=== PATIENT | male | born 1960 | race Caucasian/White ===

== ENCOUNTER 2016-08-06 15:42 | Outpatient (CLI) | payer MEDICARE | END 2016-08-06 15:43 | disposition home or self-care (01) | DX: Z12.2 Encounter for screening for malignant neoplasm of respiratory organs (principal); F17.210 Nicotine dependence, cigarettes, uncomplicated; J43.9 Emphysema, unspecified ==

== ENCOUNTER 2016-09-09 09:09 | Outpatient (CLI) | payer MEDICARE ==
[2016-09-09 09:52] LABS: BASOPHILS % (AUTO) 0.2 %; EOSINOPHILS # (AUTO) 0.1 10^3/uL (0.0-0.7); EOSINOPHILS % (AUTO) 0.8 %; HCT - HEMATOCRIT 41.5 % (42.0-52.0); LYMPHOCYTES # (AUTO) 2.3 10^3/uL (1.5-3.5); LYMPHOCYTES % (AUTO) 30.6 %; MEAN CORPUSCULAR HGB CONC 33.8 g/dL (32.0-36.0); MEAN CORPUSCULAR VOLUME 94.6 fL (80.0-94.0); MEAN PLATELET VOLUME 7.8 fL (7.4-11.4); MONOCYTES # (AUTO) 0.8 10^3/uL (0.0-1.0); MONOCYTES % (AUTO) 11.1 %; NEUTROPHILS # (AUTO) 4.3 10^3/uL (1.5-6.6); NEUTROPHILS % (AUTO) 57.3 %; NUCLEATED RED BLOOD CELLS AUTO 0.1 /100WBC; RED BLOOD COUNT 4.39 10^6/uL (4.70-6.10); RED CELL DISTRIBUTION WIDTH 15.3 % (12.0-15.0); UNCORRECTED WHITE BLOOD COUNT 7.5 x10^3/uL; WHITE BLOOD COUNT 7.5 x10^3/uL (4.8-10.8)
[2016-09-09 10:01] LABS: ALBUMIN/GLOBULIN RATIO 1.1 (1.0-2.2); BILIRUBIN,TOTAL 0.8 mg/dL (0.2-1.0); BUN - BLOOD UREA NITROGEN 17 mg/dL (6-20); CALCIUM 9.3 mg/dL (8.5-10.3); CARBON DIOXIDE - CO2 30 mmol/L (21-32); CHLORIDE 102 mmol/L (101-111); CHOLESTEROL 197 mg/dL; CREATININE 0.8 mg/dL (0.6-1.2); GFR - MDRD 100 (>89); GLUCOSE 114 mg/dL (70-100); HDL CHOLESTEROL 65 mg/dL; LDL/HDL RATIO 1.8 (<3.6); POTASSIUM 4.4 mmol/L (3.5-5.0); SODIUM 139 mmol/L (135-145); TOTAL PROTEIN 7.6 g/dL (6.7-8.2); TRIGLYCERIDES 64 mg/dL; VLDL CHOLESTEROL 13 mg/dL
== END 2016-09-09 09:10 | disposition home or self-care (01) ==
LOC: LAB 09:09
PROVIDERS: ATTEND Nurse Practitioner Family
DX: I10 Essential (primary) hypertension (principal)
CPT/HCPCS: 36415; 80053; 80061; 84443; 85025; G0103; 84153

== ENCOUNTER 2016-09-10 13:07 | Outpatient (CLI) | payer MEDICARE ==
[2016-09-10] MEDS ORDERED: GADOBUTROL 7.5 MMOL/7.5 ML VIAL IVP ONE (14:05)
--- NOTE | 2016-09-10 17:10 | MRI Report ---
EXAM: MRI LUMBAR SPINE WITHOUT AND WITH CONTRAST EXAM DATE: 09/10/2016 02:10 PM. CLINICAL HISTORY: BACK PAIN. COMPARISONS: MRI lumbar spine 08/28/2012 TECHNIQUE: Multiplanar, multisequence T1-weighted and fluid-sensitive sequences of the lumbar spine f rom T12 to S1 before and after administration of intravenous contrast. IV contrast: 7 mL Gadavist FINDINGS: Spinal Cord: The conus terminates at L1. No signal abnormality in the visualized spinal cord. Alignment: There is rotatory S-shaped thoracolumbar scoliosis with lower thoracic levoscoliosis and l umbar dextroscoliosis. The gallbladder angle for the lower thoracic/upper lumbar levoscoliosis measur es 23 degrees and the Lopez angle for the lower lumbar dextroscoliosis measures 12 degrees. No signifi cant anterolisthesis or retrolisthesis on the sagittal images. Bone Marrow: Five [id number] lumbar vertebral bodies are assumed. The bone marrow is diffusely h eterogeneous, likely representing fatty replacement of the marrow. No gross fractures or bone lesions . Modic type 1/2 degenerative endplate changes at L1-L2, L3-L4, L4-L5 levels with associated endplate edema. On the postcontrast sequences there is mild associated endplate enhancement, which is favored to be degenerative in nature. Bulky multilevel anterior and lateral osteophytosis. Disk Levels/Facets: T12-L1: Extensive disk height loss and desiccation. Moderate right facet arthropathy. No significant central canal narrowing. Moderate to severe right neuroforaminal narrowing. No left neuroforaminal na rrowing. This level appears similar to prior study. L1-L2: Status post interval laminectomy. Severe right and moderate left facet arthropathy. No residua l central canal narrowing, improved since the prior study. Severe right and [id number] left estella roforaminal narrowing. The neuroforaminal narrowing has progressed since the prior study. L2-L3: Extensive disk height loss and desiccation. Status post interval laminectomy. Severe right and moderate to severe left facet arthropathy. The facet arthropathy has progressed since the prior stud y. Mild to moderate residual central canal narrowing, improved since the prior study. Moderate to sev ere bilateral lateral recess narrowing with mass effect on bilateral traversing L3 nerves, progressed significantly since the prior study. Moderate to severe bilateral neuroforaminal narrowing. The neur oforaminal narrowing has progressed. L3-L4: Extensive disk height loss and desiccation. Moderate diffuse disk bulge with superimposed left foraminal/lateral protrusion (series 701 image 16). Moderate bilateral facet arthropathy. The left l ateral protrusion likely has mass effect on the exiting left L3 nerve at this level. Mild central can al narrowing. Moderate to severe bilateral neuroforaminal narrowing. The neuroforaminal narrowing has slightly progressed. Central canal narrowing is similar. L4-L5: Moderate disk height loss and desiccation. Mild to moderate diffuse disk bulge and moderate bi lateral facet arthropathy. No significant central canal narrowing. Moderate to severe bilateral neuro foraminal narrowing. The central canal narrowing is similar to prior study. The neuroforaminal narrow ing has progressed. L5-S1: Moderate bilateral facet arthropathy. No significant central canal or neuroforaminal narrowing . Spinal Canal: No enhancing masses within the spinal canal. No epidural abscess. Musculature: Mild fatty atrophy of the paraspinal musculature. No paraspinal edema or abnormal enhanc ement. Other: The visualized pelvic cavity is unremarkable. IMPRESSION: 1. No MRI evidence of diskitis osteomyelitis or epidural abscess/phlegmon. 2. Moderate to severe multilevel degenerative spondylosis, as detailed above and summarized below. Co mpared to prior study from 08/28/2012, there has been improvement in central canal narrowing at the p ostsurgical L1-L2 and L2-L3 levels, as detailed above. However, overall there has been progression at several levels, as detailed. 3. Rotatory S-shaped thoracolumbar scoliosis with lower thoracic levoscoliosis and lumbar dextroscoli osis. The gallbladder angle for the lower thoracic/upper lumbar levoscoliosis measures 23 degrees and the Lopez angle for the lower lumbar dextroscoliosis measures 12 degrees. No significant anterolisthe sis or retrolisthesis on the sagittal images. 4. Modic type 1/2 degenerative endplate changes at L1-L2, L3-L4, L4-L5 levels with associated endplat e edema. On the postcontrast sequences there is mild associated endplate enhancement, which is favore d to be degenerative in nature. Modic 1 changes may represent a source of pain. 5. T12-L1 level demonstrates no significant central canal narrowing. Moderate to severe right neurofo raminal narrowing. No left neuroforaminal narrowing. This level appears similar to prior study. 6. L1-L2 level demonstrates no residual central canal narrowing, improved since the prior study. Rena re right and [id number] left neuroforaminal narrowing. The neuroforaminal narrowing has progres sed since the prior study. 7. L2-L3 level demonstrates mild to moderate residual central canal narrowing, improved since the sharif or study. Moderate to severe bilateral lateral recess narrowing with mass effect on bilateral lisa ing L3 nerves, progressed significantly since the prior study. Moderate to severe bilateral neurofora josep narrowing. The neuroforaminal narrowing has progressed. 8. At the L3-L4 level, the left lateral protrusion likely has mass effect on the exiting left L3 nerv e at this level. Mild central canal narrowing. Moderate to severe bilateral neuroforaminal narrowing. The neuroforaminal narrowing has slightly progressed. Central canal narrowing is similar. 9. L4-L5 level demonstrates no significant central canal narrowing. Moderate to severe bilateral neur oforaminal narrowing. The central canal narrowing is similar to prior study. The neuroforaminal narro wing has progressed. Comment: The following findings are so common in adults without low back pain that while we report th eir presence, they must be interpreted with caution and in the context of the clinical situation. (Re kane Urias et al, Spine 2001) Prevalence of findings in patients without low back pain: Disk degeneration (any evidence): 92% Disk desiccation/T2 signal loss: 83% Disk height loss: 56% Disk bulge: 64% Disk protrusion: 32% Annular tear/high intensity zone: 38% [facility] Referring Provider Line: [phone] SITE ID: [id number]
== END 2016-09-10 13:08 | disposition home or self-care (01) ==
LOC: DI 13:07
PROVIDERS: ATTEND Nurse Practitioner Family
DX: M51.36 Other intervertebral disc degeneration, lumbar region (principal); M51.35 Other intervertebral disc degeneration, thoracolumbar region; M47.896 Other spondylosis, lumbar region; M51.26 Other intervertebral disc displacement, lumbar region; M41.85 Other forms of scoliosis, thoracolumbar region; M41.84 Other forms of scoliosis, thoracic region; M41.86 Other forms of scoliosis, lumbar region
CPT/HCPCS: 72158; A9585

== ENCOUNTER 2018-02-11 11:50 | Outpatient (CLI) | payer MEDICARE | END 2018-02-11 11:51 | disposition home or self-care (01) | LOC: RT.S 11:50 | PROVIDERS: ATTEND Nurse Practitioner Family | DX: I49.9 Cardiac arrhythmia, unspecified (principal) | CPT/HCPCS: 93005 ==

== ENCOUNTER 2018-03-26 14:09 | Outpatient (CLI) | payer MEDICARE ==
[2018-03-26 14:32] LABS: BASOPHILS % (AUTO) 0.5 %; EOSINOPHILS % (AUTO) 0.7 %; LYMPHOCYTES # (AUTO) 1.9 10^3/uL (1.5-3.5); LYMPHOCYTES % (AUTO) 27.3 %; MEAN CORPUSCULAR HEMOGLOBIN 32.8 pg (27.0-31.0); MEAN CORPUSCULAR HGB CONC 34.1 g/dL (32.0-36.0); MEAN CORPUSCULAR VOLUME 96.1 fL (80.0-94.0); MEAN PLATELET VOLUME 8.3 fL (7.4-11.4); MONOCYTES # (AUTO) 0.8 10^3/uL (0.0-1.0); MONOCYTES % (AUTO) 11.8 %; NEUTROPHILS # (AUTO) 4.2 10^3/uL (1.5-6.6); NEUTROPHILS % (AUTO) 59.7 %; PLT - PLATELET COUNT 223 10^3/uL (130-450); RED BLOOD COUNT 4.26 10^6/uL (4.70-6.10); RED CELL DISTRIBUTION WIDTH 15.5 % (12.0-15.0)
[2018-03-26 14:42] LABS: ALBUMIN 4.3 g/dL (3.2-5.5); ALBUMIN/GLOBULIN RATIO 1.1 (1.0-2.2); ALKALINE PHOSPHATASE 77 IU/L (42-121); ALT ALANINE AMINOTRANSFERASE 64 IU/L (10-60); AST ASPARTATE AMINOTRANSFERASE 78 IU/L (10-42); BILIRUBIN,TOTAL 0.8 mg/dL (0.2-1.0); BUN - BLOOD UREA NITROGEN 13 mg/dL (6-20); CALCIUM 9.4 mg/dL (8.5-10.3); CARBON DIOXIDE - CO2 28 mmol/L (21-32); CHLORIDE 99 mmol/L (101-111); CHOL/HDL RATIO 1.9 (<5.0); CHOLESTEROL 182 mg/dL; CREATININE 0.6 mg/dL (0.6-1.2); GFR - MDRD 138 (>89); GLUCOSE 96 mg/dL (70-100); HDL CHOLESTEROL 98 mg/dL; LDL CHOLESTEROL,CALCULATED 74 mg/dL; LDL/HDL RATIO 0.8 (<3.6); SODIUM 137 mmol/L (135-145); TOTAL PROTEIN 8.3 g/dL (6.7-8.2); VLDL CHOLESTEROL 10 mg/dL
== END 2018-03-26 14:10 | disposition home or self-care (01) ==
LOC: LAB 14:09
PROVIDERS: ATTEND Nurse Practitioner Family
DX: Z13.0 Encounter for screening for diseases of the blood and blood-forming organs and certain disorders involving the immune mechanism (principal); Z12.5 Encounter for screening for malignant neoplasm of prostate; Z13.6 Encounter for screening for cardiovascular disorders; I10 Essential (primary) hypertension
CPT/HCPCS: 36415; 80053; 80061; 84443; 85025; G0103; 83721; 84153

== ENCOUNTER 2018-05-17 10:52 | Inpatient (IN) | payer MEDICARE ==
--- NOTE | 2018-05-17 10:57 | ED Physician Documentation ---
PD HPI URI - Stated complaint Stated Complaint: DIFF BREATHING - History obtained from History obtained from: Patient - History of Present Illness Timing - onset: How many days ago (several days) Timing details: Gradual onset (He has had several days to week of cough and congestion with some greenish sputum initially which and that has become more clear. He has had progressive dyspnea and wheezing over the last several days. He has a left-sided chest pain with deep breathing and coughing. He has not had any vomiting or diarrhea. He states he does have history of COPD but does not use any regular medicines at home. He has an albuterol inhaler to use as needed. He had been using that frequently over the last couple of days without much improvement.), Still present Associated symptoms: Fever, Chills, Productive cough, Chest pain (left side), Dyspnea. No: NVD, Bilateral edema Contributing factors: COPD / asthma. No: Sick contact Improves by: Rest. No: MDI/nebulizer Worsened by: Activity, Other (cough) Similar symptoms before: Diagnosis (pneumonia several years ago) Recently seen: Not recently seen Review of Systems Constitutional: reports: Fever, Chills Nose: reports: Congestion. denies: Rhinorrhea / runny nose Throat: denies: Sore throat Cardiac: reports: Chest pain / pressure. denies: Palpitations, Pedal edema, Calf pain Respiratory: reports: Dyspnea, Cough, Wheezing. denies: Hemoptysis GI: denies: Abdominal Pain, Nausea, Vomiting, Diarrhea Skin: denies: Rash, Lesions Musculoskeletal: denies: Extremity swelling Neurologic: reports: Generalized weakness. denies: Focal weakness, Numbness, Near syncope PD PAST MEDICAL HISTORY - Past Medical History Cardiovascular: Hypertension Respiratory: COPD Musculoskeletal: Chronic back pain - Past Surgical History Past Surgical History: Yes Ortho: Spine surgery - Present Medications Home Medications: Ambulatory Orders Medication Instructions Recorded Confirmed Oxycodone HCl/Acetaminophen 1 - 2 each PO Q6HR PRN #30 tablet 12/10/13 [Percocet 5-325 mg Tablet] Tiotropium [place] [Spiriva] 18 mcg 12/10/13 12/10/13 - Allergies Allergies/Adverse Reactions: Allergies Allergy/AdvReac Type Severity Reaction Status Date / Time lisinopril Allergy Severe soa/coma? Verified 10/03/12 09:56 - Living Situation Living Situation: reports: Alone Living Arrangement: reports: At home - Social History Does the pt smoke?: Yes Smoking Status: Current every day smoker Does the pt drink ETOH?: Yes Does the pt have substance abuse?: Yes - Immunizations Immunizations are current?: No PD ED PE NORMAL - Vitals Vital signs reviewed: Yes - General General: Alert and oriented X 3, Well developed/nourished, Other (He is demonstrating work of breathing with pursed lip breathing initially and prolonged expiratory phase. He is able to speak in partial sentences.) - HEENT HEENT: Ears normal, Moist mucous membranes, Pharynx benign - Neck Neck: Supple, no meningeal sign, No adenopathy, No JVD - Cardiac Cardiac: RRR, No murmur - Respiratory Respiratory: No: Clear bilaterally (diffuse wheezing and diminished sounds left base. ) - Abdomen Abdomen: Normal bowel sounds, Soft, Non tender - Derm Derm: Normal color - Extremities Extremities: No tenderness to palpate, Normal ROM s pain, No edema, No calf tenderness / cord - Neuro Neuro: Alert and oriented X 3, No motor deficit, Normal speech Eye Opening: Spontaneous Motor: Obeys Commands Verbal: Oriented GCS Score: 15 Results - Vitals Vitals: Vital Signs - 24 hr 05/17/18 05/17/18 05/17/18 10:55 11:08 11:30 Temperature 36.3 C L Heart Rate 96 93 84 Respiratory 26 H 28 H 28 H Rate Blood Pressure 148/91 H 148/80 H O2 Saturation 95 05/17/18 05/17/18 05/17/18 13:00 13:24 13:40 Temperature Heart Rate 96 93 Respiratory 30 H 22 Rate Blood Pressure 105/76 O2 Saturation 93 Oxygen O2 Source Nasal cannula - Labs Labs: Laboratory Tests 05/17/18 05/17/18 05/17/18 11:18 11:18 11:18 WBC 7.0 RBC 4.50 L Hgb 15.0 Hct 44.0 MCV 97.6 H MCH 33.3 H MCHC 34.1 RDW 15.4 H Plt Count 307 MPV 8.3 Neut # (Auto) 3.7 Lymph # (Auto) 2.0 [place] # (Auto) 1.2 H Eos # (Auto) 0.0 Baso # (Auto) 0.0 Absolute Nucleated RBC 0.01 Nucleated RBC % 0.1 Manual Slide Review Indicated Platelet Morphology RARE GIANT PLATELETS Sodium 138 Potassium 4.2 Chloride 99 L Carbon Dioxide 24 Anion Gap 15.0 H BUN 9 Creatinine 0.6 Estimated GFR (MDRD) 138 Glucose 117 H Lactic Acid Calcium 9.5 Magnesium 2.1 Total Bilirubin 0.6 AST 42 ALT 35 Alkaline Phosphatase 81 Troponin I < 0.04 B-Natriuretic Peptide Total Protein 8.5 H Albumin 4.1 Globulin 4.4 H Albumin/Globulin Ratio 0.9 L Lipase 30 Ethyl Alcohol 05/17/18 05/17/18 05/17/18 11:18 11:18 11:19 WBC RBC Hgb Hct MCV MCH MCHC RDW Plt Count MPV Neut # (Auto) Lymph # (Auto) [place] # (Auto) Eos # (Auto) Baso # (Auto) Absolute Nucleated RBC Nucleated RBC % Manual Slide Review Platelet Morphology Sodium Potassium Chloride Carbon Dioxide Anion Gap BUN Creatinine Estimated GFR (MDRD) Glucose Lactic Acid 1.7 Calcium Magnesium Total Bilirubin AST ALT Alkaline Phosphatase Troponin I B-Natriuretic Peptide 87 Total Protein Albumin Globulin Albumin/Globulin Ratio Lipase Ethyl Alcohol 185.4 - Rads (name of study) chest xray Radiology: Prelim report reviewed (bibasilar opacities - atelectasis vs infiltrates) PD MEDICAL DECISION MAKING - ED course Complexity details: re-evaluated patient (His oxygenation with improved breathing and less pain is actually down to 93% on nasal cannula. He is having much less work of breathing however. He is still attentive and interacting well.), considered differential (He has since stepwise improvement with several nebulizer treatments. However he is still having some work of breathing and wheezing. He does not look to be near respiratory failure. He is awake and conversant. I think he will need further treatment beyond the emergency department phase in order to get improved well enough. I will talk with the hospitalist. He does have improvement in his cough and breathing with treatments. His chest x-ray shows some bibasilar opacities that could be early infiltrates. Clinically he acts like pneumonia with a COPD exacerbation. I presume his left-sided chest pain is pleuritic pleuritic pleurisy as there is no signs of pneumothorax or effusion. He is feeling better with regard to that pain after some IV morphine. He was given antibiotics for presumed bacterial bronchitis or pneumonia.), d/w patient Departure - Departure Disposition: [facility] DC/Xfer
[2018-05-17] MEDS ORDERED: IPRATROPIUM/ALBUTEROL 3 ML NEB INH STA ×2 (11:02→11:48)
[2018-05-17] MEDS ORDERED: IPRATROPIUM/ALBUTEROL 3 ML NEB INH ONE ×2 (11:02→11:43)
[2018-05-17] MEDS ORDERED: MORPHINE 10 MG/ML VIAL IVP STA ×2 (11:12→12:22)
[2018-05-17] MEDS ORDERED: SODIUM CHLORIDE 0.9% 1,000 ML IV ONE (11:12)
[2018-05-17] MEDS ORDERED: KETOROLAC 15 MG/ML VIAL IVP STA (11:13)
[2018-05-17] MEDS ORDERED: DEXAMETHASONE 10 MG/ML VIAL IVP STA (11:13)
[2018-05-17 11:30] LABS: BASOPHILS % (AUTO) 0.4 %; EOSINOPHILS % (AUTO) 0.3 %; LYMPHOCYTES % (AUTO) 28.1 %; MEAN CORPUSCULAR HEMOGLOBIN 33.3 pg (27.0-31.0); MEAN CORPUSCULAR HGB CONC 34.1 g/dL (32.0-36.0); MEAN CORPUSCULAR VOLUME 97.6 fL (80.0-94.0); MEAN PLATELET VOLUME 8.3 fL (7.4-11.4); MONOCYTES # (AUTO) 1.2 10^3/uL (0.0-1.0); MONOCYTES % (AUTO) 17.7 %; NEUTROPHILS # (AUTO) 3.7 10^3/uL (1.5-6.6); NEUTROPHILS % (AUTO) 53.5 %; PLT - PLATELET COUNT 307 10^3/uL (130-450); RED CELL DISTRIBUTION WIDTH 15.4 % (12.0-15.0)
[2018-05-17 11:37] LABS: ALBUMIN 4.1 g/dL (3.2-5.5); ALBUMIN/GLOBULIN RATIO 0.9 (1.0-2.2); BILIRUBIN,TOTAL 0.6 mg/dL (0.2-1.0); CALCIUM 9.5 mg/dL (8.5-10.3); CREATININE 0.6 mg/dL (0.6-1.2); MAGNESIUM 2.1 mg/dL (1.7-2.8); TOTAL PROTEIN 8.5 g/dL (6.7-8.2)
[2018-05-17 11:48] LABS: PLATELET MORPHOLOGY RARE GIANT PLATELETS (NORMAL)
--- NOTE | 2018-05-17 12:07 | XRAY Report ---
Reason: chest pain Procedure Date: 05/17/2018 Accession Number: [id number] / [id number] Procedure: XR - Chest 1 View X-Ray CPT Code: 31726 FULL RESULT: EXAM: CHEST RADIOGRAPHY EXAM DATE: 05/17/2018 11:38 AM. CLINICAL HISTORY: Chest pain. COMPARISON: CHEST 2 VIEW PA/LAT 03/11/2014 10:24 AM. TECHNIQUE: 1 view. FINDINGS: Lungs/Pleura: Lung volumes are low. Right greater than left lower lung opacities. No pneumothorax. Mediastinum: Heart size and mediastinal contour are stable. Other: Healed right-sided rib fractures. Degenerative changes of both shoulders. IMPRESSION: 1. Hypoventilatory changes with right greater than left bibasilar consolidation/atelectasis. [facility]
[2018-05-17] MEDS ORDERED: cefTRIAXone 1 GM VIAL IVP STA (12:22)
[2018-05-17] MEDS ORDERED: ALBUTEROL NEB 2.5 MG/3 ML INH STA (12:22)
[2018-05-17] MEDS ORDERED: AZITHROMYCIN INJ 500 MG in SODIUM CHLORIDE 0.9% 250 ML IV STA (12:23)
[2018-05-17] MEDS ORDERED: AZITHROMYCIN INJ 500 MG in SODIUM CHLORIDE 0.9% 250 ML IV SCH (14:03)
[2018-05-17] MEDS ORDERED: ALBUTEROL NEB 2.5 MG/3 ML INH PRN (14:21)
[2018-05-17] MEDS ORDERED: ONDANSETRON 4 MG/2 ML VIAL IVP PRN (14:27)
[2018-05-17] MEDS ORDERED: MORPHINE 2 MG/ML CARPUJECT IVP PRN (14:27)
[2018-05-17] MEDS ORDERED: LORazepam 2 MG/ML VIAL IVP PRN (14:42)
[2018-05-17] MEDS ORDERED: SODIUM CHLORIDE 0.9% 1,000 ML IV SCH (15:00)
--- NOTE | 2018-05-17 15:08 | HISTORY & PHYSICAL EXAMINATION ---
Chief Complaint - Chief Complaint Chief Complaint: cough, and SOB History of Present Illness - History of Present Illness HPI Comment/Other: Mr. Samuel is a 57-yrs-old male with a PMH significant for chronic alcoholic abuse, current cigarette smoker, HTN, COPD, who present ER complain of cough, congestion and shortness of breath. Pt report he had several days of congestion and cough with some greenish sputum initially, then it become more clear now. He report he did not feel to have fever, but he feel chill and cold. He report he has been progressive dyspnea and wheezing over the last several days as well. He report he has a left-sided chest pain when he had deep breathing and coughing. He report he had hx of COPD and he still smokes cigarette half pack per day now. He also report he almost drink alcohol daily and today he drink alcohol before he went to ER. He state he had an albuterol inhaler to use as needed. He report he has been using inhaler much more frequently over the last couple of days but without much improvement. Pt denies headache, fever, abdominal, nausea, vomiting, diarrhea, vision change, focus neurological defici ts. His troponin test is less 0.04. WBC is 7. Alcohol level is 185. Pt is afebrile at ER. 92% sats is at 2 liter of O2, RR is 22, otherwise he is hemodynamic stable. History - Past Medical History Cardiovascular: reports: Hypertension Respiratory: reports: COPD Musculoskeletal: reports: Chronic back pain - Past Surgical History Ortho: reports: Spine surgery - Family & Social History Family History: Mother: , Cancer, Father: , CAD, COPD/Emphysema Family History Comment/Other: pt report his on last year, he is living alone, and his sister is living close to him. He had four children but is far away from him. Living arrangement: At home Living Situation: Alone Social History Notes: he admitted half pack cigarette daily and daily alcohol, denies drug issue. - POLST POLST Status: Full Code Meds/Allgy - Home Medications Home Medications: Ambulatory Orders Medication Instructions Recorded Confirmed Albuterol Sulfate [Proair Hfa 2 puffs INH QID PRN 05/17/18 05/17/18 Inhaler] amLODIPine [Norvasc] 5 mg PO DAILY 05/17/18 05/17/18 - Allergies Allergies/Adverse Reactions: Allergies Allergy/AdvReac Type Severity Reaction Status Date / Time lisinopril Allergy Severe ANAPHALACTI Verified 05/17/18 15:12 C/ARREST Review of Systems - Constitutional Constitutional: reports: Chills. denies: Fatigue, Fever, Malaise, Weakness, Poor appetite, Diaphoresis, Night sweats - Eyes Eyes: denies: Pain, Irritation, Amaurosis, Blurred vision, Spots in vision, Field loss, Dipolpia - Ears, Nose & Throat Ears, Nose & Throat: reports: Nasal congestion. denies: Ear pain, Hearing loss, Hearing aids, Tinnitus, Vertigo, Nasal pain, Nasal discharge, Nosebleeds, Nasal obstruction, Postnasal drainage, Dentures, Sore throat, Hoarseness, Mouth lesions, Bleeding gums - Cardiovascular Cariovascular: denies: Irregular heart rate, Palpitations, Chest pain, Edema, Lightheadedness, Syncope, Exertional dyspnea, Decr. exercise tolerance - Respiratory Respiratory: reports: Cough, Sputum production, SOB at rest, SOB with exertion, Apnea. denies: Wheezing, Snoring, Hemoptysis, Orthopnea, Stridor, Pleuritic pain - Gastrointestinal Gastrointestinal: denies: Abdominal pain, Abdominal distention, Constipation, Diarrhea, Change in bowel habits, Rectal bleeding, Black stools, Bloody stools, Nausea, Vomiting, Bile emesis, Coffee grounds emesis, Reflux/heartburn - Genitourinary Genitourinary: denies: Dysuria, Frequency, Urgency, Hematuria, Incontinence, Flank pain, Nocturia, Urethral discharge - Musculoskeletal Musculoskeletal: denies: Muscle pain, Back pain, Muscle aches, Stiffness, Limited range of motion, Muscle weakness, Gout, Joint pain, Joint swelling - Integumentary Integumentary: denies: Rash, Pruritis, Lesions, Dryness, Lumps, Acne, Pigment changes - Neurological Neurological: denies: General weakness, Focal weakness, Headache, Dizziness, Numbness, Pre-existing deficit, Abnormal gait, Seizures, Incoordination, Slurred speech - Psychiatric Psychiatric: denies: Depression, Anxiety, Suicidal, Delusions, Hallucinations, Homicidal - Endocrine Endocrine: denies: Polyuria, Polydypsia, Polyphagia, Intolerance to cold - Hematologic/Lymphatic Hematologic/Lymphatic: denies: Anemia, Bruising, Petechiae, Blood clots, Lymphadenopathy, Bleeding tendencies Prior Level of Functionality: pt is living alone and independent. Exam - Vital Signs Reviewed Vital Signs: Yes Vital Signs: Vital Signs x48h Temp Pulse Resp BP Pulse Ox 05/17/18 14:32 95 22 114/86 H 92 05/17/18 14:04 86 17 113/91 H 92 05/17/18 13:40 93 05/17/18 13:24 93 22 105/76 05/17/18 13:00 96 30 H 05/17/18 12:15 34 H 92 05/17/18 12:00 101 H 34 H 101/80 87 L 05/17/18 11:30 84 28 H 148/80 H 05/17/18 11:08 93 28 H 05/17/18 10:55 36.3 C L 96 26 H 148/91 H 95 - Physical Exam General Appearance: positive: No acute distress, Alert. negative: Lethargic Eyes Bilateral: positive: Normal inspection, PERRL, No lid inflammation, Conjunctivae nml ENT: positive: ENT inspection nml, Pharynx nml, No signs of dehydration. negative: Purulent nasal drainage, Pharyngeal erythema, Oral lesions Neck: positive: Nml inspection, Thyroid nml, No JVD, Trachea midline. negative: Thyromegaly, Lymphadenopathy (R), Lymphadenopathy (L), Stiff neck, Swelling/bruising, Tracheal deviation Respiratory: positive: Chest non-tender, No respiratory distress. negative: Wheezes, Rales, Rhonchi Cardiovascular: positive: Regular rate & rhythm, No murmur, No gallop, Tachycardia. negative: Irregularly irregular, Extrasystoles, Bradycardia, JVD present, Systolic murmur, Diastolic murmur Peripheral Pulses: positive: 2+ Abdomen: positive: Non-tender, No organomegaly, Nml bowel sounds, No distention. negative: Tenderness, Guarding, Rebound Back: positive: Nml inspection. negative: CVA tenderness (R), CVA tenderness (L) Skin: positive: Color nml, No rash, Warm, Dry. negative: Cyanosis, Diaphoresis, Pallor Extremities: positive: Non-tender, Full ROM, Nml appearance. negative: Calf tenderness, Joint swelling, Amor's sign/cords Neurologic/Psychiatric: positive: Oriented x3, Sensation nml, Mood/affect nml. negative: Weakness, Sensory loss, Facial droop, Slurred/abnml speech, Depressed mood/affect Sepsis Event Note (H) - Evaluation Current Stage of Sepsis: Ruled out Conclusion/Plan - Problem List (1) Basal pneumonia of both lungs Conclusion/Plan: pt present cough, congestion, SOB, CXR reveals basal pneumonia treat with antibiotics, Azithromycin and Rocephin breath treatment as needed supplement of O2 as needed (2) Acute exacerbation of COPD with asthma Conclusion/Plan: pt present cough, SOB, hx of COPD, current smoker treat with Duoneb, Albuterol PRN Solu-metrol 30mg tid, will wane and titrate O2 supplement as needed (3) Chest pain, pleuritic Conclusion/Plan: troponin test is negative, EKG is unremarkable, When pt deepen breathing and cough, present sharp left chest. it appear atypical chest pain, with Pleuritic start with Solu-metrol already, Ibuprofen PRN tele monitor, closely monitor pt. (4) Alcoholism /alcohol abuse Conclusion/Plan: pt has hx of alcohol abuse. today Alcohol level has 185 start CIWA protocol Ativan PRN order vit, and B1 advise pt quit alcoholism (5) Currently smokes tobacco Conclusion/Plan: pt report he still smoke cigarette half pack per day. Pt decline to have nicotine Patch advise pt quit cigarette smoking, pt already has COPD (6) HTN (hypertension) Conclusion/Plan: stable, will reconcile home Norvasc (7) Full code status Conclusion/Plan: pt request full code - Lab Results Fish Bones: 05/17/18 11:18 05/17/18 11:18 Core Measures - Anticipated LOS I expect patient to be DC'd or transferred within 96 hours.: Yes - DVT/VTE - Prophylaxis VTE/DVT Device ordered at admit?: Yes VTE/DVT Prophylaxis med ordered at admit?: Yes
[2018-05-17 15:51] LABS: ABG PCO2 38 mmHg (34-45); ABG PH 7.38 (7.35-7.45); ABG PO2 66 mmHg (80-100)
[2018-05-17 15:52] LABS: ABG BASE EXCESS -2.7 mmol/L (-2.0-3.0); ABG OXYGEN SATURATION 92 % (94-98); ABG TCO2 23.1 MMOL/L (21.0-29.0); ALLEN TEST POSITIVE
[2018-05-17] MEDS: SODIUM CHLORIDE FLUSH 0.9% 10 ML SYRINGE IVP SCH (16:20)
[2018-05-17] MEDS: methylPREDNISolone SUCCINATE 40 MG/ML VIAL IVP SCH ×2 (16:20→22:25)
[2018-05-17] MEDS: IPRATROPIUM/ALBUTEROL 3 ML NEB INH PRN ×2 (16:23→20:30)
[2018-05-17] MEDS: FAMOTIDINE 20 MG TABLET PO SCH (20:18)
[2018-05-17] MEDS: IBUPROFEN 400 MG TABLET PO PRN (20:18)
[2018-05-17] MEDS: guaiFENesin 600 MG TABLET PO SCH (20:18)
[2018-05-17] MEDS: ZOLPIDEM 5 MG TABLET PO PRN (22:25)
[2018-05-17] MEDS: SODIUM CHLORIDE FLUSH 0.9% 10 ML SYRINGE IVP PRN (22:26)
[2018-05-18] MEDS: SODIUM CHLORIDE FLUSH 0.9% 10 ML SYRINGE IVP SCH ×3 (01:17→17:28)
[2018-05-18 05:41] LABS: CALCIUM 8.5 mg/dL (8.5-10.3); CREATININE 0.5 mg/dL (0.6-1.2)
[2018-05-18 05:50] LABS: BASOPHILS % (AUTO) 0.1 %; HGB - HEMOGLOBIN 12.7 g/dL (14.0-18.0); LYMPHOCYTES # (AUTO) 0.4 10^3/uL (1.5-3.5); LYMPHOCYTES % (AUTO) 9.1 %; MEAN CORPUSCULAR HEMOGLOBIN 32.8 pg (27.0-31.0); MEAN CORPUSCULAR HGB CONC 32.6 g/dL (32.0-36.0); MEAN CORPUSCULAR VOLUME 100.6 fL (80.0-94.0); MEAN PLATELET VOLUME 8.4 fL (7.4-11.4); MONOCYTES # (AUTO) 0.1 10^3/uL (0.0-1.0); MONOCYTES % (AUTO) 1.7 %; NEUTROPHILS # (AUTO) 3.9 10^3/uL (1.5-6.6); NEUTROPHILS % (AUTO) 89.1 %; PLT - PLATELET COUNT 240 10^3/uL (130-450); RED BLOOD COUNT 3.88 10^6/uL (4.70-6.10); WHITE BLOOD COUNT 4.4 x10^3/uL (4.8-10.8)
[2018-05-18] MEDS: IBUPROFEN 400 MG TABLET PO PRN ×2 (06:29→20:26)
[2018-05-18] MEDS: methylPREDNISolone SUCCINATE 40 MG/ML VIAL IVP SCH (06:29)
[2018-05-18] MEDS: SODIUM CHLORIDE FLUSH 0.9% 10 ML SYRINGE IVP PRN (06:31)
[2018-05-18 06:34] LABS: PLATELET ESTIMATE, MANUAL NORMAL (130-450,000) (NORMAL); PLATELET MORPHOLOGY 1+ LARGE PLATELETS (NORMAL); RBC MORPHOLOGY (MULTIPLE) 1+ MACROCYTOSIS (NORMAL)
[2018-05-18] MEDS: IPRATROPIUM/ALBUTEROL 3 ML NEB INH PRN (07:26)
[2018-05-18] MEDS: ACETAMINOPHEN 325 MG TABLET PO PRN (08:08)
[2018-05-18] MEDS: PRENATAL VITAMIN TABLET PO SCH (08:31)
[2018-05-18] MEDS: cefTRIAXone 1 GM in SODIUM CHLORIDE 0.9% MINIBAG 100 ML IV SCH (08:31)
[2018-05-18] MEDS: guaiFENesin 600 MG TABLET PO SCH ×2 (08:31→20:26)
[2018-05-18] MEDS: amLODIPine 5 MG TABLET PO SCH (08:32)
[2018-05-18] MEDS: THIAMINE 100 MG TABLET PO SCH (08:32)
[2018-05-18] MEDS: FAMOTIDINE 20 MG TABLET PO SCH ×2 (08:32→20:26)
[2018-05-18] MEDS: POLYETHYLENE GLYCOL 3350 17 GM PACKET PO SCH (08:37)
[2018-05-18] MEDS: ENOXAPARIN 40 MG/0.4 ML SYRINGE SUBQ SCH (08:38)
[2018-05-18] MEDS ORDERED: IOVERSOL 320 100 ML VIAL IVP ONE ×2 (09:00→14:30)
[2018-05-18] MEDS ORDERED: cefTRIAXone 1 GM VIAL IVP SCH (09:00)
[2018-05-18] MEDS: AZITHROMYCIN INJ 500 MG in SODIUM CHLORIDE 0.9% 250 ML IV SCH (09:21)
[2018-05-18 09:36] LABS: ABG OXYGEN SATURATION 95 % (94-98); ABG PCO2 33 mmHg (34-45); ABG PH 7.47 (7.35-7.45); ABG PO2 74 mmHg (80-100)
[2018-05-18 09:37] LABS: ALLEN TEST POSITIVE
--- NOTE | 2018-05-18 10:42 | CT Report ---
Reason: SOB, PE Procedure Date: 05/18/2018 Accession Number: [id number] / [id number] Procedure: CT - ANGIO CHEST W/WO CPT Code: FULL RESULT: EXAM: CT ANGIOGRAM CHEST EXAM DATE: 05/18/2018 10:18 AM. CLINICAL HISTORY: Shortness of breath, question PE. COMPARISON: CHEST SCREEN CT LOW DOSE W/O 08/06/2016 3:56 PM CHEST 1 VIEW 05/17/2018 11:27 AM. TECHNIQUE: Routine helical imaging was performed through the chest in the pulmonary arterial phase. IV Contrast: 80 cc Optiray 320. Reconstructions: Coronal, sagittal, and axial 3-D MIP reconstructions.Sagittal and coronal. In accordance with CT protocol optimization, one or more of the following dose reduction techniques were utilized for this exam: automated exposure control, adjustment of mA and/or KV based on patient size, or use of iterative reconstructive technique. FINDINGS: Pulmonary Arteries: Diagnostic quality: Adequate through the segmental arteries. No evidence for acute or chronic pulmonary emboli. RV/LV is within normal limits. There is no interventricular septal bowing. There is no reflux of contrast material in the IVC. Lungs/Pleura: There is extensive bilateral centrilobular emphysema, most advanced at the right lung apex, similar to prior. There is mild asymmetric elevation of the left hemidiaphragm. There is dense consolidation at the base of the left lower lobe with mild volume loss. A small left pleural effusion is present. There is mild dependent atelectasis at the right lung base. No right pleural effusion. No pneumothorax. No nodules or edema. Mediastinum: Normal. No cardiac enlargement or adenopathy. Thoracic Aorta: There is minimal atherosclerotic calcification of the aortic arch. No thoracic aortic aneurysm. There is minimal contrast within the proximal thoracic aorta, limiting evaluation for dissection. Upper Abdomen: Unremarkable. Other: There are healing fractures of the right lateral fourth and fifth ribs (series 5, images 42 and 57), which are new compared to 08/06/2016. There are moderate to severe degenerative disk changes of the thoracic spine, similar to prior. Old healed fracture deformity of the inferior margin of the sternum appears unchanged compared to prior. IMPRESSION: 1. No pulmonary emboli identified. 2. Mild asymmetric elevation of the left hemidiaphragm. There is dense consolidation and mild volume loss at the base of the left lower lobe adjacent to the diaphragm. This most likely represents compressive atelectasis, but pneumonia cannot be excluded. There is a small left pleural effusion. 3. Extensive centrilobular edema most advanced at the right lung apex, similar to prior. 4. Healing right lateral fourth and fifth rib fractures, as seen on the recent chest radiograph. [facility]
--- NOTE | 2018-05-18 10:44 | PROVIDER PROGRESS NOTE ---
Subjective - Prog Note Date Prog Note Date: 05/18/18 - Subjective Pt reports feeling: No change Subjective: pt still present SOB and left back pain when he has deepen breath but pt denies fever,chill. Will order CTA to r/o PE, and will order ABGs to monitor pt's respiratory status. Current Medications - Current Medications Current Medications: Active Medications Acetaminophen (Tylenol) 650 mg PO Q4HR PRN PRN Reason: Pain 1 to 4 Last Admin: 05/18/18 08:08 Dose: 650 mg Albuterol () 2.5 mg INH RTQ4H PRN PRN Reason: Wheezing Albuterol/Ipratropium (Duoneb) 3 ml INH Q4HR PRN PRN Reason: Wheezing Last Admin: 05/18/18 07:26 Dose: 3 ml Amlodipine Besylate (Norvasc) 5 mg PO DAILY [facility] Last Admin: 05/18/18 08:32 Dose: 5 mg Enoxaparin Sodium (Lovenox) 40 mg SUBQ DAILY [facility] Last Admin: 05/18/18 08:38 Dose: 40 mg Famotidine (Pepcid) 20 mg PO BID [facility] Last Admin: 05/18/18 08:32 Dose: 20 mg Guaifenesin (Mucinex) 600 mg PO BID [facility] Last Admin: 05/18/18 08:31 Dose: 600 mg Ceftriaxone Sodium 1 gm/ (Sodium Chloride) 100 mls @ 200 mls/hr IV DAILY [facility] Last Infusion: 05/18/18 09:15 Dose: Infused Azithromycin 500 mg/ Sodium (Chloride) 250 mls @ 250 mls/hr IV DAILY@1000 [facility] Last Infusion: 05/18/18 10:35 Dose: Infused Ibuprofen (Motrin) 400 mg PO Q6HR PRN PRN Reason: PAIN Last Admin: 05/18/18 06:29 Dose: 400 mg Lorazepam (Ativan Inj (Vial)) 1 mg IVP Q30M PRN; Protocol PRN Reason: CIWA >8 Methylprednisolone (Solu-Medrol (40mg Vial)) 30 mg IVP TID [facility] Last Admin: 05/18/18 06:29 Dose: 30 mg Morphine Sulfate (Morphine (Carpuject)) 2 mg IVP Q2HR PRN PRN Reason: Pain 8 to 10 Morphine Sulfate (Roxanol) 5 mg PO Q4HR PRN PRN Reason: PAIN Ondansetron HCl (Zofran Inj) 4 mg IVP Q6HR PRN PRN Reason: Nausea / Vomiting Polyethylene Glycol (Miralax) 17 gm PO DAILY [facility] Last Admin: 05/18/18 08:37 Dose: 17 gm Multivit/Folic Acid/Iron (Trinatal Rx 1) 1 tab PO DAILY [facility] Last Admin: 05/18/18 08:31 Dose: 1 tab Sodium Chloride (Normal Saline Flush 0.9%) 10 ml IVP PRN PRN PRN Reason: NEEDED PER PROVIDER ORDERS Last Admin: 05/18/18 06:31 Dose: 10 ml Sodium Chloride (Normal Saline Flush 0.9%) 10 ml IVP 0100,0900,1700 [facility] Last Admin: 05/18/18 08:37 Dose: 10 ml Thiamine HCl (Vitamin B-1) 100 mg PO DAILY [facility] Last Admin: 05/18/18 08:32 Dose: 100 mg Zolpidem Tartrate (Ambien) 5 mg PO QPM PRN PRN Reason: Insomnia Last Admin: 05/17/18 22:25 Dose: 5 mg Albuterol Sulfate [Proair Hfa Inhaler] 2 puffs INH QID PRN 05/17/18 amLODIPine [Norvasc] 5 mg PO DAILY 05/17/18 Objective - Vital Signs/Intake & Output Reviewed Vital Signs: Yes Vital Signs: Vital Signs x48h Temp Pulse Pulse Resp BP Pulse Ox 05/18/18 08:00 36.3 C L 86 20 143/92 H 95 05/18/18 07:26 89 26 H 05/18/18 05:37 36.5 C 79 20 142/86 H 96 Intake & Output: Intake & Output 05/15/18 05/16/18 05/17/18 05/18/18 23:59 23:59 23:59 23:59 Intake Total 2348 1678 Output Total 300 Balance 2348 1378 - Objective General Appearance: positive: No acute distress, Alert. negative: Lethargic Eyes Bilateral: positive: Normal inspection, PERRL, No lid inflammation, Conjunctivae nml ENT: positive: ENT inspection nml, Pharynx nml, No signs of dehydration. negative: Purulent nasal drainage, Pharyngeal erythema, Oral lesions Neck: positive: Nml inspection, Thyroid nml, No JVD, Trachea midline. negative: Thyromegaly, Lymphadenopathy (R), Lymphadenopathy (L), Stiff neck, Swelling/bruising, Tracheal deviation Respiratory: positive: Chest non-tender, Rales. negative: No respiratory distress, Breath sounds nml, Wheezes, Rhonchi Cardiovascular: positive: Regular rate & rhythm, No murmur, No gallop. negative : Irregularly irregular, Extrasystoles, Tachycardia, Bradycardia, JVD present, Systolic murmur, Diastolic murmur Peripheral Pulses: 2+ Radial (R), 2+ Radial (L), 2+ Dorsalis pedis (R), 2+ Dorsalis pedis (L) Abdomen: positive: Non-tender, No organomegaly, Nml bowel sounds, No distention. negative: Tenderness, Guarding, Rebound Back: positive: Nml inspection. negative: CVA tenderness (R), CVA tenderness (L) Skin: positive: Color nml, No rash, Warm, Dry. negative: Cyanosis, Diaphoresis, Pallor Extremities: positive: Non-tender, Full ROM, Nml appearance. negative: Calf tenderness, Joint swelling, Amor's sign/cords Neurologic/Psychiatric: positive: Oriented x3, Motor nml, Sensation nml. negative: Weakness, Sensory loss, Facial droop, Slurred/abnml speech, Depressed mood/affect - Lab Results Fish Bones: 05/18/18 05:13 05/18/18 05:13 Other Labs: Lab Results x24hrs 05/18/18 05/18/18 05/18/18 Range/Units 09:25 05:13 05:13 WBC 4.4 L (4.8-10.8) x10^3/uL RBC 3.88 L (4.70-6.10) 10^6/uL Hgb 12.7 L (14.0-18.0) g/dL Hct 39.0 L (42.0-52.0) % MCV 100.6 H (80.0-94.0) fL MCH 32.8 H (27.0-31.0) pg MCHC 32.6 (32.0-36.0) g/dL RDW 15.0 (12.0-15.0) % Plt Count 240 (130-450) 10^3/uL MPV 8.4 (7.4-11.4) fL Neut # (Auto) 3.9 (1.5-6.6) 10^3/uL Lymph # (Auto) 0.4 L (1.5-3.5) 10^3/uL [place] # (Auto) 0.1 (0.0-1.0) 10^3/uL Eos # (Auto) 0.0 (0.0-0.7) 10^3/uL Baso # (Auto) 0.0 (0.0-0.1) 10^3/uL Absolute Nucleated RBC 0.00 x10^3/uL Nucleated RBC % 0.1 /100WBC Manual Slide Review Indicated Platelet Estimate NORMAL (130-450,000) (NORMAL) Platelet Morphology 1+ LARGE PLATELETS (NORMAL) RBC Morph Micro Appear 1+ MACROCYTOSIS (NORMAL) Bld Gas Analysis Time 09:25 Sample Site RIGHT RADIAL ABG pH 7.47 H (7.35-7.45) ABG pCO2 33 L (34-45) mmHg ABG pO2 74 L (80-100) mmHg ABG HCO3 23.0 (22.0-26.0) mmol/L ABG Total CO2 24.0 (21.0-29.0) MMOL/L ABG O2 Saturation 95 (94-98) % ABG Base Excess 0.0 (-2.0-3.0) mmol/L Jesus Test POSITIVE Respiration Rate 28 b/min O2 Delivery Device NASAL CANNULA O2 Liters/Min 3.50 LPM Sodium 135 (135-145) mmol/L Potassium 4.2 (3.5-5.0) mmol/L Chloride 102 (101-111) mmol/L Carbon Dioxide 23 (21-32) mmol/L Anion Gap 10.0 (6-13) BUN 13 (6-20) mg/dL Creatinine 0.5 L (0.6-1.2) mg/dL Estimated GFR (MDRD) 170 (>89) Glucose 174 H (70-100) mg/dL Lactic Acid (0.5-2.2) mmol/L Calcium 8.5 (8.5-10.3) mg/dL Magnesium (1.7-2.8) mg/dL Total Bilirubin (0.2-1.0) mg/dL AST (10-42) IU/L ALT (10-60) IU/L Alkaline Phosphatase (42-121) IU/L Troponin I (<0.49) ng/mL B-Natriuretic Peptide (5-100) pg/mL Total Protein (6.7-8.2) g/dL Albumin (3.2-5.5) g/dL Globulin (2.1-4.2) g/dL Albumin/Globulin Ratio (1.0-2.2) Lipase (22-51) U/L Ethyl Alcohol mg/dL Influenza A (Rapid) (Negative) Influenza B (Rapid) (Negative) 05/17/18 05/17/18 05/17/18 Range/Units 15:27 14:00 11:19 WBC (4.8-10.8) x10^3/uL RBC (4.70-6.10) 10^6/uL Hgb (14.0-18.0) g/dL Hct (42.0-52.0) % MCV (80.0-94.0) fL MCH (27.0-31.0) pg MCHC (32.0-36.0) g/dL RDW (12.0-15.0) % Plt Count (130-450) 10^3/uL MPV (7.4-11.4) fL Neut # (Auto) (1.5-6.6) 10^3/uL Lymph # (Auto) (1.5-3.5) 10^3/uL [place] # (Auto) (0.0-1.0) 10^3/uL Eos # (Auto) (0.0-0.7) 10^3/uL Baso # (Auto) (0.0-0.1) 10^3/uL Absolute Nucleated RBC x10^3/uL Nucleated RBC % /100WBC Manual Slide Review Platelet Estimate (NORMAL) Platelet Morphology (NORMAL) RBC Morph Micro Appear (NORMAL) Bld Gas Analysis Time 1533 Sample Site RIGHT RADIAL ABG pH 7.38 (7.35-7.45) ABG pCO2 38 (34-45) mmHg ABG pO2 66 L (80-100) mmHg ABG HCO3 22.0 (22.0-26.0) mmol/L ABG Total CO2 23.1 (21.0-29.0) MMOL/L ABG O2 Saturation 92 L (94-98) % ABG Base Excess -2.7 L (-2.0-3.0) mmol/L Jesus Test POSITIVE Respiration Rate b/min O2 Delivery Device NASAL [place] O2 Liters/Min 3.00 LPM Sodium (135-145) mmol/L Potassium (3.5-5.0) mmol/L Chloride (101-111) mmol/L Carbon Dioxide (21-32) mmol/L Anion Gap (6-13) BUN (6-20) mg/dL Creatinine (0.6-1.2) mg/dL Estimated GFR (MDRD) (>89) Glucose (70-100) mg/dL Lactic Acid 1.7 (0.5-2.2) mmol/L Calcium (8.5-10.3) mg/dL Magnesium (1.7-2.8) mg/dL Total Bilirubin (0.2-1.0) mg/dL AST (10-42) IU/L ALT (10-60) IU/L Alkaline Phosphatase (42-121) IU/L Troponin I (<0.49) ng/mL B-Natriuretic Peptide (5-100) pg/mL Total Protein (6.7-8.2) g/dL Albumin (3.2-5.5) g/dL Globulin (2.1-4.2) g/dL Albumin/Globulin Ratio (1.0-2.2) Lipase (22-51) U/L Ethyl Alcohol mg/dL Influenza A (Rapid) Negative (Negative) Influenza B (Rapid) Negative (Negative) 05/17/18 05/17/18 05/17/18 Range/Units 11:18 11:18 11:18 WBC (4.8-10.8) x10^3/uL RBC (4.70-6.10) 10^6/uL Hgb (14.0-18.0) g/dL Hct (42.0-52.0) % MCV (80.0-94.0) fL MCH (27.0-31.0) pg MCHC (32.0-36.0) g/dL RDW (12.0-15.0) % Plt Count (130-450) 10^3/uL MPV (7.4-11.4) fL Neut # (Auto) (1.5-6.6) 10^3/uL Lymph # (Auto) (1.5-3.5) 10^3/uL [place] # (Auto) (0.0-1.0) 10^3/uL Eos # (Auto) (0.0-0.7) 10^3/uL Baso # (Auto) (0.0-0.1) 10^3/uL Absolute Nucleated RBC x10^3/uL Nucleated RBC % /100WBC Manual Slide Review Platelet Estimate (NORMAL) Platelet Morphology (NORMAL) RBC Morph Micro Appear (NORMAL) Bld Gas Analysis Time Sample Site ABG pH (7.35-7.45) ABG pCO2 (34-45) mmHg ABG pO2 (80-100) mmHg ABG HCO3 (22.0-26.0) mmol/L ABG Total CO2 (21.0-29.0) MMOL/L ABG O2 Saturation (94-98) % ABG Base Excess (-2.0-3.0) mmol/L Jesus Test Respiration Rate b/min O2 Delivery Device O2 Liters/Min LPM Sodium (135-145) mmol/L Potassium (3.5-5.0) mmol/L Chloride (101-111) mmol/L Carbon Dioxide (21-32) mmol/L Anion Gap (6-13) BUN (6-20) mg/dL Creatinine (0.6-1.2) mg/dL Estimated GFR (MDRD) (>89) Glucose (70-100) mg/dL Lactic Acid (0.5-2.2) mmol/L Calcium (8.5-10.3) mg/dL Magnesium (1.7-2.8) mg/dL Total Bilirubin (0.2-1.0) mg/dL AST (10-42) IU/L ALT (10-60) IU/L Alkaline Phosphatase (42-121) IU/L Troponin I < 0.04 (<0.49) ng/mL B-Natriuretic Peptide 87 (5-100) pg/mL Total Protein (6.7-8.2) g/dL Albumin (3.2-5.5) g/dL Globulin (2.1-4.2) g/dL Albumin/Globulin Ratio (1.0-2.2) Lipase (22-51) U/L Ethyl Alcohol 185.4 mg/dL Influenza A (Rapid) (Negative) Influenza B (Rapid) (Negative) 05/17/18 05/17/18 Range/Units 11:18 11:18 WBC 7.0 (4.8-10.8) x10^3/uL RBC 4.50 L (4.70-6.10) 10^6/uL Hgb 15.0 (14.0-18.0) g/dL Hct 44.0 (42.0-52.0) % MCV 97.6 H (80.0-94.0) fL MCH 33.3 H (27.0-31.0) pg MCHC 34.1 (32.0-36.0) g/dL RDW 15.4 H (12.0-15.0) % Plt Count 307 (130-450) 10^3/uL MPV 8.3 (7.4-11.4) fL Neut # (Auto) 3.7 (1.5-6.6) 10^3/uL Lymph # (Auto) 2.0 (1.5-3.5) 10^3/uL [place] # (Auto) 1.2 H (0.0-1.0) 10^3/uL Eos # (Auto) 0.0 (0.0-0.7) 10^3/uL Baso # (Auto) 0.0 (0.0-0.1) 10^3/uL Absolute Nucleated RBC 0.01 x10^3/uL Nucleated RBC % 0.1 /100WBC Manual Slide Review Indicated Platelet Estimate (NORMAL) Platelet Morphology RARE GIANT PLATELETS (NORMAL) RBC Morph Micro Appear (NORMAL) Bld Gas Analysis Time Sample Site ABG pH (7.35-7.45) ABG pCO2 (34-45) mmHg ABG pO2 (80-100) mmHg ABG HCO3 (22.0-26.0) mmol/L ABG Total CO2 (21.0-29.0) MMOL/L ABG O2 Saturation (94-98) % ABG Base Excess (-2.0-3.0) mmol/L Jesus Test Respiration Rate b/min O2 Delivery Device O2 Liters/Min LPM Sodium 138 (135-145) mmol/L Potassium 4.2 (3.5-5.0) mmol/L Chloride 99 L (101-111) mmol/L Carbon Dioxide 24 (21-32) mmol/L Anion Gap 15.0 H (6-13) BUN 9 (6-20) mg/dL Creatinine 0.6 (0.6-1.2) mg/dL Estimated GFR (MDRD) 138 (>89) Glucose 117 H (70-100) mg/dL Lactic Acid (0.5-2.2) mmol/L Calcium 9.5 (8.5-10.3) mg/dL Magnesium 2.1 (1.7-2.8) mg/dL Total Bilirubin 0.6 (0.2-1.0) mg/dL AST 42 (10-42) IU/L ALT 35 (10-60) IU/L Alkaline Phosphatase 81 (42-121) IU/L Troponin I (<0.49) ng/mL B-Natriuretic Peptide (5-100) pg/mL Total Protein 8.5 H (6.7-8.2) g/dL Albumin 4.1 (3.2-5.5) g/dL Globulin 4.4 H (2.1-4.2) g/dL Albumin/Globulin Ratio 0.9 L (1.0-2.2) Lipase 30 (22-51) U/L Ethyl Alcohol mg/dL Influenza A (Rapid) (Negative) Influenza B (Rapid) (Negative) ABX Reporting Has patient been on IV antibiotics over the past 48 hours?: Yes Sepsis Event Note (H) - Evaluation Current Stage of Sepsis: Ruled out Assessment/Plan - Problem List (1) Basal pneumonia of both lungs Impression: 05/18 pt still present SOB, lung is better. 95% sat on 3.5 little of O2 continue treat with antibiotics, Azithromycin and Rocephin continue breathing treatment as needed continue supplement of O2 as needed pt present cough, congestion, SOB, CXR reveals basal pneumonia treat with antibiotics, Azithromycin and Rocephin breath treatment as needed supplement of O2 as needed (2) Acute exacerbation of COPD with asthma Conclusion/Plan: 05/18 not improved yet continue Solu-metrol 30mg tid, treat with Duoneb, Albuterol PRN, O2 supplement as needed pt present cough, SOB, hx of COPD, current smoker treat with Duoneb, Albuterol PRN Solu-metrol 30mg tid, will wane and titrate O2 supplement as needed (3) Chest pain, pleuritic Conclusion/Plan: 05/18, pt still complain left back pain with deepen breathing Ibuprofen PRN order CTA to R/O PE, followup troponin test is negative, EKG is unremarkable, When pt deepen breathing and cough, present sharp left chest. it appear atypical chest pain, with Pleuritic start with Solu-metrol already, Ibuprofen PRN tele monitor, closely monitor pt. (4) Alcoholism /alcohol abuse Conclusion/Plan: pt has hx of alcohol abuse. today Alcohol level has 185 start CIWA protocol Ativan PRN order vit, and B1 advise pt quit alcoholism (5) Currently smokes tobacco Conclusion/Plan: pt report he still smoke cigarette half pack per day. Pt decline to have nicotine Patch advise pt quit cigarette smoking, pt already has COPD (6) HTN (hypertension) Conclusion/Plan: stable, will reconcile home Norvasc (7) shortness of breath pt still present SOB, order CTA for R/O PE order ABGs and followup continue breathing treatment, antibiotics treatment, O2 supplement as needed
[2018-05-18] MEDS: FUROSEMIDE 20 MG TABLET PO SCH (16:10)
[2018-05-18] MEDS: ZOLPIDEM 5 MG TABLET PO PRN (21:27)
[2018-05-19] MEDS: SODIUM CHLORIDE FLUSH 0.9% 10 ML SYRINGE IVP SCH ×3 (01:32→16:25)
[2018-05-19] MEDS: MORPHINE SOL 10 MG/0.5 ML SYRINGE PO PRN ×2 (01:38→05:47)
[2018-05-19 05:32] LABS: BASOPHILS % (AUTO) 0.1 %; HGB - HEMOGLOBIN 14.3 g/dL (14.0-18.0); LYMPHOCYTES # (AUTO) 1.5 10^3/uL (1.5-3.5); LYMPHOCYTES % (AUTO) 15.5 %; MEAN CORPUSCULAR HEMOGLOBIN 32.8 pg (27.0-31.0); MEAN CORPUSCULAR HGB CONC 32.8 g/dL (32.0-36.0); MEAN PLATELET VOLUME 8.9 fL (7.4-11.4); MONOCYTES # (AUTO) 0.7 10^3/uL (0.0-1.0); MONOCYTES % (AUTO) 7.3 %; NEUTROPHILS # (AUTO) 7.6 10^3/uL (1.5-6.6); NEUTROPHILS % (AUTO) 77.1 %; PLT - PLATELET COUNT 264 10^3/uL (130-450); RED BLOOD COUNT 4.35 10^6/uL (4.70-6.10); RED CELL DISTRIBUTION WIDTH 15.3 % (12.0-15.0); WHITE BLOOD COUNT 9.8 x10^3/uL (4.8-10.8)
[2018-05-19 05:40] LABS: CREATININE 0.6 mg/dL (0.6-1.2)
[2018-05-19] MEDS ORDERED: predniSONE 20 MG TABLET PO SCH (08:00)
[2018-05-19] MEDS: FAMOTIDINE 20 MG TABLET PO SCH ×2 (08:50→20:04)
[2018-05-19] MEDS: guaiFENesin 600 MG TABLET PO SCH ×2 (08:50→20:04)
[2018-05-19] MEDS: PRENATAL VITAMIN TABLET PO SCH (08:50)
[2018-05-19] MEDS: amLODIPine 5 MG TABLET PO SCH (08:51)
[2018-05-19] MEDS: FUROSEMIDE 20 MG TABLET PO SCH (08:51)
[2018-05-19] MEDS: ENOXAPARIN 40 MG/0.4 ML SYRINGE SUBQ SCH (08:51)
[2018-05-19] MEDS: THIAMINE 100 MG TABLET PO SCH (08:51)
[2018-05-19] MEDS: cefTRIAXone 1 GM in SODIUM CHLORIDE 0.9% MINIBAG 100 ML IV SCH (08:51)
[2018-05-19] MEDS: POLYETHYLENE GLYCOL 3350 17 GM PACKET PO SCH (08:52)
[2018-05-19] MEDS: AZITHROMYCIN INJ 500 MG in SODIUM CHLORIDE 0.9% 250 ML IV SCH (10:27)
--- NOTE | 2018-05-19 12:17 | PROVIDER PROGRESS NOTE ---
Subjective - Prog Note Date Prog Note Date: 05/19/18 - Subjective Pt reports feeling: Improved Subjective: pt's breath is better, and RR is better controlled. pt report he feels better. He denies fever, chill. Current Medications - Current Medications Current Medications: Active Medications Acetaminophen (Tylenol) 650 mg PO Q4HR PRN PRN Reason: Pain 1 to 4 Last Admin: 05/18/18 08:08 Dose: 650 mg Albuterol () 2.5 mg INH RTQ4H PRN PRN Reason: Wheezing Last Admin: 05/19/18 08:25 Dose: 2.5 mg Albuterol/Ipratropium (Duoneb) 3 ml INH Q4HR PRN PRN Reason: Wheezing Last Admin: 05/18/18 07:26 Dose: 3 ml Amlodipine Besylate (Norvasc) 5 mg PO DAILY [facility] Last Admin: 05/19/18 08:51 Dose: 5 mg Enoxaparin Sodium (Lovenox) 40 mg SUBQ DAILY [facility] Last Admin: 05/19/18 08:51 Dose: 40 mg Famotidine (Pepcid) 20 mg PO BID [facility] Last Admin: 05/19/18 08:50 Dose: 20 mg Furosemide (Lasix) 20 mg PO DAILY [facility] Last Admin: 05/19/18 08:51 Dose: 20 mg Guaifenesin (Mucinex) 600 mg PO BID [facility] Last Admin: 05/19/18 08:50 Dose: 600 mg Ceftriaxone Sodium 1 gm/ (Sodium Chloride) 100 mls @ 200 mls/hr IV DAILY [facility] Last Infusion: 05/19/18 09:36 Dose: Infused Azithromycin 500 mg/ Sodium (Chloride) 250 mls @ 250 mls/hr IV DAILY@1000 [facility] Last Infusion: 05/19/18 11:29 Dose: Infused Ibuprofen (Motrin) 400 mg PO Q6HR PRN PRN Reason: PAIN Last Admin: 05/18/18 20:26 Dose: 400 mg Lorazepam (Ativan Inj (Vial)) 1 mg IVP Q30M PRN; Protocol PRN Reason: CIWA >8 Morphine Sulfate (Morphine (Carpuject)) 2 mg IVP Q2HR PRN PRN Reason: Pain 8 to 10 Morphine Sulfate (Roxanol) 5 mg PO Q4HR PRN PRN Reason: PAIN Last Admin: 05/19/18 05:47 Dose: 5 mg Ondansetron HCl (Zofran Inj) 4 mg IVP Q6HR PRN PRN Reason: Nausea / Vomiting Polyethylene Glycol (Miralax) 17 gm PO DAILY [facility] Last Admin: 05/19/18 08:52 Dose: 17 gm Prednisone (Deltasone) 30 mg PO DAILYWM [facility] Last Admin: 05/19/18 08:50 Dose: 30 mg Multivit/Folic Acid/Iron (Trinatal Rx 1) 1 tab PO DAILY [facility] Last Admin: 05/19/18 08:50 Dose: 1 tab Sodium Chloride (Normal Saline Flush 0.9%) 10 ml IVP PRN PRN PRN Reason: NEEDED PER PROVIDER ORDERS Last Admin: 05/18/18 06:31 Dose: 10 ml Sodium Chloride (Normal Saline Flush 0.9%) 10 ml IVP 0100,0900,1700 [facility] Last Admin: 05/19/18 08:52 Dose: 10 ml Thiamine HCl (Vitamin B-1) 100 mg PO DAILY [facility] Last Admin: 05/19/18 08:51 Dose: 100 mg Zolpidem Tartrate (Ambien) 5 mg PO QPM PRN PRN Reason: Insomnia Last Admin: 05/18/18 21:27 Dose: 5 mg Albuterol Sulfate [Proair Hfa Inhaler] 2 puffs INH QID PRN 05/17/18 amLODIPine [Norvasc] 5 mg PO DAILY 05/17/18 Objective - Vital Signs/Intake & Output Reviewed Vital Signs: Yes Vital Signs: Vital Signs x48h Temp Pulse Pulse Resp BP Pulse Ox 05/19/18 08:26 88 22 05/19/18 08:08 36.4 C L 90 22 131/74 H 93 Intake & Output: Intake & Output 05/16/18 05/17/18 05/18/18 05/19/18 23:59 23:59 23:59 23:59 Intake Total 2348 2438 2029 Output Total 300 Balance 2348 2137 2029 - Objective General Appearance: positive: No acute distress, Alert. negative: Lethargic Eyes Bilateral: positive: Normal inspection, PERRL, No lid inflammation, Conjunctivae nml ENT: positive: ENT inspection nml, Pharynx nml, No signs of dehydration. nega tive: Purulent nasal drainage, Pharyngeal erythema, Oral lesions Neck: positive: Nml inspection, Thyroid nml, No JVD, Trachea midline. negative: Thyromegaly, Lymphadenopathy (R), Lymphadenopathy (L), Stiff neck, Swelling/bruising, Tracheal deviation Respiratory: positive: Chest non-tender, No respiratory distress. negative: Wheezes, Rales, Rhonchi Cardiovascular: positive: Regular rate & rhythm, No murmur, No gallop. n egative: Irregularly irregular, Extrasystoles, Tachycardia, Bradycardia, JVD present, Systolic murmur, Diastolic murmur Peripheral Pulses: 2+ Radial (R), 2+ Radial (L), 2+ Dorsalis pedis (R), 2+ Dorsalis pedis (L) Abdomen: positive: Non-tender, No organomegaly, Nml bowel sounds, No distention. negative: Tenderness, Guarding, Rebound Back: positive: Nml inspection. negative: CVA tenderness (R), CVA tenderness (L) Skin: positive: Color nml, No rash, Warm, Dry. negative: Cyanosis, Diaphoresis, Pallor Extremities: positive: Non-tender, Full ROM, Nml appearance. negative: Calf tenderness, Joint swelling, Amor's sign/cords Neurologic/Psychiatric: positive: Oriented x3, Sensation nml, Mood/affect nml. negative: Weakness, Sensory loss, Facial droop, Slurred/abnml speech, Depressed mood/affect - Lab Results Fish Bones: 05/19/18 05:01 05/19/18 05:01 Other Labs: Lab Results x24hrs 05/19/18 05/19/18 Range/Units 05:01 05:01 WBC 9.8 (4.8-10.8) x10^3/uL RBC 4.35 L (4.70-6.10) 10^6/uL Hgb 14.3 (14.0-18.0) g/dL Hct 43.5 (42.0-52.0) % MCV 100.0 H (80.0-94.0) fL MCH 32.8 H (27.0-31.0) pg MCHC 32.8 (32.0-36.0) g/dL RDW 15.3 H (12.0-15.0) % Plt Count 264 (130-450) 10^3/uL MPV 8.9 (7.4-11.4) fL Neut # (Auto) 7.6 H (1.5-6.6) 10^3/uL Lymph # (Auto) 1.5 (1.5-3.5) 10^3/uL [place] # (Auto) 0.7 (0.0-1.0) 10^3/uL Eos # (Auto) 0.0 (0.0-0.7) 10^3/uL Baso # (Auto) 0.0 (0.0-0.1) 10^3/uL Absolute Nucleated RBC 0.01 x10^3/uL Nucleated RBC % 0.1 /100WBC Sodium 137 (135-145) mmol/L Potassium 3.9 (3.5-5.0) mmol/L Chloride 102 (101-111) mmol/L Carbon Dioxide 27 (21-32) mmol/L Anion Gap 8.0 (6-13) BUN 18 (6-20) mg/dL Creatinine 0.6 (0.6-1.2) mg/dL Estimated GFR (MDRD) 138 (>89) Glucose 115 H (70-100) mg/dL Calcium 9.0 (8.5-10.3) mg/dL ABX Reporting Has patient been on IV antibiotics over the past 48 hours?: Yes Sepsis Event Note (H) - Evaluation Current Stage of Sepsis: Ruled out Assessment/Plan - Problem List (1) Basal pneumonia of both lungs Impression: 05/19 pt's lung sound is better, now pt's has 93% on room air continue antibiotics continue breathing treatment as needed continue supplement of O2 as needed 05/18 pt still present SOB, lung is better. 95% sat on 3.5 little of O2 continue treat with antibiotics, Azithromycin and Rocephin continue breathing treatment as needed continue supplement of O2 as needed pt present cough, congestion, SOB, CXR reveals basal pneumonia treat with antibiotics, Azithromycin and Rocephin breath treatment as needed supplement of O2 as needed (2) Acute exacerbation of COPD with asthma Conclusion/Plan: 05/19 improved, no obvious SOB. ontinue Predisone, treat with Duoneb, Albuterol PRN, O2 supplement as needed 05/18 not improved yet continue Solu-metrol 30mg tid, treat with Duoneb, Albuterol PRN, O2 supplement as needed pt present cough, SOB, hx of COPD, current smoker treat with Duoneb, Albuterol PRN Solu-metrol 30mg tid, will wane and titrate O2 supplement as needed (3) Chest pain, pleuritic Conclusion/Plan: 05/19 better but pt state has mild pleuritic pain when he deeply breath. CTA reveals no PE, but reveals right middle lobe with extensive edema continue Ibuprofen PRN PO Lasix lab and vital monitor 05/18, pt still complain left back pain with deepen breathing Ibuprofen PRN order CTA to R/O PE, followup troponin test is negative, EKG is unremarkable, When pt deepen breathing and cough, present sharp left chest. it appear atypical chest pain, with Pleuritic start with Solu-metrol already, Ibuprofen PRN tele monitor, closely monitor pt. (4) Alcoholism /alcohol abuse Conclusion/Plan: pt has hx of alcohol abuse. today Alcohol level has 185 start CIWA protocol Ativan PRN order vit, and B1 advise pt quit alcoholism (5) Currently smokes tobacco Conclusion/Plan: pt report he still smoke cigarette half pack per day. Pt decline to have nicotine Patch advise pt quit cigarette smoking, pt already has COPD (6) HTN (hypertension) Conclusion/Plan: stable, will reconcile home Norvasc (7) shortness of breath 05/19 great improved. continue breathing treatment, antibiotics treatment, O2 supplement as needed Lasix PO 20 mg daily for pulmonary edema will order ECHO to find the etiology why pulmonary edema pt still present SOB, order CTA for R/O PE order ABGs and followup continue breathing treatment, antibiotics treatment, O2 supplement as needed
[2018-05-19] MEDS: IBUPROFEN 400 MG TABLET PO PRN (12:51)
[2018-05-19] MEDS: IPRATROPIUM/ALBUTEROL 3 ML NEB INH PRN ×2 (13:19→19:49)
[2018-05-19] MEDS ORDERED: HYDROcod/ACETAM 5/325 MG TABLET PO PRN (13:22)
[2018-05-19] MEDS: ACETAMINOPHEN 325 MG TABLET PO PRN (16:25)
[2018-05-19] MEDS: ZOLPIDEM 5 MG TABLET PO PRN (20:50)
[2018-05-20] MEDS: SODIUM CHLORIDE FLUSH 0.9% 10 ML SYRINGE IVP SCH ×2 (05:23→09:23)
[2018-05-20 05:43] LABS: BASOPHILS % (AUTO) 0.2 %; LYMPHOCYTES % (AUTO) 27.4 %; MEAN CORPUSCULAR HGB CONC 32.8 g/dL (32.0-36.0); MEAN CORPUSCULAR VOLUME 100.8 fL (80.0-94.0); MONOCYTES # (AUTO) 0.7 10^3/uL (0.0-1.0); MONOCYTES % (AUTO) 10.4 %; NEUTROPHILS # (AUTO) 4.4 10^3/uL (1.5-6.6); PLT - PLATELET COUNT 244 10^3/uL (130-450); RED BLOOD COUNT 4.23 10^6/uL (4.70-6.10); RED CELL DISTRIBUTION WIDTH 15.2 % (12.0-15.0); WHITE BLOOD COUNT 7.2 x10^3/uL (4.8-10.8)
[2018-05-20 05:45] LABS: CALCIUM 8.4 mg/dL (8.5-10.3); CREATININE 0.6 mg/dL (0.6-1.2)
[2018-05-20] MEDS: POLYETHYLENE GLYCOL 3350 17 GM PACKET PO SCH (07:28)
[2018-05-20] MEDS ORDERED: predniSONE 20 MG TABLET PO SCH (08:00)
[2018-05-20 08:36] VITALS: BP 147/98
[2018-05-20] MEDS ORDERED: AZITHROMYCIN 250 MG TABLET PO SCH ×2 (09:00→10:00)
[2018-05-20] MEDS ORDERED: cefUROXime axetil 250 MG TABLET PO SCH (09:00)
--- NOTE | 2018-05-20 09:09 | Discharge Plan ---
Discharge Plan Disposition: Home, Self Care Condition: Poor Prescriptions: cefUROXime axetil [Ceftin] 500 mg PO BID #20 tablet Ipratropium/Albuterol [Combivent Respimat] 4 gm IH Q6H PRN #1 aer.w.adap PRN Reason: Shortness Of Air/Wheezing Saccharomyces Boulardii [Florastor] 250 mg PO BID #10 capsule Diet: Regular Activity Restrictions: Activity as Tolerated Shower Restrictions: No (fall precaution) Instruction Topics: Cefuroxime tablets, Albuterol Ipratropium solution for inhalation, Alcoholism, ED Smoking Cessation Additional Instructions or Follow Up instructions: You may followup your PCP in one week. You were found to have pneumonia, antibiotics is prescribed for you to finish the antibiotics course. Should your symptoms return or worsen, you may present ER or call 911 or your PCP for help. No Smoking: If you smoke, Please STOP! Call for help. Follow-up with: Lulú Sanders ARNP [Primary Care Provider] -
[2018-05-20] MEDS: FUROSEMIDE 20 MG TABLET PO SCH (09:21)
[2018-05-20] MEDS: PRENATAL VITAMIN TABLET PO SCH (09:21)
[2018-05-20] MEDS: THIAMINE 100 MG TABLET PO SCH (09:21)
[2018-05-20] MEDS: amLODIPine 5 MG TABLET PO SCH (09:21)
[2018-05-20] MEDS: FAMOTIDINE 20 MG TABLET PO SCH (09:21)
[2018-05-20] MEDS: guaiFENesin 600 MG TABLET PO SCH (09:21)
[2018-05-20] MEDS: ENOXAPARIN 40 MG/0.4 ML SYRINGE SUBQ SCH (09:23)
[2018-05-20] MEDS: IPRATROPIUM/ALBUTEROL 3 ML NEB INH PRN (10:26)
--- NOTE | 2018-05-20 11:03 | DISCHARGE SUMMARY ---
Discharge Summary Discharge Date: 05/20/18 Discharging Provider: SALEEM Primary Care Provider: Lulú Au Condition at Discharge: Poor Discharge Disposition: 01 Home, Self Care Discharge Facility Name: home - DIAGNOSES Admission Diagnoses: (1) Basal pneumonia of both lungs (2) Acute exacerbation of COPD with asthma (3) Chest pain, pleuritic (4) Alcoholism /alcohol abuse (5) Currently smokes tobacco (6) HTN (hypertension) Discharge Diagnoses with Status of Each Condition: ) Basal pneumonia of both lungs pt report he feel much better, he request to be discharged. WBC is normal. 93%- 95% sat on room air. (2) Acute exacerbation of COPD with asthma great improved. 93%-95% sat on room air. pt is prescribed INH machine for his COPD. pt also is prescribed albuterol, HFA of albuterol and Duoneb for his breathing treatment. followup PCP for management (3) Chest pain, pleuritic resolved (4) Alcoholism /alcohol abuse advise pt quit (5) Currently smokes tobacco discuss with pt and strongly advise pt quit tobacco smoke per pt's medical condition (6) HTN (hypertension) stable, continue home meds followup PCP for management - HPI History of Present Illness: Mr. Samuel is a 57-yrs-old male with a PMH significant for chronic alcoholic abuse, current cigarette smoker, HTN, COPD, who present ER complain of cough, congestion and shortness of breath. Pt report he had several days of congestion and cough with some greenish sputum initially, then it become more clear now. He report he did not feel to have fever, but he feel chill and cold. He report he has been progressive dyspnea and wheezing over the last several days as well. He report he has a left-sided chest pain when he had deep breathing and c oughing. He report he had hx of COPD and he still smokes cigarette half pack per day now. He also report he almost drink alcohol daily and today he drink alcohol before he went to ER. He state he had an albuterol inhaler to use as needed. He report he has been using inhaler much more frequently over the last couple of days but without much improvement. Pt denies headache, fever, abdominal, nausea, vomiting, diarrhea, vision change, focus neurological deficits. His troponin test is less 0.04. WBC is 7. Alcohol level is 185. Pt is afebrile at ER. 92% sats is at 2 liter of O2, RR is 22, otherwise he is hemodynamic stable. - HOSPITAL COURSE Hospital Course: pt was admitted for SOB and cough, wheezing and hypoxia. pt was found to have pneumonia, exacerbation of COPD. pt still is current cigarette smoker. pt also is alcoholism. pt was treated with antibiotics, breathing treatment, steroid, and CIWA for alcoholism withdrawal. Pt's breath RR from around 30 from admission is down to around 20-24 as his baseline. Per pt state, he has chronic mild SOB because his COPD and continuing smoker. Pt is prescribe INH machine and HFA of albuterol and DuoNeb, and antibiotics for his pneumonia. pt is strongly advised to quit smoking and alcoholism - ALLERGIES Allergies/Adverse Reactions: Allergies Allergy/AdvReac Type Severity Reaction Status Date / Time lisinopril Allergy Severe ANAPHALACTI Verified 05/17/18 15:12 C/ARREST - MEDICATIONS Home Medications: Ambulatory Orders Medication Instructions Recorded Confirmed Albuterol Sulfate [Proair Hfa 2 puffs INH QID PRN 05/17/18 05/17/18 Inhaler] amLODIPine [Norvasc] 5 mg PO DAILY 05/17/18 05/17/18 Albuterol Sulf 100 mg INH Q4H PRN #20 bottle 05/20/18 Albuterol Sulfate [Proair Hfa 1 - 2 puffs INH Q4H PRN #1 inhaler 05/20/18 Inhaler] Ipratropium/Albuterol [Combivent 4 gm IH Q6H PRN #1 aer.w.adap 05/20/18 Respimat] Saccharomyces Boulardii [Florastor] 250 mg PO BID #10 capsule 05/20/18 cefUROXime axetil [Ceftin] 500 mg PO BID #20 tablet 05/20/18 - PHYSICAL EXAM AT DISCHARGE General Appearance: positive: No acute distress, Alert. negative: Lethargic Eyes Bilateral: positive: Normal inspection, PERRL, No lid inflammation, Conjunctivae nml ENT: positive: ENT inspection nml, Pharynx nml, No signs of dehydration. negative: Purulent nasal drainage, Pharyngeal erythema, Oral lesions Neck: positive: Nml inspection, Thyroid nml, No JVD, Trachea midline. negative: Thyromegaly, Lymphadenopathy (R), Lymphadenopathy (L), Stiff neck, Swelling/bruising, Tracheal deviation Respiratory: positive: Chest non-tender, No respiratory distress. negative: Wheezes, Rales, Rhonchi Cardiovascular: positive: Regular rate & rhythm, No murmur, No gallop. negative: Irregularly irregular, Extrasystoles, Tachycardia, Bradycardia, JVD present, Systolic murmur, Diastolic murmur Peripheral Pulses: positive: 2+ Abdomen: positive: Non-tender, No organomegaly, Nml bowel sounds, No distention. negative: Tenderness, Guarding, Rebound Back: positive: Nml inspection. negative: CVA tenderness (R), CVA tenderness (L) Skin: positive: Color nml, No rash, Warm, Dry. negative: Cyanosis, Diaphoresis, Pallor Extremities: positive: Non-tender, Full ROM, Nml appearance. negative: No pedal edema, Pedal edema, Calf tenderness Neurologic/Psychiatric: positive: Oriented x3, Motor nml, Sensation nml, Mood/affect nml. negative: Weakness, Sensory loss, Facial droop, Slurred/abnml speech, Depressed mood/affect - LABS Result Diagrams: 05/20/18 05:20 05/20/18 05:20 - SEPSIS Current Stage of Sepsis: Ruled out - FOLLOW UP Follow Up: You may followup your PCP in one week. You were found to have pneumonia, antibiotics is prescribed for you to finish the antibiotics course. INH machine and breathing treatment HFA of albuterol and Duoneb, and albuterol solution are prescribed for you. Should your symptoms return or worsen, you may present ER or call 911 or your PCP for help. - TIME SPENT Time Spent in Discharge (Minutes): 55
== END 2018-05-20 13:00 | disposition home or self-care (01) | DRG 190 ==
LOC: ED 10:52 → MS2 14:27
PROVIDERS: ADMIT Nurse Practitioner Gerontology; ATTEND Nurse Practitioner Gerontology
DX: J44.9 Chronic obstructive pulmonary disease, unspecified (principal); J44.0 Chronic obstructive pulmonary disease with (acute) lower respiratory infection; G89.29 Other chronic pain; M54.9 Dorsalgia, unspecified; F17.200 Nicotine dependence, unspecified, uncomplicated; J18.9 Pneumonia, unspecified organism; F10.239 Alcohol dependence with withdrawal, unspecified; J44.1 Chronic obstructive pulmonary disease with (acute) exacerbation; F17.210 Nicotine dependence, cigarettes, uncomplicated; I10 Essential (primary) hypertension
CPT/HCPCS: 36415; 36600; 71045; 71275; 80048; 80053; 80320; 82803; 83605; 83690; 83735; 83880; 84484; 85025; 87040; 87275; 87276; 93005; 94640; 96361; 96374; 96375; 96376; 99284

== ENCOUNTER 2018-06-30 15:32 | Outpatient (CLI) | payer MEDICARE ==
--- NOTE | 2018-07-01 13:59 | Ultrasound Report ---
Reason: ELEVATED LFT'S Procedure Date: 06/30/2018 Accession Number: [id number] / [id number] Procedure: US - Abdomen Limited CPT Code: FULL RESULT: EXAM: ABDOMEN ULTRASOUND LIMITED, RUQ EXAM DATE: 06/30/2018 04:34 PM. CLINICAL HISTORY: Elevated LFTS. COMPARISON: None. TECHNIQUE: Real-time scanning was performed with static images obtained. FINDINGS: Liver: Liver parenchyma is heterogeneous and moderately hyperechoic. No discrete liver masses or intrahepatic bile duct dilation. However, evaluation for masses is limited secondary to the echogenicity. Anechoic 0.6 x 0.6 cm left liver cyst. No concerning features. Right liver measures 18.2 cm. Main portal vein flow: Hepatopetal. Gallbladder: Normal. No stones, wall thickening, or sonographic Escobar's sign. Biliary System: CBD measures 2.9 mm. No intrahepatic or extrahepatic ductal dilatation. Pancreas: Not evaluated. Right kidney: 9.9 cm. No hydronephrosis. Abdominal aorta and IVC: Normal. Other: None. IMPRESSION: 1. Enlarged, moderately echogenic fatty liver. No mass or intrahepatic bile duct dilation. 2. Normal gallbladder and common bile duct. RADIA
== END 2018-06-30 15:33 | disposition home or self-care (01) ==
LOC: DI 15:32
PROVIDERS: ATTEND Nurse Practitioner Family
DX: K76.0 Fatty (change of) liver, not elsewhere classified (principal)
CPT/HCPCS: 76705

== ENCOUNTER 2018-07-06 10:35 | Outpatient (CLI) | payer MEDICARE ==
[2018-07-07 11:17] LABS: HEPATITIS C ANTIBODY NON-REACTIVE (NON-REACTIVE)
[2018-07-07 14:06] LABS: HEPATITIS B SURFACE ANTIGEN NON-REACTIVE (NON-REACTIVE)
== END 2018-07-06 10:36 | disposition home or self-care (01) ==
LOC: LAB 10:35
PROVIDERS: ATTEND Nurse Practitioner
DX: R79.89 Other specified abnormal findings of blood chemistry (principal)
CPT/HCPCS: 36415; 86709; 86803; 87340

== ENCOUNTER 2018-09-15 08:23 | Inpatient (IN) | payer MEDICARE ==
--- NOTE | 2018-09-15 08:26 | ED Physician Documentation ---
PD HPI DYSPNEA - Stated complaint Stated Complaint: ALLERGIC/SWELLING - History obtained from History obtained from: Patient - History of Present Illness Timing - onset: How many days ago (3-4) Timing - duration: Days (He has had several days of worsening trouble breathing wheezing and cough. He thought it might of been related to environmental allergies. He does continue to smoke regularly. He had some marijuana yesterday which he only does occasionally. He had worsening of his breathing and wheezing more yesterday into today. He is using his home nebulizer with minimal effect. He does have history of COPD and has had similar exacerbations in the past. His last admission for this was in April 2018. He states he has had pneumonia 8 times in the last 2 or 3 years.) Timing - details: Gradual onset (but much worse overnight), Still present Inciting event(s): URI (cough and congestion), Exposure (ie smoke) (marijuana yesterday, which he does only occasionally. He does smoke cigarettes regularly.) Improved by: Other (He does have a home nebulizer as well as inhalers. He does not have home oxygen. He does not have any history of CHF but just COPD.). No: Inhaler/neb Worsened by: Exertion, Coughing Associated symptoms: Cough, Wheezing, Anxiety. No: Fever, Chest pain / discomfort, Palpitations, Bilateral edema Similar symptoms before: Diagnosis (COPD and pneumonias) Recently seen: Not recently seen (Last admission was April 2018 for similar symptoms.) Review of Systems Constitutional: reports: Myalgias, Fatigue. denies: Fever Nose: reports: Congestion. denies: Rhinorrhea / runny nose Throat: denies: Sore throat Cardiac: denies: Chest pain / pressure Respiratory: reports: Dyspnea, Cough, Wheezing. denies: Hemoptysis GI: denies: Abdominal Pain, Nausea, Vomiting, Diarrhea, Bloody / black stool : denies: Dysuria, Frequency Skin: denies: Rash, Lesions Neurologic: reports: Generalized weakness. denies: Focal weakness, Numbness, Altered mental status, Headache Psychiatric: reports: Anxiety Endocrine: denies: Weight loss Immunocompromised: denies: Immunocompromised PD PAST MEDICAL HISTORY - Past Medical History Cardiovascular: Hypertension Respiratory: COPD Neuro: None Endocrine/Autoimmune: None GI: None : None Psych: None Musculoskeletal: Chronic back pain Derm: None - Past Surgical History Past Surgical History: Yes Ortho: Spine surgery - Present Medications Home Medications: Ambulatory Orders Medication Instructions Recorded Confirmed Albuterol Sulfate [Proair Hfa 2 puffs INH QID PRN 05/17/18 05/17/18 Inhaler] amLODIPine [Norvasc] 5 mg PO DAILY 05/17/18 05/17/18 Albuterol Sulf 100 mg INH Q4H PRN #20 bottle 05/20/18 Albuterol Sulfate [Proair Hfa 1 - 2 puffs INH Q4H PRN #1 inhaler 05/20/18 Inhaler] Ipratropium/Albuterol [Combivent 4 gm IH Q6H PRN #1 aer.w.adap 05/20/18 Respimat] Saccharomyces Boulardii [Florastor] 250 mg PO BID #10 capsule 05/20/18 cefUROXime axetil [Ceftin] 500 mg PO BID #20 tablet 05/20/18 - Allergies Allergies/Adverse Reactions: Allergies Allergy/AdvReac Type Severity Reaction Status Date / Time lisinopril Allergy Severe ANAPHALACTI Verified 05/17/18 15:12 C/ARREST - Living Situation Living Situation: reports: With family Living Arrangement: reports: At home - Social History Does the pt smoke?: Yes Smoking Status: Heavy tobacco smoker Does the pt drink ETOH?: Yes ETOH Use: Other (6-8 shots daily) Does the pt have substance abuse?: Yes - Family History Family history: reports: Non contributory - Immunizations Immunizations are current?: No - POLST POLST Status: Full Code PD ED PE NORMAL - Vitals Vital signs reviewed: Yes - General General: Alert and oriented X 3, Well developed/nourished, Other (He is anxious and agitated and having work of breathing with accessory muscle use.) - HEENT HEENT: Pharynx benign. No: Moist mucous membranes - Neck Neck: Supple, no meningeal sign, No adenopathy, No JVD - Cardiac Cardiac: RRR, No murmur - Respiratory Respiratory: No: Clear bilaterally (There is some congested sounding breath sounds perihilar. No peripheral congestion is heard. There is diffuse wheezing with diminished tidal volume throughout.) - Abdomen Abdomen: Soft, Non tender - Male Male : Deferred - Rectal Rectal: Deferred - Back Back: No CVA TTP - Derm Derm: Warm and dry, No rash. No: Normal color (somewhat pale) - Extremities Extremities: No tenderness to palpate, Normal ROM s pain, No edema, No calf tenderness / cord - Neuro Neuro: Alert and oriented X 3, No motor deficit, Normal speech - Psych Psych: No: Normal affect (anxious and fidgety) Results - Vitals Vitals: Vital Signs - 24 hr 09/15/18 09/15/18 09/15/18 08:27 09:10 09:59 Temperature 36 C L Heart Rate 86 102 H 113 H Respiratory 22 20 21 Rate Blood Pressure 115/89 H O2 Saturation 93 09/15/18 09/15/18 09/15/18 10:33 10:55 11:21 Temperature Heart Rate 110 H 114 H 102 H Respiratory 27 H 20 27 H Rate Blood Pressure 133/81 H O2 Saturation 95 88 L Oxygen O2 Source Room air - Labs Labs: Laboratory Tests 09/15/18 09/15/18 09/15/18 08:33 08:33 08:33 WBC 7.9 RBC 4.29 L Hgb 13.6 L Hct 40.7 L MCV 94.9 H MCH 31.7 H MCHC 33.4 RDW 14.8 Plt Count 311 MPV 9.2 Neut # (Auto) 4.3 Lymph # (Auto) 2.8 [place] # (Auto) 0.8 Eos # (Auto) 0.0 Baso # (Auto) 0.0 Absolute Nucleated RBC 0.00 Nucleated RBC % 0.0 Sodium 140 Potassium 3.9 Chloride 100 L Carbon Dioxide 23 Anion Gap 17.0 H BUN 12 Creatinine 0.9 Estimated GFR (MDRD) 86 L Glucose 139 H Calcium 8.9 Magnesium 1.9 Total Bilirubin 0.6 AST 64 H ALT 48 Alkaline Phosphatase 74 Troponin I < 0.04 B-Natriuretic Peptide Total Protein 8.6 H Albumin 4.4 Globulin 4.2 Albumin/Globulin Ratio 1.0 Lipase 37 09/15/18 08:33 WBC RBC Hgb Hct MCV MCH MCHC RDW Plt Count MPV Neut # (Auto) Lymph # (Auto) [place] # (Auto) Eos # (Auto) Baso # (Auto) Absolute Nucleated RBC Nucleated RBC % Sodium Potassium Chloride Carbon Dioxide Anion Gap BUN Creatinine Estimated GFR (MDRD) Glucose Calcium Magnesium Total Bilirubin AST ALT Alkaline Phosphatase Troponin I B-Natriuretic Peptide 115 H Total Protein Albumin Globulin Albumin/Globulin Ratio Lipase - Rads (name of study) chest xray Radiology: Prelim report reviewed, EMP read contemporaneously (Lungs/Pleura: No focal opacities evident. No pleural effusion. No PTX. Bilateral hilar fullness and mild diaphragmatic flattening. No lobar consolidation, pleural effusion nor PTX.), See rad report PD MEDICAL DECISION MAKING - ED course Complexity details: re-evaluated patient (He initially had significant work of breathing with agitation. His oxygenation was recorded initially is 93 but he went to as low as 87-88 with talking. He had diminished lung sounds and retractions.), considered differential, d/w patient ED course: He had stepwise improvement with nebulizer treatments and was also given IV Decadron and magnesium. He had an element of shakiness along with his anxiety so I think some was from the breathing difficulty but there may been some element of alcohol withdrawal to as he states he had not had much to drink last night and today. The combination of the medications and repeated nebulizer treatments did improve his breathing to where he did not have work of breathing but was still having prolonged expiratory phase and wheezing. On room air lying in bed after the treatments thus far he still went down to 88% on room air. I think he will need more prolonged treatment for satisfactory improvement and I talked with the hospitalist who will continue care. Departure - Departure Disposition: ED Place in Observation Clinical Impression: Acute exacerbation of COPD with asthma, Hypoxia, Alcohol abuse, Current nicotine use, Lower respiratory infection Condition: Stable Record reviewed to determine appropriate education?: Yes
[2018-09-15] MEDS ORDERED: IPRATROPIUM/ALBUTEROL 3 ML NEB INH STA (08:32)
[2018-09-15] MEDS ORDERED: SODIUM CHLORIDE 0.9% 1,000 ML IV ONE (08:32)
[2018-09-15] MEDS ORDERED: LORazepam 2 MG/ML VIAL IVP STA ×2 (08:33→10:23)
[2018-09-15] MEDS ORDERED: DEXAMETHASONE 10 MG/ML VIAL IVP STA (08:33)
[2018-09-15 08:49] LABS: BASOPHILS % (AUTO) 0.3 %; EOSINOPHILS % (AUTO) 0.4 %; HGB - HEMOGLOBIN 13.6 g/dL (14.0-18.0); LYMPHOCYTES # (AUTO) 2.8 10^3/uL (1.5-3.5); LYMPHOCYTES % (AUTO) 35.8 %; MEAN CORPUSCULAR HEMOGLOBIN 31.7 pg (27.0-31.0); MEAN CORPUSCULAR HGB CONC 33.4 g/dL (32.0-36.0); MEAN CORPUSCULAR VOLUME 94.9 fL (80.0-94.0); MEAN PLATELET VOLUME 9.2 fL (7.4-11.4); MONOCYTES # (AUTO) 0.8 10^3/uL (0.0-1.0); MONOCYTES % (AUTO) 9.5 %; NEUTROPHILS # (AUTO) 4.3 10^3/uL (1.5-6.6); NEUTROPHILS % (AUTO) 53.7 %; PLT - PLATELET COUNT 311 10^3/uL (130-450); RED BLOOD COUNT 4.29 10^6/uL (4.70-6.10); RED CELL DISTRIBUTION WIDTH 14.8 % (12.0-15.0); WHITE BLOOD COUNT 7.9 x10^3/uL (4.8-10.8)
[2018-09-15 09:04] LABS: ALBUMIN 4.4 g/dL (3.2-5.5); BILIRUBIN,TOTAL 0.6 mg/dL (0.2-1.0); CALCIUM 8.9 mg/dL (8.5-10.3); CREATININE 0.9 mg/dL (0.6-1.2); MAGNESIUM 1.9 mg/dL (1.7-2.8); TOTAL PROTEIN 8.6 g/dL (6.7-8.2)
[2018-09-15] MEDS ORDERED: ALBUTEROL NEB 2.5 MG/3 ML INH STA ×2 (09:18→10:45)
--- NOTE | 2018-09-15 10:20 | XRAY Report ---
Reason: dyspnea/ cough Procedure Date: 09/15/2018 Accession Number: [id number] / [id number] Procedure: XR - Chest 2 View X-Ray CPT Code: 41135 FULL RESULT: EXAM: CHEST RADIOGRAPHY EXAM DATE: 09/15/2018 09:45 AM. CLINICAL HISTORY: Dyspnea/cough. COMPARISON: CHEST 1 VIEW 05/17/2018. TECHNIQUE: 2 views. FINDINGS: Lungs/Pleura: No focal opacities evident. No pleural effusion. No pneumothorax. There are high normal lung volumes with mild flattening of diaphragms. Mediastinum: There is slight fullness of the left and right hilum, also seen previously. Otherwise, the cardiomediastinal silhouette is within normal limits, demonstrating a tortuous aorta with mild calcifications of the arch. Other: None. IMPRESSION: Bilateral hilar fullness and mild diaphragmatic flattening. No pulmonary edema, lobar consolidation, pleural effusion or pneumothorax are detected. RADIA
[2018-09-15] MEDS ORDERED: MAGNESIUM SULFATE 2 GRAM 2 GM/50 ML BAG IV ONE (10:23)
[2018-09-15] MEDS ORDERED: DOXYCYCLINE 100 MG TABLET PO STA (10:23)
[2018-09-15] MEDS ORDERED: ONDANSETRON 4 MG/2 ML VIAL IVP PRN (13:17)
[2018-09-15] MEDS ORDERED: PROCHLORPERAZINE 10 MG/2 ML VIAL IVP PRN (13:17)
[2018-09-15] MEDS ORDERED: ONDANSETRON ODT 4 MG TABLET TL PRN (13:17)
[2018-09-15] MEDS ORDERED: IPRATROPIUM/ALBUTEROL 3 ML NEB INH PRN (13:19)
[2018-09-15] MEDS: methylPREDNISolone SUCCINATE 40 MG/ML VIAL IVP SCH ×2 (14:52→21:28)
[2018-09-15] MEDS: SODIUM CHLORIDE FLUSH 0.9% 10 ML SYRINGE IVP PRN (14:52)
[2018-09-15] MEDS: ACETAMINOPHEN 325 MG TABLET PO PRN ×2 (16:13→21:33)
[2018-09-15] MEDS: oxyCODONE 5 MG TABLET PO PRN ×2 (16:13→21:33)
[2018-09-15] MEDS ORDERED: LORazepam 0.5 MG TABLET PO PRN (16:32)
--- NOTE | 2018-09-15 16:43 | HISTORY & PHYSICAL EXAMINATION ---
Chief Complaint - Chief Complaint Chief Complaint: SOB History of Present Illness - History of Present Illness HPI Comment/Other: Mr. Samuel is a 57-yrs-old male with a PMH significant for chronic alcoholic abuse, current cigarette smoker, HTN, COPD with asthma, who present ER complain of cough, shortness of breath. Pt report he had several days of cough with some greenish sputum. He report he has been progressive dyspnea and wheezing over the last several days as well. Today morning pt report he just can not breath even he use all his home inhaler. Then pt's sister heena him to the ER. He report he had hx of COPD and he still smokes cigarette half pack per day now. He also report he almost drink alcohol daily and today he drink alcohol before he went to ER. He state he had an albuterol, symbicort, combivent inhaler to use as needed. He report he has been using inhaler much more frequently over the last couple of days but without much improvement. Pt denies headache, fever, abdominal, nausea, vomiting, diarrhea, vision change, focus neurological deficits. His troponin test is less 0.04. WBC is 7.9. Pt is afebrile at ER, has 96% sats at 2 liter of O2, HR 113, RR is 28. History - Past Medical History Cardiovascular: reports: Hypertension Respiratory: reports: COPD Neuro: reports: None Endocrine/Autoimmune: reports: None GI: reports: None : reports: None Psych: reports: None Musculoskeletal: reports: Chronic back pain Derm: reports: None MRSA Hx?: No - Past Surgical History Ortho: reports: Spine surgery - Family & Social History Family History: Mother: , Cancer, Father: , CAD, COPD/Emphysema Family History Comment/Other: pt report his on last year, he is living alone, and his sister is living close to him. He had four children but is far away from him. Living arrangement: At home Living Situation: With family Social History Notes: he admitted half pack cigarette daily and daily alcohol, denies drug issue. - POLST Patient has POLST: No POLST Status: Full Code Meds/Allgy - Home Medications Home Medications: Ambulatory Orders Medication Instructions Recorded Confirmed Albuterol Sulfate [Proair Hfa 1 - 2 puffs INH Q4H PRN #1 inhaler 05/20/18 09/15/18 Inhaler] Amlodipine Besylate [Norvasc] 10 mg PO DAILY 09/15/18 09/15/18 Budesonide/Formoterol Fumarate 2 puffs INH BID 09/15/18 09/15/18 [Symbicort 160-4.5 Mcg Inhaler] Diclofenac Epolamine [Flector] 1 each TD BID 09/15/18 09/15/18 Ipratropium/Albuterol [Combivent 1 puffs INH Q4HR PRN 09/15/18 09/15/18 Respimat] - Allergies Allergies/Adverse Reactions: Allergies Allergy/AdvReac Type Severity Reaction Status Date / Time lisinopril Allergy Severe ANAPHALACTI Verified 05/17/18 15:12 C/ARREST Review of Systems - Constitutional Constitutional: denies: Fatigue, Fever, Chills, Malaise, Weakness, Poor appetite, Diaphoresis, Night sweats - Eyes Eyes: denies: Pain, Irritation, Amaurosis, Blurred vision, Spots in vision, Field loss, Vision loss, Dipolpia - Ears, Nose & Throat Ears, Nose & Throat: denies: Ear pain, Hearing loss, Hearing aids, Tinnitus, Vertigo, Nasal pain, Nasal discharge, Nosebleeds, Nasal obstruction, Nasal congestion, Postnasal drainage, Sore throat, Mouth lesions, Bleeding gums - Cardiovascular Cariovascular: denies: Irregular heart rate, Palpitations, Chest pain, Edema, Lightheadedness, Syncope, Exertional dyspnea, Decr. exercise tolerance - Respiratory Respiratory: reports: Cough, Sputum production, SOB at rest, SOB with exertion. denies: Wheezing, Snoring, Hemoptysis, Orthopnea - Gastrointestinal Gastrointestinal: denies: Abdominal pain, Abdominal distention, Constipation, Diarrhea, Change in bowel habits, Rectal bleeding, Black stools, Bloody stools, Nausea, Vomiting - Genitourinary Genitourinary: denies: Dysuria, Frequency, Urgency, Hematuria, Incontinence, Flank pain, Nocturia, Urethral discharge - Musculoskeletal Musculoskeletal: denies: Muscle pain, Back pain, Muscle aches, Stiffness, Limited range of motion, Muscle weakness, Gout, Joint pain - Integumentary Integumentary: denies: Rash, Pruritis, Lesions, Dryness, Lumps, Acne, Pigment changes, Nail changes - Neurological Neurological: denies: General weakness, Focal weakness, Headache, Dizziness, Numbness, Memory problems, Pre-existing deficit, Abnormal gait - Psychiatric Psychiatric: denies: Depression, Anxiety, Suicidal, Delusions, Hallucinations, Homicidal - Endocrine Endocrine: denies: Polyuria, Polydypsia, Polyphagia, Intolerance to cold, I ntolerance to heat - Hematologic/Lymphatic Hematologic/Lymphatic: denies: Anemia, Bruising, Petechiae, Blood clots, Lymphadenopathy, Bleeding tendencies Prior Level of Functionality: independent Exam - Vital Signs Vital Signs: Vital Signs x48h Temp Pulse Pulse Resp BP BP Pulse Ox 09/15/18 16:00 36.3 C L 113 H 28 H 133/97 H 96 09/15/18 15:45 112 H 24 09/15/18 14:27 36.7 C 113 H 36 H 154/81 H 98 09/15/18 13:39 112 H 21 126/102 H 97 09/15/18 11:21 102 H 27 H 88 L 09/15/18 10:55 114 H 20 09/15/18 10:33 110 H 27 H 133/81 H 95 09/15/18 09:59 113 H 21 09/15/18 09:10 102 H 20 - Physical Exam General Appearance: positive: No acute distress, Alert. negative: Lethargic Eyes Bilateral: positive: Normal inspection, PERRL, No lid inflammation, Conjunctivae nml ENT: positive: ENT inspection nml, Pharynx nml, No signs of dehydration. negative: Purulent nasal drainage, Pharyngeal erythema Neck: positive: Nml inspection, Thyroid nml, No JVD, Trachea midline. negative: Thyromegaly, Lymphadenopathy (R), Lymphadenopathy (L), Stiff neck, Swelling/bruising, Tracheal deviation Respiratory: positive: Chest non-tender, No respiratory distress. negative: Wheezes, Rales Cardiovascular: positive: Regular rate & rhythm, No murmur, No gallop, Tachycardia. negative: Irregularly irregular, Extrasystoles, Bradycardia, JVD present, Systolic murmur, Diastolic murmur Peripheral Pulses: positive: 2+ Abdomen: positive: Non-tender, No organomegaly, Nml bowel sounds, No distention. negative: Tenderness, Guarding, Rebound Back: positive: Nml inspection. negative: CVA tenderness (R), CVA tenderness (L) Skin: positive: Color nml, No rash, Warm, Dry. negative: Cyanosis, Diaphoresis, Pallor, Skin rash Extremities: positive: Non-tender, Full ROM, Nml appearance. negative: Calf tenderness, Joint swelling, Amor's sign/cords Neurologic/Psychiatric: positive: Oriented x3, Motor nml, Sensation nml, Mood/affect nml. negative: Weakness, Sensory loss, Facial droop, Slurred/abnml speech, Depressed mood/affect Sepsis Event Note (H) - Evaluation Current Stage of Sepsis: Ruled out Conclusion/Plan - Problem List (1) Acute exacerbation of COPD with asthma Conclusion/Plan: pt present cough, SOB, hx of COPD, current smoker, 96%sat on 2 liter of O2. pt did not take O2 at home treat with Duoneb, Albuterol PRN Solu-metrol 40mg tid, will wane off and titrate O2 supplement as needed (2) Alcoholism /alcohol abuse Conclusion/Plan: pt has hx of alcohol abuse. alcoholic smell when standing by Ativan PRN order vit, and B1 advise pt quit alcoholism (3) Currently smokes tobacco Conclusion/Plan: pt report he still smoke cigarette half pack per day. Pt decline to have nicotine Patch advise pt quit cigarette smoking, pt already has COPD (4) HTN (hypertension) Conclusion/Plan: stable, will reconcile home Norvasc (5)tachycardia it appear derived from his COPD exacerbation with hypoxia order CXR, and tele and vital monitor treat underline of COPD exacerbation (6) Full code status Conclusion/Plan: pt request full code - Lab Results Fish Bones: 09/15/18 08:33 09/15/18 08:33
[2018-09-15] MEDS: AZITHROMYCIN 250 MG TABLET PO SCH (18:00)
[2018-09-15] MEDS: PRENATAL VITAMIN TABLET PO SCH (18:00)
[2018-09-15] MEDS: SODIUM CHLORIDE FLUSH 0.9% 10 ML SYRINGE IVP SCH (18:01)
[2018-09-15] MEDS: SODIUM CHLORIDE 0.9% 1,000 ML IV SCH (18:01)
[2018-09-15] MEDS: guaiFENesin 600 MG TABLET PO SCH (21:28)
[2018-09-16 05:53] LABS: EOSINOPHILS # (AUTO) 0.2 10^3/uL (0.0-0.7); EOSINOPHILS % (AUTO) 2.1 %; HGB - HEMOGLOBIN 12.6 g/dL (14.0-18.0); LYMPHOCYTES # (AUTO) 0.4 10^3/uL (1.5-3.5); LYMPHOCYTES % (AUTO) 4.9 %; MEAN CORPUSCULAR HEMOGLOBIN 32.2 pg (27.0-31.0); MEAN CORPUSCULAR VOLUME 94.9 fL (80.0-94.0); MONOCYTES # (AUTO) 0.1 10^3/uL (0.0-1.0); MONOCYTES % (AUTO) 1.9 %; NEUTROPHILS # (AUTO) 6.5 10^3/uL (1.5-6.6); NEUTROPHILS % (AUTO) 90.7 %; PLT - PLATELET COUNT 257 10^3/uL (130-450); RED BLOOD COUNT 3.91 10^6/uL (4.70-6.10); RED CELL DISTRIBUTION WIDTH 14.6 % (12.0-15.0); WHITE BLOOD COUNT 7.2 x10^3/uL (4.8-10.8)
[2018-09-16 05:58] LABS: CALCIUM 8.4 mg/dL (8.5-10.3); CREATININE 0.6 mg/dL (0.6-1.2)
[2018-09-16] MEDS: SODIUM CHLORIDE FLUSH 0.9% 10 ML SYRINGE IVP SCH ×3 (06:41→18:21)
[2018-09-16] MEDS: methylPREDNISolone SUCCINATE 40 MG/ML VIAL IVP SCH ×3 (06:41→22:11)
[2018-09-16] MEDS: SODIUM CHLORIDE 0.9% 1,000 ML IV SCH (06:42)
[2018-09-16 06:52] LABS: DIFFERENTIAL COMMENT MANUAL=AUTO DIFF; PLATELET ESTIMATE, MANUAL NORMAL (130-450,000) (NORMAL); PLATELET MORPHOLOGY NORMAL APPEARANCE (NORMAL); RBC MORPHOLOGY (MULTIPLE) NORMAL APPEARANCE (NORMAL)
[2018-09-16] MEDS: ALBUTEROL NEB 2.5 MG/3 ML INH PRN ×2 (08:24→23:27)
[2018-09-16] MEDS: THIAMINE 100 MG TABLET PO SCH (09:28)
[2018-09-16] MEDS: guaiFENesin 600 MG TABLET PO SCH ×2 (09:28→20:48)
[2018-09-16] MEDS: PRENATAL VITAMIN TABLET PO SCH (09:28)
[2018-09-16] MEDS: AZITHROMYCIN 250 MG TABLET PO SCH (09:28)
[2018-09-16] MEDS: amLODIPine 5 MG TABLET PO SCH (09:28)
[2018-09-16] MEDS: POLYETHYLENE GLYCOL 3350 17 GM PACKET PO SCH (09:29)
[2018-09-16] MEDS: ENOXAPARIN 40 MG/0.4 ML SYRINGE SUBQ SCH (09:29)
[2018-09-16 09:30] LABS: ABG BASE EXCESS 1.6 mmol/L (-2.0-3.0); ABG HCO3 24.2 mmol/L (22.0-26.0); ABG OXYGEN SATURATION 94 % (94-98); ABG PCO2 32 mmHg (34-45); ABG PH 7.49 (7.35-7.45); ABG PO2 69 mmHg (80-100); ABG TCO2 25.2 MMOL/L (21.0-29.0); ALLEN TEST POSITIVE
[2018-09-16] MEDS ORDERED: IPRATROPIUM/ALBUTEROL 3 ML NEB INH SCH (11:00)
[2018-09-16] MEDS: oxyCODONE 5 MG TABLET PO PRN ×2 (11:37→18:20)
[2018-09-16 11:44] LABS: MUDS CUTOFF CONCENTRATIONS CUTOFF CONC BELOW:
[2018-09-16 12:04] LABS: AMPHETAMINE SCREEN,URINE NEGATIVE (NEGATIVE); BENZODIAZEPINES SCREEN, URINE POSITIVE (NEGATIVE); COCAINE SCREEN URINE NEGATIVE (NEGATIVE); METHADONE SCREEN, URINE NEGATIVE (NEGATIVE); METHAMPHETAMINES SCREEN, URINE NEGATIVE (NEGATIVE); OPIATE SCREEN, URINE NEGATIVE (NEGATIVE); OXYCODONE SCREEN, URINE POSITIVE (NEGATIVE); PROPOXYPHENE SCREEN, URINE NEGATIVE (NEGATIVE); TRICYCLIC ANTIDEPRESSANT,URINE NEGATIVE (NEGATIVE)
[2018-09-16] MEDS: IPRATROPIUM/ALBUTEROL 3 ML NEB INH SCH ×3 (12:12→20:54)
--- NOTE | 2018-09-16 13:47 | PROVIDER PROGRESS NOTE ---
Subjective - Prog Note Date Prog Note Date: 09/16/18 - Subjective Subjective: pt report he still feel shortness of breath even worsen than yesterday. pt report cough is slight better. he denies fever, chill, and chest pain. Current Medications - Current Medications Current Medications: Active Medications Acetaminophen (Tylenol) 650 mg PO Q4HR PRN PRN Reason: Pain 1 to 4 Last Admin: 09/15/18 21:33 Dose: 650 mg Albuterol () 2.5 mg INH RTQ4H PRN PRN Reason: Wheezing Last Admin: 09/16/18 08:24 Dose: 2.5 mg Albuterol/Ipratropium (Duoneb) 3 ml INH RTQID [facility] Last Admin: 09/16/18 12:12 Dose: 3 ml Amlodipine Besylate (Norvasc) 10 mg PO DAILY [facility] Last Admin: 09/16/18 09:28 Dose: 10 mg Azithromycin (Zithromax) 500 mg PO DAILY [facility] Last Admin: 09/16/18 09:28 Dose: 500 mg Diazepam (Valium) 5 mg PO Q1H PRN; Protocol PRN Reason: CIWA > 8 Enoxaparin Sodium (Lovenox) 40 mg SUBQ DAILY [facility] Last Admin: 09/16/18 09:29 Dose: 40 mg Guaifenesin (Mucinex) 600 mg PO BID [facility] Last Admin: 09/16/18 09:28 Dose: 600 mg Methylprednisolone (Solu-Medrol (40mg Vial)) 60 mg IVP TID [facility] Last Admin: 09/16/18 11:28 Dose: 60 mg Ondansetron HCl (Zofran Inj) 4 mg IVP Q6HR PRN PRN Reason: Nausea / Vomiting Ondansetron HCl (Zofran Odt) 4 mg TL Q6HR PRN PRN Reason: Nausea / Vomiting Oxycodone HCl (Roxicodone) 5 mg PO Q4HR PRN PRN Reason: Pain 5 to 7 Last Admin: 09/16/18 11:37 Dose: 5 mg Polyethylene Glycol (Miralax) 17 gm PO DAILY [facility] Last Admin: 09/16/18 09:29 Dose: Not Given Multivit/Folic Acid/Iron (Trinatal Rx 1) 1 tab PO DAILYWM [facility] Last Admin: 09/16/18 09:28 Dose: 1 tab Prochlorperazine Edisylate (Compazine Inj) 10 mg IVP Q6HR PRN PRN Reason: Nausea / Vomiting Sodium Chloride (Normal Saline Flush 0.9%) 10 ml IVP PRN PRN PRN Reason: NEEDED PER PROVIDER ORDERS Last Admin: 09/15/18 14:52 Dose: 10 ml Sodium Chloride (Normal Saline Flush 0.9%) 10 ml IVP 0100,0900,1700 [facility] Last Admin: 09/16/18 09:29 Dose: 10 ml Thiamine HCl (Vitamin B-1) 100 mg PO DAILY [facility] Last Admin: 09/16/18 09:28 Dose: 100 mg Amlodipine Besylate [Norvasc] 10 mg PO DAILY 09/15/18 Budesonide/Formoterol Fumarate [Symbicort 160-4.5 Mcg Inhaler] 2 puffs INH BID 09/15/18 Diclofenac Epolamine [Flector] 1 each TD BID 09/15/18 Ipratropium/Albuterol [Combivent Respimat] 1 puffs INH Q4HR PRN 09/15/18 Objective - Vital Signs/Intake & Output Reviewed Vital Signs: Yes Vital Signs: Vital Signs x48h Temp Pulse Pulse Resp BP Pulse Ox 09/16/18 13:05 36.5 C 107 H 32 H 146/91 H 98 09/16/18 12:12 97 24 09/16/18 08:24 98 30 H 09/16/18 08:00 36.3 C L 95 32 H 157/91 H 96 Intake & Output: Intake & Output 09/13/18 09/14/18 09/15/18 09/16/18 23:59 23:59 23:59 23:59 Intake Total 2970 2080 Output Total 725 200 Balance 2245 1880 - Objective General Appearance: positive: No acute distress, Alert. negative: Lethargic Eyes Bilateral: positive: Normal inspection, PERRL, No lid inflammation, Conjunctivae nml ENT: positive: ENT inspection nml, Pharynx nml, No signs of dehydration. negative: Purulent nasal drainage, Pharyngeal erythema, Oral lesions Neck: positive: Nml inspection, Thyroid nml, No JVD, Trachea midline. negative: Thyromegaly, Lymphadenopathy (R), Lymphadenopathy (L), Stiff neck, Swelling/bruising, Tracheal deviation Respiratory: positive: Chest non-tender, No respiratory distress. negative: Wheezes, Rales, Rhonchi Cardiovascular: positive: Regular rate & rhythm, No murmur, No gallop. negativ e: Irregularly irregular, Extrasystoles, Tachycardia, Bradycardia, JVD present, Systolic murmur, Diastolic murmur Peripheral Pulses: 2+ Radial (R), 2+ Radial (L), 2+ Dorsalis pedis (R), 2+ Dorsalis pedis (L) Abdomen: positive: Non-tender, No organomegaly, Nml bowel sounds, No distention. negative: Tenderness, Guarding, Rebound Back: positive: Nml inspection. negative: CVA tenderness (R), CVA tenderness (L) Skin: positive: Color nml, No rash, Warm, Dry. negative: Cyanosis, Diaphoresis, Pallor Extremities: positive: Non-tender, Full ROM, Nml appearance. negative: Calf tenderness, Joint swelling, Amor's sign/cords Neurologic/Psychiatric: positive: Oriented x3, Motor nml, Sensation nml. negative: Weakness, Sensory loss, Facial droop, Slurred/abnml speech, Depressed mood/affect - Lab Results Fish Bones: 09/16/18 05:20 09/16/18 05:20 Other Labs: Lab Results x24hrs 09/16/18 09/16/18 09/16/18 Range/Units 11:30 09:20 05:20 WBC (4.8-10.8) x10^3/uL RBC (4.70-6.10) 10^6/uL Hgb (14.0-18.0) g/dL Hct (42.0-52.0) % MCV (80.0-94.0) fL MCH (27.0-31.0) pg MCHC (32.0-36.0) g/dL RDW (12.0-15.0) % Plt Count (130-450) 10^3/uL MPV (7.4-11.4) fL Neut # (Auto) (1.5-6.6) 10^3/uL Lymph # (Auto) (1.5-3.5) 10^3/uL [place] # (Auto) (0.0-1.0) 10^3/uL Eos # (Auto) (0.0-0.7) 10^3/uL Baso # (Auto) (0.0-0.1) 10^3/uL Absolute Nucleated RBC x10^3/uL Band Neuts % (Manual) Abnorm Lymph % (Manual) Nucleated RBC % /100WBC Neutrophils # (Manual) Lymphocytes # (Manual) Monocytes # (Manual) Eosinophils # (Manual) Basophils # (Manual) Differential Comment WBC Morphology (NORMAL) Platelet Estimate (NORMAL) Platelet Morphology (NORMAL) RBC Morph Micro Appear (NORMAL) Bld Gas Analysis Time 0930 Sample Site LEFT RADIAL ABG pH 7.49 H (7.35-7.45) ABG pCO2 32 L (34-45) mmHg ABG pO2 69 L (80-100) mmHg ABG HCO3 24.2 (22.0-26.0) mmol/L ABG Total CO2 25.2 (21.0-29.0) MMOL/L ABG O2 Saturation 94 (94-98) % ABG Oximetry Spot Check 95 % ABG Base Excess 1.6 (-2.0-3.0) mmol/L Jesus Test POSITIVE Respiration Rate 28 b/min O2 Delivery Device NASAL [place]ULA O2 Liters/Min 3.00 LPM Sodium 137 (135-145) mmol/L Potassium 3.5 (3.5-5.0) mmol/L Chloride 102 (101-111) mmol/L Carbon Dioxide 25 (21-32) mmol/L Anion Gap 10.0 (6-13) BUN 13 (6-20) mg/dL Creatinine 0.6 (0.6-1.2) mg/dL Estimated GFR (MDRD) 138 (>89) Glucose 192 H (70-100) mg/dL Calcium 8.4 L (8.5-10.3) mg/dL Urine Opiates Screen NEGATIVE (NEGATIVE) Ur Oxycodone Screen POSITIVE H (NEGATIVE) Urine Methadone Screen NEGATIVE (NEGATIVE) Ur Propoxyphene Screen NEGATIVE (NEGATIVE) Ur Barbiturates Screen NEGATIVE (NEGATIVE) Ur Tricyclics Screen NEGATIVE (NEGATIVE) Ur Phencyclidine Scrn NEGATIVE (NEGATIVE) Ur Amphetamine Screen NEGATIVE (NEGATIVE) U Methamphetamines Scrn NEGATIVE (NEGATIVE) U Benzodiazepines Scrn POSITIVE H (NEGATIVE) Urine Cocaine Screen NEGATIVE (NEGATIVE) U Cannabinoids Screen POSITIVE H (NEGATIVE) Ethyl Alcohol mg/dL 09/16/18 09/15/18 Range/Units 05:20 17:14 WBC 7.2 (4.8-10.8) x10^3/uL RBC 3.91 L (4.70-6.10) 10^6/uL Hgb 12.6 L (14.0-18.0) g/dL Hct 37.1 L (42.0-52.0) % MCV 94.9 H (80.0-94.0) fL MCH 32.2 H (27.0-31.0) pg MCHC 34.0 (32.0-36.0) g/dL RDW 14.6 (12.0-15.0) % Plt Count 257 (130-450) 10^3/uL MPV 10.0 (7.4-11.4) fL Neut # (Auto) 6.5 (1.5-6.6) 10^3/uL Lymph # (Auto) 0.4 L (1.5-3.5) 10^3/uL [place] # (Auto) 0.1 (0.0-1.0) 10^3/uL Eos # (Auto) 0.2 (0.0-0.7) 10^3/uL Baso # (Auto) 0.0 (0.0-0.1) 10^3/uL Absolute Nucleated RBC 0.00 x10^3/uL Band Neuts % (Manual) PHARMACEUTICAL ASSISTANT Abnorm Lymph % (Manual) PHARMACEUTICAL ASSISTANT Nucleated RBC % 0.0 /100WBC Neutrophils # (Manual) Not Reportable Lymphocytes # (Manual) PHARMACEUTICAL ASSISTANT Monocytes # (Manual) PHARMACEUTICAL ASSISTANT Eosinophils # (Manual) PHARMACEUTICAL ASSISTANT Basophils # (Manual) PHARMACEUTICAL ASSISTANT Differential Comment MANUAL=AUTO DIFF WBC Morphology NORMAL APPEARANCE (NORMAL) Platelet Estimate NORMAL (130-450,000) (NORMAL) Platelet Morphology NORMAL APPEARANCE (NORMAL) RBC Morph Micro Appear NORMAL APPEARANCE (NORMAL) Bld Gas Analysis Time Sample Site ABG pH (7.35-7.45) ABG pCO2 (34-45) mmHg ABG pO2 (80-100) mmHg ABG HCO3 (22.0-26.0) mmol/L ABG Total CO2 (21.0-29.0) MMOL/L ABG O2 Saturation (94-98) % ABG Oximetry Spot Check % ABG Base Excess (-2.0-3.0) mmol/L Jesus Test Respiration Rate b/min O2 Delivery Device O2 Liters/Min LPM Sodium (135-145) mmol/L Potassium (3.5-5.0) mmol/L Chloride (101-111) mmol/L Carbon Dioxide (21-32) mmol/L Anion Gap (6-13) BUN (6-20) mg/dL Creatinine (0.6-1.2) mg/dL Estimated GFR (MDRD) (>89) Glucose (70-100) mg/dL Calcium (8.5-10.3) mg/dL Urine Opiates Screen (NEGATIVE) Ur Oxycodone Screen (NEGATIVE) Urine Methadone Screen (NEGATIVE) Ur Propoxyphene Screen (NEGATIVE) Ur Barbiturates Screen (NEGATIVE) Ur Tricyclics Screen (NEGATIVE) Ur Phencyclidine Scrn (NEGATIVE) Ur Amphetamine Screen (NEGATIVE) U Methamphetamines Scrn (NEGATIVE) U Benzodiazepines Scrn (NEGATIVE) Urine Cocaine Screen (NEGATIVE) U Cannabinoids Screen (NEGATIVE) Ethyl Alcohol 63.0 mg/dL ABX Reporting Has patient been on IV antibiotics over the past 48 hours?: Yes Sepsis Event Note (H) - Evaluation Current Stage of Sepsis: Ruled out Assessment/Plan - Problem List (1) Acute exacerbation of COPD with asthma Impression: 09/16 pt still present SOB, even worsen than before. scheduled Duoneb, add pulmicort increase solu-metre to 60 tid continue breath treat, and consult with RT supplement with O2 as needed pt present cough, SOB, hx of COPD, current smoker, 96%sat on 2 liter of O2. pt did not take O2 at home treat with Duoneb, Albuterol PRN Solu-metrol 40mg tid, will wane off and titrate O2 supplement as needed (2) Alcoholism /alcohol abuse Conclusion/Plan: 09/16 stable, continue CIWA protocol, Diazepam PRN continue vit, and B1 pt has hx of alcohol abuse. alcoholic smell when standing by Ativan PRN order vit, and B1 advise pt quit alcoholism (3) Currently smokes tobacco Conclusion/Plan: pt report he still smoke cigarette half pack per day. Pt decline to have nicotine Patch advise pt quit cigarette smoking, pt already has COPD (4) HTN (hypertension) Conclusion/Plan: stable, will reconcile home Norvasc (5)tachycardia 09/16 improved, HR is down less 100. it appear derived from his COPD exacerbation with hypoxia order CXR, and tele and vital monitor treat underline of COPD exacerbation
[2018-09-16] MEDS: ACETAMINOPHEN 325 MG TABLET PO PRN (16:46)
[2018-09-16] MEDS: diazePAM 5 MG TABLET PO PRN (20:47)
[2018-09-16] MEDS: SODIUM CHLORIDE FLUSH 0.9% 10 ML SYRINGE IVP PRN (22:10)
[2018-09-16] MEDS: BUDESONIDE 0.5 MG/2 ML NEB INH SCH (23:28)
[2018-09-17] MEDS: SODIUM CHLORIDE FLUSH 0.9% 10 ML SYRINGE IVP SCH ×4 (01:53→23:44)
[2018-09-17] MEDS: diazePAM 5 MG TABLET PO PRN ×4 (01:53→18:57)
[2018-09-17] MEDS: ALBUTEROL NEB 2.5 MG/3 ML INH PRN ×2 (04:28→23:19)
[2018-09-17 04:53] LABS: BASOPHILS % (AUTO) 0.1 %; HGB - HEMOGLOBIN 12.8 g/dL (14.0-18.0); LYMPHOCYTES # (AUTO) 0.3 10^3/uL (1.5-3.5); LYMPHOCYTES % (AUTO) 3.1 %; MEAN CORPUSCULAR HEMOGLOBIN 31.8 pg (27.0-31.0); MEAN CORPUSCULAR HGB CONC 33.1 g/dL (32.0-36.0); MEAN CORPUSCULAR VOLUME 96.3 fL (80.0-94.0); MEAN PLATELET VOLUME 10.1 fL (7.4-11.4); MONOCYTES # (AUTO) 0.2 10^3/uL (0.0-1.0); MONOCYTES % (AUTO) 2.1 %; NEUTROPHILS # (AUTO) 10.1 10^3/uL (1.5-6.6); NEUTROPHILS % (AUTO) 94.3 %; PLT - PLATELET COUNT 239 10^3/uL (130-450); RED BLOOD COUNT 4.02 10^6/uL (4.70-6.10); RED CELL DISTRIBUTION WIDTH 14.7 % (12.0-15.0); WHITE BLOOD COUNT 10.7 x10^3/uL (4.8-10.8)
[2018-09-17 05:06] LABS: CALCIUM 8.8 mg/dL (8.5-10.3); CREATININE 0.7 mg/dL (0.6-1.2)
[2018-09-17] MEDS: methylPREDNISolone SUCCINATE 40 MG/ML VIAL IVP SCH ×3 (06:37→21:54)
[2018-09-17] MEDS: SODIUM CHLORIDE FLUSH 0.9% 10 ML SYRINGE IVP PRN ×4 (06:38→21:57)
[2018-09-17] MEDS: ACETAMINOPHEN 325 MG TABLET PO PRN ×3 (06:55→23:43)
[2018-09-17] MEDS: BUDESONIDE 0.5 MG/2 ML NEB INH SCH ×2 (07:51→20:36)
[2018-09-17] MEDS: IPRATROPIUM/ALBUTEROL 3 ML NEB INH SCH ×5 (07:51→20:36)
[2018-09-17] MEDS: AZITHROMYCIN 250 MG TABLET PO SCH (09:22)
[2018-09-17] MEDS: amLODIPine 5 MG TABLET PO SCH (09:22)
[2018-09-17] MEDS: PRENATAL VITAMIN TABLET PO SCH (09:22)
[2018-09-17] MEDS: guaiFENesin 600 MG TABLET PO SCH ×2 (09:23→21:03)
[2018-09-17] MEDS: THIAMINE 100 MG TABLET PO SCH (09:23)
[2018-09-17] MEDS: POLYETHYLENE GLYCOL 3350 17 GM PACKET PO SCH (09:23)
[2018-09-17] MEDS: ENOXAPARIN 40 MG/0.4 ML SYRINGE SUBQ SCH (09:23)
[2018-09-17 12:16] LABS: VBG BASE EXCESS 2.2 mmol/L (-2 - +2); VBG PH 7.454 (7.31-7.41); VBG PO2 63.1 mmHg (25-47); VBG TOTAL CO2 27.2 mmol/L (24-29)
--- NOTE | 2018-09-17 12:17 | PROVIDER PROGRESS NOTE ---
Subjective - Prog Note Date Prog Note Date: 09/17/18 - Subjective Pt reports feeling: Improved Subjective: pt is on HHFNC, pt's respiratory distress is reduced, and RR is 20 and HR is 74, but pt still need HHFNC. Current Medications - Current Medications Current Medications: Active Medications Acetaminophen (Tylenol) 650 mg PO Q4HR PRN PRN Reason: Pain 1 to 4 Last Admin: 09/17/18 06:55 Dose: 650 mg Albuterol () 2.5 mg INH RTQ4H PRN PRN Reason: Wheezing Last Admin: 09/17/18 04:28 Dose: 2.5 mg Albuterol/Ipratropium (Duoneb) 3 ml INH RTQID [facility] Last Admin: 09/17/18 07:51 Dose: 3 ml Amlodipine Besylate (Norvasc) 10 mg PO DAILY [facility] Last Admin: 09/17/18 09:22 Dose: 10 mg Azithromycin (Zithromax) 500 mg PO DAILY [facility] Last Admin: 09/17/18 09:22 Dose: 500 mg Budesonide (Pulmicort) 0.5 mg INH RTBID [facility] Last Admin: 09/17/18 07:51 Dose: 0.5 mg Diazepam (Valium) 5 mg PO Q1H PRN; Protocol PRN Reason: CIWA > 8 Last Admin: 09/17/18 10:41 Dose: 5 mg Enoxaparin Sodium (Lovenox) 40 mg SUBQ DAILY [facility] Last Admin: 09/17/18 09:23 Dose: 40 mg Guaifenesin (Mucinex) 600 mg PO BID [facility] Last Admin: 09/17/18 09:23 Dose: 600 mg Methylprednisolone (Solu-Medrol (40mg Vial)) 60 mg IVP TID [facility] Last Admin: 09/17/18 06:37 Dose: 60 mg Montelukast Sodium (Singulair) 10 mg PO QPM [facility] Ondansetron HCl (Zofran Inj) 4 mg IVP Q6HR PRN PRN Reason: Nausea / Vomiting Ondansetron HCl (Zofran Odt) 4 mg TL Q6HR PRN PRN Reason: Nausea / Vomiting Oxycodone HCl (Roxicodone) 5 mg PO Q4HR PRN PRN Reason: Pain 5 to 7 Last Admin: 09/16/18 18:20 Dose: 5 mg Polyethylene Glycol (Miralax) 17 gm PO DAILY [facility] Last Admin: 09/17/18 09:23 Dose: Not Given Multivit/Folic Acid/Iron (Trinatal Rx 1) 1 tab PO DAILYWM [facility] Last Admin: 09/17/18 09:22 Dose: 1 tab Prochlorperazine Edisylate (Compazine Inj) 10 mg IVP Q6HR PRN PRN Reason: Nausea / Vomiting Sodium Chloride (Normal Saline Flush 0.9%) 10 ml IVP PRN PRN PRN Reason: NEEDED PER PROVIDER ORDERS Last Admin: 09/17/18 06:38 Dose: 10 ml Sodium Chloride (Normal Saline Flush 0.9%) 10 ml IVP 0100,0900,1700 [facility] Last Admin: 09/17/18 09:24 Dose: 10 ml Thiamine HCl (Vitamin B-1) 100 mg PO DAILY [facility] Last Admin: 09/17/18 09:23 Dose: 100 mg Amlodipine Besylate [Norvasc] 10 mg PO DAILY 09/15/18 Budesonide/Formoterol Fumarate [Symbicort 160-4.5 Mcg Inhaler] 2 puffs INH BID 09/15/18 Diclofenac Epolamine [Flector] 1 each TD BID 09/15/18 Ipratropium/Albuterol [Combivent Respimat] 1 puffs INH Q4HR PRN 09/15/18 Objective - Vital Signs/Intake & Output Vital Signs: Vital Signs x48h Temp Pulse Pulse Resp BP Pulse Ox 09/17/18 08:18 36.4 C L 74 20 148/89 H 95 09/17/18 07:51 71 26 H 09/17/18 04:35 36.5 C 87 20 157/76 H 98 09/17/18 04:30 87 22 Intake & Output: Intake & Output 09/14/18 09/15/18 09/16/18 09/17/18 23:59 23:59 23:59 23:59 Intake Total 2970 3960 620 Output Total 723 398 675 Balance 2241 3210 -55 - Objective General Appearance: positive: No acute distress, Alert. negative: Lethargic Eyes Bilateral: positive: Normal inspection, PERRL, No lid inflammation, Conjunctivae nml ENT: positive: ENT inspection nml, Pharynx nml, No signs of dehydration. negative: Purulent nasal drainage, Pharyngeal erythema, Oral lesions Neck: positive: Nml inspection, Thyroid nml, No JVD, Trachea midline. negative: Thyromegaly, Lymphadenopathy (R), Lymphadenopathy (L), Stiff neck, Swelling/bruising, Tracheal deviation Respiratory: positive: Chest non-tender. negative: No respiratory distress, Breath sounds nml, Wheezes, Rales, Rhonchi Cardiovascular: positive: Regular rate & rhythm, No murmur, No gallop. negative: Irregularly irregular, Extrasystoles, Tachycardia, Bradycardia, JVD present, Systolic murmur, Diastolic murmur Peripheral Pulses: 2+ Radial (R), 2+ Radial (L), 2+ Dorsalis pedis (R), 2+ Dorsalis pedis (L) Abdomen: positive: Non-tender, No organomegaly, Nml bowel sounds, No distention. negative: Tenderness, Guarding, Rebound Back: positive: Nml inspection. negative: CVA tenderness (R), CVA tenderness (L) Skin: positive: Color nml, No rash, Warm, Dry. negative: Cyanosis, Diaphoresis, Pallor Extremities: positive: Non-tender, Full ROM, Nml appearance. negative: Calf tenderness, Joint swelling, Amor's sign/cords Neurologic/Psychiatric: positive: Oriented x3, Motor nml, Sensation nml, Mood/affect nml. negative: Weakness, Sensory loss, Facial droop, Slurred/abnml speech, Depressed mood/affect - Lab Results Fish Bones: 09/17/18 04:40 09/17/18 04:40 Other Labs: Lab Results x24hrs 09/17/18 09/17/18 Range/Units 04:40 04:40 WBC 10.7 (4.8-10.8) x10^3/uL RBC 4.02 L (4.70-6.10) 10^6/uL Hgb 12.8 L (14.0-18.0) g/dL Hct 38.7 L (42.0-52.0) % MCV 96.3 H (80.0-94.0) fL MCH 31.8 H (27.0-31.0) pg MCHC 33.1 (32.0-36.0) g/dL RDW 14.7 (12.0-15.0) % Plt Count 239 (130-450) 10^3/uL MPV 10.1 (7.4-11.4) fL Neut # (Auto) 10.1 H (1.5-6.6) 10^3/uL Lymph # (Auto) 0.3 L (1.5-3.5) 10^3/uL [place] # (Auto) 0.2 (0.0-1.0) 10^3/uL Eos # (Auto) 0.0 (0.0-0.7) 10^3/uL Baso # (Auto) 0.0 (0.0-0.1) 10^3/uL Absolute Nucleated RBC 0.00 x10^3/uL Nucleated RBC % 0.0 /100WBC Sodium 137 (135-145) mmol/L Potassium 3.6 (3.5-5.0) mmol/L Chloride 102 (101-111) mmol/L Carbon Dioxide 26 (21-32) mmol/L Anion Gap 9.0 (6-13) BUN 15 (6-20) mg/dL Creatinine 0.7 (0.6-1.2) mg/dL Estimated GFR (MDRD) 115 (>89) Glucose 155 H (70-100) mg/dL Calcium 8.8 (8.5-10.3) mg/dL ABX Reporting Has patient been on IV antibiotics over the past 48 hours?: Yes Sepsis Event Note (H) - Evaluation Current Stage of Sepsis: Ruled out Assessment/Plan - Problem List (1) Acute exacerbation of COPD with asthma Impression: 09/17 slight better, no tachycardia. RR is down to 20. but pt still need HHFNC scheduled Duoneb, add pulmicort increase solu-metre to 60 tid continue breath treat, and consult with RT supplement with O2 as needed 09/16 pt still present SOB, even worsen than before. scheduled Duoneb, add pulmicort increase solu-metre to 60 tid continue breath treat, and consult with RT supplement with O2 as needed pt present cough, SOB, hx of COPD, current smoker, 96%sat on 2 liter of O2. pt did not take O2 at home treat with Duoneb, Albuterol PRN Solu-metrol 40mg tid, will wane off and titrate O2 supplement as needed (2) Alcoholism /alcohol abuse Conclusion/Plan: 09/17 continue CIWA 09/16 stable, continue CIWA protocol, Diazepam PRN continue vit, and B1 pt has hx of alcohol abuse. alcoholic smell when standing by Ativan PRN order vit, and B1 advise pt quit alcoholism (3) Currently smokes tobacco Conclusion/Plan: pt report he still smoke cigarette half pack per day. Pt decline to have one[place] licha Patch advise pt quit cigarette smoking, pt already has COPD (4) HTN (hypertension) Conclusion/Plan: stable, will reconcile home Norvasc (5)tachycardia 09/17 resolved. 09/16 improved, HR is down less 100. it appear derived from his COPD exacerbation with hypoxia order CXR, and tele and vital monitor treat underline of COPD exacerbation
[2018-09-17] MEDS: MONTELUKAST 10 MG TABLET PO SCH (21:02)
[2018-09-17] MEDS: oxyCODONE 5 MG TABLET PO PRN (23:43)
[2018-09-18] MEDS: methylPREDNISolone SUCCINATE 40 MG/ML VIAL IVP SCH ×3 (06:06→21:12)
[2018-09-18] MEDS: SODIUM CHLORIDE FLUSH 0.9% 10 ML SYRINGE IVP PRN (06:07)
[2018-09-18] MEDS: ACETAMINOPHEN 325 MG TABLET PO PRN (06:07)
[2018-09-18 06:57] LABS: BASOPHILS % (AUTO) 0.1 %; HGB - HEMOGLOBIN 13.9 g/dL (14.0-18.0); LYMPHOCYTES # (AUTO) 0.5 10^3/uL (1.5-3.5); LYMPHOCYTES % (AUTO) 5.2 %; MEAN CORPUSCULAR HEMOGLOBIN 32.3 pg (27.0-31.0); MEAN CORPUSCULAR HGB CONC 34.1 g/dL (32.0-36.0); MEAN CORPUSCULAR VOLUME 94.9 fL (80.0-94.0); MEAN PLATELET VOLUME 10.8 fL (7.4-11.4); MONOCYTES # (AUTO) 0.2 10^3/uL (0.0-1.0); MONOCYTES % (AUTO) 2.5 %; NEUTROPHILS # (AUTO) 8.8 10^3/uL (1.5-6.6); NEUTROPHILS % (AUTO) 91.6 %; PLT - PLATELET COUNT 254 10^3/uL (130-450); RED CELL DISTRIBUTION WIDTH 14.4 % (12.0-15.0); WHITE BLOOD COUNT 9.6 x10^3/uL (4.8-10.8)
[2018-09-18 07:02] LABS: CALCIUM 8.8 mg/dL (8.5-10.3); CREATININE 0.7 mg/dL (0.6-1.2)
[2018-09-18] MEDS: BUDESONIDE 0.5 MG/2 ML NEB INH SCH ×2 (08:50→19:50)
[2018-09-18] MEDS: IPRATROPIUM/ALBUTEROL 3 ML NEB INH SCH ×4 (08:50→19:50)
[2018-09-18] MEDS ORDERED: AZITHROMYCIN 250 MG TABLET PO SCH (09:00)
[2018-09-18] MEDS: SODIUM CHLORIDE 0.9% 1,000 ML IV SCH ×2 (09:55→21:13)
[2018-09-18] MEDS: THIAMINE 100 MG TABLET PO SCH (09:58)
[2018-09-18] MEDS: amLODIPine 5 MG TABLET PO SCH (09:58)
[2018-09-18] MEDS: oxyCODONE 5 MG TABLET PO PRN ×3 (09:59→23:18)
[2018-09-18] MEDS: guaiFENesin 600 MG TABLET PO SCH ×2 (10:00→21:12)
[2018-09-18] MEDS: ENOXAPARIN 40 MG/0.4 ML SYRINGE SUBQ SCH (10:01)
[2018-09-18] MEDS: PRENATAL VITAMIN TABLET PO SCH (10:01)
[2018-09-18] MEDS: SODIUM CHLORIDE FLUSH 0.9% 10 ML SYRINGE IVP SCH ×2 (10:01→21:19)
[2018-09-18] MEDS: POLYETHYLENE GLYCOL 3350 17 GM PACKET PO SCH (10:02)
--- NOTE | 2018-09-18 11:22 | PROVIDER PROGRESS NOTE ---
Subjective - Prog Note Date Prog Note Date: 09/18/18 - Subjective Pt reports feeling: Improved Subjective: pt is comfortably sleep at bed. ask RT try to wane off HHFNC, and let pt has NC with O2 to see if pt can tolerate Current Medications - Current Medications Current Medications: Active Medications Acetaminophen (Tylenol) 650 mg PO Q4HR PRN PRN Reason: Pain 1 to 4 Last Admin: 09/18/18 06:07 Dose: 650 mg Albuterol () 2.5 mg INH RTQ4H PRN PRN Reason: Wheezing Last Admin: 09/17/18 23:19 Dose: 2.5 mg Albuterol/Ipratropium (Duoneb) 3 ml INH RTQID [facility] Last Admin: 09/18/18 08:50 Dose: 3 ml Amlodipine Besylate (Norvasc) 10 mg PO DAILY [facility] Last Admin: 09/18/18 09:58 Dose: 10 mg Azithromycin (Zithromax) 250 mg PO DAILY [facility] Last Admin: 09/18/18 09:59 Dose: 250 mg Budesonide (Pulmicort) 0.5 mg INH RTBID [facility] Last Admin: 09/18/18 08:50 Dose: 0.5 mg Diazepam (Valium) 5 mg PO Q1H PRN; Protocol PRN Reason: CIWA > 8 Last Admin: 09/17/18 18:57 Dose: 5 mg Enoxaparin Sodium (Lovenox) 40 mg SUBQ DAILY [facility] Last Admin: 09/18/18 10:01 Dose: 40 mg Guaifenesin (Mucinex) 600 mg PO BID [facility] Last Admin: 09/18/18 10:00 Dose: 600 mg Sodium Chloride (Normal Saline 0.9%) 1,000 mls @ 83.333 mls/hr IV .Q12H [facility] Stop: 09/19/18 07:59 Last Admin: 09/18/18 09:55 Dose: 83.333 mls/hr Methylprednisolone (Solu-Medrol (40mg Vial)) 60 mg IVP TID [facility] Last Admin: 09/18/18 06:06 Dose: 60 mg Montelukast Sodium (Singulair) 10 mg PO QPM [facility] Last Admin: 09/17/18 21:02 Dose: 10 mg Ondansetron HCl (Zofran Inj) 4 mg IVP Q6HR PRN PRN Reason: Nausea / Vomiting Ondansetron HCl (Zofran Odt) 4 mg TL Q6HR PRN PRN Reason: Nausea / Vomiting Oxycodone HCl (Roxicodone) 5 mg PO Q4HR PRN PRN Reason: Pain 5 to 7 Last Admin: 09/18/18 09:59 Dose: 5 mg Polyethylene Glycol (Miralax) 17 gm PO DAILY [facility] Last Admin: 09/18/18 10:02 Dose: Not Given Multivit/Folic Acid/Iron (Trinatal Rx 1) 1 tab PO DAILYWM [facility] Last Admin: 09/18/18 10:01 Dose: 1 tab Prochlorperazine Edisylate (Compazine Inj) 10 mg IVP Q6HR PRN PRN Reason: Nausea / Vomiting Sodium Chloride (Normal Saline Flush 0.9%) 10 ml IVP PRN PRN PRN Reason: NEEDED PER PROVIDER ORDERS Last Admin: 09/18/18 06:07 Dose: 10 ml Sodium Chloride (Normal Saline Flush 0.9%) 10 ml IVP 0100,0900,1700 [facility] Last Admin: 09/18/18 10:01 Dose: 10 ml Thiamine HCl (Vitamin B-1) 100 mg PO DAILY [facility] Last Admin: 09/18/18 09:58 Dose: 100 mg Amlodipine Besylate [Norvasc] 10 mg PO DAILY 09/15/18 Budesonide/Formoterol Fumarate [Symbicort 160-4.5 Mcg Inhaler] 2 puffs INH BID 09/15/18 Diclofenac Epolamine [Flector] 1 each TD BID 09/15/18 Ipratropium/Albuterol [Combivent Respimat] 1 puffs INH Q4HR PRN 09/15/18 Objective - Vital Signs/Intake & Output Reviewed Vital Signs: Yes Vital Signs: Vital Signs x48h Temp Pulse Pulse Resp BP Pulse Ox 09/18/18 09:59 36.5 C 91 24 149/80 H 97 09/18/18 08:50 92 22 09/18/18 06:00 36.4 C L 93 20 144/93 H 97 Intake & Output: Intake & Output 09/15/18 09/16/18 09/17/18 09/18/18 23:59 23:59 23:59 23:59 Intake Total 2970 3960 2030 480 Output Total 954 493 3285 1125 Balance 2245 0940 805 645 - Objective General Appearance: positive: No acute distress, Alert. negative: Lethargic Eyes Bilateral: positive: Normal inspection, PERRL, No lid inflammation, Conjunctivae nml ENT: positive: ENT inspection nml, Pharynx nml, No signs of dehydration. negative: Purulent nasal drainage, Pharyngeal erythema, Oral lesions Neck: positive: Nml inspection, Thyroid nml, No JVD, Trachea midline. negative: Thyromegaly, Lymphadenopathy (R), Lymphadenopathy (L), Stiff neck, Swelling/bruising, Tracheal deviation Respiratory: positive: Chest non-tender, No respiratory distress. negative: Wheezes, Rales Cardiovascular: positive: Regular rate & rhythm, No murmur, No gallop. negative: Irregularly irregular, Extrasystoles, Tachycardia, Bradycardia, JVD present, Systolic murmur, Diastolic murmur Peripheral Pulses: 2+ Radial (R), 2+ Radial (L), 2+ Dorsalis pedis (R), 2+ Dorsalis pedis (L) Abdomen: positive: Non-tender, No organomegaly, Nml bowel sounds, No distention. negative: Tenderness, Guarding, Rebound Back: positive: Nml inspection. negative: CVA tenderness (R), CVA tenderness (L) Skin: positive: Color nml, No rash, Warm, Dry. negative: Cyanosis, Diaphoresis, Pallor Extremities: positive: Non-tender, Full ROM, Nml appearance. negative: Calf tenderness, Joint swelling, Amor's sign/cords Neurologic/Psychiatric: positive: Oriented x3, Motor nml, Sensation nml, Mood/affect nml. negative: Weakness, Sensory loss, Facial droop, Slurred/abnml speech, Depressed mood/affect - Lab Results Fish Bones: 09/18/18 06:21 09/18/18 06:21 Other Labs: Lab Results x24hrs 09/18/18 09/18/18 09/17/18 Range/Units 06:21 06:21 18:04 WBC 9.6 (4.8-10.8) x10^3/uL RBC 4.30 L (4.70-6.10) 10^6/uL Hgb 13.9 L (14.0-18.0) g/dL Hct 40.8 L (42.0-52.0) % MCV 94.9 H (80.0-94.0) fL MCH 32.3 H (27.0-31.0) pg MCHC 34.1 (32.0-36.0) g/dL RDW 14.4 (12.0-15.0) % Plt Count 254 (130-450) 10^3/uL MPV 10.8 (7.4-11.4) fL Neut # (Auto) 8.8 H (1.5-6.6) 10^3/uL Lymph # (Auto) 0.5 L (1.5-3.5) 10^3/uL [place] # (Auto) 0.2 (0.0-1.0) 10^3/uL Eos # (Auto) 0.0 (0.0-0.7) 10^3/uL Baso # (Auto) 0.0 (0.0-0.1) 10^3/uL Absolute Nucleated RBC 0.00 x10^3/uL Nucleated RBC % 0.0 /100WBC VBG pH (7.31-7.41) VBG pCO2 (41-51) mmHg VBG pO2 (25-47) mmHg VBG HCO3 (23-28) mmol/L VBG Total CO2 (24-29) mmol/L VBG O2 Saturation (60-80) % VBG Base Excess (-2 - +2) mmol/L Sodium 138 (135-145) mmol/L Potassium 3.6 (3.5-5.0) mmol/L Chloride 101 (101-111) mmol/L Carbon Dioxide 26 (21-32) mmol/L Anion Gap 11.0 (6-13) BUN 21 H (6-20) mg/dL Creatinine 0.7 (0.6-1.2) mg/dL Estimated GFR (MDRD) 115 (>89) Glucose 137 H (70-100) mg/dL Calcium 8.8 (8.5-10.3) mg/dL Troponin I < 0.04 (<0.49) ng/mL 09/17/18 Range/Units 12:05 WBC (4.8-10.8) x10^3/uL RBC (4.70-6.10) 10^6/uL Hgb (14.0-18.0) g/dL Hct (42.0-52.0) % MCV (80.0-94.0) fL MCH (27.0-31.0) pg MCHC (32.0-36.0) g/dL RDW (12.0-15.0) % Plt Count (130-450) 10^3/uL MPV (7.4-11.4) fL Neut # (Auto) (1.5-6.6) 10^3/uL Lymph # (Auto) (1.5-3.5) 10^3/uL [place] # (Auto) (0.0-1.0) 10^3/uL Eos # (Auto) (0.0-0.7) 10^3/uL Baso # (Auto) (0.0-0.1) 10^3/uL Absolute Nucleated RBC x10^3/uL Nucleated RBC % /100WBC VBG pH 7.454 H (7.31-7.41) VBG pCO2 38.0 L (41-51) mmHg VBG pO2 63.1 H (25-47) mmHg VBG HCO3 26.1 (23-28) mmol/L VBG Total CO2 27.2 (24-29) mmol/L VBG O2 Saturation 92.4 H (60-80) % VBG Base Excess 2.2 H (-2 - +2) mmol/L Sodium (135-145) mmol/L Potassium (3.5-5.0) mmol/L Chloride (101-111) mmol/L Carbon Dioxide (21-32) mmol/L Anion Gap (6-13) BUN (6-20) mg/dL Creatinine (0.6-1.2) mg/dL Estimated GFR (MDRD) (>89) Glucose (70-100) mg/dL Calcium (8.5-10.3) mg/dL Troponin I (<0.49) ng/mL ABX Reporting Has patient been on IV antibiotics over the past 48 hours?: No Sepsis Event Note (H) - Evaluation Current Stage of Sepsis: Ruled out Assessment/Plan - Problem List (1) Acute exacerbation of COPD with asthma Impression: 09/18 continue scheduled Duoneb, add pulmicort solu-metre to 40 tid continue breath treat, and consult with RT supplement with O2 as needed pt report sputum with greenish, pt may have bronchitis. pt was given Azithyromycin. Now pt's cough is resolved. Azithyromycin is hold 09/17 slight better, no tachycardia. RR is down to 20. but pt still need HHFNC scheduled Duoneb, add pulmicort increase solu-metre to 60 tid continue breath treat, and consult with RT supplement with O2 as needed 09/16 pt still present SOB, even worsen than before. scheduled Duoneb, add pulmicort increase solu-metre to 60 tid continue breath treat, and consult with RT supplement with O2 as needed pt present cough, SOB, hx of COPD, current smoker, 96%sat on 2 liter of O2. pt did not take O2 at home treat with Duoneb, Albuterol PRN Solu-metrol 40mg tid, will wane off and titrate O2 supplement as needed (2) respiratory distress with hypoxia pt present hypoxia and request HHFNC will try wane off HHFNC and add NC continue RT treatment and supplement O2 as needed (3) Alcoholism /alcohol abuse Conclusion/Plan: 09/17 continue CIWA 09/16 stable, continue CIWA protocol, Diazepam PRN continue vit, and B1 pt has hx of alcohol abuse. alcoholic smell when standing by Ativan PRN order vit, and B1 advise pt quit alcoholism (4) Currently smokes tobacco Conclusion/Plan: pt report he still smoke cigarette half pack per day. Pt decline to have nicoti ne Patch advise pt quit cigarette smoking, pt already has COPD (5) HTN (hypertension) Conclusion/Plan: stable, will reconcile home Norvasc (6)tachycardia 09/18 continue tele monitor, etiology may drive from hypoxia, expect resolved a fter hypoxia is improved 09/17 resolved. 09/16 improved, HR is down less 100. it appear derived from his COPD exacerbation with hypoxia order CXR, and tele and vital monitor treat underline of COPD exacerbation
[2018-09-18] MEDS: MONTELUKAST 10 MG TABLET PO SCH (21:12)
[2018-09-19] MEDS: ALBUTEROL NEB 2.5 MG/3 ML INH PRN (00:05)
[2018-09-19] MEDS: SODIUM CHLORIDE FLUSH 0.9% 10 ML SYRINGE IVP SCH ×2 (03:43→09:37)
[2018-09-19 05:16] LABS: HGB - HEMOGLOBIN 12.3 g/dL (14.0-18.0); LYMPHOCYTES # (AUTO) 0.4 10^3/uL (1.5-3.5); LYMPHOCYTES % (AUTO) 4.5 %; MEAN CORPUSCULAR HEMOGLOBIN 31.9 pg (27.0-31.0); MEAN CORPUSCULAR HGB CONC 32.9 g/dL (32.0-36.0); MEAN CORPUSCULAR VOLUME 97.1 fL (80.0-94.0); MEAN PLATELET VOLUME 10.5 fL (7.4-11.4); MONOCYTES # (AUTO) 0.3 10^3/uL (0.0-1.0); MONOCYTES % (AUTO) 3.5 %; NEUTROPHILS # (AUTO) 8.1 10^3/uL (1.5-6.6); NEUTROPHILS % (AUTO) 91.2 %; PLT - PLATELET COUNT 202 10^3/uL (130-450); RED BLOOD COUNT 3.85 10^6/uL (4.70-6.10); RED CELL DISTRIBUTION WIDTH 14.6 % (12.0-15.0); WHITE BLOOD COUNT 8.9 x10^3/uL (4.8-10.8)
[2018-09-19 05:22] LABS: CALCIUM 8.6 mg/dL (8.5-10.3); CREATININE 0.5 mg/dL (0.6-1.2)
[2018-09-19] MEDS: BUDESONIDE 0.5 MG/2 ML NEB INH SCH (05:59)
[2018-09-19] MEDS: IPRATROPIUM/ALBUTEROL 3 ML NEB INH SCH ×2 (05:59→11:47)
[2018-09-19] MEDS: methylPREDNISolone SUCCINATE 40 MG/ML VIAL IVP SCH (06:17)
[2018-09-19] MEDS: PRENATAL VITAMIN TABLET PO SCH (07:19)
[2018-09-19] MEDS: oxyCODONE 5 MG TABLET PO PRN ×2 (07:19→13:26)
[2018-09-19 07:38] VITALS: BP 146/67
[2018-09-19] MEDS: THIAMINE 100 MG TABLET PO SCH (09:27)
[2018-09-19] MEDS: ENOXAPARIN 40 MG/0.4 ML SYRINGE SUBQ SCH (09:27)
[2018-09-19] MEDS: amLODIPine 5 MG TABLET PO SCH (09:27)
[2018-09-19] MEDS: guaiFENesin 600 MG TABLET PO SCH (09:27)
[2018-09-19] MEDS: POLYETHYLENE GLYCOL 3350 17 GM PACKET PO SCH (09:36)
--- NOTE | 2018-09-19 12:41 | Discharge Plan ---
Discharge Plan Problem Reviewed?: Yes Disposition: Home, Self Care Condition: Poor Prescriptions: oxyCODONE [Roxicodone] 5 mg PO Q4HR PRN #20 tablet PRN Reason: Pain 5 to 7 Montelukast [Singulair] 10 mg PO QPM #10 tablet predniSONE [Deltasone] 10 mg PO [id number] #31 tab Thiamine [Vitamin B-1] 100 mg PO DAILY #10 tablet Diet: Regular Activity Restrictions: Activity as Tolerated Shower Restrictions: No (fall precaution) Instruction Topics: Montelukast oral tablets, Prednisone tablets, Oxycodone tablets or capsules Health Concerns: COPD, cigarette smoker Plan of Treatment: strongly advise pt quit cigarette smoking Care Goals: stabilization of your medical condition Assessment: COPD exacerbation Additional Instructions or Follow Up instructions: you may followup your PCP in one week. strongly advise you quit cigarette smoking and alcohol. Should your symptoms return or worsen, you may present ER, call 911 or your PCP for help. Follow-Up Care: [facility] - [facility] No Smoking: If you smoke, Please STOP! Call for help.
--- NOTE | 2018-09-19 12:52 | DISCHARGE SUMMARY ---
Discharge Summary Discharge Date: 09/19/18 Discharging Provider: Agustin Traore Condition at Discharge: Poor Discharge Disposition: 01 Home, Self Care Discharge Facility Name: home - DIAGNOSES Admission Diagnoses: (1) Acute exacerbation of COPD with asthma (2) Alcoholism /alcohol abuse (3) Currently smokes tobacco (4) HTN (hypertension) (5)tachycardia Discharge Diagnoses with Status of Each Condition: (1) Acute exacerbation of COPD with asthma pt walked with nurse with 97% sats on room air. pt was prescribed singular, prednisone with wane off dosage in 10 days, and refill of combivent. (2) respiratory distress with hypoxia resolved (3) Alcoholism /alcohol abuse pt was advised to quit alcohol. pt is prescribed B-1 (4) Currently smokes tobacco pt was advised to quit smoking, he state he will (5) HTN (hypertension) stable, continue home meds (6)tachycardia resolved - HPI History of Present Illness: Mr. Samuel is a 57-yrs-old male with a PMH significant for chronic alcoholic abuse, current cigarette smoker, HTN, COPD with asthma, who present ER complain of cough, shortness of breath. Pt report he had several days of cough with some greenish sputum. He report he has been progressive dyspnea and wheezing over the last several days as well. Today morning pt report he just can not breath even he use all his home inhaler. Then pt's sister heena him to the ER. He report he had hx of COPD and he still smokes cigarette half pack per day now. He also report he almost drink alcohol daily and today he drink alcohol before he went to ER. He state he had an albuterol, symbicort, combivent inhaler to use as needed. He report he has been using inhaler much more frequently over the last couple of days but without much improvement. Pt denies headache, fever, abdominal, nausea, vomiting, diarrhea, vision change, focus neurological deficits. His troponin test is less 0.04. WBC is 7.9. Pt is afebrile at ER, has 96% sats at 2 liter of O2, HR 113, RR is 28. - HOSPITAL COURSE Hospital Course: pt was admitted for cough, shortness of breath. pt continue cigarette and alcohol abuse. pt was found to have COPD exacerbation, respiratory distress with hypoxia. pt need HHFNC to support and stabilize him. After treated steroid, breath treatment, provide O2 as needed. pt was stable, total wane off HHFNC. pt walked at hallway on room air with 97%sats. - ALLERGIES Allergies/Adverse Reactions: Allergies Allergy/AdvReac Type Severity Reaction Status Date / Time lisinopril Allergy Severe ANAPHALACTI Verified 05/17/18 15:12 C/ARREST - MEDICATIONS Home Medications: Ambulatory Orders Medication Instructions Recorded Confirmed Albuterol Sulfate [Proair Hfa 1 - 2 puffs INH Q4H PRN #1 inhaler 05/20/18 09/15/18 Inhaler] Amlodipine Besylate [Norvasc] 10 mg PO DAILY 09/15/18 09/15/18 Budesonide/Formoterol Fumarate 2 puffs INH BID 09/15/18 09/15/18 [Symbicort 160-4.5 Mcg Inhaler] Diclofenac Epolamine [Flector] 1 each TD BID 09/15/18 09/15/18 Ipratropium/Albuterol [Combivent 1 puffs INH Q4HR PRN #1 aerosol 09/19/18 Respimat] Montelukast [Singulair] 10 mg PO QPM #10 tablet 09/19/18 Thiamine [Vitamin B-1] 100 mg PO DAILY #10 tablet 09/19/18 oxyCODONE [Roxicodone] 5 mg PO Q4HR PRN #20 tablet 09/19/18 predniSONE [Deltasone] 10 mg PO [id number] #31 tab 09/19/18 - PHYSICAL EXAM AT DISCHARGE General Appearance: positive: No acute distress, Alert. negative: Lethargic Eyes Bilateral: positive: Normal inspection, PERRL, No lid inflammation, Conjunctivae nml ENT: positive: ENT inspection nml, Pharynx nml, No signs of dehydration. negative: Purulent nasal drainage, Pharyngeal erythema, Oral lesions Neck: positive: Nml inspection, Thyroid nml, No JVD, Trachea midline. negative: Thyromegaly, Lymphadenopathy (R), Stiff neck, Swelling/bruising, Tracheal deviation Respiratory: positive: Chest non-tender, No respiratory distress. negative: Wheezes, Rales, Rhonchi Cardiovascular: positive: Regular rate & rhythm, No murmur, No gallop. negative: Irregularly irregular, Extrasystoles, Tachycardia, Bradycardia, JVD present, Systolic murmur, Diastolic murmur Peripheral Pulses: positive: 2+ Abdomen: positive: Non-tender, No organomegaly, Nml bowel sounds, No distention. negative: Tenderness, Guarding, Rebound Back: positive: Nml inspection. negative: CVA tenderness (R), CVA tenderness (L) Skin: positive: Color nml, No rash, Warm, Dry. negative: Cyanosis, Diaphoresis, Pallor Extremities: positive: Non-tender, Full ROM, Nml appearance. negative: Calf tenderness, Joint swelling, Amor's sign/cords Neurologic/Psychiatric: positive: Oriented x3, Motor nml, Sensation nml, Mood/affect nml. negative: Weakness, Sensory loss, Facial droop, Slurred/abnml speech, Depressed mood/affect - LABS Result Diagrams: 09/19/18 04:40 09/19/18 04:40 - SEPSIS Current Stage of Sepsis: Ruled out - FOLLOW UP Follow Up: you may followup your PCP in one week. strongly advise you quit cigarette smoking and alcohol. Should your symptoms return or worsen, you may present ER, call 911 or your PCP for help. - TIME SPENT Time Spent in Discharge (Minutes): 55
== END 2018-09-19 13:31 | disposition home or self-care (01) | DRG 192 ==
LOC: ED 08:23 → MS2 13:17 → OBS 13:47 → OBSVTOIN 09-16 10:32 → MS2 09-16 17:35
PROVIDERS: ADMIT Nurse Practitioner Gerontology; ATTEND Nurse Practitioner Gerontology
DX: J44.1 Chronic obstructive pulmonary disease with (acute) exacerbation (principal); R09.02 Hypoxemia; F10.20 Alcohol dependence, uncomplicated; F41.9 Anxiety disorder, unspecified; F17.210 Nicotine dependence, cigarettes, uncomplicated; I10 Essential (primary) hypertension; Z87.01 Personal history of pneumonia (recurrent); Z79.51 Long term (current) use of inhaled steroids; Z77.29 Contact with and (suspected) exposure to other hazardous substances; Z79.899 Other long term (current) drug therapy
CPT/HCPCS: 36415; 36600; 71046; 80048; 80053; 82803; 83690; 83735; 83880; 84484; 85025; 87205; 93005; 94640; 96361; 96365; 96372; 96375; 96376; 99284; A9270; G0378; J1650; J2060; J7626; 80306; 80320; 87070

== ENCOUNTER 2019-04-27 12:14 | Outpatient (CLI) | payer MEDICARE | END 2019-04-27 12:15 | disposition critical access hospital (66) | LOC: EMS 12:14 | PROVIDERS: ATTEND Surgery | DX: R06.02 Shortness of breath (principal) | CPT/HCPCS: A0425; A0427 ==

== ENCOUNTER 2019-04-27 12:35 | Inpatient (IN) | payer MEDICARE ==
[2019-04-27] MEDS ORDERED: SODIUM CHLORIDE 0.9% 999 ML IV STA (12:42)
[2019-04-27] MEDS ORDERED: methylPREDNISolone SUCCINATE 125 MG/2 ML VIAL IVP STA (12:44)
[2019-04-27] MEDS ORDERED: IPRATROPIUM/ALBUTEROL 3 ML NEB INH STA (12:44)
--- NOTE | 2019-04-27 12:47 | ED Physician Documentation ---
History of Present Illness - Stated complaint Stated Complaint: SOA - Chief complaint Chief Complaint: Resp - History obtained from History obtained from: Patient (58-year-old male with history of COPD presented to the emergency room complaining of worsening shortness of breath for last 3 days. Last time he came to the emergency room for shortness of breath was 6 months ago and was diagnosed with pneumonia. When automotive vehicle inspector pick him up, sa wang was at the low 90s in the clinic. Patient has been a chronic cigarette smoker. He is not on oxygen at home. he does have a neublizer machine that he uses occasionally. In the emergency room patient is receiving nebulizer treatment, saturation is about 92 to 94%. He is able to speak short sentences and describe his symptoms. he would pulse between sentences. there mis molderate amount of respiratory distress.) - History of Present Illness Timing: How many days ago (3) Review of Systems Ten Systems: 10 systems reviewed and negative Constitutional: reports: Reviewed and negative. denies: Fever Eyes: reports: Reviewed and negative Ears: reports: Reviewed and negative Nose: reports: Reviewed and negative. denies: Congestion, Epistaxis, Sinus pressure / pain Throat: reports: Reviewed and negative Cardiac: reports: Reviewed and negative Respiratory: reports: Dyspnea, Cough, Wheezing GI: reports: Reviewed and negative : reports: Reviewed and negative Skin: reports: Reviewed and negative Musculoskeletal: reports: Reviewed and negative Neurologic: reports: Reviewed and negative Psychiatric: reports: Reviewed and negative Endocrine: reports: Reviewed and negative Immunocompromised: reports: Reviewed and negative PD PAST MEDICAL HISTORY - Past Medical History Cardiovascular: Hypertension Respiratory: COPD, Pneumonia Neuro: None Endocrine/Autoimmune: None GI: None : None Psych: None Musculoskeletal: Chronic back pain Derm: None - Past Surgical History Past Surgical History: Yes Ortho: Spine surgery - Present Medications Home Medications: Ambulatory Orders Medication Instructions Recorded Confirmed Albuterol Sulfate [Proair Hfa 1 - 2 puffs INH Q4H PRN #1 inhaler 05/20/18 09/15/18 Inhaler] Amlodipine Besylate [Norvasc] 10 mg PO DAILY 09/15/18 09/15/18 Budesonide/Formoterol Fumarate 2 puffs INH BID 09/15/18 09/15/18 [Symbicort 160-4.5 Mcg Inhaler] Diclofenac Epolamine [Flector] 1 each TD BID 09/15/18 09/15/18 Ipratropium/Albuterol [Combivent 1 puffs INH Q4HR PRN #1 aerosol 09/19/18 Respimat] Montelukast [Singulair] 10 mg PO QPM #10 tablet 09/19/18 - Allergies Allergies/Adverse Reactions: Allergies Allergy/AdvReac Type Severity Reaction Status Date / Time lisinopril Allergy Severe ANAPHALACTI Verified 04/27/19 12:44 C/ARREST - Social History Does the pt smoke?: Yes Smoking Status: Current every day smoker Does the pt drink ETOH?: Yes Does the pt have substance abuse?: Yes - Immunizations Immunizations are current?: No - POLST Patient has POLST: No POLST Status: Full Code PD ED PE NORMAL - Vitals Vital signs reviewed: Yes - General General: Alert and oriented X 3, No acute distress, Well developed/nourished, Other (moderate respiratory distress. ) - HEENT HEENT: Atraumatic, PERRL, EOMI, Ears normal, Other (dry oral mucosa) - Neck Neck: Supple, no meningeal sign, No bony TTP - Cardiac Cardiac: RRR, No murmur - Respiratory Respiratory: Other (Moderate respiratory distress, inspiratory wheeze) - Abdomen Abdomen: Normal bowel sounds, Soft, Non tender, Non distended - Derm Derm: Warm and dry - Extremities Extremities: No deformity - Neuro Neuro: Alert and oriented X 3 Eye Opening: Spontaneous Motor: Obeys Commands Verbal: Oriented GCS Score: 15 - Psych Psych: Normal mood, Normal affect Results - Vitals Vitals: Vital Signs - 24 hr 04/27/19 04/27/19 12:40 12:50 Temperature 36.7 C Heart Rate 104 H 111 H Respiratory 24 26 H Rate Blood Pressure 126/106 H O2 Saturation 99 Oxygen O2 Source Room air - Labs Labs: Laboratory Tests 04/27/19 04/27/19 04/27/19 12:59 12:59 12:59 WBC 7.2 RBC 4.47 L Hgb 14.4 Hct 42.2 MCV 94.4 H MCH 32.2 H MCHC 34.1 RDW 15.2 H Plt Count 179 MPV 9.4 Neut # (Auto) 4.5 Lymph # (Auto) 2.2 Pennington # (Auto) 0.5 Eos # (Auto) 0.0 Baso # (Auto) 0.0 Absolute Nucleated RBC 0.00 Nucleated RBC % 0.0 PT 11.0 INR 1.0 Bld Gas Analysis Time Sample Site ABG pH ABG pCO2 ABG pO2 ABG HCO3 ABG Total CO2 ABG O2 Saturation ABG Base Excess Jesus Test O2 Delivery Device O2 Liters/Min Sodium Potassium Chloride Carbon Dioxide Anion Gap BUN Creatinine Estimated GFR (MDRD) Glucose Calcium Total Bilirubin AST ALT Alkaline Phosphatase Troponin I High Sens B-Natriuretic Peptide 86 Total Protein Albumin Globulin Albumin/Globulin Ratio Lipase 04/27/19 04/27/19 04/27/19 12:59 12:59 13:20 WBC RBC Hgb Hct MCV MCH MCHC RDW Plt Count MPV Neut # (Auto) Lymph # (Auto) Penning[place] # (Auto) Eos # (Auto) Baso # (Auto) Absolute Nucleated RBC Nucleated RBC % PT INR Bld Gas Analysis Time 1328 Sample Site RIGHT RADIAL ABG pH 7.41 ABG pCO2 34 ABG pO2 71 L ABG HCO3 21.3 L ABG Total CO2 22.4 ABG O2 Saturation 94 ABG Base Excess -2.5 L Jesus Test POSITIVE O2 Delivery Device NASAL CANNULA O2 Liters/Min 1.50 Sodium 141 Potassium 3.6 Chloride 100 L Carbon Dioxide 24 Anion Gap 17.0 H BUN 7 Creatinine 0.8 Estimated GFR (MDRD) 99 Glucose 126 H Calcium 8.7 Total Bilirubin 0.6 AST 63 H ALT 43 Alkaline Phosphatase 111 Troponin I High Sens 13.5 B-Natriuretic Peptide Total Protein 8.5 H Albumin 4.2 Globulin 4.3 H Albumin/Globulin Ratio 1.0 Lipase 35 - Rads (name of study) No standard instances Radiology: Prelim report reviewed (Preliminary report by me shows COPD, hyperexpanded lung, no acute infiltrate) PD MEDICAL DECISION MAKING - ED course ED course: Patient came in with 3 days worsening shortness of breath, likely differential diagnoses COPD exacerbation, pneumonia, pneumothorax, coronary syndrome equivalent. We will start with nebulizer treatment including DuoNeb, albuterol, IV Solu- Medrol. Patient is reassessed at 130, after nebulizer treatment, albuterol, he is feeling slightly improved although not much. We will repeat nebulizer treatment, with ABG pending Patient is reassessed at 140, he is able to speak short sentences. Saturation will drop down to 90 to 92%. I have advised him to be admitted to the hospital for further cardiopulmonary support and nebulizer treatment. He agreed. At 150, I have interacted with the hospitalist on-call, Dr. Leal, and disclosed to her patient's clinical presentation with moderate respiratory distress and desaturation while on oxygen, minimal responds to multiple nebulizer treatments, patient's vitals, patient's ABG result, patient's laboratory results. My impression is that patient's COPD exacerbation require a minimal of 1-2 days of hospital managements to improve. Perhaps, patient also need to have home oxygen/nebulization setup prior to discharge. She agreed to admit the patient. - Consults Consults: Consulted (name), Discussed case with (hospitalist oncall), Request seo consultant admit patient Departure - Departure Disposition: ED Place in Observation Clinical Impression: Moderate COPD (chronic obstructive pulmonary disease), COPD exacerbation, Hypoxemia requiring supplemental oxygen Condition: Fair Discharge Date/Time: 04/27/19 14:43
[2019-04-27 13:06] LABS: BASOPHILS % (AUTO) 0.1 %; EOSINOPHILS % (AUTO) 0.1 %; HGB - HEMOGLOBIN 14.4 g/dL (14.0-18.0); LYMPHOCYTES # (AUTO) 2.2 10^3/uL (1.5-3.5); LYMPHOCYTES % (AUTO) 30.4 %; MEAN CORPUSCULAR HEMOGLOBIN 32.2 pg (27.0-31.0); MEAN CORPUSCULAR HGB CONC 34.1 g/dL (32.0-36.0); MEAN CORPUSCULAR VOLUME 94.4 fL (80.0-94.0); MEAN PLATELET VOLUME 9.4 fL (7.4-11.4); MONOCYTES # (AUTO) 0.5 10^3/uL (0.0-1.0); MONOCYTES % (AUTO) 7.2 %; NEUTROPHILS # (AUTO) 4.5 10^3/uL (1.5-6.6); NEUTROPHILS % (AUTO) 61.8 %; PLT - PLATELET COUNT 179 10^3/uL (130-450); RED BLOOD COUNT 4.47 10^6/uL (4.70-6.10); RED CELL DISTRIBUTION WIDTH 15.2 % (12.0-15.0); WHITE BLOOD COUNT 7.2 x10^3/uL (4.8-10.8)
[2019-04-27 13:20] LABS: ALBUMIN 4.2 g/dL (3.2-5.5); BILIRUBIN,TOTAL 0.6 mg/dL (0.2-1.0); CALCIUM 8.7 mg/dL (8.5-10.3); CREATININE 0.8 mg/dL (0.6-1.2); TOTAL PROTEIN 8.5 g/dL (6.7-8.2)
[2019-04-27 13:28] LABS: ABG BASE EXCESS -2.5 mmol/L (-2.0-3.0); ABG HCO3 21.3 mmol/L (22.0-26.0); ABG OXYGEN SATURATION 94 % (94-98); ABG PCO2 34 mmHg (34-45); ABG PH 7.41 (7.35-7.45); ABG PO2 71 mmHg (80-100); ABG TCO2 22.4 MMOL/L (21.0-29.0)
[2019-04-27 13:29] LABS: ALLEN TEST POSITIVE
[2019-04-27] MEDS ORDERED: ALBUTEROL NEB 2.5 MG/3 ML INH STA (13:31)
[2019-04-27] MEDS ORDERED: ONDANSETRON ODT 4 MG TABLET TL PRN (13:48)
--- NOTE | 2019-04-27 13:48 | XRAY Report ---
Reason: Chest Pain Procedure Date: 04/27/2019 Accession Number: [id number] / [id number] Procedure: XR - Chest 1 View X-Ray CPT Code: 42565 Final Report FULL RESULT: EXAM: CHEST RADIOGRAPHY, 2 VIEWS EXAM DATE: 04/27/2019 01:34 PM. CLINICAL HISTORY: Chest and shortness of breath in a 58-year-old male. COMPARISON: CHEST 2 VIEW 09/15/2018 9:28 AM. CHEST 1 VIEW 05/17/2018 11:[address] angiogram of the chest with contrast performed on 05/18/2018. TECHNIQUE: 1310 hours. AP semierect portable view. FINDINGS: Lungs/Pleura: No focal opacities evident. No pleural effusion. No pneumothorax. Satisfactory inspiratory effort. Mediastinum: Heart size normal, without adenopathy or pulmonary vascular congestion. Other: Trachea is midline. Severe degenerative arthritis both shoulder joints, chronic. Old healed fractures of the right fourth and fifth ribs posterolaterally, chronic and stable. No acute fracture, lytic or destructive process. IMPRESSION: Stable chest. No pneumonia, CHF or other acute process. Severe osteoarthritis both shoulder joints, chronic and stable. RADIA
[2019-04-27] MEDS ORDERED: IPRATROPIUM 0.2 MG/ML NEB INH PRN (13:53)
[2019-04-27] MEDS ORDERED: ALBUTEROL NEB 2.5 MG/3 ML INH PRN (13:53)
--- NOTE | 2019-04-27 14:52 | HISTORY & PHYSICAL EXAMINATION ---
Chief Complaint - Chief Complaint Chief Complaint: Shortness of breath History of Present Illness - Admitted From Admitted From:: Emergency room - History Obtained From Records Reviewed: Yes History obtained from: Patient - History of Present Illness HPI Comment/Other: Mr. Samuel is a 58 yo gentleman with PMH of COPD, HTN, previous back surgery for ruptured disc in the thoracic area, tobacco dependency and alcohol abuse admitted for worsening shortness of breath. In the emergency room patient tachypneic with respiratory rate in the high 20s, with oxygen saturation in the low 90s on 3 L O2 per nasal cannula. ABG 7.41, 34, 71, 21 on 1.5L O2. Patient given IV solumedrol, albuterol nebs x3 and patient transferred to the floor for further treatment. History - Past Medical History Cardiovascular: reports: Hypertension, Arrhythmia Respiratory: reports: COPD, Pneumonia (History of pneumonia 2018 and August 2018.), Shortness of breath Neuro: reports: None Endocrine/Autoimmune: reports: None GI: reports: None : reports: None Psych: reports: None Musculoskeletal: reports: Chronic back pain Derm: reports: None MRSA Hx?: No - Past Surgical History Ortho: reports: Spine surgery (Surgery for a bulging disk in the thoracic region done at [facility]) HEENT: reports: Other (Throat [id number] polyps removed.) - Family & Social History Family History: Mother: , Cancer, Father: , CAD, COPD/Emphysema Family History Comment/Other: pt report his last year, he is living alone, and his sister is living close to him. He had four children but is far away from him. Living arrangement: At home Living Situation: Alone Social History Notes: he admitted half pack cigarette daily and daily alcohol, denies drug issue. - Substance History Use: Uses substance without health or social issues: Tobacco (1/2 pack per day for 50 years) Abuse: Recurrent use of substance despite neg consequences: Alcohol (2-3 16oz beers per day) Abuse Issues: Intoxication, Other (frequent falls ) - POLST Patient has POLST: No POLST Status: Full Code Meds/Allgy - Home Medications Home Medications: Ambulatory Orders Medication Instructions Recorded Confirmed Albuterol Sulfate [Proair Hfa 1 - 2 puffs INH Q4H PRN #1 inhaler 05/20/18 09/15/18 Inhaler] Amlodipine Besylate [Norvasc] 10 mg PO DAILY 09/15/18 09/15/18 Budesonide/Formoterol Fumarate 2 puffs INH BID 09/15/18 09/15/18 [Symbicort 160-4.5 Mcg Inhaler] Diclofenac Epolamine [Flector] 1 each TD BID 09/15/18 09/15/18 Ipratropium/Albuterol [Combivent 1 puffs INH Q4HR PRN #1 aerosol 09/19/18 Respimat] Montelukast [Singulair] 10 mg PO QPM #10 tablet 09/19/18 - Allergies Allergies/Adverse Reactions: Allergies Allergy/AdvReac Type Severity Reaction Status Date / Time lisinopril Allergy Severe ANAPHALACTI Verified 04/27/19 12:44 C/ARREST Review of Systems - Constitutional Constitutional: denies: Fever, Chills, Weight gain, Weight loss - Ears, Nose & Throat Ears, Nose & Throat: reports: Sore throat, Dental decay - Cardiovascular Cariovascular: reports: Irregular heart rate - Respiratory Respiratory: reports: Cough, Sputum production, SOB with exertion - Gastrointestinal Gastrointestinal: denies: Abdominal pain, Change in bowel habits - Genitourinary Genitourinary: denies: Dysuria, Frequency, Urgency - Musculoskeletal Musculoskeletal: reports: Back pain, Stiffness, Other (Patient has burning pain to side of right hand that radiates to his axilla in C5 distribution.) - Integumentary Integumentary: reports: Dryness - Neurological Neurological: denies: Seizures Prior Level of Functionality: Patient lives alone. He no longer works due to decreased function from his COPD. He takes care on himself. He no longer drive because his license is suspended. His sister drives him around. He likes to garden and take care of his yard. It takes him all day to mow his lawn due to his shortness of breath. He said a normal person it would take about an hour to mow his lawn. Exam - Vital Signs Reviewed Vital Signs: Yes Vital Signs: Vital Signs x48h Temp Pulse Resp BP Pulse Ox 04/27/19 14:08 118 H 26 H 04/27/19 13:56 111 H 26 H 147/93 H 94 04/27/19 12:50 111 H 26 H 04/27/19 12:40 36.7 C 104 H 24 126/106 H 99 - Physical Exam General Appearance: positive: Moderate distress, Anxious Eyes Bilateral: positive: Other (Scleral redness.) ENT: positive: Pharynx nml Neck: positive: Nml inspection, Thyroid nml Respiratory: positive: Breath sounds nml, Other (Tachypnea) Cardiovascular: positive: Regular rate & rhythm, No murmur, No gallop Peripheral Pulses: positive: 2+ Abdomen: positive: Non-tender, Nml bowel sounds, No distention Back: positive: Nml inspection Skin: positive: Color nml, Warm, Dry Extremities: positive: Full ROM, Nml appearance, No pedal edema Neurologic/Psychiatric: positive: Oriented x3 Conclusion/Plan - Problem List (1) COPD exacerbation Conclusion/Plan: Patient reported that he has had worsening shortness of breath over the last 3 days. He went to a doctor's appointment and there the nurse and doctor were so concerned with his increased work of breathing that they sent him to the emergency room. There he was given IV solumedrol and albuterol nebulizers. Patient did not recover with decreased respiratory rate and improved breathing pattern, so patient was transferred to an inpatient bed. He was requesting more flow like he had with the albuterol nebulization. Patient's sats were in the high 90s on 2-3L NC. He endorsed feeling extremely shaking and anxious. 1. Alcohol withdrawal protocol ordered. 2. Patient given oral ativan. 3. Monitor patient oxygen saturation periodically. (2) Alcohol abuse Conclusion/Plan: Patient drinks approximately 2-3 16 oz. beers per day. Patient states that he will go into alcohol withdrawal within 1-2 days. He experienced shaky arms and general discomfort. He denies delirium tremens. 1. Alcohol withdrawal protocol ordered. 2. Monitor for signs and symptoms of withdrawal. - Lab Results Fish Bones: 04/27/19 12:59 04/27/19 12:59
[2019-04-27] MEDS: SODIUM CHLORIDE FLUSH 0.9% 10 ML SYRINGE IVP SCH (15:18)
[2019-04-27] MEDS: LORazepam 2 MG/ML VIAL IVP PRN ×3 (15:18→21:54)
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
[2019-04-27] MEDS: IPRATROPIUM/ALBUTEROL 3 ML NEB INH SCH (17:57)
[2019-04-27] MEDS: BUDESONIDE 0.5 MG/2 ML NEB INH SCH (17:57)
[2019-04-27] MEDS: SODIUM CHLORIDE FLUSH 0.9% 10 ML SYRINGE IVP PRN ×2 (18:56→21:54)
[2019-04-27] MEDS: methylPREDNISolone SUCCINATE 40 MG/ML VIAL IVP SCH (21:54)
[2019-04-27] MEDS: ACETAMINOPHEN 325 MG TABLET PO PRN (21:54)
[2019-04-28 05:16] LABS: HGB - HEMOGLOBIN 13.3 g/dL (14.0-18.0); LYMPHOCYTES # (AUTO) 0.3 10^3/uL (1.5-3.5); LYMPHOCYTES % (AUTO) 3.6 %; MEAN CORPUSCULAR HEMOGLOBIN 32.4 pg (27.0-31.0); MEAN CORPUSCULAR HGB CONC 34.6 g/dL (32.0-36.0); MEAN CORPUSCULAR VOLUME 93.7 fL (80.0-94.0); MEAN PLATELET VOLUME 10.2 fL (7.4-11.4); MONOCYTES # (AUTO) 0.1 10^3/uL (0.0-1.0); MONOCYTES % (AUTO) 1.3 %; PLT - PLATELET COUNT 154 10^3/uL (130-450); RED CELL DISTRIBUTION WIDTH 15.2 % (12.0-15.0); WHITE BLOOD COUNT 7.4 x10^3/uL (4.8-10.8)
[2019-04-28 05:26] LABS: ALBUMIN 3.7 g/dL (3.2-5.5); ALBUMIN/GLOBULIN RATIO 0.8 (1.0-2.2); CALCIUM 9.1 mg/dL (8.5-10.3); CREATININE 0.6 mg/dL (0.6-1.2); MAGNESIUM 1.8 mg/dL (1.7-2.8); PHOSPHORUS 3.7 mg/dL (2.5-4.6); TOTAL PROTEIN 8.2 g/dL (6.7-8.2)
[2019-04-28] MEDS: methylPREDNISolone SUCCINATE 40 MG/ML VIAL IVP SCH ×3 (05:48→22:34)
[2019-04-28] MEDS: SODIUM CHLORIDE FLUSH 0.9% 10 ML SYRINGE IVP SCH ×3 (05:49→20:37)
[2019-04-28] MEDS: oxyCODONE 5 MG TABLET PO PRN (05:56)
[2019-04-28] MEDS ORDERED: POTASSIUM CHLORIDE 20 MEQ TABLET PO SCH (07:03)
[2019-04-28] MEDS: BUDESONIDE 0.5 MG/2 ML NEB INH SCH ×2 (07:42→18:19)
[2019-04-28] MEDS: IPRATROPIUM/ALBUTEROL 3 ML NEB INH SCH ×4 (07:42→18:19)
--- NOTE | 2019-04-28 08:26 | PROVIDER PROGRESS NOTE ---
<Nieves Sebastian - Last Filed: 04/28/19 10:31> Subjective - Prog Note Date Prog Note Date: 04/28/19 Prog Note Time: 08:23 - Subjective Pt reports feeling: Improved (Patient says that he feels slightly better than her did yesterday, but is still short of breath.), No change Subjective: Patient says he still doesn't really feel that well, and was asking to stay another day in the hospital. Current Medications - Current Medications Current Medications: Active Medications Acetaminophen (Tylenol) 650 mg PO Q4HR PRN PRN Reason: Pain 1 to 4 Last Admin: 04/27/19 21:54 Dose: 650 mg Albuterol () 2.5 mg INH RTQ4H PRN PRN Reason: Wheezing Albuterol/Ipratropium (Duoneb) 3 ml INH RTQID MARKY Last Admin: 04/28/19 07:42 Dose: 3 ml Budesonide (Pulmicort) 0.5 mg INH RTBID [facility] Last Admin: 04/28/19 07:42 Dose: 0.5 mg Multivitamins 10 ml/ Thiamine HCl 100 mg/ Folic Acid 1 mg/Sodium Chloride 1,011.2 mls @ 100 mls/hr IV DAILY [facility] Lorazepam (Ativan Inj (Vial)) 1 mg IVP Q30M PRN; Protocol PRN Reason: CIWA >8 Last Admin: 04/27/19 21:54 Dose: 1 mg Methylprednisolone (Solu-Medrol (40mg Vial)) 40 mg IVP TID [facility] Last Admin: 04/28/19 05:48 Dose: 40 mg Ondansetron HCl (Zofran Odt) 4 mg TL Q6HR PRN PRN Reason: Nausea / Vomiting Oxycodone HCl (Roxicodone) 5 mg PO Q4HR PRN PRN Reason: Pain 5 to 7 Last Admin: 04/28/19 05:56 Dose: 5 mg Sodium Chloride (Normal Saline Flush 0.9%) 10 ml IVP PRN PRN PRN Reason: NEEDED PER PROVIDER ORDERS Last Admin: 04/27/19 21:54 Dose: 10 ml Sodium Chloride (Normal Saline Flush 0.9%) 10 ml IVP 0100,0900,1700 [facility] Last Admin: 04/28/19 05:49 Dose: 10 ml Amlodipine Besylate [Norvasc] 10 mg PO DAILY 09/15/18 Budesonide/Formoterol Fumarate [Symbicort 160-4.5 Mcg Inhaler] 2 puffs INH BID 09/15/18 Diclofenac Epolamine [Flector] 1 each TD BID 09/15/18 Objective - Vital Signs/Intake & Output Reviewed Vital Signs: Yes Vital Signs: Vital Signs x48h Temp Pulse Pulse Resp BP Pulse Ox 04/28/19 07:52 80 30 H 04/28/19 03:21 36.6 C 109 H 20 156/79 H 95 Intake & Output: Intake & Output 04/25/19 04/26/19 04/27/19 04/28/19 23:59 23:59 23:59 23:59 Intake Total 1649 Output Total 200 1750 Balance 1449 -1750 - Objective General Appearance: positive: Mild distress Eyes Bilateral: positive: PERRL, EOMI ENT: positive: Dry mucous membranes, Other (Poor dentition) Neck: positive: Nml inspection, Thyroid nml, Trachea midline Respiratory: positive: Chest non-tender, Breath sounds nml, Other (tachypnea) Cardiovascular: positive: Irregularly irregular Peripheral Pulses: 2+ Radial (R), 2+ Radial (L), 2+ Dorsalis pedis (R), 2+ Dorsalis pedis (L) Abdomen: positive: Non-tender, Nml bowel sounds, No distention Back: positive: Nml inspection Skin: positive: Color nml, No rash, Dry Extremities: positive: Full ROM, No pedal edema Neurologic/Psychiatric: positive: Oriented x3 - Lab Results Fish Bones: 04/28/19 04:50 04/28/19 04:30 Other Labs: Lab Results x24hrs 04/28/19 04/28/19 04/27/19 Range/Units 04:50 04:30 13:55 WBC 7.4 (4.8-10.8) x10^3/uL RBC 4.10 L (4.70-6.10) 10^6/uL Hgb 13.3 L (14.0-18.0) g/dL Hct 38.4 L (42.0-52.0) % MCV 93.7 (80.0-94.0) fL MCH 32.4 H (27.0-31.0) pg MCHC 34.6 (32.0-36.0) g/dL RDW 15.2 H (12.0-15.0) % Plt Count 154 (130-450) 10^3/uL MPV 10.2 (7.4-11.4) fL Neut # (Auto) 7.0 H (1.5-6.6) 10^3/uL Lymph # (Auto) 0.3 L (1.5-3.5) 10^3/uL [place] # (Auto) 0.1 (0.0-1.0) 10^3/uL Eos # (Auto) 0.0 (0.0-0.7) 10^3/uL Baso # (Auto) 0.0 (0.0-0.1) 10^3/uL Absolute Nucleated RBC 0.00 x10^3/uL Nucleated RBC % 0.0 /100WBC PT (9.9-12.6) secs INR (0.8-1.2) Bld Gas Analysis Time Sample Site ABG pH (7.35-7.45) ABG pCO2 (34-45) mmHg ABG pO2 (80-100) mmHg ABG HCO3 (22.0-26.0) mmol/L ABG Total CO2 (21.0-29.0) MMOL/L ABG O2 Saturation (94-98) % ABG Base Excess (-2.0-3.0) mmol/L Jesus Test O2 Delivery Device O2 Liters/Min LPM Sodium 136 (135-145) mmol/L Potassium 3.5 (3.5-5.0) mmol/L Chloride 99 L (101-111) mmol/L Carbon Dioxide 24 (21-32) mmol/L Anion Gap 13.0 (6-13) BUN 15 (6-20) mg/dL Creatinine 0.6 (0.6-1.2) mg/dL Estimated GFR (MDRD) 137 (>89) Glucose 148 H (70-100) mg/dL Calcium 9.1 (8.5-10.3) mg/dL Phosphorus 3.7 (2.5-4.6) mg/dL Magnesium 1.8 (1.7-2.8) mg/dL Total Bilirubin 1.0 (0.2-1.0) mg/dL AST 38 (10-42) IU/L ALT 33 (10-60) IU/L Alkaline Phosphatase 99 (42-121) IU/L Troponin I High Sens (2.3-19.7) ng/L B-Natriuretic Peptide (5-100) pg/mL Total Protein 8.2 (6.7-8.2) g/dL Albumin 3.7 (3.2-5.5) g/dL Globulin 4.5 H (2.1-4.2) g/dL Albumin/Globulin Ratio 0.8 L (1.0-2.2) Lipase (22-51) U/L Influenza A (Rapid) Negative (Negative) Influenza B (Rapid) Negative (Negative) 04/27/19 04/27/19 04/27/19 Range/Units 13:20 12:59 12:59 WBC (4.8-10.8) x10^3/uL RBC (4.70-6.10) 10^6/uL Hgb (14.0-18.0) g/dL Hct (42.0-52.0) % MCV (80.0-94.0) fL MCH (27.0-31.0) pg MCHC (32.0-36.0) g/dL RDW (12.0-15.0) % Plt Count (130-450) 10^3/uL MPV (7.4-11.4) fL Neut # (Auto) (1.5-6.6) 10^3/uL Lymph # (Auto) (1.5-3.5) 10^3/uL [place] # (Auto) (0.0-1.0) 10^3/uL Eos # (Auto) (0.0-0.7) 10^3/uL Baso # (Auto) (0.0-0.1) 10^3/uL Absolute Nucleated RBC x10^3/uL Nucleated RBC % /100WBC PT (9.9-12.6) secs INR (0.8-1.2) Bld Gas Analysis Time 1328 Sample Site RIGHT RADIAL ABG pH 7.41 (7.35-7.45) ABG pCO2 34 (34-45) mmHg ABG pO2 71 L (80-100) mmHg ABG HCO3 21.3 L (22.0-26.0) mmol/L ABG Total CO2 22.4 (21.0-29.0) MMOL/L ABG O2 Saturation 94 (94-98) % ABG Base Excess -2.5 L (-2.0-3.0) mmol/L Jesus Test POSITIVE O2 Delivery Device NASAL CANNULA O2 Liters/Min 1.50 LPM Sodium 141 (135-145) mmol/L Potassium 3.6 (3.5-5.0) mmol/L Chloride 100 L (101-111) mmol/L Carbon Dioxide 24 (21-32) mmol/L Anion Gap 17.0 H (6-13) BUN 7 (6-20) mg/dL Creatinine 0.8 (0.6-1.2) mg/dL Estimated GFR (MDRD) 99 (>89) Glucose 126 H (70-100) mg/dL Calcium 8.7 (8.5-10.3) mg/dL Phosphorus (2.5-4.6) mg/dL Magnesium (1.7-2.8) mg/dL Total Bilirubin 0.6 (0.2-1.0) mg/dL AST 63 H (10-42) IU/L ALT 43 (10-60) IU/L Alkaline Phosphatase 111 (42-121) IU/L Troponin I High Sens 13.5 (2.3-19.7) ng/L B-Natriuretic Peptide (5-100) pg/mL Total Protein 8.5 H (6.7-8.2) g/dL Albumin 4.2 (3.2-5.5) g/dL Globulin 4.3 H (2.1-4.2) g/dL Albumin/Globulin Ratio 1.0 (1.0-2.2) Lipase 35 (22-51) U/L Influenza A (Rapid) (Negative) Influenza B (Rapid) (Negative) 04/27/19 04/27/19 04/27/19 Range/Units 12:59 12:59 12:59 WBC 7.2 (4.8-10.8) x10^3/uL RBC 4.47 L (4.70-6.10) 10^6/uL Hgb 14.4 (14.0-18.0) g/dL Hct 42.2 (42.0-52.0) % MCV 94.4 H (80.0-94.0) fL MCH 32.2 H (27.0-31.0) pg MCHC 34.1 (32.0-36.0) g/dL RDW 15.2 H (12.0-15.0) % Plt Count 179 (130-450) 10^3/uL MPV 9.4 (7.4-11.4) fL Neut # (Auto) 4.5 (1.5-6.6) 10^3/uL Lymph # (Auto) 2.2 (1.5-3.5) 10^3/uL [place] # (Auto) 0.5 (0.0-1.0) 10^3/uL Eos # (Auto) 0.0 (0.0-0.7) 10^3/uL Baso # (Auto) 0.0 (0.0-0.1) 10^3/uL Absolute Nucleated RBC 0.00 x10^3/uL Nucleated RBC % 0.0 /100WBC PT 11.0 (9.9-12.6) secs INR 1.0 (0.8-1.2) Bld Gas Analysis Time Sample Site ABG pH (7.35-7.45) ABG pCO2 (34-45) mmHg ABG pO2 (80-100) mmHg ABG HCO3 (22.0-26.0) mmol/L ABG Total CO2 (21.0-29.0) MMOL/L ABG O2 Saturation (94-98) % ABG Base Excess (-2.0-3.0) mmol/L Jesus Test O2 Delivery Device O2 Liters/Min LPM Sodium (135-145) mmol/L Potassium (3.5-5.0) mmol/L Chloride (101-111) mmol/L Carbon Dioxide (21-32) mmol/L Anion Gap (6-13) BUN (6-20) mg/dL Creatinine (0.6-1.2) mg/dL Estimated GFR (MDRD) (>89) Glucose (70-100) mg/dL Calcium (8.5-10.3) mg/dL Phosphorus (2.5-4.6) mg/dL Magnesium (1.7-2.8) mg/dL Total Bilirubin (0.2-1.0) mg/dL AST (10-42) IU/L ALT (10-60) IU/L Alkaline Phosphatase (42-121) IU/L Troponin I High Sens (2.3-19.7) ng/L B-Natriuretic Peptide 86 (5-100) pg/mL Total Protein (6.7-8.2) g/dL Albumin (3.2-5.5) g/dL Globulin (2.1-4.2) g/dL Albumin/Globulin Ratio (1.0-2.2) Lipase (22-51) U/L Influenza A (Rapid) (Negative) Influenza B (Rapid) (Negative) ABX Reporting Has patient been on IV antibiotics over the past 48 hours?: No Assessment/Plan - Problem List (1) COPD exacerbation Impression: Patient complains of worsening SOB over the last 3 days. He was found in the w aiting room of his PCP with increased work of breathing and tachypneic. He was then sent to the ER 04/27/2019 for evaluation. Patient's current COPD exacerbation doesn't seem to stem from recent illness. WBC wnl, Influenza A and B negative, afebrile, chest x-ray shows no infiltrates. Patient continues to smoke 1/2 pack per day. 1. Encourage patient to quit smoking or decrease cigarettes smoked per day. 2. Have RT educate patient about best practice for using MDIs and nebulizers. 3. Advanced care planning meeting when patient's sister visits. 4. Trial patient off oxygen and measure saturations. (2) Tobacco abuse Impression: Patient has smoked 1/2 ppd for 50 years. Outpatient provider documents that smoking cessation discussed regularly with outpatient visits. Patient has not been interested. Nicotine patient while in the hospital. 1. Encourage patient to quit smoking or reduce daily cigarette use. (3) Alcohol abuse Impression: Patient reports drinking 2-3 16oz beers daily. He falls frequently at home, at least once every 1-2 months. He denies having seizures with alcohol withdraw but says that he gets tremulous. 1. CIWA protocol 2. Discuss/encourage reduction or alcohol cessation. (4) HTN (hypertension) Impression: Patient has a history of hypertension. He admits that he is not always compliant with taking his amlodipine. During this hospitalization patient has had blood pressures 140-150s over 70-80s. 1. Encourage patient to fill and take his amlodipine prescription. Qualifiers: Hypertension type: essential hypertension Qualified Code(s): I10 - Essential (primary) hypertension (5) Tachycardia Impression: Patient has been consistently tachycardic while in the hospital. Unclear if this is related to medications such as steroids, albuterol, etc., patient anxiety, or possibly illicit medications taken before coming to the ER. 1. U tox ordered yesterday, not yet completed. 2. Monitor HR while inpatient. 3. EKG to evaluate for arrhythmias. <Paulina Leal - Last Filed: 04/28/19 11:47> Subjective - Subjective Subjective: He's tired but able to get up to bathroom, eat. Gets tachypneic with this minimal effort with O2 sat remaining above 92% Objective - Vital Signs/Intake & Output Reviewed Vital Signs: Yes Vital Signs: Vital Signs x48h Temp Pulse Pulse Resp BP Pulse Ox 04/28/19 11:09 70 28 H 04/28/19 08:33 36.7 C 102 H 24 159/75 H 91 L 04/28/19 07:52 80 30 H Intake & Output: Intake & Output 04/25/19 04/26/19 04/27/19 04/28/19 23:59 23:59 23:59 23:59 Intake Total 1649 200 Output Total 200 1750 Balance 1449 -1550 - Objective Comments/Other: Short statured white male who looks much older than stated age, exhausted appearance. Once we wake him up and he starts speaking, respiratory rate goes from 20-24. Neck is without venous distention, still with shotty adenopathy, supple Lungs are clear today. No crackles rhonchi wheezing just the tachypnea. No use of accessory muscles. Tachycardic irregular rate and rhythm. Abdomen is benign Ankles without edema, legs are covered in [employer] hose - Lab Results Fish Bones: 04/28/19 04:50 04/28/19 04:30 Other Labs: Lab Results x24hrs 04/28/19 04/28/19 04/27/19 Range/Units 04:50 04:30 13:55 WBC 7.4 (4.8-10.8) x10^3/uL RBC 4.10 L (4.70-6.10) 10^6/uL Hgb 13.3 L (14.0-18.0) g/dL Hct 38.4 L (42.0-52.0) % MCV 93.7 (80.0-94.0) fL MCH 32.4 H (27.0-31.0) pg MCHC 34.6 (32.0-36.0) g/dL RDW 15.2 H (12.0-15.0) % Plt Count 154 (130-450) 10^3/uL MPV 10.2 (7.4-11.4) fL Neut # (Auto) 7.0 H (1.5-6.6) 10^3/uL Lymph # (Auto) 0.3 L (1.5-3.5) 10^3/uL [place] # (Auto) 0.1 (0.0-1.0) 10^3/uL Eos # (Auto) 0.0 (0.0-0.7) 10^3/uL Baso # (Auto) 0.0 (0.0-0.1) 10^3/uL Absolute Nucleated RBC 0.00 x10^3/uL Nucleated RBC % 0.0 /100WBC PT (9.9-12.6) secs INR (0.8-1.2) Bld Gas Analysis Time Sample Site ABG pH (7.35-7.45) ABG pCO2 (34-45) mmHg ABG pO2 (80-100) mmHg ABG HCO3 (22.0-26.0) mmol/L ABG Total CO2 (21.0-29.0) MMOL/L ABG O2 Saturation (94-98) % ABG Base Excess (-2.0-3.0) mmol/L Jesus Test O2 Delivery Device O2 Liters/Min LPM Sodium 136 (135-145) mmol/L Potassium 3.5 (3.5-5.0) mmol/L Chloride 99 L (101-111) mmol/L Carbon Dioxide 24 (21-32) mmol/L Anion Gap 13.0 (6-13) BUN 15 (6-20) mg/dL Creatinine 0.6 (0.6-1.2) mg/dL Estimated GFR (MDRD) 137 (>89) Glucose 148 H (70-100) mg/dL Calcium 9.1 (8.5-10.3) mg/dL Phosphorus 3.7 (2.5-4.6) mg/dL Magnesium 1.8 (1.7-2.8) mg/dL Total Bilirubin 1.0 (0.2-1.0) mg/dL AST 38 (10-42) IU/L ALT 33 (10-60) IU/L Alkaline Phosphatase 99 (42-121) IU/L Troponin I High Sens (2.3-19.7) ng/L B-Natriuretic Peptide (5-100) pg/mL Total Protein 8.2 (6.7-8.2) g/dL Albumin 3.7 (3.2-5.5) g/dL Globulin 4.5 H (2.1-4.2) g/dL Albumin/Globulin Ratio 0.8 L (1.0-2.2) Lipase (22-51) U/L Influenza A (Rapid) Negative (Negative) Influenza B (Rapid) Negative (Negative) 04/27/19 04/27/19 04/27/19 Range/Units 13:20 12:59 12:59 WBC (4.8-10.8) x10^3/uL RBC (4.70-6.10) 10^6/uL Hgb (14.0-18.0) g/dL Hct (42.0-52.0) % MCV (80.0-94.0) fL MCH (27.0-31.0) pg MCHC (32.0-36.0) g/dL RDW (12.0-15.0) % Plt Count (130-450) 10^3/uL MPV (7.4-11.4) fL Neut # (Auto) (1.5-6.6) 10^3/uL Lymph # (Auto) (1.5-3.5) 10^3/uL [place] # (Auto) (0.0-1.0) 10^3/uL Eos # (Auto) (0.0-0.7) 10^3/uL Baso # (Auto) (0.0-0.1) 10^3/uL Absolute Nucleated RBC x10^3/uL Nucleated RBC % /100WBC PT (9.9-12.6) secs INR (0.8-1.2) Bld Gas Analysis Time 1328 Sample Site RIGHT RADIAL ABG pH 7.41 (7.35-7.45) ABG pCO2 34 (34-45) mmHg ABG pO2 71 L (80-100) mmHg ABG HCO3 21.3 L (22.0-26.0) mmol/L ABG Total CO2 22.4 (21.0-29.0) MMOL/L ABG O2 Saturation 94 (94-98) % ABG Base Excess -2.5 L (-2.0-3.0) mmol/L Jesus Test POSITIVE O2 Delivery Device NASAL CANNULA O2 Liters/Min 1.50 LPM Sodium 141 (135-145) mmol/L Potassium 3.6 (3.5-5.0) mmol/L Chloride 100 L (101-111) mmol/L Carbon Dioxide 24 (21-32) mmol/L Anion Gap 17.0 H (6-13) BUN 7 (6-20) mg/dL Creatinine 0.8 (0.6-1.2) mg/dL Estimated GFR (MDRD) 99 (>89) Glucose 126 H (70-100) mg/dL Calcium 8.7 (8.5-10.3) mg/dL Phosphorus (2.5-4.6) mg/dL Magnesium (1.7-2.8) mg/dL Total Bilirubin 0.6 (0.2-1.0) mg/dL AST 63 H (10-42) IU/L ALT 43 (10-60) IU/L Alkaline Phosphatase 111 (42-121) IU/L Troponin I High Sens 13.5 (2.3-19.7) ng/L B-Natriuretic Peptide (5-100) pg/mL Total Protein 8.5 H (6.7-8.2) g/dL Albumin 4.2 (3.2-5.5) g/dL Globulin 4.3 H (2.1-4.2) g/dL Albumin/Globulin Ratio 1.0 (1.0-2.2) Lipase 35 (22-51) U/L Influenza A (Rapid) (Negative) Influenza B (Rapid) (Negative) 04/27/19 04/27/19 04/27/19 Range/Units 12:59 12:59 12:59 WBC 7.2 (4.8-10.8) x10^3/uL RBC 4.47 L (4.70-6.10) 10^6/uL Hgb 14.4 (14.0-18.0) g/dL Hct 42.2 (42.0-52.0) % MCV 94.4 H (80.0-94.0) fL MCH 32.2 H (27.0-31.0) pg MCHC 34.1 (32.0-36.0) g/dL RDW 15.2 H (12.0-15.0) % Plt Count 179 (130-450) 10^3/uL MPV 9.4 (7.4-11.4) fL Neut # (Auto) 4.5 (1.5-6.6) 10^3/uL Lymph # (Auto) 2.2 (1.5-3.5) 10^3/uL [place] # (Auto) 0.5 (0.0-1.0) 10^3/uL Eos # (Auto) 0.0 (0.0-0.7) 10^3/uL Baso # (Auto) 0.0 (0.0-0.1) 10^3/uL Absolute Nucleated RBC 0.00 x10^3/uL Nucleated RBC % 0.0 /100WBC PT 11.0 (9.9-12.6) secs INR 1.0 (0.8-1.2) Bld Gas Analysis Time Sample Site ABG pH (7.35-7.45) ABG pCO2 (34-45) mmHg ABG pO2 (80-100) mmHg ABG HCO3 (22.0-26.0) mmol/L ABG Total CO2 (21.0-29.0) MMOL/L ABG O2 Saturation (94-98) % ABG Base Excess (-2.0-3.0) mmol/L Jesus Test O2 Delivery Device O2 Liters/Min LPM Sodium (135-145) mmol/L Potassium (3.5-5.0) mmol/L Chloride (101-111) mmol/L Carbon Dioxide (21-32) mmol/L Anion Gap (6-13) BUN (6-20) mg/dL Creatinine (0.6-1.2) mg/dL Estimated GFR (MDRD) (>89) Glucose (70-100) mg/dL Calcium (8.5-10.3) mg/dL Phosphorus (2.5-4.6) mg/dL Magnesium (1.7-2.8) mg/dL Total Bilirubin (0.2-1.0) mg/dL AST (10-42) IU/L ALT (10-60) IU/L Alkaline Phosphatase (42-121) IU/L Troponin I High Sens (2.3-19.7) ng/L B-Natriuretic Peptide 86 (5-100) pg/mL Total Protein (6.7-8.2) g/dL Albumin (3.2-5.5) g/dL Globulin (2.1-4.2) g/dL Albumin/Globulin Ratio (1.0-2.2) Lipase (22-51) U/L Influenza A (Rapid) (Negative) Influenza B (Rapid) (Negative) ABX Reporting Has patient been on IV antibiotics over the past 48 hours?: No Assessment/Plan - Problem List (1) COPD exacerbation Impression: Subjectively he says that he is better than yesterday. But still way more tachypneic than he would like to be. At baseline he is able to walk across the room, bathe himself, make dinner, do light household and outdoor chores. Right now he says he could not do any of that without significant dyspnea. Objectively, he is improved and that he no longer has wheezing, no hypoxia. But tachypneic with minimal exertion. We will continue to treat with nebulizers, steroids. Reassess this afternoon and see if he can go home tonight. If not he may need to have status changed to inpatient status to allow him 1 more day (2) Tobacco abuse Impression: Patient continues to endorse the fact that he doubts he will quit. (3) Alcoholism /alcohol abuse Impression: He stated that he sometimes goes through withdrawal within 1 day of stopping drinking. So far he has been on low-dose Ativan. He does not feel like he is going through withdrawal at this time. (4) HTN (hypertension) Impression: Mildly hypertensive in the 150 systolic. Amlodipine has not been resumed. Will do so right now. Qualifiers: Hypertension type: essential hypertension Qualified Code(s): I10 - Essential (primary) hypertension (5) Radiculopathy of cervical spine Impression: He continues to have that complaint today. I explained to him that he will need to follow-up with his primary care provider with an outpatient EMG or MRI. (6) Tachycardia Impression: This was a problem for him with his last admission. This may be a function of his end-stage COPD and the stress on his lungs and body. U tox screen is pending. Today's heart rate was a little irregular and I ordered an EKG. EKG shows sinus tachycardia with frequent PACs.
[2019-04-28] MEDS: MULTIVITAMIN 10 ML, THIAMINE INJ 100 MG, FOLIC ACID INJ 1 MG in SODIUM CHLORIDE 0.9% 1,... IV SCH (08:38)
[2019-04-28] MEDS: LORazepam 2 MG/ML VIAL IVP PRN ×4 (08:38→20:37)
[2019-04-28] MEDS ORDERED: amLODIPine 5 MG TABLET PO STA (11:46)
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
--- NOTE | 2019-04-28 13:45 | PHARMACY PROGRESS NOTE ---
- Best Possible Medication History Admit Date and Time: 04/27/19 1348 Processed by: Pharmacy Medication History completed: Yes Patient Interview: Completed Secondary Source(s): Physician records Patient a poor historian regarding medications As the person ultimately responsible for medication therapy, providers are able to order a medication from an existing home medication list in [facility] via the "Reconcile Routine" prior to Confirmation of that medication by peer support specialist. Such practice is discouraged except when the physician, in their clinical judgment, deems that a medical need exists for a medication without regard to previous use.
[2019-04-28] MEDS: ACETAMINOPHEN 325 MG TABLET PO PRN (20:38)
[2019-04-28] MEDS: SODIUM CHLORIDE FLUSH 0.9% 10 ML SYRINGE IVP PRN (22:35)
[2019-04-29] MEDS: SODIUM CHLORIDE FLUSH 0.9% 10 ML SYRINGE IVP SCH ×3 (00:47→17:57)
[2019-04-29] MEDS: LORazepam 2 MG/ML VIAL IVP PRN (04:14)
[2019-04-29] MEDS: methylPREDNISolone SUCCINATE 40 MG/ML VIAL IVP SCH ×3 (05:54→21:30)
[2019-04-29] MEDS: IPRATROPIUM/ALBUTEROL 3 ML NEB INH SCH ×4 (07:18→18:59)
[2019-04-29] MEDS: BUDESONIDE 0.5 MG/2 ML NEB INH SCH ×2 (07:18→18:59)
[2019-04-29] MEDS: MULTIVITAMIN 10 ML, THIAMINE INJ 100 MG, FOLIC ACID INJ 1 MG in SODIUM CHLORIDE 0.9% 1,... IV SCH (08:58)
[2019-04-29] MEDS: ACETAMINOPHEN 325 MG TABLET PO PRN ×2 (09:05→21:30)
[2019-04-29] MEDS: oxyCODONE 5 MG TABLET PO PRN ×3 (09:58→21:30)
--- NOTE | 2019-04-29 12:15 | PROVIDER PROGRESS NOTE ---
Subjective - Prog Note Date Prog Note Date: 04/29/19 Prog Note Time: 14:00 - Subjective Subjective: About the same as yesterday. While he is fine at rest, getting up to do simple chores such as sitting up in bed and walking 5 feet to the bathroom completely wiped him out. Then takes him several minutes to recover while he sits in bed. Poor appetite. Alcohol withdrawal was worse last night with hallucinations, tremulousness. CIWA score was 10 last night. This morning it is 3. He is asking for medications to sleep. Current Medications - Current Medications Current Medications: Active Medications Acetaminophen (Tylenol) 650 mg PO Q4HR PRN PRN Reason: Pain 1 to 4 Last Admin: 04/29/19 09:05 Dose: 650 mg Albuterol () 2.5 mg INH RTQ4H PRN PRN Reason: Wheezing Albuterol/Ipratropium (Duoneb) 3 ml INH RTQID [facility] Last Admin: 04/29/19 11:11 Dose: 3 ml Budesonide (Pulmicort) 0.5 mg INH RTBID [facility] Last Admin: 04/29/19 07:18 Dose: 0.5 mg Multivitamins 10 ml/ Thiamine HCl 100 mg/ Folic Acid 1 mg/Sodium Chloride 1,011.2 mls @ 100 mls/hr IV DAILY [facility] Last Admin: 04/29/19 08:58 Dose: 100 mls/hr Lorazepam (Ativan Inj (Vial)) 1 mg IVP Q30M PRN; Protocol PRN Reason: CIWA >8 Last Admin: 04/29/19 04:14 Dose: 1 mg Methylprednisolone (Solu-Medrol (40mg Vial)) 40 mg IVP TID [facility] Last Admin: 04/29/19 05:54 Dose: 40 mg Ondansetron HCl (Zofran Odt) 4 mg TL Q6HR PRN PRN Reason: Nausea / Vomiting Oxycodone HCl (Roxicodone) 5 mg PO Q4HR PRN PRN Reason: Pain 5 to 7 Last Admin: 04/29/19 09:58 Dose: 5 mg Sodium Chloride (Normal Saline Flush 0.9%) 10 ml IVP PRN PRN PRN Reason: NEEDED PER PROVIDER ORDERS Last Admin: 04/28/19 22:35 Dose: 10 ml Sodium Chloride (Normal Saline Flush 0.9%) 10 ml IVP 0100,0900,1700 [facility] Last Admin: 04/29/19 08:58 Dose: 10 ml Amlodipine Besylate [Norvasc] 10 mg PO DAILY 09/15/18 Budesonide/Formoterol Fumarate [Symbicort 160-4.5 Mcg Inhaler] 2 puffs INH BID 09/15/18 Albuterol 2.5 mg INH Q4H PRN 04/28/19 Aspirin [Aspirin EC] 81 mg PO DAILY 04/28/19 Ipratropium/Albuterol [Duoneb] 3 ml INH Q4H PRN 04/28/19 Objective - Vital Signs/Intake & Output Reviewed Vital Signs: Yes Vital Signs: Vital Signs x48h Temp Pulse Pulse Resp BP Pulse Ox 04/29/19 11:11 106 H 26 H 04/29/19 07:50 36.7 C 99 24 141/91 H 96 04/29/19 07:18 110 H 20 Intake & Output: Intake & Output 04/26/19 04/27/19 04/28/19 04/29/19 23:59 23:59 23:59 23:59 Intake Total 1649 2609.2 920 Output Total 200 2725 700 Balance 1449 -115.8 220 - Objective General Appearance: positive: Mild distress, Lethargic, Other (Short statured, much older appearing than stated age. Tremulous. Anxious.) Eyes Bilateral: positive: PERRL, EOMI ENT: positive: Pharynx nml Neck: positive: No JVD Respiratory: positive: Chest non-tender, Wheezes. negative: Rales, Rhonchi Cardiovascular: positive: Regular rate & rhythm, Tachycardia. negative: Gallop/S4, Friction rub Abdomen: positive: Non-tender, No organomegaly, Nml bowel sounds, No distention Skin: positive: Warm, Dry. negative: Diaphoresis Extremities: positive: Non-tender, No pedal edema Neurologic/Psychiatric: positive: CN's nml (2-12), Disoriented to time. negative: Motor nml (Tremulous. Slightly ataxic when he tries to get up. Needs a standby assist for safety.) - Lab Results Fish Bones: 04/28/19 04:50 04/28/19 04:30 ABX Reporting Has patient been on IV antibiotics over the past 48 hours?: No Assessment/Plan - Problem List (1) COPD exacerbation Impression: Subjectively he says that he is better than yesterday. But still way more tachypneic than he would like to be. At baseline he is able to walk across the room, bathe himself, make dinner, do light household and outdoor chores. Right now he says he could not do any of that without significant dyspnea. Objectively, he is improved and that he no longer has wheezing, no hypoxia. But tachypneic with minimal exertion yesterday afternoon and evening. I reassessed him for possible discharge. He would become increasingly anxious and tachypneic just getting up to go to the bathroom. I changed the status from ob servation to inpatient yesterday. Between last night and today, stable COPD as long as he is asleep or at rest. With being awake or trying to walk continues to be tachypneic, short of breath with 5 feet of walking. O2 sats are being maintained and there is no desaturation. Plan: Continue steroids, nebulizers (2) Tobacco abuse Impression: Patient continues to endorse the fact that he doubts he will quit. (3) Alcoholism /alcohol abuse resulting in dependence now with withdrawal. Impression: He stated that he sometimes goes through withdrawal within 1 day of stopping drinking. So far he has been on low-dose Ativan. Yesterday, he does not feel like he is going through withdrawal. Already on a banana bag. However, last night, he started hallucinating. Has gotten increasingly tremulous, tachycardic. Resulting in increased use of benzodiazepine. CIWA protocol score was 10 last night and is 3 this morning. Plan: Continue use of benzodiazepines as needed. Add fixed dose Librium for today (4) HTN (hypertension) Impression: Mildly hypertensive in the 150 systolic Last night. Amlodipine 10 mg given. Will make sure he is getting daily orders. Qualifiers: Hypertension type: essential hypertension Qualified Code(s): I10 - Essential (primary) hypertension (5) Radiculopathy of cervical spine Impression: He continues to have that complaint. I explained to him that he will need to follow-up with his primary care provider with an outpatient EMG or MRI. (6) Tachycardia Impression: This was a problem for him with his last admission. This may be a function of his end-stage COPD and the stress on his lungs and body. U tox screen is pending. Today's heart rate was a little irregular and I ordered an EKG. EKG shows sinus tachycardia with frequent PACs.
[2019-04-29] MEDS: chlordiazePOXIDE 5 MG CAPSULE PO SCH (17:56)
[2019-04-29] MEDS: SODIUM CHLORIDE FLUSH 0.9% 10 ML SYRINGE IVP PRN (21:30)
[2019-04-30] MEDS: chlordiazePOXIDE 5 MG CAPSULE PO SCH ×4 (00:26→18:56)
[2019-04-30] MEDS: SODIUM CHLORIDE FLUSH 0.9% 10 ML SYRINGE IVP SCH ×3 (00:27→18:57)
[2019-04-30] MEDS: ACETAMINOPHEN 325 MG TABLET PO PRN ×2 (02:11→16:21)
[2019-04-30] MEDS: oxyCODONE 5 MG TABLET PO PRN ×3 (02:11→19:07)
[2019-04-30 05:36] LABS: BASOPHILS % (AUTO) 0.1 %; HGB - HEMOGLOBIN 12.9 g/dL (14.0-18.0); LYMPHOCYTES # (AUTO) 0.3 10^3/uL (1.5-3.5); LYMPHOCYTES % (AUTO) 2.8 %; MEAN CORPUSCULAR HEMOGLOBIN 31.1 pg (27.0-31.0); MEAN CORPUSCULAR HGB CONC 32.4 g/dL (32.0-36.0); MEAN CORPUSCULAR VOLUME 95.9 fL (80.0-94.0); MEAN PLATELET VOLUME 10.7 fL (7.4-11.4); MONOCYTES # (AUTO) 0.5 10^3/uL (0.0-1.0); MONOCYTES % (AUTO) 4.7 %; NEUTROPHILS # (AUTO) 9.4 10^3/uL (1.5-6.6); NEUTROPHILS % (AUTO) 91.8 %; PLT - PLATELET COUNT 147 10^3/uL (130-450); RED BLOOD COUNT 4.15 10^6/uL (4.70-6.10); RED CELL DISTRIBUTION WIDTH 15.5 % (12.0-15.0); WHITE BLOOD COUNT 10.3 x10^3/uL (4.8-10.8)
[2019-04-30 05:47] LABS: CALCIUM 8.8 mg/dL (8.5-10.3); CREATININE 0.7 mg/dL (0.6-1.2); MAGNESIUM 2.1 mg/dL (1.7-2.8)
[2019-04-30] MEDS: methylPREDNISolone SUCCINATE 40 MG/ML VIAL IVP SCH (06:57)
[2019-04-30] MEDS: SODIUM CHLORIDE FLUSH 0.9% 10 ML SYRINGE IVP PRN (06:58)
[2019-04-30] MEDS: IPRATROPIUM/ALBUTEROL 3 ML NEB INH SCH ×4 (07:15→21:25)
[2019-04-30] MEDS: BUDESONIDE 0.5 MG/2 ML NEB INH SCH ×2 (07:15→21:57)
[2019-04-30] MEDS: THIAMINE 100 MG TABLET PO SCH (09:22)
[2019-04-30] MEDS: FOLIC ACID 1 MG TABLET PO SCH (09:22)
--- NOTE | 2019-04-30 11:46 | PROVIDER PROGRESS NOTE ---
<Nieves Sebastian - Last Filed: 04/30/19 12:03> Subjective - Prog Note Date Prog Note Date: 04/30/19 Prog Note Time: 11:37 - Subjective Pt reports feeling: Improved Subjective: Patient reports that he feels a little better. 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 He also doesn't feel like he is getting good sleep. {Patient eating his meals and was up yesterday to take a shower. Current Medications - Current Medications Current Medications: Active Medications Acetaminophen (Tylenol) 650 mg PO Q4HR PRN PRN Reason: Pain 1 to 4 Last Admin: 04/30/19 02:11 Dose: 650 mg Albuterol () 2.5 mg INH RTQ4H PRN PRN Reason: Wheezing Last Admin: 04/30/19 01:08 Dose: 2.5 mg Albuterol/Ipratropium (Duoneb) 3 ml INH RTQID [facility] Last Admin: 04/30/19 11:30 Dose: 3 ml Budesonide (Pulmicort) 0.5 mg INH RTBID [facility] Last Admin: 04/30/19 07:15 Dose: 0.5 mg Chlordiazepoxide HCl (Librium) 5 mg PO Q6HR [facility] Last Admin: 04/30/19 06:57 Dose: 5 mg Folic Acid () 1 mg PO DAILY [facility] Last Admin: 04/30/19 09:22 Dose: 1 mg Lorazepam (Ativan Inj (Vial)) 1 mg IVP Q30M PRN; Protocol PRN Reason: CIWA >8 Last Admin: 04/29/19 04:14 Dose: 1 mg Methylprednisolone (Solu-Medrol (40mg Vial)) 40 mg IVP TID [facility] Last Admin: 04/30/19 06:57 Dose: 40 mg Ondansetron HCl (Zofran Odt) 4 mg TL Q6HR PRN PRN Reason: Nausea / Vomiting Oxycodone HCl (Roxicodone) 5 mg PO Q4HR PRN PRN Reason: Pain 5 to 7 Last Admin: 04/30/19 09:21 Dose: 5 mg Sodium Chloride (Normal Saline Flush 0.9%) 10 ml IVP PRN PRN PRN Reason: NEEDED PER PROVIDER ORDERS Last Admin: 04/30/19 06:58 Dose: 10 ml Sodium Chloride (Normal Saline Flush 0.9%) 10 ml IVP 0100,0900,1700 [facility] Last Admin: 04/30/19 09:22 Dose: 10 ml Thiamine HCl (Vitamin B-1) 100 mg PO DAILY [facility] Last Admin: 04/30/19 09:22 Dose: 100 mg Amlodipine Besylate [Norvasc] 10 mg PO DAILY 09/15/18 Budesonide/Formoterol Fumarate [Symbicort 160-4.5 Mcg Inhaler] 2 puffs INH BID 09/15/18 Albuterol 2.5 mg INH Q4H PRN 04/28/19 Aspirin [Aspirin EC] 81 mg PO DAILY 04/28/19 Ipratropium/Albuterol [Duoneb] 3 ml INH Q4H PRN 04/28/19 Objective - Vital Signs/Intake & Output Reviewed Vital Signs: Yes Vital Signs: Vital Signs x48h Temp Pulse Pulse Resp BP Pulse Ox 04/30/19 07:23 36.5 C 90 20 123/99 H 98 04/30/19 07:15 85 20 04/30/19 04:37 36.9 C 89 18 135/95 H 94 Intake & Output: Intake & Output 04/27/19 04/28/19 04/29/19 04/30/19 23:59 23:59 23:59 23:59 Intake Total 1649 2609.2 2623.2 600 Output Total 200 2725 1200 750 Balance 1449 -115.8 1423.2 -150 - Objective General Appearance: positive: No acute distress, Alert Eyes Bilateral: positive: Normal inspection, PERRL, EOMI Neck: positive: Nml inspection, Trachea midline Respiratory: positive: Chest non-tender, Breath sounds nml Cardiovascular: positive: Regular rate & rhythm, No murmur, No gallop Peripheral Pulses: 2+ Radial (R), 2+ Radial (L), 2+ Posterior tibialis (R), 2+ Posterior tibialis (L) Abdomen: positive: Non-tender, No organomegaly, Nml bowel sounds Back: positive: Nml inspection Skin: positive: Color nml, No rash, Warm, Dry Extremities: positive: Full ROM, Nml appearance, No pedal edema Neurologic/Psychiatric: positive: Oriented x3, Mood/affect nml - Lab Results Fish Bones: 04/30/19 05:05 04/30/19 05:05 Other Labs: Lab Results x24hrs 04/30/19 04/30/19 Range/Units 05:05 05:05 WBC 10.3 (4.8-10.8) x10^3/uL RBC 4.15 L (4.70-6.10) 10^6/uL Hgb 12.9 L (14.0-18.0) g/dL Hct 39.8 L (42.0-52.0) % MCV 95.9 H (80.0-94.0) fL MCH 31.1 H (27.0-31.0) pg MCHC 32.4 (32.0-36.0) g/dL RDW 15.5 H (12.0-15.0) % Plt Count 147 (130-450) 10^3/uL MPV 10.7 (7.4-11.4) fL Neut # (Auto) 9.4 H (1.5-6.6) 10^3/uL Lymph # (Auto) 0.3 L (1.5-3.5) 10^3/uL [place] # (Auto) 0.5 (0.0-1.0) 10^3/uL Eos # (Auto) 0.0 (0.0-0.7) 10^3/uL Baso # (Auto) 0.0 (0.0-0.1) 10^3/uL Absolute Nucleated RBC 0.00 x10^3/uL Nucleated RBC % 0.0 /100WBC Sodium 137 (135-145) mmol/L Potassium 3.9 (3.5-5.0) mmol/L Chloride 101 (101-111) mmol/L Carbon Dioxide 25 (21-32) mmol/L Anion Gap 11.0 (6-13) BUN 22 H (6-20) mg/dL Creatinine 0.7 (0.6-1.2) mg/dL Estimated GFR (MDRD) 115 (>89) Glucose 158 H (70-100) mg/dL Calcium 8.8 (8.5-10.3) mg/dL Magnesium 2.1 (1.7-2.8) mg/dL ABX Reporting Has patient been on IV antibiotics over the past 48 hours?: No Assessment/Plan - Problem List (1) COPD exacerbation Impression: Patient admitted with extreme shortness of breath. Unclear what set off this current exacerbation. There is no antecedent URI. Pneumonia is negative on chest x-ray. White cell count is normal and he does not have a fever. Part of his exacerbation is definitely due to anxiety. He is still a current every day smoker. Plan: DuoNeb fixed doses and albuterol as needed Continue home pulmcort IV steroids-stop today Have RT refill duonenbs prescription for home Refer patient for outpatient cardiopulmonary rehabilitation. (2) Tobacco abuse Impression: Patient has smoked for 30 pack years. He is encouraged to quit by his primary care provider during office visits. We have encouraged patient to continue to decrease the amount of daily cigarettes with the goal of quitting. 1. Suggest patient use nicotine patch or gum to aid him with his smoking cessation. (3) Alcohol abuse Impression: Patient reports drinking 3-4 16 oz beers per day. He has experience tremors with previous withdrawal from alcohol. Scheduled librium started yesterday. CIWA scores 3-4 overnight. Patient had tremors this morning during breakfast, but after scheduled librium the tremors went away. 1. Continue CIWA protocol 2. Continue scheduled librium. (4) HTN (hypertension) Impression: Patient's blood pressures have been SBP of 120-130s. 1. Monitor BP. 2. Patient's home amlodipine held. Qualifiers: Hypertension type: essential hypertension Qualified Code(s): I10 - Essential (primary) hypertension (5) Tachycardia Impression: Patient's heart rate has improved since admit. For the last 24 hours, heart rates 80-90s. RESOLVED <Paulina Leal - Last Filed: 04/30/19 12:29> Subjective - Subjective Subjective: he's tremulous but better. tired. he's also exasperated at hearing from us and his sister that he needs to stop smoking and drinking. I explained why I'm not giving him ambien. Objective - Vital Signs/Intake & Output Reviewed Vital Signs: Yes Vital Signs: Vital Signs x48h Temp Pulse Pulse Resp BP Pulse Ox 04/30/19 11:30 82 22 04/30/19 07:23 36.5 C 90 20 123/99 H 98 04/30/19 07:15 85 20 04/30/19 04:37 36.9 C 89 18 135/95 H 94 Intake & Output: Intake & Output 04/27/19 04/28/19 04/29/19 04/30/19 23:59 23:59 23:59 23:59 Intake Total 1649 2609.2 2623.2 960 Output Total 200 2725 1200 750 Balance 1449 -115.8 1423.2 210 - Objective Comments/Other: Alert, oriented. Sitting at bedside. Sister at bedside. Mildly tremulous. No labored respiration. Face color and expression much better. He is alert, present, good skin tone right now. Neck is supple. Lungs have coarse upper airway sounds but no crackles rhonchi or wheezing. No labored respiration. Regular rate and rhythm. Feet with EUNICE hose on and no real edema. Still a little ataxic when he tries to get up to go pee. - Lab Results Fish Bones: 04/30/19 05:05 04/30/19 05:05 Other Labs: Lab Results x24hrs 04/30/19 04/30/19 Range/Units 05:05 05:05 WBC 10.3 (4.8-10.8) x10^3/uL RBC 4.15 L (4.70-6.10) 10^6/uL Hgb 12.9 L (14.0-18.0) g/dL Hct 39.8 L (42.0-52.0) % MCV 95.9 H (80.0-94.0) fL MCH 31.1 H (27.0-31.0) pg MCHC 32.4 (32.0-36.0) g/dL RDW 15.5 H (12.0-15.0) % Plt Count 147 (130-450) 10^3/uL MPV 10.7 (7.4-11.4) fL Neut # (Auto) 9.4 H (1.5-6.6) 10^3/uL Lymph # (Auto) 0.3 L (1.5-3.5) 10^3/uL [place] # (Auto) 0.5 (0.0-1.0) 10^3/uL Eos # (Auto) 0.0 (0.0-0.7) 10^3/uL Baso # (Auto) 0.0 (0.0-0.1) 10^3/uL Absolute Nucleated RBC 0.00 x10^3/uL Nucleated RBC % 0.0 /100WBC Sodium 137 (135-145) mmol/L Potassium 3.9 (3.5-5.0) mmol/L Chloride 101 (101-111) mmol/L Carbon Dioxide 25 (21-32) mmol/L Anion Gap 11.0 (6-13) BUN 22 H (6-20) mg/dL Creatinine 0.7 (0.6-1.2) mg/dL Estimated GFR (MDRD) 115 (>89) Glucose 158 H (70-100) mg/dL Calcium 8.8 (8.5-10.3) mg/dL Magnesium 2.1 (1.7-2.8) mg/dL Assessment/Plan - Problem List (1) COPD exacerbation Impression: At this time, no changes to current note from student. We are addressing his COPD, hypertension, alcohol withdrawal, tachycardia. The tachycardia is of longstanding duration was present with his last admission. Most likely related to his COPD on a chronic basis. We are de-escalating therapy slowly. We will stop steroids. Continue nebulizers. He is asking for home prescriptions and we will take care of that. Hopefully can go home tomorrow.
[2019-04-30] MEDS: FORMOTEROL FUMARATE NEB 20 MCG/2 ML INH SCH (21:57)
[2019-05-01] MEDS: chlordiazePOXIDE 5 MG CAPSULE PO SCH ×2 (00:37→06:24)
[2019-05-01] MEDS: SODIUM CHLORIDE FLUSH 0.9% 10 ML SYRINGE IVP SCH ×2 (00:37→08:26)
[2019-05-01] MEDS: IPRATROPIUM/ALBUTEROL 3 ML NEB INH SCH (07:25)
[2019-05-01] MEDS: FORMOTEROL FUMARATE NEB 20 MCG/2 ML INH SCH (07:26)
[2019-05-01] MEDS: BUDESONIDE 0.5 MG/2 ML NEB INH SCH (07:26)
--- NOTE | 2019-05-01 07:54 | Discharge Plan ---
Discharge Plan Problem Reviewed?: Yes Disposition: Home, Self Care Condition: Fair Prescriptions: Albuterol 2.5 mg INH Q4H PRN #1 pkg PRN Reason: Wheezing Albuterol Sulfate [Proair Hfa Inhaler] 1 - 2 puffs INH Q4H PRN #1 inhaler PRN Reason: Shortness Of Air/Wheezing Budesonide/Formoterol Fumarate [Symbicort 160-4.5 Mcg Inhaler] 2 puffs INH BID #1 hfa.aer.ad Ipratropium/Albuterol [Duoneb] 3 ml INH Q6H #120 neb Diet: Regular Activity Restrictions: Activity as Tolerated Shower Restrictions: No Driving Restrictions: No Instruction Topics: Albuterol inhalation aerosol, Budesonide Formoterol Inhalation, Albuterol Ipratropium solution for inhalation Health Concerns: You were brought to the hospital by ambulance from your doctor's office because you were very short of breath in the office. You were also being seen because you felt pain down your arm down to your fifth finger that was bothering you. We found you to have emphysema exacerbation. You needed steroids, nebulizers. We found out that you have not had your nebulizers for 3 months. You also went through mild alcohol withdrawal because of your alcoholism. We did not address the arm pain. That is most likely a pinched nerve in your neck and the pain radiates down your arm to your hand because of it. Plan of Treatment: 1. Please take your medications as instructed. I know it must be hard not having insurance for your medications. You now have a new insurance card that we have noticed. We have sent your albuterol and DuoNeb nebulizers to be used with your nebulizer machine to [facility] pharmacy. 2. Please take thiamine 100 mg a day and folic acid 1 mg a day indefinitely. This will help prevent some of the brain damage you get from drinking too much alcohol. 3. Please stop smoking. This really is impacting your life and shorten your life span significantly. 4. We recommend that you be referred to cardiopulmonary rehab. It is a special exercise program for people who have emphysema. It is done here at the hospital. They will need to make a difference and improve your endurance, and ability to be more active. 5. Please stop drinking alcohol. 6. Please see your primary care provider in follow-up. They will need to check your lungs, and make sure that your medications are filled appropriately. Care Goals: To be able to be off cigarettes, and alcohol over the next month. To join the pulmonary rehab program and exercise enough that you can walk without shortness of breath. Assessment: Patient understands goals. He does not know if he will be able to comply but promises to try and follow through. Follow-Up Care: [facility] - Pulmonary No Smoking: If you smoke, Please STOP! Call for help. Follow-up with: Shalini Harris DNP [Credentialed Staff Provider] -
[2019-05-01 08:26] VITALS: BP 149/74
[2019-05-01] MEDS: FOLIC ACID 1 MG TABLET PO SCH (08:26)
[2019-05-01] MEDS: THIAMINE 100 MG TABLET PO SCH (08:26)
--- NOTE | 2019-05-19 12:55 | DISCHARGE SUMMARY ---
Physician: Paulina Leal MD DATE OF ADMISSION: 04/27/2019 DATE OF DISCHARGE: 05/01/2019 DISCHARGE DIAGNOSES 1. Chronic obstructive pulmonary disease exacerbation. 2. Tobacco abuse. 3. Alcohol withdrawal. 4. Hypertension. 5. Radiculopathy of cervical spine. 6. Tachycardia. DISCHARGE MEDICATIONS 1. Amlodipine 10 mg daily. 2. Aspirin 81 mg daily. 3. Albuterol via nebulizer every 4 hours as needed. 4. Albuterol HFA inhaler one to two puffs every 4 hours as needed. 5. Symbicort 164/4.5 mcg two puffs b.i.d. 6. DuoNeb via nebulizer every 6 hours, fixed dosing not p.r.n. PRINCIPAL PROCEDURES 1. Chest x-ray with stable chest when compared to 05/13/[address] angiogram on 05/13/2018. Severe degenerative arthritis of the shoulders, chronic. 2. Old rib fractures of the right fourth and fifth ribs. No pneumonia. No CHF or other acute proce ss. 3. Blood cultures negative after five days. HISTORY OF PRESENT ILLNESS: This is a 58-year-old man who has COPD, noncompliant with his medication s due to cost of medications and intermittent lack of insurance. He went to his primary care provide r's office complaining of right arm pain that went all the way down to the fifth finger of his right hand. While sitting in the waiting room, he developed increasing shortness of breath. He had alread y been sick for a few days, but it got worse in the waiting room. He was seen by the PCP, who found him to have difficulty breathing, tachypnea and was also complaining of insomnia. He says that every time he laid down, he can just more short of breath. Again, even though he has a nebulizer machine at home, he has no more medication for it and has not been using any respiratory medications for alesia ral weeks now. He was in obvious respiratory distress, such that an ambulance was called. In the emergency room, he received high-dose steroids, two nebulizer treatments, and did not turn the corner in an hour. He was increasingly anxious and anxiety seems to be a strong component of some o f his tachypnea and shortness of breath. He felt like he was going to . As such, he was placed i n observation for COPD exacerbation. HOSPITAL COURSE: He was easily tachypneic and easily panicked every time he tried to lay down. He w ould almost cry out with air hunger and feel like he was suffocating, even though his O2 saturations were completely normal. He denies chest pain, palpitations. Getting up to walk in the room was diff icult for him, even with encouragement. He was terrified of getting short of breath. We finally enco uraged him to not only walk in the room, but in the hallway, he was able to do so. He definitely had severe COPD and was easily tachypneic and short of breath with exertion, made worse by his anxiety. Blood cultures were negative. He slowly responded to nebulizers and steroids. We spent quite a bit of time educating him about the need for medications, especially with his sensitive disease status. We have ordered refills for his nebulizer machine under Medicare Part B that will be delivered to [facility]. He has consistent tachycardia, which is sinus tachycardia on EKG. As he stayed with us, he also went through alcohol withdrawal. He was given a banana bag and light d ose of benzodiazepine with good response. I have asked him to take thiamine 100 mg a day and folic a kavon 1 mg at home. I have asked him to stop smoking. I have referred him to cardiopulmonary rehabili [facility]. PHYSICAL EXAMINATION VITAL SIGNS: At discharge, temperature was 36.5, pulse was 59, blood pressure 149/74, respirations 2 0, and he is 97% on room air. GENERAL: He is a 5-feet 3-inch, stocky male who weighs 68 kilograms. Slightly hoarse nasal tone of voice that was improved during his stay. Shotty cervical adenopathy. NECK: Supple. LUNGS: Diminished breath sounds diffusely with prolonged end-exhalation, but no wheezing. No use of accessory muscles. HEART: PMI normally placed. ABDOMEN: Protuberant, obese, benign. EXTREMITIES: Legs have trace edema. He is ambulating in his room without any ataxia or agitation. Greater than 30 minutes was spent coordinating discharge. TD: 05/19/2019 11:59
== END 2019-05-01 10:45 | disposition home or self-care (01) | DRG 191 ==
LOC: EDSEX → EDUNIT# → ED 12:35 → MS2 13:48 → OBSVTOIN 14:53
PROVIDERS: ADMIT Specialist; ATTEND Specialist
DX: J44.1 Chronic obstructive pulmonary disease with (acute) exacerbation (principal); J43.9 Emphysema, unspecified; F10.232 Alcohol dependence with withdrawal with perceptual disturbance; T51.0X1A Toxic effect of ethanol, accidental (unintentional), initial encounter; F17.210 Nicotine dependence, cigarettes, uncomplicated; I10 Essential (primary) hypertension; R09.02 Hypoxemia; M54.12 Radiculopathy, cervical region; R00.0 Tachycardia, unspecified; K74.60 Unspecified cirrhosis of liver; F41.9 Anxiety disorder, unspecified; M19.012 Primary osteoarthritis, left shoulder; M19.011 Primary osteoarthritis, right shoulder; G47.00 Insomnia, unspecified; R27.0 Ataxia, unspecified; Z91.120 Patient's intentional underdosing of medication regimen due to financial hardship; Z66 Do not resuscitate; Z87.01 Personal history of pneumonia (recurrent)
CPT/HCPCS: 36415; 36600; 71045; 80048; 80053; 82803; 83690; 83735; 83880; 84100; 84484; 85025; 85610; 87040; 87275; 87276; 93005; 94640; 96361; 96365; 96366; 96375; 96376; 99285; A9270; G0378; J2060; J3411; J7626

== ENCOUNTER 2019-05-07 10:27 | Outpatient (CLI) | payer MEDICARE ==
[2019-05-07 11:31] LABS: ALBUMIN 3.2 g/dL (3.2-5.5); ALBUMIN/GLOBULIN RATIO 0.7 (1.0-2.2); BILIRUBIN,TOTAL 0.5 mg/dL (0.2-1.0); CALCIUM 8.5 mg/dL (8.5-10.3); CREATININE 0.6 mg/dL (0.6-1.2); TOTAL PROTEIN 7.5 g/dL (6.7-8.2)
== END 2019-05-07 10:28 | disposition home or self-care (01) ==
LOC: LAB 10:27
PROVIDERS: ATTEND Internal Medicine
DX: I10 Essential (primary) hypertension (principal)
CPT/HCPCS: 36415; 80053

== ENCOUNTER 2019-08-04 16:44 | Inpatient (IN) | payer MEDICARE ==
[2019-08-04] MEDS ORDERED: IPRATROPIUM/ALBUTEROL 3 ML NEB INH STA ×2 (16:55)
[2019-08-04] MEDS ORDERED: methylPREDNISolone SUCCINATE 125 MG/2 ML VIAL IVP STA (17:04)
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
[2019-08-04 17:28] LABS: BASOPHILS % (AUTO) 0.2 %; EOSINOPHILS % (AUTO) 0.2 %; HGB - HEMOGLOBIN 13.9 g/dL (14.0-18.0); LYMPHOCYTES # (AUTO) 1.6 10^3/uL (1.5-3.5); LYMPHOCYTES % (AUTO) 36.3 %; MEAN CORPUSCULAR HEMOGLOBIN 32.9 pg (27.0-31.0); MEAN CORPUSCULAR HGB CONC 33.6 g/dL (32.0-36.0); MEAN CORPUSCULAR VOLUME 97.9 fL (80.0-94.0); MEAN PLATELET VOLUME 9.9 fL (7.4-11.4); MONOCYTES # (AUTO) 0.4 10^3/uL (0.0-1.0); MONOCYTES % (AUTO) 9.4 %; NEUTROPHILS # (AUTO) 2.4 10^3/uL (1.5-6.6); NEUTROPHILS % (AUTO) 53.7 %; PLT - PLATELET COUNT 270 10^3/uL (130-450); RED BLOOD COUNT 4.23 10^6/uL (4.70-6.10); WHITE BLOOD COUNT 4.5 x10^3/uL (4.8-10.8)
[2019-08-04 17:42] LABS: ALBUMIN 3.6 g/dL (3.2-5.5); BILIRUBIN,TOTAL 0.6 mg/dL (0.2-1.0); CALCIUM 8.4 mg/dL (8.5-10.3); CREATININE 0.7 mg/dL (0.6-1.2); TOTAL PROTEIN 7.3 g/dL (6.7-8.2)
[2019-08-04] MEDS ORDERED: ALBUTEROL NEB 2.5 MG/3 ML INH STA (17:52)
[2019-08-04] MEDS ORDERED: ONDANSETRON 4 MG/2 ML VIAL IVP PRN (17:54)
[2019-08-04] MEDS ORDERED: BENZONATATE 100 MG CAPSULE PO PRN (17:57)
--- NOTE | 2019-08-04 18:00 | PHARMACY PROGRESS NOTE ---
- Best Possible Medication History Admit Date and Time: Patient still in eD Processed by: Pharmacy Patient Interview: Completed Secondary Source(s): Physician records, Pharmacy records, Insurance records As the person ultimately responsible for medication therapy, providers are able to order a medication from an existing home medication list in [facility] via the "Reconcile Routine" prior to Confirmation of that medication by system support technician. Such practice is discouraged except when the physician, in their clinical judgment, deems that a medical need exists for a medication without regard to previous use.
--- NOTE | 2019-08-04 18:00 | XRAY Report ---
Reason: dyspnea Procedure Date: 08/04/2019 Accession Number: [id number] / [id number] Procedure: XR - Chest 1 View X-Ray CPT Code: 89386 Final Report FULL RESULT: EXAM: CHEST RADIOGRAPHY EXAM DATE: 08/04/2019 05:50 PM. CLINICAL HISTORY: Dyspnea. COMPARISON: CHEST 1 VIEW 04/27/2019 1:10 PM. TECHNIQUE: 1 view. FINDINGS: Lungs/Pleura: No focal opacities evident. No pleural effusion. No pneumothorax. Mediastinum: Within exam limitations, the cardiomediastinal contour is normal. Other: None. IMPRESSION: No acute intrathoracic plain film abnormality. RADIA
--- NOTE | 2019-08-04 18:02 | HISTORY & PHYSICAL EXAMINATION ---
Chief Complaint - Chief Complaint Chief Complaint: Shortness of breath History of Present Illness - Admitted From Admitted From:: Home - History Obtained From Records Reviewed: Yes History obtained from: Patient, ER Physician, EMR Exam Limitations: History is limited given his respiratory distress. - History of Present Illness HPI Comment/Other: This is a 58-year-old male with past medical history significant for COPD requ iring multiple hospitalizations, hypertension, alcohol abuse, current smoker who presents with worsening shortness of breath that began 2 days ago. Reports his dyspnea has progressed over past couple days and has been using his nebulizer every 2 hours without any improvement in his symptoms. He reports no fevers or chills but has had a productive cough. Reports no wheezing but states that he has difficulty taking a deep breath and he feels like he cannot move any air. He does continue to smoke about 1/4 pack of cigarettes a day. He knows that he needs to quit and has been working on cutting down his cigarette consumption. He does also drink a few beers a day with his last beverage being yesterday. He reports no chest pain, palpitations, abdominal pain. He does not wear oxygen at baseline. Reports his current symptoms feel like his prior COPD exacerbations and he was most recently hospitalized back in April. He reports this is his fourth exacerbation in the past year. He reports no prior history of DVTs and denies any leg pain or swelling. In the emergency department, he was not hypoxic but he was tachycardic and tachypneic. He was given Solu-Medrol 125 mg IV and multiple nebulizers with only minimal improvement in his symptoms. His labs were unremarkable. Chest x- ray showed no obvious infiltrate. Medicine was consulted for admission. I did discuss goals of care the patient he would like to be a full code. History - Past Medical History Cardiovascular: reports: Hypertension Respiratory: reports: COPD Neuro: reports: None Endocrine/Autoimmune: reports: None GI: reports: Cirrhosis (Had elevated liver enzymes June 2018. Serology negative at that time. Abdominal ultrasound June 30, 2018 showed hepatomegaly, increased liver echogenicity compatible with cirrhosis or fatty liver disease, no common bile duct dilatation.) : reports: None Psych: reports: None Musculoskeletal: reports: Chronic back pain (History of laminectomy. Lumbar spine.) Derm: reports: None MRSA Hx?: No Other Past Medical History: Alcohol abuse. - Past Surgical History Ortho: reports: Spine surgery (Laminectomy in the lumbar region.) HEENT: reports: Other (Throat jszlojy-kez-kcmoclpco polyps removed.) - Family & Social History Family History: Mother: , Cancer, Father: , CAD, COPD/Emphysema Family History Comment/Other: Reports his mother from multiple different cancers. His father had COPD. Living arrangement: At home Social History Notes: He continues to smoke 1/4 pack of cigarettes a day. He has been smoking for 50 years. He continues to drink at least 3 alcoholic beverages on a daily basis. He has been drinking since his teens although this oswaldo not always been daily. Social history is limited given his respiratory distress. - Substance History Use: Uses substance without health or social issues: Tobacco, Alcohol - POLST Patient has POLST: No POLST Status: Full Code Meds/Allgy - Home Medications Home Medications: Ambulatory Orders Medication Instructions Recorded Confirmed Amlodipine Besylate [Norvasc] 10 mg PO DAILY 09/15/18 08/04/19 Aspirin [Aspirin EC] 81 mg PO DAILY 04/28/19 08/04/19 Albuterol 2.5 mg INH Q4H PRN #1 pkg 05/01/19 08/04/19 Albuterol Sulfate [Proair Hfa 1 - 2 puffs INH Q4H PRN #1 inhaler 05/01/19 08/04/19 Inhaler] Budesonide/Formoterol Fumarate 2 puffs INH BID #1 hfa.aer.ad 05/01/19 08/04/19 [Symbicort 160-4.5 Mcg Inhaler] Ipratropium/Albuterol [Duoneb] 3 ml INH Q6H #120 neb 05/01/19 08/04/19 Meloxicam 15 mg PO DAILY PRN 08/04/19 08/04/19 - Allergies Allergies/Adverse Reactions: Allergies Allergy/AdvReac Type Severity Reaction Status Date / Time lisinopril Allergy Severe Anaphylaxis/Cardiac Verified 08/04/19 17:51 Arrest Review of Systems - Constitutional Constitutional: reports: Malaise, Poor appetite. denies: Fatigue, Fever, Chills, Weakness - Cardiovascular Cariovascular: reports: Lightheadedness, Exertional dyspnea, Decr. exercise tolerance. denies: Palpitations, Chest pain, Edema - Respiratory Respiratory: reports: Cough, Sputum production, SOB at rest, SOB with exertion. denies: Wheezing - Gastrointestinal Gastrointestinal: reports: Vomiting. denies: Abdominal pain, Nausea - Neurological Neurological: reports: Dizziness. denies: General weakness, Focal weakness - All Other Systems All Other Systems: reports: Other (Review of systems is limited given his respi ratory distress.) Prior Level of Functionality: Independent with ADL's. Exam - Vital Signs Reviewed Vital Signs: Yes Vital Signs: Vital Signs x48h Temp Pulse Resp BP Pulse Ox 08/04/19 17:33 108 H 34 H 137/84 H 94 08/04/19 17:07 115 H 26 H 08/04/19 16:47 36.7 C 115 H 32 H 129/94 H 92 - Physical Exam General Appearance: positive: Moderate distress Eyes Bilateral: positive: Normal inspection ENT: positive: ENT inspection nml Neck: positive: Nml inspection Respiratory: positive: Other (No wheezes but has diminished breath sounds with poor air movement. He is speaking in short sentences.). negative: No respiratory distress (Moderate respiratory distress.), Wheezes, Rales Cardiovascular: positive: No murmur, Tachycardia. negative: Irregularly irregular, Bradycardia, Systolic murmur Abdomen: positive: Non-tender. negative: No distention, Tenderness, Guarding, Rebound Skin: positive: Warm, Dry Extremities: positive: No pedal edema. negative: Amor's sign/cords Neurologic/Psychiatric: positive: Oriented x3. negative: Disoriented to person, Disoriented to place, Disoriented to time Conclusion/Plan - Problem List (1) COPD exacerbation Conclusion/Plan: Presents with worsening dyspnea and in moderate respiratory distress with poor air entry. He is not hypoxic. Received Solu-Medrol 125 mg IV in the emergency department and multiple nebulizers with only minimal improvement. Given his respiratory distress and that he usually is hospitalized for a few days, we will admit him under inpatient status. We will start him on Solu-Medrol 40 mg IV twice daily. We will start him on ceftriaxone and doxycycline IV. Duo nebs [id number]. Morphine IV as needed for dyspnea and air hunger. He is a low threshold for BiPAP. Goal oxygen saturation greater than 88%. Tessalon and Robitussin as needed for cough. Obtain EKG and check troponin. We will check him for COVID-19. Will benefit from pulmonary rehab on discharge. (2) Alcoholism /alcohol abuse Conclusion/Plan: He drinks alcohol on nearly a daily basis and his last beverage was yesterday. He denies any prior history of alcohol withdrawal. LFTs are within normal limits. Prior right upper quadrant ultrasound shows an enlarged liver with increased echogenicity. We will monitor him for signs of withdrawal. Start him on thiamine and folate orally. (3) Currently smokes tobacco Conclusion/Plan: He is a smoker is down to quarter pack of cigarettes a day. We will start him on nicotine patch while he is hospitalized. We discussed the importance of smoking cessation given his COPD. (4) HTN (hypertension) Conclusion/Plan: Stable. Continue his home amlodipine. Qualifiers: - Lab Results Lab results reviewed: Yes Bienvenido Bones: 08/04/19 17:15 08/04/19 17:15 - Diagnostic Imaging Results Diagnostic Imaging Results: positive: Final report reviewed Core Measures - Anticipated LOS I expect patient to be DC'd or transferred within 96 hours.: Yes - Issues Hospital Issues and Management Plan: 58 year-old male with history of COPD will be admitted for COPD exacerbation. Will treat with IV steroids, antibiotics, duo nebs [id number]-ibfha. Low threshold for BiPAP if he has respiratory decline. - DVT/VTE - Prophylaxis VTE/DVT Device ordered at admit?: Yes VTE/DVT Prophylaxis med ordered at admit?: Yes
[2019-08-04] MEDS: SODIUM CHLORIDE FLUSH 0.9% 10 ML SYRINGE IVP PRN ×2 (19:02→22:16)
[2019-08-04] MEDS: cefTRIAXone 2 GM in SODIUM CHLORIDE 0.9% MINIBAG 100 ML IV SCH (19:02)
[2019-08-04] MEDS: NICOTINE 7 MG PATCH TOP SCH (19:02)
[2019-08-04] MEDS: DOXYCYCLINE INJ 100 MG in SODIUM CHLORIDE 0.9% MINIBAG 100 ML IV SCH (19:42)
[2019-08-04] MEDS: BUDESONIDE 0.5 MG/2 ML NEB INH SCH (19:53)
[2019-08-04] MEDS: ALBUTEROL NEB 2.5 MG/3 ML INH PRN (19:53)
[2019-08-04] MEDS: MORPHINE 2 MG/ML CARPUJECT IVP PRN ×2 (20:01→23:32)
[2019-08-04] MEDS ORDERED: methylPREDNISolone SUCCINATE 40 MG/ML VIAL IVP SCH (21:00)
[2019-08-04] MEDS ORDERED: SODIUM CHLORIDE FLUSH 0.9% 10 ML SYRINGE IVP PRN (21:45)
[2019-08-04] MEDS: IPRATROPIUM/ALBUTEROL 3 ML NEB INH SCH (22:03)
[2019-08-04] MEDS: methylPREDNISolone SUCCINATE 40 MG/ML VIAL IVP SCH (22:16)
[2019-08-04] MEDS: LORazepam 2 MG/ML VIAL IVP PRN (22:21)
[2019-08-04] MEDS: SODIUM CHLORIDE FLUSH 0.9% 10 ML SYRINGE IVP SCH (23:32)
[2019-08-05] MEDS: SODIUM CHLORIDE FLUSH 0.9% 10 ML SYRINGE IVP PRN ×6 (00:43→22:24)
[2019-08-05] MEDS: LORazepam 2 MG/ML VIAL IVP PRN ×5 (00:43→20:00)
[2019-08-05] MEDS: SODIUM CHLORIDE FLUSH 0.9% 10 ML SYRINGE IVP SCH ×6 (01:43→20:00)
[2019-08-05] MEDS: IPRATROPIUM/ALBUTEROL 3 ML NEB INH SCH ×6 (03:08→21:30)
[2019-08-05 03:47] LABS: BASOPHILS % (AUTO) 0.1 %; LYMPHOCYTES # (AUTO) 0.2 10^3/uL (1.5-3.5); LYMPHOCYTES % (AUTO) 2.3 %; MEAN CORPUSCULAR HEMOGLOBIN 32.6 pg (27.0-31.0); MEAN CORPUSCULAR HGB CONC 33.2 g/dL (32.0-36.0); MEAN CORPUSCULAR VOLUME 98.4 fL (80.0-94.0); MEAN PLATELET VOLUME 9.5 fL (7.4-11.4); MONOCYTES % (AUTO) 0.6 %; NEUTROPHILS # (AUTO) 6.7 10^3/uL (1.5-6.6); NEUTROPHILS % (AUTO) 96.4 %; PLT - PLATELET COUNT 208 10^3/uL (130-450); RED BLOOD COUNT 4.29 10^6/uL (4.70-6.10); WHITE BLOOD COUNT 6.9 x10^3/uL (4.8-10.8)
[2019-08-05 03:51] LABS: VBG PH 7.44 (7.31-7.41)
[2019-08-05 03:58] LABS: CALCIUM 8.5 mg/dL (8.5-10.3); CREATININE 0.9 mg/dL (0.6-1.2); MAGNESIUM 1.6 mg/dL (1.7-2.8); PHOSPHORUS 4.5 mg/dL (2.5-4.6)
[2019-08-05] MEDS ORDERED: MAGNESIUM SULFATE 2 GRAM 2 GM/50 ML BAG IV ONE (04:52)
[2019-08-05] MEDS: MORPHINE 2 MG/ML CARPUJECT IVP PRN ×2 (06:22→22:24)
--- NOTE | 2019-08-05 07:32 | PROVIDER PROGRESS NOTE ---
Subjective - Prog Note Date Prog Note Date: 08/05/19 - Subjective Subjective: Transferred to the ICU overnight as he continued to have significant dyspnea and was placed on BiPAP. He has some tremors and was concern for alcohol withdrawal so started on Ativan IV as needed. This morning he continues to report feeling short of breath. He states he is not worse nor better than yesterday. He still speaks in short sentences. Current Medications - Current Medications Current Medications: Active Medications Acetaminophen (Tylenol) 650 mg PO Q4HR PRN PRN Reason: Pain 1 to 4 Albuterol () 2.5 mg INH RTQ4H PRN PRN Reason: Wheezing Last Admin: 08/04/19 19:53 Dose: 2.5 mg Albuterol/Ipratropium (Duoneb) 3 ml INH Q4HR [facility] Last Admin: 08/05/19 09:58 Dose: 3 ml Amlodipine Besylate (Norvasc) 10 mg PO DAILY [facility] Last Admin: 08/05/19 09:34 Dose: 10 mg Aspirin (Ecotrin) 81 mg PO DAILY [facility] Last Admin: 08/05/19 09:34 Dose: 81 mg Benzonatate (Tessalon) 100 mg PO TID PRN PRN Reason: Cough Budesonide (Pulmicort) 0.5 mg INH RTBID [facility] Last Admin: 08/05/19 09:58 Dose: 0.5 mg Enoxaparin Sodium (Lovenox) 40 mg SUBQ DAILY [facility] Last Admin: 08/05/19 09:35 Dose: 40 mg Folic Acid () 1 mg PO DAILY [facility] Last Admin: 08/05/19 09:33 Dose: 1 mg Guaifenesin (Robitussin Liquid) 100 mg PO Q6HR PRN PRN Reason: Cough Last Admin: 08/05/19 09:40 Dose: 100 mg Ceftriaxone Sodium 2 gm/ (Sodium Chloride) 100 mls @ 200 mls/hr IV DAILY [facility] Stop: 08/09/19 18:33 Last Admin: 08/05/19 10:30 Dose: 200 mls/hr Doxycycline Hyclate 100 mg/ (Sodium Chloride) 100 mls @ 100 mls/hr IV BID [facility] Stop: 08/09/19 19:29 Last Infusion: 08/05/19 10:29 Dose: Infused Lorazepam (Ativan Inj (Vial)) 2 mg IVP Q2H PRN PRN Reason: Alcohol Withdrawal Last Admin: 08/05/19 10:29 Dose: 2 mg Methylprednisolone (Solu-Medrol (40mg Vial)) 60 mg IVP BID [facility] Last Admin: 08/05/19 09:38 Dose: 60 mg Morphine Sulfate (Morphine (Carpuject)) 1 mg IVP Q4HR PRN PRN Reason: Dyspnea Last Admin: 08/05/19 06:22 Dose: 1 mg Nicotine (Nicoderm) 1 patch TOP DAILY [facility] Last Admin: 08/05/19 09:31 Dose: 1 patch Ondansetron HCl (Zofran Inj) 4 mg IVP Q6HR PRN PRN Reason: Nausea / Vomiting Sodium Chloride (Normal Saline Flush 0.9%) 10 ml IVP PRN PRN PRN Reason: NEEDED PER PROVIDER ORDERS Last Admin: 08/05/19 06:22 Dose: 10 ml Sodium Chloride (Normal Saline Flush 0.9%) 10 ml IVP 0100,0900,1700 [facility] Last Admin: 08/05/19 10:29 Dose: 10 ml Sodium Chloride (Normal Saline Flush 0.9%) 10 ml IVP 0100,0900,1700 [facility] Last Admin: 08/05/19 10:31 Dose: 10 ml Sodium Chloride (Normal Saline Flush 0.9%) 10 ml IVP PRN PRN PRN Reason: NEEDED PER PROVIDER ORDERS Thiamine HCl (Vitamin B-1) 100 mg PO DAILY [facility] Last Admin: 08/05/19 09:33 Dose: 100 mg Amlodipine Besylate [Norvasc] 10 mg PO DAILY 09/15/18 Aspirin [Aspirin EC] 81 mg PO DAILY 04/28/19 Meloxicam 15 mg PO DAILY PRN 08/04/19 Objective - Vital Signs/Intake & Output Reviewed Vital Signs: Yes Vital Signs: Vital Signs Temp Pulse Pulse Resp BP Pulse Ox 08/05/19 07:00 103 H 27 H 139/108 H 97 08/05/19 06:27 106 H 30 H 142/103 H 97 08/05/19 05:29 101 H 25 H 08/05/19 05:27 101 H 08/05/19 05:00 99 23 128/81 H 97 08/05/19 04:00 36.4 C L 104 H 17 148/108 H 93 08/05/19 03:40 109 H Intake & Output: Intake & Output 08/02/19 08/03/19 08/04/19 08/05/19 23:59 23:59 23:59 23:59 Intake Total 421 250 Output Total 0 200 Balance 421 50 - Objective General Appearance: positive: Alert, Mild distress, Moderate distress Eyes Bilateral: positive: Normal inspection ENT: positive: ENT inspection nml, Other (Nasal cannula in place.) Neck: positive: Nml inspection Respiratory: positive: Other (He is still in mild to moderate respiratory distr ess. He is tachypneic. He is moving slightly more air today and there are faint expiratory wheezes noted. Still has relatively poor airway movement.). negative: No respiratory distress Cardiovascular: positive: No murmur, Tachycardia. negative: Irregularly irregular Abdomen: positive: Non-tender, No distention. negative: Tenderness Skin: positive: Warm, Dry Extremities: positive: No pedal edema Neurologic/Psychiatric: positive: Oriented x3, Other (He is slightly tremulous in the upper extremities.) - Lab Results Fish Bones: 08/05/19 03:40 08/05/19 03:40 Other Labs: Lab Results x24hrs 08/05/19 08/05/19 08/05/19 Range/Units 03:40 03:40 03:40 WBC (4.8-10.8) x10^3/uL RBC (4.70-6.10) 10^6/uL Hgb (14.0-18.0) g/dL Hct (42.0-52.0) % MCV (80.0-94.0) fL MCH (27.0-31.0) pg MCHC (32.0-36.0) g/dL RDW (12.0-15.0) % Plt Count (130-450) 10^3/uL MPV (7.4-11.4) fL Neut # (Auto) (1.5-6.6) 10^3/uL Lymph # (Auto) (1.5-3.5) 10^3/uL [place] # (Auto) (0.0-1.0) 10^3/uL Eos # (Auto) (0.0-0.7) 10^3/uL Baso # (Auto) (0.0-0.1) 10^3/uL Absolute Nucleated RBC x10^3/uL Nucleated RBC % /100WBC VBG pH 7.440 H (7.31-7.41) Ionized Calcium 1.04 L (1.15-1.33) mmol/L Sodium 140 (135-145) mmol/L Potassium 4.2 (3.5-5.0) mmol/L Chloride 98 L (101-111) mmol/L Carbon Dioxide 27 (21-32) mmol/L Anion Gap 15.0 H (6-13) BUN 12 (6-20) mg/dL Creatinine 0.9 (0.6-1.2) mg/dL Estimated GFR (MDRD) 86 L (>89) Glucose 158 H (70-100) mg/dL Calcium 8.5 (8.5-10.3) mg/dL Phosphorus 4.5 (2.5-4.6) mg/dL Magnesium 1.6 L (1.7-2.8) mg/dL Total Bilirubin (0.2-1.0) mg/dL AST (10-42) IU/L ALT (10-60) IU/L Alkaline Phosphatase (42-121) IU/L Troponin I High Sens (2.3-19.7) ng/L Total Protein (6.7-8.2) g/dL Albumin 3.5 (3.2-5.5) g/dL Globulin (2.1-4.2) g/dL Albumin/Globulin Ratio (1.0-2.2) Lipase (22-51) U/L Nasal Screen MRSA (PCR) (NEGATIVE) 08/05/19 08/04/19 08/04/19 Range/Units 03:40 22:50 17:15 WBC 6.9 (4.8-10.8) x10^3/uL RBC 4.29 L (4.70-6.10) 10^6/uL Hgb 14.0 (14.0-18.0) g/dL Hct 42.2 (42.0-52.0) % MCV 98.4 H (80.0-94.0) fL MCH 32.6 H (27.0-31.0) pg MCHC 33.2 (32.0-36.0) g/dL RDW 15.0 (12.0-15.0) % Plt Count 208 (130-450) 10^3/uL MPV 9.5 (7.4-11.4) fL Neut # (Auto) 6.7 H (1.5-6.6) 10^3/uL Lymph # (Auto) 0.2 L (1.5-3.5) 10^3/uL [place] # (Auto) 0.0 (0.0-1.0) 10^3/uL Eos # (Auto) 0.0 (0.0-0.7) 10^3/uL Baso # (Auto) 0.0 (0.0-0.1) 10^3/uL Absolute Nucleated RBC 0.00 x10^3/uL Nucleated RBC % 0.0 /100WBC VBG pH (7.31-7.41) Ionized Calcium (1.15-1.33) mmol/L Sodium (135-145) mmol/L Potassium (3.5-5.0) mmol/L Chloride (101-111) mmol/L Carbon Dioxide (21-32) mmol/L Anion Gap (6-13) BUN (6-20) mg/dL Creatinine (0.6-1.2) mg/dL Estimated GFR (MDRD) (>89) Glucose (70-100) mg/dL Calcium (8.5-10.3) mg/dL Phosphorus (2.5-4.6) mg/dL Magnesium (1.7-2.8) mg/dL Total Bilirubin (0.2-1.0) mg/dL AST (10-42) IU/L ALT (10-60) IU/L Alkaline Phosphatase (42-121) IU/L Troponin I High Sens 14.5 (2.3-19.7) ng/L Total Protein (6.7-8.2) g/dL Albumin (3.2-5.5) g/dL Globulin (2.1-4.2) g/dL Albumin/Globulin Ratio (1.0-2.2) Lipase (22-51) U/L Nasal Screen MRSA (PCR) NEGATIVE (NEGATIVE) 08/04/19 08/04/19 Range/Units 17:15 17:15 WBC 4.5 L (4.8-10.8) x10^3/uL RBC 4.23 L (4.70-6.10) 10^6/uL Hgb 13.9 L (14.0-18.0) g/dL Hct 41.4 L (42.0-52.0) % MCV 97.9 H (80.0-94.0) fL MCH 32.9 H (27.0-31.0) pg MCHC 33.6 (32.0-36.0) g/dL RDW 15.0 (12.0-15.0) % Plt Count 270 (130-450) 10^3/uL MPV 9.9 (7.4-11.4) fL Neut # (Auto) 2.4 (1.5-6.6) 10^3/uL Lymph # (Auto) 1.6 (1.5-3.5) 10^3/uL [place] # (Auto) 0.4 (0.0-1.0) 10^3/uL Eos # (Auto) 0.0 (0.0-0.7) 10^3/uL Baso # (Auto) 0.0 (0.0-0.1) 10^3/uL Absolute Nucleated RBC 0.00 x10^3/uL Nucleated RBC % 0.0 /100WBC VBG pH (7.31-7.41) Ionized Calcium (1.15-1.33) mmol/L Sodium 139 (135-145) mmol/L Potassium 4.2 (3.5-5.0) mmol/L Chloride 98 L (101-111) mmol/L Carbon Dioxide 33 H (21-32) mmol/L Anion Gap 8.0 (6-13) BUN 10 (6-20) mg/dL Creatinine 0.7 (0.6-1.2) mg/dL Estimated GFR (MDRD) 115 (>89) Glucose 111 H (70-100) mg/dL Calcium 8.4 L (8.5-10.3) mg/dL Phosphorus (2.5-4.6) mg/dL Magnesium (1.7-2.8) mg/dL Total Bilirubin 0.6 (0.2-1.0) mg/dL AST 29 (10-42) IU/L ALT 14 (10-60) IU/L Alkaline Phosphatase 127 H (42-121) IU/L Troponin I High Sens (2.3-19.7) ng/L Total Protein 7.3 (6.7-8.2) g/dL Albumin 3.6 (3.2-5.5) g/dL Globulin 3.7 (2.1-4.2) g/dL Albumin/Globulin Ratio 1.0 (1.0-2.2) Lipase 33 (22-51) U/L Nasal Screen MRSA (PCR) (NEGATIVE) Assessment/Plan - Problem List (1) COPD exacerbation Impression: Continues to have moderate respiratory distress with poor air entry. He required transfer to intensive care unit overnight and has needed BiPAP intermittently. We will continue with Solu-Medrol 60 mg IV twice daily. He is on ceftriaxone and doxycycline day 2. Continue with duo nebs every 4 hours. Continue with intermittent BiPAP as needed. We are awaiting the COVID-19 results. I believe that he warrants intubation at this time but this may change if he has any sort of respiratory decline. (2) Alcohol withdrawal Impression: It is unclear if he is going through alcohol withdrawal given his tremors or if this is due to the albuterol. He has been started on the CIWA protocol we will continue with Ativan IV as needed. Please monitor him closely given his COPD as he would be a low threshold for intubation if he were to go through florid withdrawal. (3) Alcoholism /alcohol abuse Impression: He does drink alcohol on a daily basis and has had tremors in the past. We will treat him with Ativan as needed as mentioned above. We will continue thiamine and folate. Last social work to discuss options for rehab once his COPD exa cerbation is appropriately treated (4) Currently smokes tobacco Impression: Continue with nicotine patch. (5) HTN (hypertension) Impression: His blood pressure is elevated in the 130s. We have resumed his home amlodipine today. Qualifiers:
[2019-08-05] MEDS ORDERED: methylPREDNISolone SUCCINATE 40 MG/ML VIAL IVP SCH (09:00)
[2019-08-05] MEDS: NICOTINE 7 MG PATCH TOP SCH (09:31)
[2019-08-05] MEDS: THIAMINE 100 MG TABLET PO SCH (09:33)
[2019-08-05] MEDS: FOLIC ACID 1 MG TABLET PO SCH (09:33)
[2019-08-05] MEDS: ASPIRIN EC 81 MG TABLET PO SCH (09:34)
[2019-08-05] MEDS: amLODIPine 5 MG TABLET PO SCH (09:34)
[2019-08-05] MEDS: ENOXAPARIN 40 MG/0.4 ML SYRINGE SUBQ SCH (09:35)
[2019-08-05] MEDS: methylPREDNISolone SUCCINATE 40 MG/ML VIAL IVP SCH ×2 (09:38→20:08)
[2019-08-05] MEDS: DOXYCYCLINE INJ 100 MG in SODIUM CHLORIDE 0.9% MINIBAG 100 ML IV SCH ×2 (09:39→20:08)
[2019-08-05] MEDS: guaiFENesin 100 MG/5 ML UDC PO PRN (09:40)
[2019-08-05] MEDS: BUDESONIDE 0.5 MG/2 ML NEB INH SCH ×2 (09:58→19:13)
[2019-08-05] MEDS: cefTRIAXone 2 GM in SODIUM CHLORIDE 0.9% MINIBAG 100 ML IV SCH (10:30)
[2019-08-06] MEDS: IPRATROPIUM/ALBUTEROL 3 ML NEB INH SCH ×6 (01:30→19:45)
[2019-08-06] MEDS: MORPHINE 2 MG/ML CARPUJECT IVP PRN ×4 (04:14→23:30)
[2019-08-06] MEDS: SODIUM CHLORIDE FLUSH 0.9% 10 ML SYRINGE IVP PRN ×4 (04:16→14:52)
[2019-08-06] MEDS: SODIUM CHLORIDE FLUSH 0.9% 10 ML SYRINGE IVP SCH ×7 (04:29→23:31)
[2019-08-06 05:16] LABS: BASOPHILS % (AUTO) 0.2 %; HGB - HEMOGLOBIN 14.7 g/dL (14.0-18.0); LYMPHOCYTES # (AUTO) 0.3 10^3/uL (1.5-3.5); LYMPHOCYTES % (AUTO) 2.3 %; MEAN CORPUSCULAR HEMOGLOBIN 32.7 pg (27.0-31.0); MEAN CORPUSCULAR HGB CONC 33.1 g/dL (32.0-36.0); MEAN CORPUSCULAR VOLUME 98.9 fL (80.0-94.0); MEAN PLATELET VOLUME 10.1 fL (7.4-11.4); MONOCYTES # (AUTO) 0.2 10^3/uL (0.0-1.0); MONOCYTES % (AUTO) 1.7 %; NEUTROPHILS # (AUTO) 12.1 10^3/uL (1.5-6.6); NEUTROPHILS % (AUTO) 94.8 %; PLT - PLATELET COUNT 211 10^3/uL (130-450); RED BLOOD COUNT 4.49 10^6/uL (4.70-6.10); RED CELL DISTRIBUTION WIDTH 15.1 % (12.0-15.0); WHITE BLOOD COUNT 12.8 x10^3/uL (4.8-10.8)
[2019-08-06 05:21] LABS: VBG PH 7.405 (7.31-7.41)
[2019-08-06 05:29] LABS: ALBUMIN 3.4 g/dL (3.2-5.5); CALCIUM 8.8 mg/dL (8.5-10.3); CREATININE 0.7 mg/dL (0.6-1.2); MAGNESIUM 2.3 mg/dL (1.7-2.8); PHOSPHORUS 2.9 mg/dL (2.5-4.6)
--- NOTE | 2019-08-06 08:21 | PROVIDER PROGRESS NOTE ---
Subjective - Prog Note Date Prog Note Date: 08/06/19 - Subjective Subjective: Continues to report feeling short of breath but he feels that he has improved since admission. Denies any chest pain or palpitations. He is tremulous and he feels this is due to the breathing treatments. His last dose of Ativan was yesterday evening at 8 PM. Current Medications - Current Medications Current Medications: Active Medications Acetaminophen (Tylenol) 650 mg PO Q4HR PRN PRN Reason: Pain 1 to 4 Albuterol () 2.5 mg INH RTQ4H PRN PRN Reason: Wheezing Last Admin: 08/04/19 19:53 Dose: 2.5 mg Albuterol/Ipratropium (Duoneb) 3 ml INH Q4HR [facility] Last Admin: 08/06/19 05:01 Dose: 3 ml Amlodipine Besylate (Norvasc) 10 mg PO DAILY [facility] Last Admin: 08/05/19 09:34 Dose: 10 mg Aspirin (Ecotrin) 81 mg PO DAILY [facility] Last Admin: 08/05/19 09:34 Dose: 81 mg Benzonatate (Tessalon) 100 mg PO TID PRN PRN Reason: Cough Budesonide (Pulmicort) 0.5 mg INH RTBID [facility] Last Admin: 08/05/19 19:13 Dose: 0.5 mg Chlorhexidine Gluconate (Peridex) 15 ml PO BID [facility] Enoxaparin Sodium (Lovenox) 40 mg SUBQ DAILY [facility] Last Admin: 08/05/19 09:35 Dose: 40 mg Folic Acid () 1 mg PO DAILY [facility] Last Admin: 08/05/19 09:33 Dose: 1 mg Guaifenesin (Robitussin Liquid) 100 mg PO Q6HR PRN PRN Reason: Cough Last Admin: 08/05/19 09:40 Dose: 100 mg Ceftriaxone Sodium 2 gm/ (Sodium Chloride) 100 mls @ 200 mls/hr IV DAILY [facility] Stop: 08/09/19 18:33 Last Infusion: 08/05/19 11:05 Dose: Infused Doxycycline Hyclate 100 mg/ (Sodium Chloride) 100 mls @ 100 mls/hr IV BID [facility] Stop: 08/09/19 19:29 Last Infusion: 08/05/19 21:15 Dose: Infused Lorazepam (Ativan Inj (Vial)) 1 mg IVP Q2H PRN PRN Reason: Alcohol Withdrawal Methylprednisolone (Solu-Medrol (40mg Vial)) 60 mg IVP BID [facility] Last Admin: 08/06/19 08:38 Dose: 60 mg Morphine Sulfate (Morphine (Carpuject)) 1 mg IVP Q4HR PRN PRN Reason: Dyspnea Last Admin: 08/06/19 04:14 Dose: 1 mg Nicotine (Nicoderm) 1 patch TOP DAILY [facility] Last Admin: 08/05/19 09:31 Dose: 1 patch Ondansetron HCl (Zofran Inj) 4 mg IVP Q6HR PRN PRN Reason: Nausea / Vomiting Sodium Chloride (Normal Saline Flush 0.9%) 10 ml IVP PRN PRN PRN Reason: NEEDED PER PROVIDER ORDERS Last Admin: 08/06/19 04:16 Dose: 10 ml Sodium Chloride (Normal Saline Flush 0.9%) 10 ml IVP 0100,0900,1700 [facility] Last Admin: 08/06/19 08:41 Dose: 10 ml Sodium Chloride (Normal Saline Flush 0.9%) 10 ml IVP 0100,0900,1700 [facility] Last Admin: 08/06/19 04:29 Dose: Not Given Sodium Chloride (Normal Saline Flush 0.9%) 10 ml IVP PRN PRN PRN Reason: NEEDED PER PROVIDER ORDERS Thiamine HCl (Vitamin B-1) 100 mg PO DAILY [facility] Last Admin: 08/05/19 09:33 Dose: 100 mg Amlodipine Besylate [Norvasc] 10 mg PO DAILY 09/15/18 Aspirin [Aspirin EC] 81 mg PO DAILY 04/28/19 Meloxicam 15 mg PO DAILY PRN 08/04/19 Objective - Vital Signs/Intake & Output Reviewed Vital Signs: Yes Vital Signs: Vital Signs x48h Temp Pulse Pulse Resp BP Pulse Ox 08/06/19 07:00 80 18 125/61 98 08/06/19 06:00 85 20 108/55 L 97 08/06/19 05:00 87 86 22 123/95 H 95 08/06/19 04:00 36.0 C L 108 H 23 161/97 H 97 08/06/19 03:40 87 08/06/19 03:05 86 21 132/86 H 99 08/06/19 02:00 79 16 118/83 H 96 08/06/19 01:30 85 20 08/06/19 01:00 36.2 C L 87 20 141/104 H 98 Intake & Output: Intake & Output 08/03/19 08/04/19 08/05/19 08/06/19 23:59 23:59 23:59 23:59 Intake Total 421 1536 250 Output Total 0 400 450 Balance 421 1136 -200 - Objective General Appearance: positive: Alert, Mild distress Eyes Bilateral: positive: Normal inspection ENT: positive: ENT inspection nml Neck: positive: Nml inspection Respiratory: positive: Other (He is tachypneic but he no longer appears in respiratory distress. He still has diminished breath sounds with faint expir atory wheezes and poor air entry although this is improved compared to yesterday.) Cardiovascular: positive: Regular rate & rhythm, Extrasystoles. negative: Tachycardia, Bradycardia Abdomen: positive: Non-tender. negative: Tenderness Skin: positive: Warm, Dry Extremities: positive: No pedal edema - Lab Results Fish Bones: 08/06/19 04:20 08/06/19 04:20 Other Labs: Lab Results x24hrs 08/06/19 08/06/19 08/06/19 Range/Units 04:20 04:20 04:20 WBC 12.8 H (4.8-10.8) x10^3/uL RBC 4.49 L (4.70-6.10) 10^6/uL Hgb 14.7 (14.0-18.0) g/dL Hct 44.4 (42.0-52.0) % MCV 98.9 H (80.0-94.0) fL MCH 32.7 H (27.0-31.0) pg MCHC 33.1 (32.0-36.0) g/dL RDW 15.1 H (12.0-15.0) % Plt Count 211 (130-450) 10^3/uL MPV 10.1 (7.4-11.4) fL Neut # (Auto) 12.1 H (1.5-6.6) 10^3/uL Lymph # (Auto) 0.3 L (1.5-3.5) 10^3/uL [place] # (Auto) 0.2 (0.0-1.0) 10^3/uL Eos # (Auto) 0.0 (0.0-0.7) 10^3/uL Baso # (Auto) 0.0 (0.0-0.1) 10^3/uL Absolute Nucleated RBC 0.00 x10^3/uL Nucleated RBC % 0.0 /100WBC VBG pH 7.405 (7.31-7.41) Ionized Calcium 1.12 L (1.15-1.33) mmol/L Sodium 137 (135-145) mmol/L Potassium 3.9 (3.5-5.0) mmol/L Chloride 96 L (101-111) mmol/L Carbon Dioxide 29 (21-32) mmol/L Anion Gap 12.0 (6-13) BUN 15 (6-20) mg/dL Creatinine 0.7 (0.6-1.2) mg/dL Estimated GFR (MDRD) 115 (>89) Glucose 177 H (70-100) mg/dL Calcium 8.8 (8.5-10.3) mg/dL Phosphorus 2.9 (2.5-4.6) mg/dL Magnesium 2.3 (1.7-2.8) mg/dL Albumin 3.4 (3.2-5.5) g/dL Coronavirus (PCR) 08/04/19 Range/Units 18:33 WBC (4.8-10.8) x10^3/uL RBC (4.70-6.10) 10^6/uL Hgb (14.0-18.0) g/dL Hct (42.0-52.0) % MCV (80.0-94.0) fL MCH (27.0-31.0) pg MCHC (32.0-36.0) g/dL RDW (12.0-15.0) % Plt Count (130-450) 10^3/uL MPV (7.4-11.4) fL Neut # (Auto) (1.5-6.6) 10^3/uL Lymph # (Auto) (1.5-3.5) 10^3/uL [place] # (Auto) (0.0-1.0) 10^3/uL Eos # (Auto) (0.0-0.7) 10^3/uL Baso # (Auto) (0.0-0.1) 10^3/uL Absolute Nucleated RBC x10^3/uL Nucleated RBC % /100WBC VBG pH (7.31-7.41) Ionized Calcium (1.15-1.33) mmol/L Sodium (135-145) mmol/L Potassium (3.5-5.0) mmol/L Chloride (101-111) mmol/L Carbon Dioxide (21-32) mmol/L Anion Gap (6-13) BUN (6-20) mg/dL Creatinine (0.6-1.2) mg/dL Estimated GFR (MDRD) (>89) Glucose (70-100) mg/dL Calcium (8.5-10.3) mg/dL Phosphorus (2.5-4.6) mg/dL Magnesium (1.7-2.8) mg/dL Albumin (3.2-5.5) g/dL Coronavirus (PCR) NEGATIVE Assessment/Plan - Problem List (1) COPD exacerbation Impression: He continues to slowly improve. He no longer appears in distress and he is moving a little more air and there are expiratory wheezes present. He is still not close to his baseline and he has not been out of bed to ambulate. He was requiring BiPAP intermittently yesterday and was on it overnight. Overall he does appear to be improving albeit slowly. We will continue him on Solu-Medrol 60 mg IV twice daily and will hope to decrease the dose to daily tomorrow. Continue with duo nebs every 4 hours and albuterol as needed. Continue ceftriaxone with today being day 3. Will attempt to get him out of bed into a chair today. Will hope to begin to ambulate him tomorrow. I am hopeful he will be able to be discharged over the weekend if he continues to improve. If tomorrow he remains with continued dyspnea and minimal improvement, will obtain a CT angiogram to evaluate for pulmonary embolism. (2) Alcoholism /alcohol abuse Impression: Do not suspect that he is going through alcohol withdrawal. His tremors are likely due to the albuterol. He has been receiving Ativan intermittently with his last dose being yesterday evening at 8 PM. He is not tachycardic, diaphoretic, hypertensive. We will continue with thiamine and folate. (3) Tachycardia Impression: He has been tachycardic at times with rates as high as the 120s. It is sinus tachycardia with PVCs. Electrolytes are optimized. This is likely driven by his COPD exacerbation. We will hold off on any rate control continue to treat underlying COPD. Will check a TSH. (4) Currently smokes tobacco Impression: We will continue with a nicotine patch. As his respiratory status improves, we will discuss smoking cessation once again. (5) HTN (hypertension) Impression: His blood pressure has been controlled on amlodipine which we will continue. Qualifiers:
[2019-08-06] MEDS: methylPREDNISolone SUCCINATE 40 MG/ML VIAL IVP SCH ×2 (08:38→20:30)
[2019-08-06] MEDS: cefTRIAXone 2 GM in SODIUM CHLORIDE 0.9% MINIBAG 100 ML IV SCH (08:47)
[2019-08-06] MEDS: FOLIC ACID 1 MG TABLET PO SCH (08:53)
[2019-08-06] MEDS: THIAMINE 100 MG TABLET PO SCH (08:53)
[2019-08-06] MEDS: ASPIRIN EC 81 MG TABLET PO SCH (08:53)
[2019-08-06] MEDS: amLODIPine 5 MG TABLET PO SCH (08:53)
[2019-08-06] MEDS: NICOTINE 7 MG PATCH TOP SCH (08:55)
[2019-08-06] MEDS: guaiFENesin 100 MG/5 ML UDC PO PRN (09:03)
[2019-08-06] MEDS: BUDESONIDE 0.5 MG/2 ML NEB INH SCH ×2 (09:05→19:45)
[2019-08-06] MEDS: ENOXAPARIN 40 MG/0.4 ML SYRINGE SUBQ SCH (09:16)
[2019-08-06] MEDS: DOXYCYCLINE INJ 100 MG in SODIUM CHLORIDE 0.9% MINIBAG 100 ML IV SCH (09:21)
[2019-08-06] MEDS: CHLORHEXIDINE GLUCONATE 15 ML UDC PO SCH ×2 (09:29→20:30)
[2019-08-06] MEDS: ACETAMINOPHEN 325 MG TABLET PO PRN (11:43)
[2019-08-06] MEDS: ALBUTEROL NEB 2.5 MG/3 ML INH PRN ×2 (12:59→22:34)
[2019-08-06] MEDS: LORazepam 2 MG/ML VIAL IVP PRN ×5 (14:49→23:31)
[2019-08-06] MEDS ORDERED: BENZOCAINE/MENTHOL LOZENGE MM PRN (17:15)
[2019-08-07] MEDS: IPRATROPIUM/ALBUTEROL 3 ML NEB INH SCH ×5 (00:30→17:38)
[2019-08-07] MEDS: LORazepam 2 MG/ML VIAL IVP PRN ×10 (00:48→13:00)
[2019-08-07] MEDS: MORPHINE 2 MG/ML CARPUJECT IVP PRN (03:45)
[2019-08-07 05:22] LABS: BASOPHILS % (AUTO) 0.2 %; HGB - HEMOGLOBIN 13.2 g/dL (14.0-18.0); LYMPHOCYTES # (AUTO) 0.4 10^3/uL (1.5-3.5); LYMPHOCYTES % (AUTO) 3.4 %; MEAN CORPUSCULAR HEMOGLOBIN 31.2 pg (27.0-31.0); MEAN CORPUSCULAR HGB CONC 32.3 g/dL (32.0-36.0); MEAN CORPUSCULAR VOLUME 96.7 fL (80.0-94.0); MEAN PLATELET VOLUME 10.4 fL (7.4-11.4); MONOCYTES # (AUTO) 0.3 10^3/uL (0.0-1.0); MONOCYTES % (AUTO) 2.7 %; NEUTROPHILS # (AUTO) 11.3 10^3/uL (1.5-6.6); NEUTROPHILS % (AUTO) 92.5 %; PLT - PLATELET COUNT 201 10^3/uL (130-450); RED BLOOD COUNT 4.23 10^6/uL (4.70-6.10); RED CELL DISTRIBUTION WIDTH 15.1 % (12.0-15.0); WHITE BLOOD COUNT 12.2 x10^3/uL (4.8-10.8)
[2019-08-07 05:34] LABS: CALCIUM 9.1 mg/dL (8.5-10.3); CREATININE 0.8 mg/dL (0.6-1.2); MAGNESIUM 2.1 mg/dL (1.7-2.8); PHOSPHORUS 2.3 mg/dL (2.5-4.6)
[2019-08-07] MEDS: BUDESONIDE 0.5 MG/2 ML NEB INH SCH ×2 (07:26→21:27)
[2019-08-07] MEDS: ACETAMINOPHEN 325 MG TABLET PO PRN ×2 (08:03→11:58)
[2019-08-07] MEDS: NEUTRA-PHOS 250 MG TABLET PO SCH ×2 (08:26→10:20)
[2019-08-07] MEDS: THIAMINE 100 MG TABLET PO SCH (08:27)
[2019-08-07] MEDS: FOLIC ACID 1 MG TABLET PO SCH (08:27)
[2019-08-07] MEDS: ASPIRIN EC 81 MG TABLET PO SCH (08:28)
[2019-08-07] MEDS: amLODIPine 5 MG TABLET PO SCH (08:28)
[2019-08-07] MEDS: NICOTINE 14 MG PATCH TOP SCH (08:34)
[2019-08-07] MEDS: CHLORHEXIDINE GLUCONATE 15 ML UDC PO SCH ×2 (08:36→20:15)
[2019-08-07] MEDS: ENOXAPARIN 40 MG/0.4 ML SYRINGE SUBQ SCH (08:39)
[2019-08-07] MEDS: methylPREDNISolone SUCCINATE 40 MG/ML VIAL IVP SCH (08:42)
[2019-08-07] MEDS: SODIUM CHLORIDE FLUSH 0.9% 10 ML SYRINGE IVP SCH ×4 (08:45→17:30)
[2019-08-07] MEDS: cefTRIAXone 2 GM in SODIUM CHLORIDE 0.9% MINIBAG 100 ML IV SCH (08:45)
[2019-08-07] MEDS: chlordiazePOXIDE 25 MG CAPSULE PO SCH ×3 (09:35→18:59)
--- NOTE | 2019-08-07 10:56 | PROVIDER PROGRESS NOTE ---
Subjective - Prog Note Date Prog Note Date: 08/07/19 - Subjective Subjective: Required increased dose of Ativan overnight as he was disoriented and had hallucinations. He was trying get out of bed. He has requested nasal cannula for oxygen and BiPAP at times although he has not been hypoxic and his tachypnea has improved. This morning he is oriented to self and to the fact that he is in the hospital. He still complains of dyspnea but feels it has improved. He is complaining of tremors. He keeps on asking when he will be able to go home. Current Medications - Current Medications Current Medications: Active Medications Acetaminophen (Tylenol) 650 mg PO Q4HR PRN PRN Reason: Pain 1 to 4 Last Admin: 08/07/19 08:03 Dose: 650 mg Albuterol () 2.5 mg INH RTQ4H PRN PRN Reason: Wheezing Last Admin: 08/06/19 22:34 Dose: 2.5 mg Albuterol/Ipratropium (Duoneb) 3 ml INH Q4HR [facility] Last Admin: 08/07/19 07:26 Dose: 3 ml Amlodipine Besylate (Norvasc) 10 mg PO DAILY [facility] Last Admin: 08/07/19 08:28 Dose: 10 mg Aspirin (Ecotrin) 81 mg PO DAILY [facility] Last Admin: 08/07/19 08:28 Dose: 81 mg Benzonatate (Tessalon) 100 mg PO TID PRN PRN Reason: Cough Budesonide (Pulmicort) 0.5 mg INH RTBID [facility] Last Admin: 08/07/19 07:26 Dose: 0.5 mg Chlordiazepoxide HCl (Librium) 25 mg PO Q6HR [facility] Last Admin: 08/07/19 09:35 Dose: 25 mg Chlorhexidine Gluconate (Peridex) 15 ml PO BID [facility] Last Admin: 08/07/19 08:36 Dose: 15 ml Enoxaparin Sodium (Lovenox) 40 mg SUBQ DAILY [facility] Last Admin: 08/07/19 08:39 Dose: 40 mg Folic Acid () 1 mg PO DAILY [facility] Last Admin: 08/07/19 08:27 Dose: 1 mg Guaifenesin (Robitussin Liquid) 100 mg PO Q6HR PRN PRN Reason: Cough Last Admin: 08/06/19 09:03 Dose: 100 mg Ceftriaxone Sodium 2 gm/ (Sodium Chloride) 100 mls @ 200 mls/hr IV DAILY [facility] Stop: 08/09/19 18:33 Last Infusion: 08/07/19 09:32 Dose: Infused Lorazepam (Ativan Inj (Vial)) 2 mg IVP Q2H PRN; Protocol PRN Reason: Alcohol Withdrawal Methylprednisolone (Solu-Medrol (40mg Vial)) 60 mg IVP DAILY [facility] Last Admin: 08/07/19 08:42 Dose: 60 mg Morphine Sulfate (Morphine (Carpuject)) 1 mg IVP Q4HR PRN PRN Reason: Dyspnea Last Admin: 08/07/19 03:45 Dose: 1 mg Nicotine (Nicoderm) 1 patch TOP DAILY [facility] Last Admin: 08/07/19 08:34 Dose: 1 patch Ondansetron HCl (Zofran Inj) 4 mg IVP Q6HR PRN PRN Reason: Nausea / Vomiting Sodium Chloride (Normal Saline Flush 0.9%) 10 ml IVP PRN PRN PRN Reason: NEEDED PER PROVIDER ORDERS Last Admin: 08/06/19 14:52 Dose: 10 ml Sodium Chloride (Normal Saline Flush 0.9%) 10 ml IVP 0100,0900,1700 [facility] Last Admin: 08/07/19 08:45 Dose: 10 ml Sodium Chloride (Normal Saline Flush 0.9%) 10 ml IVP 0100,0900,1700 [facility] Last Admin: 08/07/19 09:03 Dose: Not Given Sodium Chloride (Normal Saline Flush 0.9%) 10 ml IVP PRN PRN PRN Reason: NEEDED PER PROVIDER ORDERS Thiamine HCl (Vitamin B-1) 100 mg PO DAILY [facility] Last Admin: 08/07/19 08:27 Dose: 100 mg Throat Lozenges (Cepacol) 1 lozenge MM Q2HR PRN PRN Reason: Throat pain Last Admin: 08/06/19 17:35 Dose: 1 lozenge Amlodipine Besylate [Norvasc] 10 mg PO DAILY 09/15/18 Aspirin [Aspirin EC] 81 mg PO DAILY 04/28/19 Meloxicam 15 mg PO DAILY PRN 08/04/19 Objective - Vital Signs/Intake & Output Reviewed Vital Signs: Yes Vital Signs: Vital Signs Temp Pulse Pulse Resp BP Pulse Ox 08/07/19 10:00 124 H 34 H 141/93 H 94 08/07/19 09:00 128 H 30 H 152/98 H 08/07/19 08:00 37.6 C H 123 H 30 H 156/108 H 93 08/07/19 07:29 112 H 28 H 08/07/19 07:00 120 H 36 H 120/86 H 94 Intake & Output: Intake & Output 08/04/19 08/05/19 08/06/19 08/07/19 23:59 23:59 23:59 23:59 Intake Total 421 1536 1880 695 Output Total 0 400 450 250 Balance 421 1136 1430 445 - Objective General Appearance: positive: Alert, Mild distress Eyes Bilateral: positive: Normal inspection ENT: positive: ENT inspection nml Neck: positive: Nml inspection Respiratory: positive: No respiratory distress, Other (There are now only faint expiratory wheezes noted. His air entry has significantly improved. He is still slightly tachypneic but this is also improved.) Cardiovascular: positive: No murmur, Extrasystoles, Tachycardia. negative: Systolic murmur Abdomen: positive: Non-tender. negative: Tenderness Skin: positive: Warm, Dry Extremities: positive: No pedal edema Neurologic/Psychiatric: positive: Disoriented to time, Other (Moving all 4 extremities. He is oriented to self and location at this time. He is quite tremulous.). negative: Disoriented to person, Disoriented to place - Lab Results Fish Bones: 08/07/19 04:44 08/07/19 04:44 Other Labs: Lab Results x24hrs 08/07/19 08/07/19 08/07/19 Range/Units 04:44 04:44 04:44 WBC 12.2 H (4.8-10.8) x10^3/uL RBC 4.23 L (4.70-6.10) 10^6/uL Hgb 13.2 L (14.0-18.0) g/dL Hct 40.9 L (42.0-52.0) % MCV 96.7 H (80.0-94.0) fL MCH 31.2 H (27.0-31.0) pg MCHC 32.3 (32.0-36.0) g/dL RDW 15.1 H (12.0-15.0) % Plt Count 201 (130-450) 10^3/uL MPV 10.4 (7.4-11.4) fL Neut # (Auto) 11.3 H (1.5-6.6) 10^3/uL Lymph # (Auto) 0.4 L (1.5-3.5) 10^3/uL [place] # (Auto) 0.3 (0.0-1.0) 10^3/uL Eos # (Auto) 0.0 (0.0-0.7) 10^3/uL Baso # (Auto) 0.0 (0.0-0.1) 10^3/uL Absolute Nucleated RBC 0.00 x10^3/uL Nucleated RBC % 0.0 /100WBC Sodium 138 (135-145) mmol/L Potassium 4.2 (3.5-5.0) mmol/L Chloride 99 L (101-111) mmol/L Carbon Dioxide 28 (21-32) mmol/L Anion Gap 11.0 (6-13) BUN 24 H (6-20) mg/dL Creatinine 0.8 (0.6-1.2) mg/dL Estimated GFR (MDRD) 99 (>89) Glucose 154 H (70-100) mg/dL Calcium 9.1 (8.5-10.3) mg/dL Phosphorus 2.3 L (2.5-4.6) mg/dL Magnesium 2.1 (1.7-2.8) mg/dL TSH 0.53 (0.34-5.60) uIU/mL Assessment/Plan - Problem List (1) COPD exacerbation Impression: He has shown significant improvement over the last 24 hours. He is less tachypneic and he is moving much more air on exam. He now has faint expiratory wheezes. We will decrease his IV steroids to 60 mg daily today after switch to oral prednisone tomorrow. Continue ceftriaxone with today being day 4. Continue with duo nebs [id number]. Would benefit from pulmonary rehab on discharge. (2) Alcohol withdrawal Impression: He does appear to be going to alcohol withdrawal at this time. He does have associated delirium and occasional hallucinations. He is quite tremulous and tachycardic. He required multiple doses of Ativan overnight. We will start him on Librium and continue with Ativan IV as needed. We will also consider starting him on Precedex if his Ativan requirements increase. Qualifiers: Complication of substance-induced condition: with delirium Qualified Code(s): F10.231 - Alcohol dependence with withdrawal delirium (3) Tachycardia Impression: He remains tachycardic with heart rates in the 110s to 120s with occasional PVCs. His electrolytes are optimized. TSH was checked and was within normal limits at 0.53 This likely secondary to the albuterol and alcohol withdrawal. Continue to monitor on telemetry and treat underlying alcohol withdrawal. We will continue with albuterol given his COPD but as he continues to improve more respiratory standpoint, we can decrease the frequency of his breathing treatments. (4) Alcoholism /alcohol abuse Impression: Continue with thiamine and folate. We will have social work meet with him once he goes to withdrawal and his COPD continues to improve to discuss rehab options. (5) Currently smokes tobacco Impression: He was requesting cigarettes overnight. We will increase nicotine patch to 14 mg per (6) HTN (hypertension) Impression: Stable. Continue his home amlodipine. Qualifiers: (7) Hyperglycemia Impression: This is likely due to steroids. His blood glucose has been elevated in the 150s. We will check an A1c and start him on sliding scale.
[2019-08-07] MEDS ORDERED: chlordiazePOXIDE 25 MG CAPSULE PO SCH (12:00)
[2019-08-07] MEDS: SODIUM CHLORIDE FLUSH 0.9% 10 ML SYRINGE IVP PRN ×2 (13:01→14:19)
[2019-08-07] MEDS ORDERED: LORazepam 2 MG/ML VIAL IVP PRN (14:11)
[2019-08-07] MEDS: DEXMEDETOMIDINE 400 MCG in SODIUM CHLORIDE 0.9% 100ML 96 ML IV PRN ×2 (14:41→22:35)
[2019-08-07] MEDS ORDERED: DEXMEDETOMIDINE 400 MCG/100 ML 100 ML IV SCH (15:00)
[2019-08-07] MEDS: SODIUM CHLORIDE 0.9% 500 ML IV PRN (15:17)
[2019-08-07] MEDS: INSULIN ASPART 300 UNIT/3 ML PEN SUBQ SCH ×2 (17:26→21:05)
[2019-08-07] MEDS: ALBUTEROL NEB 2.5 MG/3 ML INH PRN (21:27)
[2019-08-07] MEDS ORDERED: LIDOCAINE 2% URO-JET 5 ML SYRINGE UR ONE (21:58)
[2019-08-08] MEDS: chlordiazePOXIDE 25 MG CAPSULE PO SCH ×4 (00:06→17:34)
[2019-08-08] MEDS: MORPHINE 2 MG/ML CARPUJECT IVP PRN (01:40)
[2019-08-08] MEDS: SODIUM CHLORIDE FLUSH 0.9% 10 ML SYRINGE IVP SCH ×6 (01:41→18:10)
[2019-08-08] MEDS: IPRATROPIUM/ALBUTEROL 3 ML NEB INH SCH ×6 (02:38→19:47)
[2019-08-08] MEDS: DEXMEDETOMIDINE 400 MCG in SODIUM CHLORIDE 0.9% 100ML 96 ML IV PRN ×2 (05:34→12:55)
[2019-08-08 05:40] LABS: BASOPHILS % (AUTO) 0.2 %; HGB - HEMOGLOBIN 13.1 g/dL (14.0-18.0); LYMPHOCYTES # (AUTO) 0.6 10^3/uL (1.5-3.5); LYMPHOCYTES % (AUTO) 5.7 %; MEAN CORPUSCULAR HEMOGLOBIN 31.6 pg (27.0-31.0); MEAN CORPUSCULAR HGB CONC 32.5 g/dL (32.0-36.0); MEAN CORPUSCULAR VOLUME 97.1 fL (80.0-94.0); MEAN PLATELET VOLUME 10.3 fL (7.4-11.4); MONOCYTES # (AUTO) 0.6 10^3/uL (0.0-1.0); MONOCYTES % (AUTO) 5.8 %; NEUTROPHILS # (AUTO) 9.6 10^3/uL (1.5-6.6); NEUTROPHILS % (AUTO) 87.2 %; PLT - PLATELET COUNT 177 10^3/uL (130-450); RED BLOOD COUNT 4.15 10^6/uL (4.70-6.10); RED CELL DISTRIBUTION WIDTH 15.1 % (12.0-15.0); WHITE BLOOD COUNT 11.1 x10^3/uL (4.8-10.8)
[2019-08-08 05:49] LABS: CALCIUM 8.7 mg/dL (8.5-10.3); CREATININE 0.5 mg/dL (0.6-1.2); MAGNESIUM 2.2 mg/dL (1.7-2.8); PHOSPHORUS 3.6 mg/dL (2.5-4.6)
[2019-08-08 06:09] LABS: HB2 TOTAL 13.6 g/dL; HEMOGLOBIN A1C 0.51 g/dL; HEMOGLOBIN A1C % 5.6 % (4.6-6.2)
[2019-08-08] MEDS: BUDESONIDE 0.5 MG/2 ML NEB INH SCH ×2 (07:25→19:47)
[2019-08-08] MEDS: INSULIN ASPART 300 UNIT/3 ML PEN SUBQ SCH ×2 (08:45→12:30)
[2019-08-08] MEDS: cefTRIAXone 2 GM in SODIUM CHLORIDE 0.9% MINIBAG 100 ML IV SCH (08:57)
[2019-08-08] MEDS: NICOTINE 14 MG PATCH TOP SCH (09:03)
[2019-08-08] MEDS: ENOXAPARIN 40 MG/0.4 ML SYRINGE SUBQ SCH (09:03)
[2019-08-08] MEDS: methylPREDNISolone SUCCINATE 40 MG/ML VIAL IVP SCH (09:06)
[2019-08-08] MEDS: amLODIPine 5 MG TABLET PO SCH (09:08)
[2019-08-08] MEDS: THIAMINE 100 MG TABLET PO SCH (09:08)
[2019-08-08] MEDS: FOLIC ACID 1 MG TABLET PO SCH (09:08)
[2019-08-08] MEDS: ASPIRIN EC 81 MG TABLET PO SCH (09:08)
[2019-08-08] MEDS: CHLORHEXIDINE GLUCONATE 15 ML UDC PO SCH ×2 (09:21→20:31)
[2019-08-08] MEDS: SODIUM CHLORIDE 0.9% 500 ML IV PRN (12:55)
--- NOTE | 2019-08-08 14:27 | PROVIDER PROGRESS NOTE ---
Subjective - Prog Note Date Prog Note Date: 08/08/19 - Subjective Subjective: Remains on Precedex and Librium but has not required Ativan since yesterday. He is still quite restless at times. He is oriented to self and location. Reports his dyspnea has improved. Current Medications - Current Medications Current Medications: Active Medications Acetaminophen (Tylenol) 650 mg PO Q4HR PRN PRN Reason: Pain 1 to 4 Last Admin: 08/07/19 11:58 Dose: 650 mg Albuterol () 2.5 mg INH RTQ4H PRN PRN Reason: Wheezing Last Admin: 08/07/19 21:27 Dose: 2.5 mg Albuterol/Ipratropium (Duoneb) 3 ml INH Q4HR [facility] Last Admin: 08/08/19 11:00 Dose: 3 ml Amlodipine Besylate (Norvasc) 10 mg PO DAILY [facility] Last Admin: 08/08/19 09:08 Dose: 10 mg Aspirin (Ecotrin) 81 mg PO DAILY [facility] Last Admin: 08/08/19 09:08 Dose: 81 mg Benzonatate (Tessalon) 100 mg PO TID PRN PRN Reason: Cough Budesonide (Pulmicort) 0.5 mg INH RTBID [facility] Last Admin: 08/08/19 07:25 Dose: 0.5 mg Chlordiazepoxide HCl (Librium) 25 mg PO Q6HR [facility] Last Admin: 08/08/19 12:24 Dose: 25 mg Chlorhexidine Gluconate (Peridex) 15 ml PO BID [facility] Last Admin: 08/08/19 09:21 Dose: 15 ml Enoxaparin Sodium (Lovenox) 40 mg SUBQ DAILY [facility] Last Admin: 08/08/19 09:03 Dose: 40 mg Folic Acid () 1 mg PO DAILY [facility] Last Admin: 08/08/19 09:08 Dose: 1 mg Guaifenesin (Robitussin Liquid) 100 mg PO Q6HR PRN PRN Reason: Cough Last Admin: 08/06/19 09:03 Dose: 100 mg Ceftriaxone Sodium 2 gm/ (Sodium Chloride) 100 mls @ 200 mls/hr IV DAILY [facility] Stop: 08/09/19 18:33 Last Infusion: 08/08/19 10:21 Dose: Infused Dexmedetomidine HCl 400 mcg/ (Sodium Chloride) 100 mls @ 3.6 mls/hr IV .[id number] PRN; Protocol PRN Reason: Agitation Last Titration: 08/08/19 12:57 Dose: 0.02 mcg/kg/hr, 0.4 mls/hr Sodium Chloride (Normal Saline 0.9%) 500 mls @ 0 mls/hr IV Q24H PRN PRN Reason: TKO RATE Last Admin: 08/08/19 12:55 Dose: 20 mls/hr Insulin Aspart (Novolog) 1 - 9 unit SUBQ 0800,1200,1700,2100 [facility]; Protocol Last Admin: 08/08/19 12:30 Dose: Not Given Lorazepam (Ativan Inj (Vial)) 2 mg IVP Q1H PRN; Protocol PRN Reason: Alcohol Withdrawal Last Admin: 08/07/19 14:17 Dose: 2 mg Methylprednisolone (Solu-Medrol (40mg Vial)) 60 mg IVP DAILY [facility] Last Admin: 08/08/19 09:06 Dose: 60 mg Morphine Sulfate (Morphine (Carpuject)) 1 mg IVP Q4HR PRN PRN Reason: Dyspnea Last Admin: 08/08/19 01:40 Dose: 1 mg Nicotine (Nicoderm) 1 patch TOP DAILY [facility] Last Admin: 08/08/19 09:03 Dose: 1 patch Ondansetron HCl (Zofran Inj) 4 mg IVP Q6HR PRN PRN Reason: Nausea / Vomiting Sodium Chloride (Normal Saline Flush 0.9%) 10 ml IVP PRN PRN PRN Reason: NEEDED PER PROVIDER ORDERS Last Admin: 08/07/19 14:19 Dose: 10 ml Sodium Chloride (Normal Saline Flush 0.9%) 10 ml IVP 0100,0900,1700 [facility] Last Admin: 08/08/19 08:57 Dose: 10 ml Sodium Chloride (Normal Saline Flush 0.9%) 10 ml IVP 0100,0900,1700 [facility] Last Admin: 08/08/19 09:21 Dose: 10 ml Sodium Chloride (Normal Saline Flush 0.9%) 10 ml IVP PRN PRN PRN Reason: NEEDED PER PROVIDER ORDERS Last Admin: 08/07/19 11:16 Dose: 10 ml Thiamine HCl (Vitamin B-1) 100 mg PO DAILY [facility] Last Admin: 08/08/19 09:08 Dose: 100 mg Throat Lozenges (Cepacol) 1 lozenge MM Q2HR PRN PRN Reason: Throat pain Last Admin: 08/06/19 17:35 Dose: 1 lozenge Amlodipine Besylate [Norvasc] 10 mg PO DAILY 09/15/18 Aspirin [Aspirin EC] 81 mg PO DAILY 04/28/19 Meloxicam 15 mg PO DAILY PRN 08/04/19 Objective - Vital Signs/Intake & Output Reviewed Vital Signs: Yes Vital Signs: Vital Signs Temp Pulse Pulse Resp BP Pulse Ox 08/08/19 14:00 93 27 H 105/77 97 08/08/19 13:00 80 26 H 105/73 98 08/08/19 12:00 37.2 C 80 22 123/100 H 95 08/08/19 11:17 72 22 08/08/19 11:00 36.9 C 90 22 131/96 H 100 Intake & Output: Intake & Output 08/05/19 08/06/19 08/07/19 08/08/19 23:59 23:59 23:59 23:59 Intake Total 1536 1880 6994.046 6738.88 Output Total 998 248 1708 2880 Balance 1136 1430 -266.954 -1478.12 - Objective General Appearance: positive: Mild distress, Lethargic Eyes Bilateral: positive: Normal inspection ENT: positive: ENT inspection nml Neck: positive: Nml inspection Respiratory: positive: No respiratory distress, Other (He is still slightly tachypneic. No wheezing on exam today.). negative: Wheezes, Rales, Rhonchi Cardiovascular: positive: No murmur, Extrasystoles, Tachycardia. negative: Systolic murmur Abdomen: positive: Non-tender. negative: Tenderness Skin: positive: Warm, Dry. negative: Diaphoresis Extremities: positive: No pedal edema Neurologic/Psychiatric: positive: Other (He is oriented to self and location. Normal focal deficits on exam. He is still quite restless and tremulous.). negative: Disoriented to person, Disoriented to place - Lab Results Fish Bones: 08/08/19 04:49 08/08/19 04:49 Other Labs: Lab Results x24hrs 08/08/19 08/08/19 08/08/19 Range/Units 12:05 07:58 04:49 WBC (4.8-10.8) x10^3/uL RBC (4.70-6.10) 10^6/uL Hgb (14.0-18.0) g/dL Hct (42.0-52.0) % MCV (80.0-94.0) fL MCH (27.0-31.0) pg MCHC (32.0-36.0) g/dL RDW (12.0-15.0) % Plt Count (130-450) 10^3/uL MPV (7.4-11.4) fL Neut # (Auto) (1.5-6.6) 10^3/uL Lymph # (Auto) (1.5-3.5) 10^3/uL [place] # (Auto) (0.0-1.0) 10^3/uL Eos # (Auto) (0.0-0.7) 10^3/uL Baso # (Auto) (0.0-0.1) 10^3/uL Absolute Nucleated RBC x10^3/uL Nucleated RBC % /100WBC Sodium 139 (135-145) mmol/L Potassium 3.7 (3.5-5.0) mmol/L Chloride 102 (101-111) mmol/L Carbon Dioxide 30 (21-32) mmol/L Anion Gap 7.0 (6-13) BUN 17 (6-20) mg/dL Creatinine 0.5 L (0.6-1.2) mg/dL Estimated GFR (MDRD) 170 (>89) Glucose 116 H (70-100) mg/dL POC Whole Bld Glucose 137 H 121 H (70 - 100) mg/dL Glycated Hemoglobin (4.6-6.2) % Estim Average Glucose (70-100) Calcium 8.7 (8.5-10.3) mg/dL Phosphorus 3.6 (2.5-4.6) mg/dL Magnesium 2.2 (1.7-2.8) mg/dL 08/08/19 08/08/19 08/07/19 Range/Units 04:49 04:49 20:44 WBC 11.1 H (4.8-10.8) x10^3/uL RBC 4.15 L (4.70-6.10) 10^6/uL Hgb 13.1 L (14.0-18.0) g/dL Hct 40.3 L (42.0-52.0) % MCV 97.1 H (80.0-94.0) fL MCH 31.6 H (27.0-31.0) pg MCHC 32.5 (32.0-36.0) g/dL RDW 15.1 H (12.0-15.0) % Plt Count 177 (130-450) 10^3/uL MPV 10.3 (7.4-11.4) fL Neut # (Auto) 9.6 H (1.5-6.6) 10^3/uL Lymph # (Auto) 0.6 L (1.5-3.5) 10^3/uL [place] # (Auto) 0.6 (0.0-1.0) 10^3/uL Eos # (Auto) 0.0 (0.0-0.7) 10^3/uL Baso # (Auto) 0.0 (0.0-0.1) 10^3/uL Absolute Nucleated RBC 0.00 x10^3/uL Nucleated RBC % 0.0 /100WBC Sodium (135-145) mmol/L Potassium (3.5-5.0) mmol/L Chloride (101-111) mmol/L Carbon Dioxide (21-32) mmol/L Anion Gap (6-13) BUN (6-20) mg/dL Creatinine (0.6-1.2) mg/dL Estimated GFR (MDRD) (>89) Glucose (70-100) mg/dL POC Whole Bld Glucose 124 H (70 - 100) mg/dL Glycated Hemoglobin 5.6 (4.6-6.2) % Estim Average Glucose 114 H (70-100) Calcium (8.5-10.3) mg/dL Phosphorus (2.5-4.6) mg/dL Magnesium (1.7-2.8) mg/dL 08/07/19 Range/Units 16:56 WBC (4.8-10.8) x10^3/uL RBC (4.70-6.10) 10^6/uL Hgb (14.0-18.0) g/dL Hct (42.0-52.0) % MCV (80.0-94.0) fL MCH (27.0-31.0) pg MCHC (32.0-36.0) g/dL RDW (12.0-15.0) % Plt Count (130-450) 10^3/uL MPV (7.4-11.4) fL Neut # (Auto) (1.5-6.6) 10^3/uL Lymph # (Auto) (1.5-3.5) 10^3/uL [place] # (Auto) (0.0-1.0) 10^3/uL Eos # (Auto) (0.0-0.7) 10^3/uL Baso # (Auto) (0.0-0.1) 10^3/uL Absolute Nucleated RBC x10^3/uL Nucleated RBC % /100WBC Sodium (135-145) mmol/L Potassium (3.5-5.0) mmol/L Chloride (101-111) mmol/L Carbon Dioxide (21-32) mmol/L Anion Gap (6-13) BUN (6-20) mg/dL Creatinine (0.6-1.2) mg/dL Estimated GFR (MDRD) (>89) Glucose (70-100) mg/dL POC Whole Bld Glucose 133 H (70 - 100) mg/dL Glycated Hemoglobin (4.6-6.2) % Estim Average Glucose (70-100) Calcium (8.5-10.3) mg/dL Phosphorus (2.5-4.6) mg/dL Magnesium (1.7-2.8) mg/dL Assessment/Plan - Problem List (1) Alcohol withdrawal Impression: He appears to be slightly improving from alcohol withdrawal perspective. He remains on Precedex as required less Ativan. He is still tremulous and restless but is able to be reoriented and redirected. We will continue with Precedex and wean as tolerated. Continue with Librium and Ativan as needed. Qualifiers: Complication of substance-induced condition: with delirium Qualified Code(s): F10.231 - Alcohol dependence with withdrawal delirium (2) COPD exacerbation Impression: He has improved from respiratory standpoint. Now has no wheezing on exam and good air movement. Today is day 5 of steroids and these will be discontinued. Today is also day 5 of antibiotics and this will also be discontinued. We will continue with duo nebs 4 times daily. (3) Alcoholism /alcohol abuse Impression: Continue with thiamine and folate. Social work has been consulted to discuss alcohol rehab options once he is through withdrawal. (4) Currently smokes tobacco Impression: Continue with nicotine patch. (5) HTN (hypertension) Impression: Stable. Continue amlodipine Qualifiers: (6) Hyperglycemia Impression: This is secondary to the steroids. His A1c is 5.6%. His blood sugars should improve now that he is off of steroids. We will discontinue blood glucose checks.
[2019-08-09] MEDS: chlordiazePOXIDE 25 MG CAPSULE PO SCH ×3 (02:22→21:34)
[2019-08-09] MEDS: DEXMEDETOMIDINE 400 MCG in SODIUM CHLORIDE 0.9% 100ML 96 ML IV PRN (02:22)
[2019-08-09] MEDS: SODIUM CHLORIDE FLUSH 0.9% 10 ML SYRINGE IVP SCH ×6 (02:23→18:30)
[2019-08-09] MEDS: IPRATROPIUM/ALBUTEROL 3 ML NEB INH SCH ×5 (06:42→21:40)
--- NOTE | 2019-08-09 07:38 | PROVIDER PROGRESS NOTE ---
Subjective - Prog Note Date Prog Note Date: 08/09/19 - Subjective Subjective: Now off of Precedex since 7 AM this morning and has not received any Ativan. He remains on Librium. He reports feeling little bit less restless and tremulous this morning. He still continues to complain of shortness of breath. He is reports feeling improved since admission but still feels he is not back to his baseline. Reports no chest pain Current Medications - Current Medications Current Medications: Active Medications Acetaminophen (Tylenol) 650 mg PO Q4HR PRN PRN Reason: Pain 1 to 4 Last Admin: 08/07/19 11:58 Dose: 650 mg Albuterol () 2.5 mg INH RTQ4H PRN PRN Reason: Wheezing Last Admin: 08/07/19 21:27 Dose: 2.5 mg Albuterol/Ipratropium (Duoneb) 3 ml INH Q4HR [facility] Last Admin: 08/09/19 13:13 Dose: 3 ml Amlodipine Besylate (Norvasc) 10 mg PO DAILY [facility] Last Admin: 08/09/19 09:15 Dose: 10 mg Aspirin (Ecotrin) 81 mg PO DAILY [facility] Last Admin: 08/09/19 09:15 Dose: 81 mg Benzonatate (Tessalon) 100 mg PO TID PRN PRN Reason: Cough Budesonide (Pulmicort) 0.5 mg INH RTBID [facility] Last Admin: 08/09/19 07:50 Dose: 0.5 mg Chlordiazepoxide HCl (Librium) 25 mg PO BID [facility] Chlorhexidine Gluconate (Peridex) 15 ml PO BID [facility] Last Admin: 08/09/19 09:16 Dose: Not Given Enoxaparin Sodium (Lovenox) 40 mg SUBQ DAILY [facility] Last Admin: 08/09/19 09:15 Dose: 40 mg Folic Acid () 1 mg PO DAILY [facility] Last Admin: 08/09/19 09:16 Dose: 1 mg Guaifenesin (Robitussin Liquid) 100 mg PO Q6HR PRN PRN Reason: Cough Last Admin: 08/06/19 09:03 Dose: 100 mg Sodium Chloride (Normal Saline 0.9%) 500 mls @ 0 mls/hr IV Q24H PRN PRN Reason: TKO RATE Last Admin: 08/08/19 12:55 Dose: 20 mls/hr Morphine Sulfate (Morphine (Carpuject)) 1 mg IVP Q4HR PRN PRN Reason: Dyspnea Last Admin: 08/09/19 13:30 Dose: 1 mg Nicotine (Nicoderm) 1 patch TOP DAILY [facility] Last Admin: 08/09/19 09:14 Dose: 1 patch Ondansetron HCl (Zofran Inj) 4 mg IVP Q6HR PRN PRN Reason: Nausea / Vomiting Sodium Chloride (Normal Saline Flush 0.9%) 10 ml IVP PRN PRN PRN Reason: NEEDED PER PROVIDER ORDERS Last Admin: 08/07/19 14:19 Dose: 10 ml Sodium Chloride (Normal Saline Flush 0.9%) 10 ml IVP 0100,0900,1700 [facility] Last Admin: 08/09/19 09:16 Dose: 10 ml Sodium Chloride (Normal Saline Flush 0.9%) 10 ml IVP 0100,0900,1700 [facility] Last Admin: 08/09/19 09:17 Dose: Not Given Sodium Chloride (Normal Saline Flush 0.9%) 10 ml IVP PRN PRN PRN Reason: NEEDED PER PROVIDER ORDERS Last Admin: 08/07/19 11:16 Dose: 10 ml Thiamine HCl (Vitamin B-1) 100 mg PO DAILY [facility] Last Admin: 08/09/19 09:15 Dose: 100 mg Throat Lozenges (Cepacol) 1 lozenge MM Q2HR PRN PRN Reason: Throat pain Last Admin: 08/06/19 17:35 Dose: 1 lozenge Amlodipine Besylate [Norvasc] 10 mg PO DAILY 09/15/18 Aspirin [Aspirin EC] 81 mg PO DAILY 04/28/19 Meloxicam 15 mg PO DAILY PRN 08/04/19 Objective - Vital Signs/Intake & Output Reviewed Vital Signs: Yes Vital Signs: Vital Signs Temp Pulse Resp BP Pulse Ox 08/09/19 07:00 73 20 126/87 H 96 08/09/19 06:00 76 25 H 115/79 97 08/09/19 04:00 97.5 C H 75 21 120/101 H 98 Intake & Output: Intake & Output 08/06/19 08/07/19 08/08/19 08/09/19 23:59 23:59 23:59 23:59 Intake Total 1880 1021.947 0803.192 324.78 Output Total 450 1475 3180 520 Balance 1430 -266.954 -902.808 -195.22 - Objective General Appearance: positive: Alert, Mild distress Eyes Bilateral: positive: Normal inspection ENT: positive: ENT inspection nml Neck: positive: Nml inspection Respiratory: positive: Other (He does appear tachypneic. He is able to eat breakfast on my examination. No wheezing or rales. His breath sounds are slightly diminished but he has good air entry.). negative: No respiratory distress (He does appear in mild to moderate respiratory distress.), Wheezes, Rales Cardiovascular: positive: No murmur, Extrasystoles, Tachycardia. negative: Regular rate & rhythm, Bradycardia, Systolic murmur Abdomen: positive: Non-tender, No distention. negative: Tenderness Skin: positive: Warm, Dry Extremities: positive: Full ROM, No pedal edema Neurologic/Psychiatric: positive: Oriented x3. negative: Disoriented to person, Disoriented to place, Disoriented to time - Lab Results Fish Bones: 08/08/19 04:49 08/08/19 04:49 Other Labs: Lab Results x24hrs 08/08/19 08/08/19 Range/Units 12:05 07:58 POC Whole Bld Glucose 137 H 121 H (70 - 100) mg/dL Assessment/Plan - Problem List (1) Alcohol withdrawal Impression: He has significantly improved from alcohol withdrawal perspective. He is now off of Precedex and has not required any Ativan. He is alert and oriented to self, location, year, month. No longer tremulous We will decrease the frequency of his Librium to twice daily. Discontinue Precedex and hold Ativan. Qualifiers: Complication of substance-induced condition: with delirium Qualified Code(s): F10.231 - Alcohol dependence with withdrawal delirium (2) Dyspnea Impression: Continues to complain of dyspnea at rest. He does not appear to be in COPD exacerbation at this time. We will repeat a chest x-ray today to evaluate for any possible pulmonary edema or infiltrate as the cause of his dyspnea. If his chest x-ray unremarkable, we will obtain a CT angiogram to look for pulmonary embolism given he has been tachycardic with PVCs and he is slightly hypoxic. We will also check a BNP and obtain an echocardiogram. (3) Tachycardia Impression: Remains tachycardic with PVCs. TSH was within normal limits. This may be secondary to his breathing treatments but given his continued dyspnea, we will obtain a CT angiogram to evaluate for pulmonary embolism. We will also check an echocardiogram today. (4) COPD exacerbation Impression: Has improved since admission. He completed 5 days of antibiotics and steroids. He is no longer wheezing on exam and has good air entry. Continue with duo nebs and his home inhalers. (5) Alcoholism /alcohol abuse Impression: Continue with thiamine and folate. Social work has been consulted to discuss alcohol cessation options. (6) Currently smokes tobacco Impression: Continue with nicotine patch. (7) HTN (hypertension) Impression: His blood pressure has been well controlled on his home amlodipine which we will continue. Qualifiers:
[2019-08-09] MEDS: BUDESONIDE 0.5 MG/2 ML NEB INH SCH ×2 (07:50→18:15)
[2019-08-09] MEDS: NICOTINE 14 MG PATCH TOP SCH (09:14)
[2019-08-09] MEDS: THIAMINE 100 MG TABLET PO SCH (09:15)
[2019-08-09] MEDS: ENOXAPARIN 40 MG/0.4 ML SYRINGE SUBQ SCH (09:15)
[2019-08-09] MEDS: ASPIRIN EC 81 MG TABLET PO SCH (09:15)
[2019-08-09] MEDS: amLODIPine 5 MG TABLET PO SCH (09:15)
[2019-08-09] MEDS: CHLORHEXIDINE GLUCONATE 15 ML UDC PO SCH (09:16)
[2019-08-09] MEDS: FOLIC ACID 1 MG TABLET PO SCH (09:16)
--- NOTE | 2019-08-09 11:49 | XRAY Report ---
Reason: Dyspnea. COPD. Procedure Date: 08/09/2019 Accession Number: [id number] / [id number] Procedure: XR - Chest 1 View X-Ray CPT Code: 34832 Final Report FULL RESULT: EXAM: CHEST RADIOGRAPHY EXAM DATE: 08/09/2019 11:32 AM. CLINICAL HISTORY: Dyspnea. COPD. COMPARISON: CHEST 1 VIEW 08/04/2019 5:31 PM. TECHNIQUE: 1 view. FINDINGS: Lungs/Pleura: Decreased lung volumes. New small left pleural effusion and new mild left basilar atelectasis or infiltrate. New very mild right basilar probable atelectasis. Acute infiltrate not excluded. No pneumothorax. Mediastinum: Within exam limitations, the cardiomediastinal contour is normal. Other: Bilateral shoulder degenerative disease. IMPRESSION: 1. New small left pleural effusion and new left basilar infiltrate or atelectasis. 2. New very mild right basilar probable atelectasis. Less likely, acute infiltrate. RADIA
[2019-08-09] MEDS: MORPHINE 2 MG/ML CARPUJECT IVP PRN ×2 (13:30→16:15)
[2019-08-09] MEDS ORDERED: IOVERSOL 320 100 ML VIAL IVP ONE ×2 (16:14→18:15)
[2019-08-09] MEDS ORDERED: METOPROLOL 5 MG/5 ML VIAL IVP STA (18:39)
[2019-08-09] MEDS: methylPREDNISolone SUCCINATE 40 MG/ML VIAL IVP SCH (18:52)
[2019-08-09 18:54] LABS: BASOPHILS % (AUTO) 0.4 %; EOSINOPHILS % (AUTO) 0.2 %; HGB - HEMOGLOBIN 15.1 g/dL (14.0-18.0); LYMPHOCYTES # (AUTO) 1.2 10^3/uL (1.5-3.5); LYMPHOCYTES % (AUTO) 12.4 %; MEAN CORPUSCULAR HEMOGLOBIN 32.5 pg (27.0-31.0); MEAN CORPUSCULAR HGB CONC 32.3 g/dL (32.0-36.0); MEAN CORPUSCULAR VOLUME 100.6 fL (80.0-94.0); MEAN PLATELET VOLUME 10.1 fL (7.4-11.4); MONOCYTES # (AUTO) 1.1 10^3/uL (0.0-1.0); MONOCYTES % (AUTO) 11.3 %; NEUTROPHILS % (AUTO) 73.6 %; PLT - PLATELET COUNT 190 10^3/uL (130-450); RED BLOOD COUNT 4.65 10^6/uL (4.70-6.10); RED CELL DISTRIBUTION WIDTH 15.8 % (12.0-15.0); WHITE BLOOD COUNT 9.6 x10^3/uL (4.8-10.8)
[2019-08-09 19:07] LABS: CALCIUM 8.9 mg/dL (8.5-10.3); CREATININE 0.8 mg/dL (0.6-1.2); PHOSPHORUS 2.5 mg/dL (2.5-4.6)
--- NOTE | 2019-08-09 21:31 | CT Report ---
Reason: Hypoxia, Tachycardia. Eval for PE. Procedure Date: 08/09/2019 Accession Number: [id number] / [id number] Procedure: CT - ANGIO CHEST W/WO CPT Code: Final Report FULL RESULT: EXAM: CT ANGIOGRAM CHEST EXAM DATE: 08/09/2019 06:14 PM. CLINICAL HISTORY: Hypoxia, Tachycardia. Evaluate for PE. COMPARISON: CHEST ANGIO 05/18/2018 10:04 AM. TECHNIQUE: Routine helical imaging was performed through the chest in the pulmonary arterial phase. IV Contrast: 80 cc Optiray 320. Reconstructions: Coronal 3-D MIP reconstructions. Sagittal and coronal. In accordance with CT protocol optimization, one or more of the following dose reduction techniques were utilized for this exam: automated exposure control, adjustment of mA and/or KV based on patient size, or use of iterative reconstructive technique. FINDINGS: Diagnostic quality: Suboptimal secondary to motion artifact. Pulmonary embolism: No large central pulmonary embolism. Right heart strain: None Pulmonary arteries: Normal in caliber. Heart: Unremarkable Aorta: No aneurysm. Mild atherosclerosis. Central airways: Bilateral lower lobe bronchial wall thickening with scattered distal intraluminal debris/mucus plugging. There are several small consolidative peribronchovascular opacities in the left lower lobe. Lung parenchyma: The lungs are hypoventilatory with compressive subsegmental atelectasis at the bilateral lung bases. Again moderate/severe upper lobe predominant centrilobular emphysema. Pleural effusion: None Pneumothorax: None Adenopathy: None Imaged abdomen: Subtle fat stranding around the uncinate process of the pancreas. The liver demonstrates a few scattered tiny subcentimeter low-density foci, technically too small to accurately characterize and indeterminant but statistically likely to represent tiny cysts. Colonic diverticulosis, no diverticulitis. Sidewalls: Bilateral gynecomastia. Bones: No suspicious osseous lesions. Several old rib fracture deformities. Old sternal fracture deformity. Advanced degenerative changes of the bilateral shoulders. IMPRESSION: 1. Study is motion degraded. 2. No large central pulmonary embolism. 3. Bilateral lower lobe bronchial wall thickening with scattered distal intraluminal debris/mucus plugging, left greater than right. There are several small consolidative peribronchovascular opacities in the left lower lobe. Differential includes multifocal bronchopneumonia versus aspiration. Recommend follow-up 6-8 weeks after completion of medical therapy to ensure resolution. 4. Again moderate/severe upper lobe predominant centrilobular emphysema. 5. Subtle fat stranding around the uncinate process of the pancreas which can be seen in acute pancreatitis. 6. Other chronic findings detailed above. RADIA
[2019-08-09] MEDS: METOPROLOL TARTRATE 25 MG TABLET PO SCH (21:34)
[2019-08-09] MEDS: traZODone 50 MG TABLET PO SCH (21:35)
[2019-08-09] MEDS ORDERED: MORPHINE 2 MG/ML CARPUJECT IVP PRN (22:27)
[2019-08-10] MEDS: IPRATROPIUM/ALBUTEROL 3 ML NEB INH SCH ×6 (00:53→20:36)
[2019-08-10] MEDS: CHLORHEXIDINE GLUCONATE 15 ML UDC PO SCH ×3 (02:52→21:02)
[2019-08-10 05:31] LABS: BASOPHILS % (AUTO) 0.5 %; HGB - HEMOGLOBIN 15.2 g/dL (14.0-18.0); LYMPHOCYTES # (AUTO) 0.6 10^3/uL (1.5-3.5); MEAN CORPUSCULAR HEMOGLOBIN 31.5 pg (27.0-31.0); MEAN CORPUSCULAR HGB CONC 32.1 g/dL (32.0-36.0); MEAN CORPUSCULAR VOLUME 98.3 fL (80.0-94.0); MEAN PLATELET VOLUME 10.4 fL (7.4-11.4); MONOCYTES # (AUTO) 0.4 10^3/uL (0.0-1.0); MONOCYTES % (AUTO) 4.2 %; NEUTROPHILS # (AUTO) 7.2 10^3/uL (1.5-6.6); NEUTROPHILS % (AUTO) 86.4 %; PLT - PLATELET COUNT 191 10^3/uL (130-450); RED BLOOD COUNT 4.82 10^6/uL (4.70-6.10); RED CELL DISTRIBUTION WIDTH 15.2 % (12.0-15.0); WHITE BLOOD COUNT 8.4 x10^3/uL (4.8-10.8)
[2019-08-10 05:42] LABS: CALCIUM 8.9 mg/dL (8.5-10.3); CREATININE 0.7 mg/dL (0.6-1.2); MAGNESIUM 2.4 mg/dL (1.7-2.8); PHOSPHORUS 4.2 mg/dL (2.5-4.6)
[2019-08-10] MEDS: SODIUM CHLORIDE FLUSH 0.9% 10 ML SYRINGE IVP SCH ×6 (06:39→17:34)
[2019-08-10] MEDS: BUDESONIDE 0.5 MG/2 ML NEB INH SCH ×4 (08:00→20:37)
[2019-08-10] MEDS: ACETAMINOPHEN 325 MG TABLET PO PRN ×2 (08:47→16:49)
[2019-08-10] MEDS: THIAMINE 100 MG TABLET PO SCH (08:47)
[2019-08-10] MEDS: chlordiazePOXIDE 25 MG CAPSULE PO SCH ×2 (08:47→21:03)
[2019-08-10] MEDS: ASPIRIN EC 81 MG TABLET PO SCH (08:48)
[2019-08-10] MEDS: METOPROLOL TARTRATE 25 MG TABLET PO SCH ×2 (08:48→21:02)
[2019-08-10] MEDS: ENOXAPARIN 40 MG/0.4 ML SYRINGE SUBQ SCH (08:48)
[2019-08-10] MEDS: FOLIC ACID 1 MG TABLET PO SCH (08:48)
[2019-08-10] MEDS: amLODIPine 5 MG TABLET PO SCH (08:48)
[2019-08-10] MEDS: methylPREDNISolone SUCCINATE 40 MG/ML VIAL IVP SCH (08:49)
[2019-08-10] MEDS: NICOTINE 14 MG PATCH TOP SCH (08:55)
[2019-08-10] MEDS: buPROPion XL 150 MG TABLET PO SCH (11:10)
--- NOTE | 2019-08-10 15:10 | PROVIDER PROGRESS NOTE ---
Assessment/Plan - Problem List (1) Dyspnea Assessment/Plan: He was more SOB yesterday, wanted the BIPAP on overnight. Will ask for PT eval with oximetry. Will transfer out of ICU today. (2) COPD exacerbation Assessment/Plan: Solumedrol was restarted yesterday (60 mg iv daily) when he was more SOB yesterday. Will change to Prednisone with a tapering schedule. Continue nebs, Singulair and cough meds. Will request an oxygen walk desat study on the day of [facility], probably tomorrow. (3) Alcohol withdrawal Qualifiers: Complication of substance-induced condition: with delirium Qualified Code(s): F10.231 - Alcohol dependence with withdrawal delirium Assessment/Plan: He is off Precedex as of yesterday, no Ativan use for 2 days and he is on Librium tapering down. Will ask for PT eval and if stable will transfer out of ICU. SW regarding alcohol abstension measures. (4) Alcoholism /alcohol abuse Assessment/Plan: As above (5) Current nicotine use Assessment/Plan: He told his RN he wants to quit smoking. Will order po Wellbutrin for help with smoking cessation, start while being watched here for any bad psych side effects. He is already on a Nicotine patch. (6) HTN (hypertension) Assessment/Plan: Stable BP after withdrawal, and on current meds and management. (7) Tachycardia Assessment/Plan: Resolved. - Current Meds Current Meds: Current Medications Generic Name Dose Route Start Last Admin Trade Name Freq PRN Reason Stop Dose Admin Acetaminophen 650 mg 08/04/19 17:54 08/10/19 08:47 Tylenol PO 650 mg Q4HR PRN Administration Pain 1 to 4 Albuterol 2.5 mg 08/04/19 18:25 08/07/19 21:27 INH 2.5 mg RTQ4H PRN Administration Wheezing Albuterol/Ipratropium 3 ml 08/04/19 21:00 08/10/19 13:00 Duoneb INH 3 ml Q4HR MARKY Administration Amlodipine Besylate 10 mg 08/05/19 09:00 08/10/19 08:48 Norvasc PO 10 mg DAILY MARKY Administration Aspirin 81 mg 08/05/19 09:00 08/10/19 08:48 Ecotrin PO 81 mg DAILY MARKY Administration Budesonide 0.5 mg 08/04/19 19:00 08/10/19 08:00 Pulmicort INH 0.5 mg RTBID MARKY Administration Bupropion HCl 150 mg 08/10/19 11:00 08/10/19 11:10 Wellbutrin Xl PO 150 mg DAILY MARKY Administration Chlordiazepoxide HCl 25 mg 08/09/19 21:00 08/10/19 08:47 Librium PO 25 mg BID MARKY Administration Chlorhexidine Gluconate 15 ml 08/06/19 09:00 08/10/19 08:49 Peridex PO 15 ml BID MARKY Administration Enoxaparin Sodium 40 mg 08/05/19 09:00 08/10/19 08:48 Lovenox SUBQ 40 mg DAILY MARKY Administration Folic Acid 1 mg 08/05/19 09:00 08/10/19 08:48 PO 1 mg DAILY MARKY Administration Guaifenesin 100 mg 08/04/19 17:57 08/06/19 09:03 Robitussin Liquid PO 100 mg Q6HR PRN Administration Cough Sodium Chloride 500 mls @ 0 mls/hr 08/07/19 14:54 08/09/19 18:59 Normal Saline 0.9% IV Infused Q24H PRN Infusion TKO RATE TKO Methylprednisolone 60 mg 08/09/19 18:40 08/10/19 08:49 Solu-Medrol (40mg Vial) IVP 60 mg DAILY MARKY Administration Metoprolol Tartrate 25 mg 08/09/19 21:00 08/10/19 08:48 Lopressor PO 25 mg BID MARKY Administration Nicotine 1 patch 08/07/19 09:00 08/10/19 08:55 Nicoderm TOP 1 patch DAILY MARKY Administration Sodium Chloride 10 ml 08/04/19 17:54 08/07/19 14:19 Normal Saline Flush 0.9% IVP 10 ml PRN PRN Administration NEEDED PER PROVIDER ORDERS Sodium Chloride 10 ml 08/05/19 01:00 08/10/19 08:55 Normal Saline Flush 0.9% IVP 10 ml 0100,0900,1700 MARKY Administration Sodium Chloride 10 ml 08/05/19 01:00 08/10/19 10:36 Normal Saline Flush 0.9% IVP Not Given 0100,0900,1700 MARKY Sodium Chloride 10 ml 08/04/19 21:45 08/07/19 11:16 Normal Saline Flush 0.9% IVP 10 ml PRN PRN Administration NEEDED PER PROVIDER ORDERS Thiamine HCl 100 mg 08/05/19 09:00 08/10/19 08:47 Vitamin B-1 PO 100 mg DAILY MARKY Administration Throat Lozenges 1 lozenge 08/06/19 17:15 08/06/19 17:35 Cepacol MM 1 lozenge Q2HR PRN Administration Throat pain Trazodone HCl 50 mg 08/09/19 21:00 08/09/19 21:35 Desyrel PO 50 mg QPM MARKY Administration - Lab Result Fish Bone Diagrams: 08/10/19 05:00 08/10/19 05:00 - Additional Planning My Orders: My Active Orders 08/10/19 Evaluate and Treat PT [PT] Routine 08/10/19 11:00 buPROPion [Wellbutrin Xl] 150 mg PO DAILY 08/10/19 13:54 Transfer [Admit \ Transfer \ Status] [RC] .ONCE Subjective - Subjective Patient Reports: Other (Less SOB, but used the BIPAP overnight.) Objective Vital Signs: Vital Signs - 24 hr 08/09/19 08/09/19 08/09/19 16:00 17:00 18:00 Temperature 37.1 C Heart Rate Heart Rate [ Activity] Heart Rate [ 122 H 123 H 126 H Monitoring electrodes] Respiratory 29 H 29 H 30 H Rate Blood Pressure Blood Pressure [Activity] Blood Pressure [Left] Blood Pressure 121/99 H 102/82 H 121/92 H [Right Brachial artery] O2 Saturation 96 96 94 08/09/19 08/09/19 08/09/19 18:15 18:49 18:53 Temperature Heart Rate 110 H Heart Rate [ Activity] Heart Rate [ 127 H Monitoring electrodes] Respiratory 35 H Rate Blood Pressure 121/92 H Blood Pressure [Activity] Blood Pressure [Left] Blood Pressure 123/80 [Right Brachial artery] O2 Saturation 08/09/19 08/09/19 08/09/19 19:00 19:05 19:10 Temperature Heart Rate Heart Rate [ Activity] Heart Rate [ 103 H 101 H 103 H Monitoring electrodes] Respiratory 37 H Rate Blood Pressure Blood Pressure [Activity] Blood Pressure [Left] Blood Pressure 125/81 H 127/87 H 106/65 [Right Brachial artery] O2 Saturation 97 08/09/19 08/09/19 08/09/19 19:15 19:30 19:45 Temperature Heart Rate Heart Rate [ Activity] Heart Rate [ 101 H 108 H 106 H Monitoring electrodes] Respiratory Rate Blood Pressure Blood Pressure [Activity] Blood Pressure [Left] Blood Pressure 109/94 H 125/91 H 121/83 H [Right Brachial artery] O2 Saturation 08/09/19 08/09/19 08/09/19 20:00 21:00 21:34 Temperature 36.9 C Heart Rate Heart Rate [ Activity] Heart Rate [ 105 H 109 H Monitoring electrodes] Respiratory 36 H 30 H Rate Blood Pressure 142/121 H Blood Pressure [Activity] Blood Pressure [Left] Blood Pressure 131/101 H 142/121 H [Right Brachial artery] O2 Saturation 95 95 08/09/19 08/09/19 08/09/19 21:39 22:00 22:23 Temperature Heart Rate 109 H 102 H Heart Rate [ Activity] Heart Rate [ 94 Monitoring electrodes] Respiratory 22 24 Rate Blood Pressure Blood Pressure [Activity] Blood Pressure [Left] Blood Pressure 113/97 H [Right Brachial artery] O2 Saturation 97 08/09/19 08/10/19 08/10/19 23:00 00:00 00:53 Temperature Heart Rate 88 Heart Rate [ Activity] Heart Rate [ 85 91 Monitoring electrodes] Respiratory 24 24 28 H Rate Blood Pressure Blood Pressure [Activity] Blood Pressure [Left] Blood Pressure 100/78 120/60 [Right Brachial artery] O2 Saturation 96 96 08/10/19 08/10/19 08/10/19 01:00 02:00 03:00 Temperature Heart Rate Heart Rate [ Activity] Heart Rate [ 92 89 93 Monitoring electrodes] Respiratory 22 27 H 28 H Rate Blood Pressure Blood Pressure [Activity] Blood Pressure [Left] Blood Pressure 121/88 H 105/77 115/76 [Right Brachial artery] O2 Saturation 98 90 L 90 L 08/10/19 08/10/19 08/10/19 04:15 04:32 05:00 Temperature Heart Rate 96 Heart Rate [ Activity] Heart Rate [ 95 97 Monitoring electrodes] Respiratory 30 H 23 25 H Rate Blood Pressure Blood Pressure [Activity] Blood Pressure [Left] Blood Pressure 146/78 H 106/70 [Right Brachial artery] O2 Saturation 94 99 08/10/19 08/10/19 08/10/19 06:00 07:00 08:00 Temperature 36.3 C L Heart Rate 102 H Heart Rate [ Activity] Heart Rate [ 106 H 103 H 106 H Monitoring electrodes] Respiratory 17 23 24 Rate Blood Pressure Blood Pressure [Activity] Blood Pressure [Left] Blood Pressure 131/105 H 121/89 H 128/107 H [Right Brachial artery] O2 Saturation 100 100 08/10/19 08/10/19 08/10/19 08:48 09:02 10:00 Temperature Heart Rate Heart Rate [ Activity] Heart Rate [ 111 H 90 Monitoring electrodes] Respiratory 19 22 Rate Blood Pressure 155/132 H Blood Pressure [Activity] Blood Pressure 148/83 H 147/113 H [Left] Blood Pressure [Right Brachial artery] O2 Saturation 96 96 08/10/19 08/10/19 08/10/19 11:00 11:25 12:00 Temperature 36.8 C Heart Rate Heart Rate [ 99 Activity] Heart Rate [ 99 97 Monitoring electrodes] Respiratory 25 H 25 H Rate Blood Pressure Blood Pressure 127/96 H [Activity] Blood Pressure 158/97 H 139/105 H [Left] Blood Pressure [Right Brachial artery] O2 Saturation 97 97 08/10/19 08/10/19 13:00 14:00 Temperature Heart Rate 83 Heart Rate [ Activity] Heart Rate [ 86 86 Monitoring electrodes] Respiratory 24 23 Rate Blood Pressure Blood Pressure [Activity] Blood Pressure 114/71 98/58 L [Left] Blood Pressure [Right Brachial artery] O2 Saturation 94 97 Oxygen O2 Source Room air I&O (Last 24 Hrs): Intake and Output Totals x24h 08/08/19 08/09/19 08/10/19 23:59 23:59 23:59 Intake Total 2277.192 2063.28 880 Output Total 3180 1540 1284 Balance -902.808 523.28 -404 General: Alert, Oriented x3 HEENT: Mucous membr. moist/pink Neck: Supple Neuro: Alert, Non Focal Cardiovascular: Regular rate, No murmurs Respiratory: No respiratory distress, Breath sounds nml Abdomen: Soft Extremities: No edema - Results Results: Laboratory Results WBC 8.4 x10^3/uL (4.8-10.8) 08/10/19 05:00 RBC 4.82 10^6/uL (4.70-6.10) 08/10/19 05:00 Hgb 15.2 g/dL (14.0-18.0) 08/10/19 05:00 Hct 47.4 % (42.0-52.0) 08/10/19 05:00 MCV 98.3 fL (80.0-94.0) H 08/10/19 05:00 MCH 31.5 pg (27.0-31.0) H 08/10/19 05:00 MCHC 32.1 g/dL (32.0-36.0) 08/10/19 05:00 RDW 15.2 % (12.0-15.0) H 08/10/19 05:00 Plt Count 191 10^3/uL (130-450) 08/10/19 05:00 MPV 10.4 fL (7.4-11.4) 08/10/19 05:00 Neut # (Auto) 7.2 10^3/uL (1.5-6.6) H 08/10/19 05:00 Lymph # (Auto) 0.6 10^3/uL (1.5-3.5) L 08/10/19 05:00 [place] # (Auto) 0.4 10^3/uL (0.0-1.0) 08/10/19 05:00 Eos # (Auto) 0.0 10^3/uL (0.0-0.7) 08/10/19 05:00 Baso # (Auto) 0.0 10^3/uL (0.0-0.1) 08/10/19 05:00 Absolute Nucleated RBC 0.00 x10^3/uL 08/10/19 05:00 Nucleated RBC % 0.0 /100WBC 08/10/19 05:00 VBG pH 7.405 (7.31-7.41) 08/06/19 04:20 Ionized Calcium 1.12 mmol/L (1.15-1.33) L 08/06/19 04:20 Sodium 139 mmol/L (135-145) 08/10/19 05:00 Potassium 4.5 mmol/L (3.5-5.0) 08/10/19 05:00 Chloride 101 mmol/L (101-111) 08/10/19 05:00 Carbon Dioxide 27 mmol/L (21-32) 08/10/19 05:00 Anion Gap 11.0 (6-13) 08/10/19 05:00 BUN 20 mg/dL (6-20) 08/10/19 05:00 Creatinine 0.7 mg/dL (0.6-1.2) 08/10/19 05:00 Estimated GFR (MDRD) 115 (>89) 08/10/19 05:00 Glucose 161 mg/dL (70-100) H 08/10/19 05:00 POC Whole Bld Glucose 137 mg/dL (70 - 100) H 08/08/19 12:05 Glycated Hemoglobin 5.6 % (4.6-6.2) 08/08/19 04:49 Estim Average Glucose 114 (70-100) H 08/08/19 04:49 Calcium 8.9 mg/dL (8.5-10.3) 08/10/19 05:00 Phosphorus 4.2 mg/dL (2.5-4.6) 08/10/19 05:00 Magnesium 2.4 mg/dL (1.7-2.8) 08/10/19 05:00 Total Bilirubin 0.6 mg/dL (0.2-1.0) 08/04/19 17:15 AST 29 IU/L (10-42) 08/04/19 17:15 ALT 14 IU/L (10-60) 08/04/19 17:15 Alkaline Phosphatase 127 IU/L (42-121) H 08/04/19 17:15 Troponin I High Sens 10.2 ng/L (2.3-19.7) 08/09/19 18:46 B-Natriuretic Peptide 146 pg/mL (5-100) H 08/10/19 05:00 Total Protein 7.3 g/dL (6.7-8.2) 08/04/19 17:15 Albumin 3.4 g/dL (3.2-5.5) 08/06/19 04:20 Globulin 3.7 g/dL (2.1-4.2) 08/04/19 17:15 Albumin/Globulin Ratio 1.0 (1.0-2.2) 08/04/19 17:15 Lipase 33 U/L (22-51) 08/04/19 17:15 TSH 0.53 uIU/mL (0.34-5.60) 08/07/19 04:44 Nasal Screen MRSA (PCR) NEGATIVE (NEGATIVE) 08/04/19 22:50 Coronavirus (PCR) NEGATIVE 08/04/19 18:33
[2019-08-10] MEDS: traZODone 50 MG TABLET PO SCH (21:02)
[2019-08-11] MEDS: SODIUM CHLORIDE FLUSH 0.9% 10 ML SYRINGE IVP SCH ×4 (02:01→08:28)
[2019-08-11 04:48] LABS: BASOPHILS % (AUTO) 0.3 %; EOSINOPHILS % (AUTO) 0.1 %; HGB - HEMOGLOBIN 12.6 g/dL (14.0-18.0); LYMPHOCYTES # (AUTO) 0.7 10^3/uL (1.5-3.5); MEAN CORPUSCULAR HEMOGLOBIN 31.3 pg (27.0-31.0); MEAN CORPUSCULAR HGB CONC 32.1 g/dL (32.0-36.0); MEAN CORPUSCULAR VOLUME 97.5 fL (80.0-94.0); MEAN PLATELET VOLUME 9.9 fL (7.4-11.4); MONOCYTES # (AUTO) 1.1 10^3/uL (0.0-1.0); MONOCYTES % (AUTO) 11.1 %; NEUTROPHILS # (AUTO) 7.8 10^3/uL (1.5-6.6); NEUTROPHILS % (AUTO) 79.1 %; PLT - PLATELET COUNT 205 10^3/uL (130-450); RED BLOOD COUNT 4.03 10^6/uL (4.70-6.10); RED CELL DISTRIBUTION WIDTH 15.1 % (12.0-15.0); WHITE BLOOD COUNT 9.8 x10^3/uL (4.8-10.8)
[2019-08-11 05:01] LABS: CALCIUM 8.3 mg/dL (8.5-10.3); CREATININE 0.6 mg/dL (0.6-1.2); MAGNESIUM 2.3 mg/dL (1.7-2.8); PHOSPHORUS 3.1 mg/dL (2.5-4.6)
[2019-08-11] MEDS: IPRATROPIUM/ALBUTEROL 3 ML NEB INH SCH (07:26)
[2019-08-11] MEDS: BUDESONIDE 0.5 MG/2 ML NEB INH SCH (07:28)
[2019-08-11 07:29] VITALS: BP 111/96
--- NOTE | 2019-08-11 08:12 | Discharge Plan ---
Discharge Plan Problem Reviewed?: Yes Disposition: Home, Self Care Condition: Stable Prescriptions: buPROPion [Wellbutrin Xl] 150 mg PO DAILY #30 tablet Folic Acid 1 mg PO DAILY #30 tablet Methylprednisolone [Medrol Dose Pack] 1 each PO .PACKAGEINSTRUCTIONS 6 Days #1 each Metoprolol Tartrate [Lopressor] 25 mg PO BID #60 tablet Montelukast [Singulair] 10 mg PO QPM #30 tablet Nicotine 7 mg Patch [Nicoderm] 1 each TOP Q24H #10 patch Thiamine [Vitamin B-1] 100 mg PO DAILY #30 tablet Diet: Regular Activity Restrictions: Activity as Tolerated Shower Restrictions: No Assistance Devices: Walker, Cane Instruction Topics: Bupropion sustained-release tablets smoking cessation, COPD, Breathing Pursed Lip Dc, BiPap About Health Concerns: You were admitted for worsening of your COPD and then you went through alcohol withdrawal. You needed to be in the intensive care unit because your symptoms of withdrawal were so severe. You also needed BiPAP machine to help your lungs. You received nebulizers, steroids and antibiotics. Stop abusing alcohol. Our Magazine Grinder Loader saw you for this, and provided suggestions. Take the medicines as listed. New medicines were electronically sent to your [facility] pharmacy: Methylprednisone to taper down, new Metoprolol for your BP and heart rate, Thiamine and Folate replacement for the alcohol effect and new Wellbutrin for smoking cessation plus a Nicotone patch. Resume all your other medications as pre-hospitalization. Please see your PCP, for hospital follow-up, in the next 1-2 weeks. Plan of Treatment: As above. Care Goals: Improvement in symptoms and stabilization are the goals. Assessment: The patient understands and is agreeable with the plan. Additional Instructions or Follow Up instructions: If you have new or worsening symptoms, call your PCP for advice or come to the ER. No Smoking: If you smoke, Please STOP! Call for help. Follow-up with: Kamini Silveira ARNP [Primary Care Provider] -
[2019-08-11] MEDS: ASPIRIN EC 81 MG TABLET PO SCH (08:17)
[2019-08-11] MEDS: chlordiazePOXIDE 25 MG CAPSULE PO SCH (08:17)
[2019-08-11] MEDS: FOLIC ACID 1 MG TABLET PO SCH (08:17)
[2019-08-11] MEDS: THIAMINE 100 MG TABLET PO SCH (08:17)
[2019-08-11] MEDS: METOPROLOL TARTRATE 25 MG TABLET PO SCH (08:18)
[2019-08-11] MEDS: buPROPion XL 150 MG TABLET PO SCH (08:18)
[2019-08-11] MEDS: amLODIPine 5 MG TABLET PO SCH (08:18)
[2019-08-11] MEDS: NICOTINE 14 MG PATCH TOP SCH (08:19)
[2019-08-11] MEDS: ENOXAPARIN 40 MG/0.4 ML SYRINGE SUBQ SCH (08:20)
[2019-08-11] MEDS: methylPREDNISolone SUCCINATE 40 MG/ML VIAL IVP SCH (08:22)
[2019-08-11] MEDS: CHLORHEXIDINE GLUCONATE 15 ML UDC PO SCH (08:24)
--- NOTE | 2019-08-11 08:28 | DISCHARGE SUMMARY ---
Discharge Summary Admit Date: 08/04/19 Discharge Date: 08/11/19 Discharging Provider: Michelle Rice MD Primary Care Provider: Romina Silveira NP Code Status: Attempt Resuscitation Condition at Discharge: Stable Discharge Disposition: 01 Home, Self Care - HPI History of Present Illness: From the admission H&P of Dr Rubin Yousef: This is a 58-year-old male with past medical history significant for COPD requiring multiple hospitalizations, hypertension, alcohol abuse, current smoker who presents with worsening shortness of breath that began 2 days ago. He reports his dyspnea has progressed over past couple days and has been using his nebulizer every 2 hours without any improvement in his symptoms. He reports no fevers or chills but has had a productive cough. Reports no wheezing but states that he has difficulty taking a deep breath and he feels like he cannot move any air. He does continue to smoke about 1/4 pack of cigarettes a day. He knows that he needs to quit and has been working on cutting down his cigarette consumption. He does also drink "a few beers" a day with his last beverage being yesterday. He reports no chest pain, palpitations, abdominal pain. He does not wear oxygen at baseline. Reports his current symptoms feel like his prior COPD exacerbations and he was most recently hospitalized back in April. He reports this is his fourth exacerbation in this past year. He reports no prior history of DVTs and denies any leg pain or swelling. In the emergency department, he was not hypoxic but he was tachycardic and tachypneic. He was given Solu-Medrol 125 mg IV and multiple nebulizers with only minimal improvement in his symptoms. His labs were unremarkable. Chest x- ray showed no obvious infiltrate. The Hospitalist Team was consulted for admission. I did discuss goals of care the patient he would like to be a full code. - HOSPITAL COURSE Hospital Course: (1) COPD exacerbation He was started on iv steroids, nebulizer treatments and empiric antibiotics. He continued to have significant dyspnea and was placed on BiPAP and moved to the ICU. He then developed tremors and hallucinations and confusion and went into alcohol withdrawal so required Ativan IV prn. The BIPAP continued and he remained in the ICU for 5 days. He was seen by PT and did not require rehab for deconditioning, thus was discharged home not requiring any supplemental oxygen. He was to finish a Medrol dose pack, in order to taper down steroids, and his inhalers were ordered. (2) Alcohol withdrawal He was started on a CIWA protocol with iv Ativan dosing prn, then needed a Precedex drip in the ICU and oral Librium, on a tapering down schedule, to manage tremors, confusion and hallucinations. After 5 days he was out of withdrawal, not dyspneic, FIO2 was titrated down to room air and he was transferred out of the ICU. Social Work saw him regarding alcohol abstension measures. (3) Alcoholism /alcohol abuse He had been drinking as much a a 6-pack of beer daily. He appeared motivated to quit. He had no signs of liver cirrhosis. There was a sister who was his closest family, who was willing to help. He was sent home on new Thiamine and Folate po supplements. (4) Current nicotine use He was put on a Nicotine patch. He told his RN he wants to quit smoking, thus po Wellbutrin was started for smoking cessation, and he was discharged on these. (5) HTN (hypertension) Stable BP after going through alcohol withdrawal, and he was sent home on his amlodipine and new Metoprolol. - ALLERGIES Allergies/Adverse Reactions: Allergies Allergy/AdvReac Type Severity Reaction Status Date / Time lisinopril Allergy Severe Anaphylaxis/Cardiac Verified 08/04/19 17:51 Arrest - MEDICATIONS Home Medications: Ambulatory Orders Medication Instructions Recorded Confirmed Amlodipine Besylate [Norvasc] 10 mg PO DAILY 09/15/18 08/04/19 Aspirin [Aspirin EC] 81 mg PO DAILY 04/28/19 08/04/19 Albuterol 2.5 mg INH Q4H PRN #1 pkg 05/01/19 08/04/19 Albuterol Sulfate [Proair Hfa 1 - 2 puffs INH Q4H PRN #1 inhaler 05/01/19 08/04/19 Inhaler] Budesonide/Formoterol Fumarate 2 puffs INH BID #1 hfa.aer.ad 05/01/19 08/04/19 [Symbicort 160-4.5 Mcg Inhaler] Ipratropium/Albuterol [Duoneb] 3 ml INH Q6H #120 neb 05/01/19 08/04/19 Meloxicam 15 mg PO DAILY PRN 08/04/19 08/04/19 Folic Acid 1 mg PO DAILY #30 tablet 08/11/19 Methylprednisolone [Medrol Dose 1 each PO .PACKAGEINSTRUCTIONS 6 08/11/19 Pack] Days #1 each Metoprolol Tartrate [Lopressor] 25 mg PO BID #60 tablet 08/11/19 Montelukast [Singulair] 10 mg PO QPM #30 tablet 08/11/19 Nicotine 7 mg Patch [Nicoderm] 1 each TOP Q24H #10 patch 08/11/19 Thiamine [Vitamin B-1] 100 mg PO DAILY #30 tablet 08/11/19 buPROPion [Wellbutrin Xl] 150 mg PO DAILY #30 tablet 08/11/19 - PHYSICAL EXAM AT DISCHARGE General Appearance: positive: No acute distress, Other (Hoarse, disheveled, long unkempt perkins.) Eyes Bilateral: positive: Normal inspection, EOMI ENT: positive: ENT inspection nml, No signs of dehydration Neck: positive: Nml inspection, No JVD Respiratory: positive: No respiratory distress, Breath sounds nml Cardiovascular: positive: Regular rate & rhythm, No murmur Abdomen: positive: Non-tender, No distention Skin: positive: Color nml Extremities: positive: No pedal edema Neurologic/Psychiatric: positive: Oriented x3, Other (Non-focal) - LABS Result Diagrams: 08/11/19 04:35 08/11/19 04:35 - FOLLOW UP Follow Up: See PCP for hospital follow-up in the next 1-2 weeks. - TIME SPENT Time Spent in Discharge (Minutes): 45
[2019-08-11] MEDS: SODIUM CHLORIDE FLUSH 0.9% 10 ML SYRINGE IVP PRN (09:25)
== END 2019-08-11 11:07 | disposition home or self-care (01) | DRG 191 ==
LOC: ED 16:44 → MS2 17:54 → ICU 22:37 → MS2 08-11 01:39
PROVIDERS: ADMIT Internal Medicine; ATTEND Internal Medicine
DX: J43.9 Emphysema, unspecified (principal); F17.200 Nicotine dependence, unspecified, uncomplicated; J44.1 Chronic obstructive pulmonary disease with (acute) exacerbation; F10.231 Alcohol dependence with withdrawal delirium; I10 Essential (primary) hypertension; R16.0 Hepatomegaly, not elsewhere classified; T46.1X6A Underdosing of calcium-channel blockers, initial encounter; Y92.009 Unspecified place in unspecified non-institutional (private) residence as the place of occurrence of the external cause; Z20.828 Contact with and (suspected) exposure to other viral communicable diseases; G89.29 Other chronic pain; M54.5 Low back pain; F17.210 Nicotine dependence, cigarettes, uncomplicated; R73.9 Hyperglycemia, unspecified; T38.0X5A Adverse effect of glucocorticoids and synthetic analogues, initial encounter; Y92.230 Patient room in hospital as the place of occurrence of the external cause; R00.0 Tachycardia, unspecified; R06.00 Dyspnea, unspecified; Z79.82 Long term (current) use of aspirin; Z79.51 Long term (current) use of inhaled steroids; Z87.01 Personal history of pneumonia (recurrent)
CPT/HCPCS: 36415; 71045; 71275; 80048; 80053; 82040; 82330; 83036; 83690; 83735; 83880; 84100; 84443; 84484; 85025; 87150; 93005; 93306; 94640; 94660; 96374; 97161; 99284; 99285; A9270; J1650; J2060; J7626; Q9967; U0004; 81599

== ENCOUNTER 2019-08-30 11:36 | Outpatient (CLI) | payer MEDICARE ==
--- NOTE | 2019-08-30 12:18 | CT Report ---
Reason: NICOTINE DEPENDENCE Procedure Date: 08/30/2019 Accession Number: [id number] / [id number] Procedure: CT - Low Dose Lung Cancer Screen CPT Code: Final Report FULL RESULT: PROCEDURE: Low Dose Lung Cancer Screen INDICATIONS: NICOTINE DEPENDENCE TECHNIQUE: Noncontrast low-dose 5 mm thick sections acquired from the pulmonary apices to the posterior costophrenic angles. 7 mm thick coronal and sagittal MIP reformats were then acquired. For radiation dose reduction, the following was used: automated exposure control, adjustment of mA and/or kV according to patient size. COMPARISON: None. FINDINGS: Image quality: Excellent. Lungs and pleura: Mild to moderate emphysematous changes are present. No effusions or consolidations. No nodules or mass lesions. Mediastinum: Heart size is normal. No pericardial effusion. No mediastinal adenopathy by size criteria. Thoracic aorta and central pulmonary arteries are normal in size. Esophagus is normal in caliber. No hiatal hernia. Bones and chest wall: No suspicious bony lesions. No vertebral body compression fractures. No axillary or supraclavicular adenopathy by size criteria. The thyroid is normal in size. Abdomen: Visualized upper abdomen solid organs and bowel loops appear normal in the absence of contrast. IMPRESSION: 1. Emphysematous changes without nodules. Lung rads category 1. Return to annual screening. Reviewed by: Sherin Emerson MD on 08/30/2019 12:17 PM PDT Approved by: Sherin Emerson MD on 08/30/2019 12:17 PM PDT Station ID: [id number]
== END 2019-08-30 11:37 | disposition home or self-care (01) ==
LOC: DI 11:36
PROVIDERS: ATTEND Registered Nurse
DX: Z12.2 Encounter for screening for malignant neoplasm of respiratory organs (principal); J43.9 Emphysema, unspecified; F17.210 Nicotine dependence, cigarettes, uncomplicated
CPT/HCPCS: G0297 ×2

== ENCOUNTER 2019-08-30 12:38 | Emergency (ER) | payer MEDICARE ==
[2019-08-30] MEDS ORDERED: MORPHINE 2 MG/ML CARPUJECT IVP STA ×2 (13:15→13:37)
[2019-08-30] MEDS ORDERED: KETOROLAC 15 MG/ML VIAL IVP STA (13:15)
--- NOTE | 2019-08-30 13:23 | ED Physician Documentation ---
PD HPI UPPER EXT INJURY - Stated complaint Stated Complaint: RT ARM INJURY - Chief complaint Chief Complaint: Trauma Ext - History obtained from History obtained from: Patient - History of Present Illness Location: Right, Shoulder, Elbow Type of injury: Fall Timing - onset: How many days ago (03/25) Timing - duration: Days (03/25) Timing - details: Abrupt onset (he says he lost balance and tripped at 01:30 am and landed against a wall. Struck head and shoulder. Thinks he had LOC up to an hour but not sure on the time of injury per se.) Improved by: Rest Worsened by: Moving, Palpating Associated symptoms: Swelling (forearm on right). No: Weakness, Numbness Similar symptoms before: Diagnosis (has ongoing shoulder pains due to arthritis.) Recently seen: Admitted (for pneumonia and emphysema. Got outpt CT chest today (scheduled) to evaluate improvement and follow up on possible nodule versus infiltrate. He thought he would get shoulder checked out after getting the chest CT today, so came to ER from there.) Review of Systems Constitutional: denies: Fever, Chills Nose: denies: Rhinorrhea / runny nose, Congestion Throat: denies: Sore throat Cardiac: denies: Chest pain / pressure Respiratory: reports: Dyspnea, Wheezing (chronic). denies: Cough GI: denies: Abdominal Pain, Nausea, Vomiting Neurologic: reports: Generalized weakness. denies: Focal weakness, Numbness, Confused, Altered mental status, Headache PD PAST MEDICAL HISTORY - Past Medical History Cardiovascular: Hypertension, Arrhythmia Respiratory: COPD (Screening CT done July 2016 and negative for nodules. Extensive emphysema seen. He asked for and was referred to pulmonary rehab in April 2018. He never showed up after numerous phone call attempts made to make appointments.), Pneumonia (History of pneumonia 2018 and August 2018.), Shortness of breath Neuro: None Endocrine/Autoimmune: None GI: Cirrhosis (Had elevated liver enzymes June 2018. had hepatitis C before she . Liver enzymes negative. Serology negative. Abdominal ultrasound June 30, 2018 showed hepatomegaly, increased liver echogenicity compatible with cirrhosis or fatty liver disease, no common bile duct dilatation.), Other (Chronic alcohol abuse of 6 beers a day. States that he does have severe shakes after 1 to 2 days of no alcohol. No history of seizures or blackouts) : None Psych: None Musculoskeletal: Chronic back pain, Other Derm: None - Past Surgical History Past Surgical History: Yes Ortho: Spine surgery HEENT: Other (Throat sdisryp-olc-rjvrkzwtv polyps removed.) - Present Medications Home Medications: Ambulatory Orders Medication Instructions Recorded Confirmed Amlodipine Besylate [Norvasc] 10 mg PO DAILY 09/15/18 08/04/19 Aspirin [Aspirin EC] 81 mg PO DAILY 04/28/19 08/04/19 Albuterol 2.5 mg INH Q4H PRN #1 pkg 05/01/19 08/04/19 Albuterol Sulfate [Proair Hfa 1 - 2 puffs INH Q4H PRN #1 inhaler 05/01/19 08/04/19 Inhaler] Budesonide/Formoterol Fumarate 2 puffs INH BID #1 hfa.aer.ad 05/01/19 08/04/19 [Symbicort 160-4.5 Mcg Inhaler] Ipratropium/Albuterol [Duoneb] 3 ml INH Q6H #120 neb 05/01/19 08/04/19 Meloxicam 15 mg PO DAILY PRN 08/04/19 08/04/19 Folic Acid 1 mg PO DAILY #30 tablet 08/11/19 Methylprednisolone [Medrol Dose 1 each PO .PACKAGEINSTRUCTIONS 6 08/11/19 Pack] Days #1 each Metoprolol Tartrate [Lopressor] 25 mg PO BID #60 tablet 08/11/19 Montelukast [Singulair] 10 mg PO QPM #30 tablet 08/11/19 Nicotine 7 mg Patch [Nicoderm] 1 each TOP Q24H #10 patch 08/11/19 Thiamine [Vitamin B-1] 100 mg PO DAILY #30 tablet 08/11/19 buPROPion [Wellbutrin Xl] 150 mg PO DAILY #30 tablet 08/11/19 Oxycodone HCl/Acetaminophen 1 each PO Q6H PRN #20 tablet 08/30/19 [Percocet 7.5-325 mg Tablet] dexAMETHasone [Decadron] 4 mg PO DAILY #5 tablet 08/30/19 - Allergies Allergies/Adverse Reactions: Allergies Allergy/AdvReac Type Severity Reaction Status Date / Time lisinopril Allergy Severe Anaphylaxis/Cardiac Verified 08/30/19 12:46 Arrest - Social History Does the pt smoke?: Yes Smoking Status: Current every day smoker Does the pt drink ETOH?: Yes Does the pt have substance abuse?: Yes - Immunizations Immunizations are current?: No - POLST Patient has POLST: No POLST Status: Full Code PD ED PE NORMAL - Vitals Vital signs reviewed: Yes - General General: Alert and oriented X 3, No acute distress, Well developed/nourished - HEENT HEENT: Atraumatic - Neck Neck: Supple, no meningeal sign, No adenopathy - Cardiac Cardiac: RRR, No murmur - Respiratory Respiratory: Clear bilaterally - Abdomen Abdomen: Soft, Non tender - Derm Derm: Normal color, Warm and dry - Extremities Extremities: Other (right forearm with some tenderness and swelling. Most pain is at shoulder with attempted ROM. No noted dislocation nor deformity. Arthritic changes palpable around the AC and shoulder cuff. ) - Neuro Neuro: Alert and oriented X 3, No motor deficit, Normal speech Results - Vitals Vitals: Vital Signs - 24 hr 08/30/19 08/30/19 08/30/19 12:46 13:48 13:49 Temperature 37.0 C Heart Rate 130 H 114 H 98 Respiratory 20 98 H 35 H Rate Blood Pressure 130/78 124/83 H O2 Saturation 92 96 08/30/19 08/30/19 15:00 15:33 Temperature 37.0 C Heart Rate 109 H 104 H Respiratory 28 H 29 H Rate Blood Pressure 130/116 H 104/66 O2 Saturation 91 L 90 L Oxygen O2 Source Room air - Rads (name of study) upper and lower right ext Radiology: Prelim report reviewed (calcified tendonitis shoulder. Arthritic changes. No fractures nor dislocations. ), See rad report PD MEDICAL DECISION MAKING - ED course Complexity details: considered differential (mainly shoulder pain after fall 1 1/2 days ago. Did strike head and dazed few moments. No neuro symptoms. Considered head CT but no ongoing concussive symptoms and shared decision to forego it. Shoulder and elbow arthritis on xrays. No fractures. Can use sling and pain meds. He had jsut had chest CT for different reason, but review of the results shows no noted injury (emphysema changes, no nodules).), d/w patient Departure - Departure Disposition: 01 Home, Self Care Clinical Impression: Accidental fall Qualifiers: Encounter type: initial encounter Qualified Code(s): W19.XXXA - Unspecified fall, initial encounter Shoulder strain Qualifiers: Encounter type: initial encounter Laterality: right Qualified Code(s): S46.911A - Strain of unspecified muscle, fascia and tendon at shoulder and upper arm level, right arm, initial encounter Condition: Stable Record reviewed to determine appropriate education?: Yes Instructions: ED Sprain Shoulder Follow-Up: Kamini Silveira ARNP [Primary Care Provider] - Prescriptions: dexAMETHasone [Decadron] 4 mg PO DAILY #5 tablet Oxycodone HCl/Acetaminophen [Percocet 7.5-325 mg Tablet] 1 each PO Q6H PRN #20 tablet PRN Reason: Pain Comments: Your x-ray does not show any fractures (broken) nor dislocations. You have arthritic changes in the shoulder and elbow. I presume that is hurting more with your fall. Use the sling to help protect the elbow and shoulder. Periodically perform some range of motion of both the elbow and shoulder few times a day so it does not stiffen up. Continue usual medications and inhalers. Percocet pain meds PRN for the shoulder. Discharge Date/Time: 08/30/19 16:04
[2019-08-30] MEDS ORDERED: IPRATROPIUM/ALBUTEROL 3 ML NEB INH STA (13:32)
--- NOTE | 2019-08-30 13:52 | XRAY Report ---
Reason: fall to right arm friday Procedure Date: 08/30/2019 Accession Number: [id number] / [id number] Procedure: XR - Forearm RT CPT Code: Final Report FULL RESULT: PROCEDURE: Forearm RT INDICATIONS: fall to right arm friday TECHNIQUE: 2 views of the forearm were acquired. COMPARISON: Right-sided humerus same day. FINDINGS: Bones: No fractures or dislocations. No suspicious bony lesions. Moderate osteoarthritis is seen at the elbow and also the wrist. Soft tissues: No suspicious soft tissue calcifications or masses. IMPRESSION: No fracture to the visualized radius and ulna. Osteoarthritis at the elbow and wrist, and if dedicated wrist or elbow plain films are warranted additional follow-up should be obtained. Reviewed by: Nate Rosario MD on 08/30/2019 1:51 PM PDT Approved by: Nate Rosario MD on 08/30/2019 1:51 PM PDT Station ID: [id number]
--- NOTE | 2019-08-30 13:54 | XRAY Report ---
Reason: fall to right arm Friday Procedure Date: 08/30/2019 Accession Number: [id number] / [id number] Procedure: XR - Humerus RT CPT Code: Final Report FULL RESULT: PROCEDURE: Humerus RT INDICATIONS: fall to right arm Friday TECHNIQUE: 2 views of the humerus were acquired. COMPARISON: Forearm plain film same day reviewed. FINDINGS: Bones: No fractures or dislocations. No suspicious bony lesions. Note is made of prominent degenerative calcifications overlying the humeral head and acromion, and lateral to the humeral neck in this patient on the frontal projection. Intra-articular loose bodies may be present. The humeral head directly articulates against the undersurface of the acromium indicating presence of full-thickness supraspinatus retracted rotator cuff tear, likely chronic by appearance. Soft tissues: No suspicious soft tissue calcifications. IMPRESSION: No acute trauma found. Chronic degenerative changes and superior subluxation of the humeral head against the undersurface of the acromium as noted. Reviewed by: Nate Rosario MD on 08/30/2019 1:52 PM PDT Approved by: Nate Rosario MD on 08/30/2019 1:52 PM PDT Station ID: [id number]
[2019-08-30] MEDS ORDERED: DEXAMETHASONE 10 MG/ML VIAL IVP STA (15:22)
[2019-08-30] MEDS ORDERED: HYDROmorphone 1 MG/ML CARPUJECT IVP STA (15:22)
[2019-08-30 15:36] VITALS: BP 104/66
== END 2019-08-30 16:04 | disposition home or self-care (01) ==
LOC: ED 12:38
DX: S46.911A Strain of unspecified muscle, fascia and tendon at shoulder and upper arm level, right arm, initial encounter (principal); S09.90XA Unspecified injury of head, initial encounter; W01.198A Fall on same level from slipping, tripping and stumbling with subsequent striking against other object, initial encounter; M19.011 Primary osteoarthritis, right shoulder; M75.31 Calcific tendinitis of right shoulder; M19.021 Primary osteoarthritis, right elbow; M19.031 Primary osteoarthritis, right wrist; J43.9 Emphysema, unspecified; F17.210 Nicotine dependence, cigarettes, uncomplicated; Z12.2 Encounter for screening for malignant neoplasm of respiratory organs; I10 Essential (primary) hypertension; Z79.82 Long term (current) use of aspirin
CPT/HCPCS: 73060; 73090; 94640; 96374; 96375; 99284; G0297; J1170

== ENCOUNTER 2020-03-27 12:53 | Outpatient (CLI) | payer MEDICARE ==
--- NOTE | 2020-03-27 14:17 | CT Report ---
PROCEDURE: Low Dose Lung Cancer Screen INDICATIONS: CURRENT SMOKER TECHNIQUE: Noncontrast low-dose 5 mm thick sections acquired from the pulmonary apices to the posterior costophr enic angles. 7 mm thick coronal and sagittal MIP reformats were then acquired. For radiation dose r eduction, the following was used: automated exposure control, adjustment of mA and/or kV according t o patient size. COMPARISON: Low-dose screening chest CT 08/30/2019. FINDINGS: Image quality: Excellent. Lungs and pleura: Moderate upper lobe predominant centrilobular emphysema. No mass or significant pu lmonary nodules. No acute airspace opacity. No pleural effusion or pneumothorax. Mediastinum: Heart size is within normal limits. Severe coronary artery calcifications in the LAD an d RCA. No pericardial effusion. No mediastinal adenopathy by size criteria. Thoracic aorta and graham tral pulmonary arteries are normal in size. Esophagus is normal in caliber. No hiatal hernia. Bones and chest wall: Subacute left inferior rib fractures which are new in the interval since August 2019. Chronic right-sided rib fractures. Prior sternal fracture. No suspicious bony lesions. No sabina tebral body compression fractures. Scoliosis. No axillary or supraclavicular adenopathy by size crit eria. The thyroid is normal in size. Gynecomastia. Abdomen: Visualized upper abdomen solid organs and bowel loops appear normal in the absence of contr ast. IMPRESSION: 1. No significant pulmonary nodules. Lung RADS 1. -Recommend follow-up low-dose chest CT in 12 months. 2. Moderate upper lobe predominant emphysematous change. 3. Severe coronary artery calcifications in the LAD and RCA. 4. Subacute left inferior rib fractures, new compared to August 2019. 5. Gynecomastia. Reviewed by: Quang Whelan MD on 03/27/2020 1:15 PM [place] Approved by: Quang Whelan MD on 03/27/2020 1:15 PM AKST Station ID: [id number]
== END 2020-03-27 12:54 | disposition home or self-care (01) ==
LOC: DI 12:53
PROVIDERS: ATTEND Registered Nurse
DX: Z12.2 Encounter for screening for malignant neoplasm of respiratory organs (principal); F17.210 Nicotine dependence, cigarettes, uncomplicated; J43.2 Centrilobular emphysema; I25.10 Atherosclerotic heart disease of native coronary artery without angina pectoris; S22.42XA Multiple fractures of ribs, left side, initial encounter for closed fracture; N62 Hypertrophy of breast
CPT/HCPCS: G0297 ×2; 71271

== ENCOUNTER 2020-04-16 19:35 | Outpatient (CLI) | payer MEDICARE | END 2020-04-16 19:36 | disposition critical access hospital (66) | LOC: EMS 19:35 | PROVIDERS: ATTEND Surgery | DX: R06.00 Dyspnea, unspecified (principal); M79.604 Pain in right leg | CPT/HCPCS: A0425; A0427 ==

== ENCOUNTER 2020-04-16 19:41 | Inpatient (IN) | payer MEDICARE ==
[2020-04-16] MEDS ORDERED: methylPREDNISolone SUCCINATE 125 MG/2 ML VIAL IVP STA (19:47)
[2020-04-16] MEDS ORDERED: SODIUM CHLORIDE 0.9% 1,000 ML IV STA (19:47)
--- NOTE | 2020-04-16 19:50 | ED Physician Documentation ---
PD HPI DYSPNEA - Stated complaint Stated Complaint: SOA - Chief complaint Chief Complaint: Ext Problem - History obtained from History obtained from: Patient, EMS - History of Present Illness Timing - onset: How many weeks ago (1) Timing - onset during: Rest Timing - duration: Weeks (4) Timing - details: Gradual onset Pain level max: 0 Inciting event(s): Out of meds (out of albuterol) Improved by: Inhaler/neb, Rest Worsened by: Exertion, Coughing Associated symptoms: Cough, Wheezing. No: Fever, Hemoptysis, Chest pain / discomfort, Palpitations, Diaphoresis, Bilateral edema, Unilateral edema Similar symptoms before: Diagnosis (COPD, smokes 1/2 ppd. marijuana daily as well.) - Additional information Additional information: given combivent inhaler by EMS Review of Systems Ten Systems: 10 systems reviewed and negative Constitutional: denies: Fever, Chills Nose: denies: Rhinorrhea / runny nose, Congestion GI: denies: Vomiting, Diarrhea Skin: denies: Rash Musculoskeletal: reports: Other (states R anterior thigh pain for the past 3 days. no injury). denies: Neck pain, Back pain PD PAST MEDICAL HISTORY - Past Medical History Cardiovascular: Hypertension, Arrhythmia Respiratory: COPD (Screening CT done July 2016 and negative for nodules. Extensive emphysema seen. He asked for and was referred to pulmonary rehab in April 2018. He never showed up after numerous phone call attempts made to make appointments.), Pneumonia (History of pneumonia 2018 and August 2018.), Shortness of breath Neuro: None Endocrine/Autoimmune: None GI: Cirrhosis (Had elevated liver enzymes June 2018. had hepatitis C before she . Liver enzymes negative. Serology negative. Abdominal ultrasound June 30, 2018 showed hepatomegaly, increased liver echogenicity compatible with cirrhosis or fatty liver disease, no common bile duct dilatation.), Other (Chronic alcohol abuse of 6 beers a day. States that he does have severe shakes after 1 to 2 days of no alcohol. No history of seizures or blackouts) : None Psych: None Musculoskeletal: Chronic back pain, Other Derm: None - Past Surgical History Past Surgical History: Yes Ortho: Spine surgery HEENT: Other (Throat qqrafhn-imd-[id number] polyps removed.) - Present Medications Home Medications: Ambulatory Orders Medication Instructions Recorded Confirmed Amlodipine Besylate [Norvasc] 10 mg PO DAILY 09/15/18 04/16/20 Aspirin [Aspirin EC] 81 mg PO DAILY 04/28/19 04/16/20 Albuterol 2.5 mg INH Q4H PRN #1 pkg 05/01/19 04/16/20 Albuterol Sulfate [Proair Hfa 1 - 2 puffs INH Q4H PRN #1 inhaler 05/01/19 04/16/20 Inhaler] Budesonide/Formoterol Fumarate 2 puffs INH BID #1 hfa.aer.ad 05/01/19 04/16/20 [Symbicort 160-4.5 Mcg Inhaler] Ipratropium/Albuterol [Duoneb] 3 ml INH Q6H #120 neb 05/01/19 04/16/20 Folic Acid 1 mg PO DAILY #30 tablet 08/11/19 04/16/20 Methylprednisolone [Medrol Dose 1 each PO .PACKAGEINSTRUCTIONS 6 08/11/19 Pack] Days #1 each Metoprolol Tartrate [Lopressor] 25 mg PO BID #60 tablet 08/11/19 04/16/20 Montelukast [Singulair] 10 mg PO QPM #30 tablet 08/11/19 04/16/20 Thiamine [Vitamin B-1] 100 mg PO DAILY #30 tablet 08/11/19 04/16/20 buPROPion [Wellbutrin Xl] 150 mg PO DAILY #30 tablet 08/11/19 04/16/20 - Allergies Allergies/Adverse Reactions: Allergies Allergy/AdvReac Type Severity Reaction Status Date / Time lisinopril Allergy Severe Anaphylaxis/Cardiac Verified 04/16/20 19:52 Arrest - Social History Does the pt smoke?: Yes Smoking Status: Current every day smoker Does the pt drink ETOH?: Yes Does the pt have substance abuse?: Yes - Immunizations Immunizations are current?: No - POLST Patient has POLST: No POLST Status: Full Code PD ED PE NORMAL - Vitals Vital signs reviewed: Yes - General General: Alert and oriented X 3, Other (tachypneic, smells of cigarette smoke) - HEENT HEENT: PERRL, Moist mucous membranes, Pharynx benign - Neck Neck: Supple, no meningeal sign - Cardiac Cardiac: RRR - Respiratory Respiratory: Other (tachypnea, mod respiratory distress. wheezing B. ) - Abdomen Abdomen: Soft, Non tender, Other (umbilical hernia, reducible) - Derm Derm: Warm and dry - Extremities Extremities: No tenderness to palpate, Normal ROM s pain, No edema, No calf tenderness / cord - Neuro Neuro: Alert and oriented X 3 - Psych Psych: Normal mood Results - Vitals Vitals: Vital Signs - 24 hr 04/16/20 04/16/20 04/16/20 19:40 19:45 20:13 Temperature 36.0 C L 36.0 C L 36.4 C L Heart Rate 106 H 104 H 90 Respiratory 38 H 35 H 35 H Rate Blood Pressure 105/83 H 105/63 113/80 O2 Saturation 99 94 97 04/16/20 04/16/20 04/16/20 20:30 20:31 21:00 Temperature 36.1 C L 36.3 C L Heart Rate 93 98 86 Respiratory 30 H 30 H 24 Rate Blood Pressure 115/104 H 129/83 H O2 Saturation 96 97 04/16/20 21:34 Temperature Heart Rate 98 Respiratory 35 H Rate Blood Pressure O2 Saturation Oxygen O2 Source Nasal cannula - Labs Labs: Laboratory Tests 04/16/20 04/16/20 04/16/20 19:52 19:52 19:52 WBC 6.9 RBC 4.77 Hgb 16.1 Hct 46.2 MCV 96.9 H MCH 33.8 H MCHC 34.8 RDW 18.0 H Plt Count 206 MPV 9.6 Neut # (Auto) 6.1 Lymph # (Auto) 0.7 L [place] # (Auto) 0.1 Eos # (Auto) 0.0 Baso # (Auto) 0.0 Absolute Nucleated RBC 0.00 Nucleated RBC % 0.0 PT INR APTT Sodium 131 L Potassium 3.0 L Chloride 94 L Carbon Dioxide 20 L Anion Gap 17.0 H BUN 18 Creatinine 1.2 Estimated GFR (MDRD) 62 L Glucose 149 H Calcium 8.8 Phosphorus 3.7 Magnesium 1.6 L Total Bilirubin 2.3 H AST 570 H ALT 148 H Alkaline Phosphatase 160 H Troponin I High Sens 25.9 H* B-Natriuretic Peptide Total Protein 7.7 Albumin 3.8 Globulin 3.9 Albumin/Globulin Ratio 1.0 Nasal Adenovirus (PCR) Nasal B. parapertussis DNA (PCR) Nasal Coronavir 229E PCR Nasal Coronavir HKU1 PCR Nasal Coronavir NL63 PCR Nasal Coronavir OC43 PCR Nasal Enterovir/Rhinovir PCR Nasal Influenza B PCR Nasal Influenza A PCR Nasal Parainfluen 1 PCR Nasal Parainfluen 2 PCR Nasal Parainfluen 3 PCR Nasal Parainfluen 4 PCR Nasal RSV (PCR) Nasal B.pertussis DNA PCR Nasal C.pneumoniae (PCR) Kailash Human Metapneumo PCR Nasal M.pneumoniae (PCR) Nasal SARS-CoV-2 (PCR) Ethyl Alcohol 04/16/20 04/16/20 04/16/20 19:52 19:52 20:15 WBC RBC Hgb Hct MCV MCH MCHC RDW Plt Count MPV Neut # (Auto) Lymph # (Auto) [place] # (Auto) Eos # (Auto) Baso # (Auto) Absolute Nucleated RBC Nucleated RBC % PT INR APTT Sodium Potassium Chloride Carbon Dioxide Anion Gap BUN Creatinine Estimated GFR (MDRD) Glucose Calcium Phosphorus Magnesium Total Bilirubin AST ALT Alkaline Phosphatase Troponin I High Sens B-Natriuretic Peptide 383 H Total Protein Albumin Globulin Albumin/Globulin Ratio Nasal Adenovirus (PCR) NOT DETECTED Nasal B. parapertussis DNA (PCR) NOT DETECTED Nasal Coronavir 229E PCR NOT DETECTED Nasal Coronavir HKU1 PCR NOT DETECTED Nasal Coronavir NL63 PCR NOT DETECTED Nasal Coronavir OC43 PCR NOT DETECTED Nasal Enterovir/Rhinovir PCR NOT DETECTED Nasal Influenza B PCR NOT DETECTED Nasal Influenza A PCR NOT DETECTED Nasal Parainfluen 1 PCR NOT DETECTED Nasal Parainfluen 2 PCR NOT DETECTED Nasal Parainfluen 3 PCR NOT DETECTED Nasal Parainfluen 4 PCR NOT DETECTED Nasal RSV (PCR) NOT DETECTED Nasal B.pertussis DNA PCR NOT DETECTED Nasal C.pneumoniae (PCR) NOT DETECTED Kailash Human Metapneumo PCR NOT DETECTED Nasal M.pneumoniae (PCR) NOT DETECTED Nasal SARS-CoV-2 (PCR) NOT DETECTED Ethyl Alcohol < 5.0 04/16/20 20:33 WBC RBC Hgb Hct MCV MCH MCHC RDW Plt Count MPV Neut # (Auto) Lymph # (Auto) [place] # (Auto) Eos # (Auto) Baso # (Auto) Absolute Nucleated RBC Nucleated RBC % PT 14.5 H INR 1.3 H APTT 28.9 Sodium Potassium Chloride Carbon Dioxide Anion Gap BUN Creatinine Estimated GFR (MDRD) Glucose Calcium Phosphorus Magnesium Total Bilirubin AST ALT Alkaline Phosphatase Troponin I High Sens B-Natriuretic Peptide Total Protein Albumin Globulin Albumin/Globulin Ratio Nasal Adenovirus (PCR) Nasal B. parapertussis DNA (PCR) Nasal Coronavir 229E PCR Nasal Coronavir HKU1 PCR Nasal Coronavir NL63 PCR Nasal Coronavir OC43 PCR Nasal Enterovir/Rhinovir PCR Nasal Influenza B PCR Nasal Influenza A PCR Nasal Parainfluen 1 PCR Nasal Parainfluen 2 PCR Nasal Parainfluen 3 PCR Nasal Parainfluen 4 PCR Nasal RSV (PCR) Nasal B.pertussis DNA PCR Nasal C.pneumoniae (PCR) Akilash Human Metapneumo PCR Nasal M.pneumoniae (PCR) Nasal SARS-CoV-2 (PCR) Ethyl Alcohol - Rads (name of study) cxr Radiology: Prelim report reviewed, EMP read contemporaneously, See rad report (Patchy bibasilar atelectasis versus scarring.) PD MEDICAL DECISION MAKING - ED course Complexity details: reviewed results, re-evaluated patient, considered differential, d/w patient ED course: 59-year-old male with a COPD exacerbation. Given albuterol inhalers, Solu- Medrol. Continues to be very short of breath. Covid test is negative. Given nebulizer treatment without relief of symptoms. Patient will need to be admitted for further care. Discussed the case with Dr. Leal, hospitalist who accepts This document was made in part using voice recognition software. While efforts are made to proofread this document, sound alike and grammatical errors may occur. Departure - Departure Disposition: ED Place in Observation Clinical Impression: COPD exacerbation, Alcohol abuse, Elevated LFTs Condition: Stable
[2020-04-16 19:55] LABS: BASOPHILS % (AUTO) 0.1 %; EOSINOPHILS % (AUTO) 0.1 %; HGB - HEMOGLOBIN 16.1 g/dL (14.0-18.0); LYMPHOCYTES # (AUTO) 0.7 10^3/uL (1.5-3.5); LYMPHOCYTES % (AUTO) 9.9 %; MEAN CORPUSCULAR HEMOGLOBIN 33.8 pg (27.0-31.0); MEAN CORPUSCULAR HGB CONC 34.8 g/dL (32.0-36.0); MEAN CORPUSCULAR VOLUME 96.9 fL (80.0-94.0); MEAN PLATELET VOLUME 9.6 fL (7.4-11.4); MONOCYTES # (AUTO) 0.1 10^3/uL (0.0-1.0); NEUTROPHILS # (AUTO) 6.1 10^3/uL (1.5-6.6); NEUTROPHILS % (AUTO) 88.3 %; PLT - PLATELET COUNT 206 10^3/uL (130-450); RED BLOOD COUNT 4.77 10^6/uL (4.70-6.10); WHITE BLOOD COUNT 6.9 x10^3/uL (4.8-10.8)
[2020-04-16] MEDS ORDERED: MAGNESIUM SULFATE 2 GRAM 2 GM/50 ML BAG IV ONE (20:00)
[2020-04-16] MEDS ORDERED: ALBUTEROL 1 PUFF INH STA (20:01)
[2020-04-16 20:11] LABS: ALBUMIN 3.8 g/dL (3.2-5.5); BILIRUBIN,TOTAL 2.3 mg/dL (0.2-1.0); CALCIUM 8.8 mg/dL (8.5-10.3); CREATININE 1.2 mg/dL (0.6-1.2); MAGNESIUM 1.6 mg/dL (1.7-2.8); PHOSPHORUS 3.7 mg/dL (2.5-4.6); TOTAL PROTEIN 7.7 g/dL (6.7-8.2)
--- NOTE | 2020-04-16 20:23 | XRAY Report ---
PROCEDURE: Chest 1 View X-Ray INDICATIONS: dyspnea TECHNIQUE: One view of the chest was acquired. COMPARISON: 08/09/2019 FINDINGS: Surgical changes and devices: None. Lungs and pleura: No pleural effusions or pneumothorax. Patchy bibasilar atelectasis versus scarring . Mediastinum: Mediastinal contours appear normal. Heart size is normal. Bones and chest wall: No suspicious bony lesions. Overlying soft tissues appear unremarkable. IMPRESSION: Patchy bibasilar atelectasis versus scarring. Reviewed by: Wilver Valentin MD on 04/16/2020 8:22 PM PST Approved by: Wilver Valentin MD on 04/16/2020 8:22 PM PST Station ID: [id number]
[2020-04-16 20:52] LABS: INR 1.3 (0.8-1.2); PT - PROTHROMBIN TIME 14.5 secs (9.9-12.6)
[2020-04-16 20:59] LABS: PARTIAL THROMBOPLASTIN TIME 28.9 secs (24.9-33.3)
[2020-04-16 21:12] LABS: C. PNEUMONIAE- RESP PCR PANEL NOT DETECTED
[2020-04-16] MEDS ORDERED: IPRATROPIUM/ALBUTEROL 3 ML NEB INH STA ×2 (21:14→21:22)
[2020-04-16] MEDS ORDERED: ALBUTEROL NEB 2.5 MG/3 ML INH PRN (21:48)
[2020-04-16] MEDS ORDERED: AZITHROMYCIN 250 MG TABLET PO STA (21:53)
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
[2020-04-16 22:16] LABS: ABG PCO2 30 mmHg (34-45); ABG PH 7.42 (7.35-7.45)
[2020-04-16 22:17] LABS: ABG BASE EXCESS -4.1 mmol/L (-2.0-3.0); ABG OXYGEN SATURATION 97 % (94-98); ABG PO2 84 mmHg (80-100); ABG TCO2 19.9 MMOL/L (21.0-29.0); ALLEN TEST POSITIVE
[2020-04-17] MEDS: methylPREDNISolone SUCCINATE 40 MG/ML VIAL IVP SCH ×5 (00:56→20:34)
[2020-04-17] MEDS: SODIUM CHLORIDE FLUSH 0.9% 10 ML SYRINGE IVP SCH ×3 (00:56→17:38)
[2020-04-17] MEDS: HYDROcod/ACETAM 10 MG/325 MG TABLET PO PRN ×5 (01:15→20:34)
[2020-04-17] MEDS: NICOTINE 7 MG PATCH TOP SCH ×2 (02:11→10:31)
[2020-04-17] MEDS: POTASSIUM CHLORIDE 20 MEQ TABLET PO SCH ×4 (02:12→17:38)
[2020-04-17] MEDS: SODIUM CHLORIDE FLUSH 0.9% 10 ML SYRINGE IVP PRN (05:47)
[2020-04-17 06:05] LABS: CREATININE 1.1 mg/dL (0.6-1.2)
[2020-04-17] MEDS: IPRATROPIUM/ALBUTEROL 3 ML NEB INH PRN ×2 (07:12→11:00)
[2020-04-17] MEDS ORDERED: IOVERSOL 320 100 ML VIAL IVP ONE ×2 (07:37→08:34)
--- NOTE | 2020-04-17 08:16 | XRAY Report ---
PROCEDURE: Hip w/Pelvis 2-3V RT INDICATIONS: Pain. TECHNIQUE: AP pelvis with lateral view(s) of the right hip(s). COMPARISON: None. FINDINGS: Bones: No fractures or dislocations. Moderate right hip joint osteoarthritic changes are seen. Geog raphic area of radiolucency with sclerotic margin is seen in weight-bearing portion of right femoral head concerning for avascular necrosis. Pelvic ring appears intact. No suspicious bony lesions. Soft tissues: The visualized bowel gas pattern is normal. No suspicious soft tissue calcifications. IMPRESSION: No acute right hip fracture or dislocation. Moderate right hip joint osteoarthritis with suggestion of avascular necrosis in right femoral head as above. Reviewed by: Andrea Copeland MD on 04/17/2020 8:14 AM PST Approved by: Andrea Copeland MD on 04/17/2020 8:14 AM PST Station ID: [id number]
[2020-04-17] MEDS: amLODIPine 5 MG TABLET PO SCH (08:17)
--- NOTE | 2020-04-17 08:18 | CT Report ---
PROCEDURE: ANGIO CHEST W/WO INDICATIONS: Shortness of breath; elevated d dimer CONTRAST: IV CONTRAST: Optiray 320 ml: 80 PO CONTRAST: *NO PO CONTRAST TECHNIQUE: After the administration of intravenous contrast, 2 mm thick sections acquired from the pulmonary api brittny to the posterior costophrenic angles. 3-dimensional maximum intensity projection (MIP) coronal a nd sagittal reformats were then acquired through the thorax. For radiation dose reduction, the follow ing was used: automated exposure control, adjustment of mA and/or kV according to patient size. COMPARISON: 03/27/2020 CT chest FINDINGS: Image quality: Limited by respiratory motion artifact. Pulmonary arteries: Pulmonary arteries are normal in size, and demonstrate no intraluminal filling d efects to suggest central pulmonary embolism. Lungs and pleura: Moderate to severe upper lobe predominant centrilobular and paraseptal emphysematou s changes. No consolidation. Minimal bibasilar atelectasis. No pleural effusion or other significant pleural abnormality. Mediastinum: Normal heart size. Severe coronary calcification in the left anterior descending and rig ht coronary artery. No pericardial effusion. No sagittal enlarged mediastinal or hilar lymph node. Ca liber thoracic aorta. Bones and chest wall: Remote rib and sternal fractures again noted. No acute osseous finding. Gynecom astia redemonstrated. No threshold enlarged axillary or supraclavicular lymph nodes by CT size criter ia. Uniform thyroid gland attenuation. Abdomen: Visualized upper abdominal solid organs appear normal in the early arterial phase of enhanc ement. IMPRESSION: No pulmonary masses or other acute finding in the chest. Emphysematous changes, coronary calcifications, and other chronic findings as above, all unchanged fr om comparison study. Reviewed by: Timmy Haas MD on 04/17/2020 8:16 AM PST Approved by: Timmy Haas MD on 04/17/2020 8:16 AM PST Station ID: [id number]
--- NOTE | 2020-04-17 10:27 | PROVIDER PROGRESS NOTE ---
Subjective - Prog Note Date Prog Note Date: 04/17/20 - Subjective Subjective: He still feels short of breath. Also complains of abdominal pain. He states his right hip pain is also bothering him and has been present for a few days. Current Medications - Current Medications Current Medications: Active Medications Acetaminophen (Acetaminophen 325 Mg Tablet) 650 mg PO Q4HR PRN PRN Reason: Pain 1 to 4 Hydrocodone Bitart/Acetaminophen (Hydrocod/Acetam 10 Mg/325 Mg Tablet) 1 tab PO Q4HR PRN PRN Reason: Pain 8 to 10 Last Admin: 04/17/20 05:43 Dose: 1 tab Documented by: Albuterol (Albuterol Neb 2.5 Mg/3 Ml) 2.5 mg INH RTQ4H PRN PRN Reason: Wheezing Albuterol/Ipratropium (Ipratropium/Albuterol 3 Ml Neb) 3 ml INH Q4HR PRN PRN Reason: Wheezing Last Admin: 04/17/20 07:12 Dose: 3 ml Documented by: Amlodipine Besylate (Amlodipine 5 Mg Tablet) 10 mg PO DAILY [facility] Last Admin: 04/17/20 08:17 Dose: 10 mg Documented by: Azithromycin (Azithromycin 250 Mg Tablet) 250 mg PO HS MARKY Chlordiazepoxide HCl (Chlordiazepoxide 25 Mg Capsule) 25 mg PO Q6HR [facility] Lactated Ringer's (Lr) 1,000 mls @ 100 mls/hr IV .Q10H [facility] Methylprednisolone (Methylprednisolone Succinate 40 Mg/Ml Vial) 40 mg IVP QID [facility] Last Admin: 04/17/20 08:18 Dose: 40 mg Documented by: Nicotine (Nicotine 7 Mg Patch) 1 patch TOP DAILY [facility] Last Admin: 04/17/20 02:11 Dose: 1 patch Documented by: Potassium Chloride (Potassium Chloride 20 Meq Tablet) 40 meq PO TIDWM [facility] Stop: 04/17/20 17:01 Last Admin: 04/17/20 08:17 Dose: 40 meq Documented by: Sodium Chloride (Sodium Chloride Flush 0.9% 10 Ml Syringe) 10 ml IVP PRN PRN PRN Reason: NEEDED PER PROVIDER ORDERS Last Admin: 04/17/20 05:47 Dose: 10 ml Documented by: Sodium Chloride (Sodium Chloride Flush 0.9% 10 Ml Syringe) 10 ml IVP 0100,0900,1700 [facility] Last Admin: 04/17/20 00:56 Dose: 10 ml Documented by: Amlodipine Besylate [Norvasc] 10 mg PO DAILY 09/15/18 Aspirin [Aspirin EC] 81 mg PO DAILY 04/28/19 Objective - Vital Signs/Intake & Output Reviewed Vital Signs: Yes Vital Signs: Vital Signs x48h Temp Pulse Pulse Resp BP Pulse Ox 04/17/20 07:38 36.3 C L 96 26 H 136/69 H 04/17/20 07:15 108 H 26 H 04/17/20 05:00 36.3 C L 64 28 H 131/79 H 96 04/17/20 04:46 36.0 C L 99 30 H 98 Intake & Output: Intake & Output 04/14/20 04/15/20 04/16/20 04/17/20 23:59 23:59 23:59 23:59 Intake Total 50 Output Total 25 325 Balance 25 -325 - Objective General Appearance: positive: Alert, Mild distress Eyes Bilateral: positive: Normal inspection, Conjunctivae nml ENT: positive: ENT inspection nml Neck: positive: Nml inspection Respiratory: positive: Other (He is tachypneic. Breath sounds are clear thro ughout. No wheezing) Abdomen: positive: Nml bowel sounds, Tenderness (Diffuse tenderness.). negative: Guarding, Rebound Skin: positive: Warm, Dry Extremities: positive: No pedal edema - Lab Results Fish Bones: 04/16/20 19:52 04/17/20 05:20 Other Labs: Lab Results x24hrs 04/17/20 04/17/20 04/17/20 Range/Units 05:20 05:20 05:20 WBC (4.8-10.8) x10^3/uL RBC (4.70-6.10) 10^6/uL Hgb (14.0-18.0) g/dL Hct (42.0-52.0) % MCV (80.0-94.0) fL MCH (27.0-31.0) pg MCHC (32.0-36.0) g/dL RDW (12.0-15.0) % Plt Count (130-450) 10^3/uL MPV (7.4-11.4) fL Neut # (Auto) (1.5-6.6) 10^3/uL Lymph # (Auto) (1.5-3.5) 10^3/uL [place] # (Auto) (0.0-1.0) 10^3/uL Eos # (Auto) (0.0-0.7) 10^3/uL Baso # (Auto) (0.0-0.1) 10^3/uL Absolute Nucleated RBC x10^3/uL Nucleated RBC % /100WBC PT (9.9-12.6) secs INR (0.8-1.2) APTT (24.9-33.3) secs D-Dimer 617.0 H (200.0-255.0) ng/mL Bld Gas Analysis Time Sample Site ABG pH (7.35-7.45) ABG pCO2 (34-45) mmHg ABG pO2 (80-100) mmHg ABG HCO3 (22.0-26.0) mmol/L ABG Total CO2 (21.0-29.0) MMOL/L ABG O2 Saturation (94-98) % ABG Base Excess (-2.0-3.0) mmol/L Jesus Test Room Air Sodium 133 L (135-145) mmol/L Potassium 3.7 (3.5-5.0) mmol/L Chloride 99 L (101-111) mmol/L Carbon Dioxide 20 L (21-32) mmol/L Anion Gap 14.0 H (6-13) BUN 21 H (6-20) mg/dL Creatinine 1.1 (0.6-1.2) mg/dL Estimated GFR (MDRD) 68 L (>89) Glucose 182 H (70-100) mg/dL Calcium 9.0 (8.5-10.3) mg/dL Phosphorus (2.5-4.6) mg/dL Magnesium (1.7-2.8) mg/dL Total Bilirubin (0.2-1.0) mg/dL AST (10-42) IU/L ALT (10-60) IU/L Alkaline Phosphatase (42-121) IU/L Troponin I High Sens (2.3-19.7) ng/L B-Natriuretic Peptide 421 H (5-100) pg/mL Total Protein (6.7-8.2) g/dL Albumin (3.2-5.5) g/dL Globulin (2.1-4.2) g/dL Albumin/Globulin Ratio (1.0-2.2) Nasal Adenovirus (PCR) Nasal B. parapertussis DNA (PCR) Nasal Coronavir 229E PCR Nasal Coronavir HKU1 PCR Nasal Coronavir NL63 PCR Nasal Coronavir OC43 PCR Nasal Enterovir/Rhinovir PCR Nasal Influenza B PCR Nasal Influenza A PCR Nasal Parainfluen 1 PCR Nasal Parainfluen 2 PCR Nasal Parainfluen 3 PCR Nasal Parainfluen 4 PCR Nasal RSV (PCR) Nasal B.pertussis DNA PCR Nasal C.pneumoniae (PCR) Kailash Human Metapneumo PCR Nasal M.pneumoniae (PCR) Nasal SARS-CoV-2 (PCR) Ethyl Alcohol mg/dL 04/16/20 04/16/20 04/16/20 Range/Units 22:05 20:33 20:15 WBC (4.8-10.8) x10^3/uL RBC (4.70-6.10) 10^6/uL Hgb (14.0-18.0) g/dL Hct (42.0-52.0) % MCV (80.0-94.0) fL MCH (27.0-31.0) pg MCHC (32.0-36.0) g/dL RDW (12.0-15.0) % Plt Count (130-450) 10^3/uL MPV (7.4-11.4) fL Neut # (Auto) (1.5-6.6) 10^3/uL Lymph # (Auto) (1.5-3.5) 10^3/uL [place] # (Auto) (0.0-1.0) 10^3/uL Eos # (Auto) (0.0-0.7) 10^3/uL Baso # (Auto) (0.0-0.1) 10^3/uL Absolute Nucleated RBC x10^3/uL Nucleated RBC % /100WBC PT 14.5 H (9.9-12.6) secs INR 1.3 H (0.8-1.2) APTT 28.9 (24.9-33.3) secs D-Dimer (200.0-255.0) ng/mL Bld Gas Analysis Time 2214 Sample Site LEFT RADIAL ABG pH 7.42 (7.35-7.45) ABG pCO2 30 L (34-45) mmHg ABG pO2 84 (80-100) mmHg ABG HCO3 19.0 L (22.0-26.0) mmol/L ABG Total CO2 19.9 L (21.0-29.0) MMOL/L ABG O2 Saturation 97 (94-98) % ABG Base Excess -4.1 L (-2.0-3.0) mmol/L Jesus Test POSITIVE Room Air YES Sodium (135-145) mmol/L Potassium (3.5-5.0) mmol/L Chloride (101-111) mmol/L Carbon Dioxide (21-32) mmol/L Anion Gap (6-13) BUN (6-20) mg/dL Creatinine (0.6-1.2) mg/dL Estimated GFR (MDRD) (>89) Glucose (70-100) mg/dL Calcium (8.5-10.3) mg/dL Phosphorus (2.5-4.6) mg/dL Magnesium (1.7-2.8) mg/dL Total Bilirubin (0.2-1.0) mg/dL AST (10-42) IU/L ALT (10-60) IU/L Alkaline Phosphatase (42-121) IU/L Troponin I High Sens (2.3-19.7) ng/L B-Natriuretic Peptide (5-100) pg/mL Total Protein (6.7-8.2) g/dL Albumin (3.2-5.5) g/dL Globulin (2.1-4.2) g/dL Albumin/Globulin Ratio (1.0-2.2) Nasal Adenovirus (PCR) NOT DETECTED Nasal B. parapertussis DNA (PCR) NOT DETECTED Nasal Coronavir 229E PCR NOT DETECTED Nasal Coronavir HKU1 PCR NOT DETECTED Nasal Coronavir NL63 PCR NOT DETECTED Nasal Coronavir OC43 PCR NOT DETECTED Nasal Enterovir/Rhinovir PCR NOT DETECTED Nasal Influenza B PCR NOT DETECTED Nasal Influenza A PCR NOT DETECTED Nasal Parainfluen 1 PCR NOT DETECTED Nasal Parainfluen 2 PCR NOT DETECTED Nasal Parainfluen 3 PCR NOT DETECTED Nasal Parainfluen 4 PCR NOT DETECTED Nasal RSV (PCR) NOT DETECTED Nasal B.pertussis DNA PCR NOT DETECTED Nasal C.pneumoniae (PCR) NOT DETECTED Kailash Human Metapneumo PCR NOT DETECTED Nasal M.pneumoniae (PCR) NOT DETECTED Nasal SARS-CoV-2 (PCR) NOT DETECTED Ethyl Alcohol mg/dL 04/16/20 04/16/20 04/16/20 Range/Units 19:52 19:52 19:52 WBC (4.8-10.8) x10^3/uL RBC (4.70-6.10) 10^6/uL Hgb (14.0-18.0) g/dL Hct (42.0-52.0) % MCV (80.0-94.0) fL MCH (27.0-31.0) pg MCHC (32.0-36.0) g/dL RDW (12.0-15.0) % Plt Count (130-450) 10^3/uL MPV (7.4-11.4) fL Neut # (Auto) (1.5-6.6) 10^3/uL Lymph # (Auto) (1.5-3.5) 10^3/uL [place] # (Auto) (0.0-1.0) 10^3/uL Eos # (Auto) (0.0-0.7) 10^3/uL Baso # (Auto) (0.0-0.1) 10^3/uL Absolute Nucleated RBC x10^3/uL Nucleated RBC % /100WBC PT (9.9-12.6) secs INR (0.8-1.2) APTT (24.9-33.3) secs D-Dimer (200.0-255.0) ng/mL Bld Gas Analysis Time Sample Site ABG pH (7.35-7.45) ABG pCO2 (34-45) mmHg ABG pO2 (80-100) mmHg ABG HCO3 (22.0-26.0) mmol/L ABG Total CO2 (21.0-29.0) MMOL/L ABG O2 Saturation (94-98) % ABG Base Excess (-2.0-3.0) mmol/L Jesus Test Room Air Sodium (135-145) mmol/L Potassium (3.5-5.0) mmol/L Chloride (101-111) mmol/L Carbon Dioxide (21-32) mmol/L Anion Gap (6-13) BUN (6-20) mg/dL Creatinine (0.6-1.2) mg/dL Estimated GFR (MDRD) (>89) Glucose (70-100) mg/dL Calcium (8.5-10.3) mg/dL Phosphorus (2.5-4.6) mg/dL Magnesium (1.7-2.8) mg/dL Total Bilirubin (0.2-1.0) mg/dL AST (10-42) IU/L ALT (10-60) IU/L Alkaline Phosphatase (42-121) IU/L Troponin I High Sens 25.9 H* (2.3-19.7) ng/L B-Natriuretic Peptide 383 H (5-100) pg/mL Total Protein (6.7-8.2) g/dL Albumin (3.2-5.5) g/dL Globulin (2.1-4.2) g/dL Albumin/Globulin Ratio (1.0-2.2) Nasal Adenovirus (PCR) Nasal B. parapertussis DNA (PCR) Nasal Coronavir 229E PCR Nasal Coronavir HKU1 PCR Nasal Coronavir NL63 PCR Nasal Coronavir OC43 PCR Nasal Enterovir/Rhinovir PCR Nasal Influenza B PCR Nasal Influenza A PCR Nasal Parainfluen 1 PCR Nasal Parainfluen 2 PCR Nasal Parainfluen 3 PCR Nasal Parainfluen 4 PCR Nasal RSV (PCR) Nasal B.pertussis DNA PCR Nasal C.pneumoniae (PCR) Kailash Human Metapneumo PCR Nasal M.pneumoniae (PCR) Nasal SARS-CoV-2 (PCR) Ethyl Alcohol < 5.0 mg/dL 04/16/20 04/16/20 Range/Units 19:52 19:52 WBC 6.9 (4.8-10.8) x10^3/uL RBC 4.77 (4.70-6.10) 10^6/uL Hgb 16.1 (14.0-18.0) g/dL Hct 46.2 (42.0-52.0) % MCV 96.9 H (80.0-94.0) fL MCH 33.8 H (27.0-31.0) pg MCHC 34.8 (32.0-36.0) g/dL RDW 18.0 H (12.0-15.0) % Plt Count 206 (130-450) 10^3/uL MPV 9.6 (7.4-11.4) fL Neut # (Auto) 6.1 (1.5-6.6) 10^3/uL Lymph # (Auto) 0.7 L (1.5-3.5) 10^3/uL [place] # (Auto) 0.1 (0.0-1.0) 10^3/uL Eos # (Auto) 0.0 (0.0-0.7) 10^3/uL Baso # (Auto) 0.0 (0.0-0.1) 10^3/uL Absolute Nucleated RBC 0.00 x10^3/uL Nucleated RBC % 0.0 /100WBC PT (9.9-12.6) secs INR (0.8-1.2) APTT (24.9-33.3) secs D-Dimer (200.0-255.0) ng/mL Bld Gas Analysis Time Sample Site ABG pH (7.35-7.45) ABG pCO2 (34-45) mmHg ABG pO2 (80-100) mmHg ABG HCO3 (22.0-26.0) mmol/L ABG Total CO2 (21.0-29.0) MMOL/L ABG O2 Saturation (94-98) % ABG Base Excess (-2.0-3.0) mmol/L Jesus Test Room Air Sodium 131 L (135-145) mmol/L Potassium 3.0 L (3.5-5.0) mmol/L Chloride 94 L (101-111) mmol/L Carbon Dioxide 20 L (21-32) mmol/L Anion Gap 17.0 H (6-13) BUN 18 (6-20) mg/dL Creatinine 1.2 (0.6-1.2) mg/dL Estimated GFR (MDRD) 62 L (>89) Glucose 149 H (70-100) mg/dL Calcium 8.8 (8.5-10.3) mg/dL Phosphorus 3.7 (2.5-4.6) mg/dL Magnesium 1.6 L (1.7-2.8) mg/dL Total Bilirubin 2.3 H (0.2-1.0) mg/dL AST 570 H (10-42) IU/L ALT 148 H (10-60) IU/L Alkaline Phosphatase 160 H (42-121) IU/L Troponin I High Sens (2.3-19.7) ng/L B-Natriuretic Peptide (5-100) pg/mL Total Protein 7.7 (6.7-8.2) g/dL Albumin 3.8 (3.2-5.5) g/dL Globulin 3.9 (2.1-4.2) g/dL Albumin/Globulin Ratio 1.0 (1.0-2.2) Nasal Adenovirus (PCR) Nasal B. parapertussis DNA (PCR) Nasal Coronavir 229E PCR Nasal Coronavir HKU1 PCR Nasal Coronavir NL63 PCR Nasal Coronavir OC43 PCR Nasal Enterovir/Rhinovir PCR Nasal Influenza B PCR Nasal Influenza A PCR Nasal Parainfluen 1 PCR Nasal Parainfluen 2 PCR Nasal Parainfluen 3 PCR Nasal Parainfluen 4 PCR Nasal RSV (PCR) Nasal B.pertussis DNA PCR Nasal C.pneumoniae (PCR) Kailash Human Metapneumo PCR Nasal M.pneumoniae (PCR) Nasal SARS-CoV-2 (PCR) Ethyl Alcohol mg/dL Assessment/Plan - Problem List (1) COPD exacerbation Impression: He has no wheezing he is not hypoxic but he states he is short of breath and he is tachypneic in the room. He appears more comfortable when observed from outside of the room. CT angiogram was obtained today given elevated D-dimer and this was negative for PE and was overall unremarkable. Given he states he still feels short of breath and is tachypneic, we will keep him another day of IV steroids. We will make him inpatient status. We will hope to discharge him tomorrow. We will start him on antibiotics for COPD exacerbation with ceftriaxone. Continue with duo nebs [id number]. (2) Abdominal pain Impression: Generalized abdominal pain. He has tenderness on exam and what appears to be voluntary guarding. Been made n.p.o. and we are obtaining a right upper quadrant ultrasound. Will consider a CT if his pain does not improve. Continue with oral hydrocodone as needed for pain. He is having bowel movements so doubt obstruction. Check lactic acid. (3) Right hip pain Impression: He complains of right hip pain is been present for 3 days. Denies any trauma. X-ray was obtained today which was concerning for osteonecrosis. He will need outpatient follow-up with orthopedic surgery. Pain control with Tylenol and hydrocodone as needed. (4) Alcohol abuse Impression: History of alcohol abuse and his LFTs are elevated. We will place him on CIWA protocol start him on standing Librium. (5) Elevated LFTs Impression: His LFTs are acutely elevated likely due to his alcohol use. He is n.p.o. for right upper quadrant ultrasound. Will order hepatitis panel as well. (6) Elevated troponin Impression: This is likely demand ischemia. Troponins are mildly elevated and flat. CT angios negative for PE. We will continue to monitor. (7) HTN (hypertension) Impression: His blood pressure is controlled at this time in the 130s on amlodipine which has been resumed. Qualifiers:
[2020-04-17] MEDS: cefTRIAXone 1 GM in SODIUM CHLORIDE 0.9% MINIBAG 100 ML IV SCH (10:41)
[2020-04-17] MEDS ORDERED: ALBUTEROL NEB 2.5 MG/3 ML INH SCH (11:00)
[2020-04-17] MEDS: BUDESONIDE 0.5 MG/2 ML NEB INH SCH ×2 (11:00→19:30)
--- NOTE | 2020-04-17 11:11 | PHARMACY PROGRESS NOTE ---
- Best Possible Medication History Admit Date and Time: 04/17/20 1012 Processed by: Pharmacy Medication History completed: Yes Patient Interview: Completed Secondary Source(s): Physician records, Pharmacy records, Insurance records (PATIENT INTERVIEWED BY [employer]UCATION TEACHER. PATIENT ABLE TO CONFIRM HOME MEDICATIONS ) As the person ultimately responsible for medication therapy, providers are able to order a medication from an existing home medication list in [facility] via the "Reconcile Routine" prior to Confirmation of that medication by help desk support specialist. Such practice is discouraged except when the physician, in their clinical judgment, deems that a medical need exists for a medication without regard to previous use.
[2020-04-17] MEDS ORDERED: ALBUTEROL NEB 2.5 MG/3 ML INH PRN (11:47)
[2020-04-17] MEDS: LACTATED RINGERS 1,000 ML IV SCH ×4 (12:39→22:38)
[2020-04-17] MEDS: chlordiazePOXIDE 25 MG CAPSULE PO SCH ×2 (12:46→17:37)
--- NOTE | 2020-04-17 12:54 | Ultrasound Report ---
PROCEDURE: Abdomen Limited INDICATIONS: cirrhosis fu TECHNIQUE: Real-time scanning was performed of the abdominal and retroperitoneal organs, with image documentatio n. COMPARISON: Abdominal ultrasound 07/01/2018 FINDINGS: Liver: The liver is normal in size. Liver echogenicity is mildly coarsened with mild nodularity of th e liver surface that is suspicious for cirrhosis. A 6 mm simple appearing cyst is seen in the left he patic lobe. Gallbladder: The gallbladder appears normal without gallstones or gallbladder wall thickening. There is no pericholecystic fluid. Sonographic Escobar sign is negative. Biliary ducts: Intrahepatic bile ducts are non-dilated. Extrahepatic bile duct caliber measures 5 m m. Normal is 6-7 mm or less in diameter, or 10 mm or less post-cholecystectomy. Pancreas: Visualized portions of the pancreas are sonographically normal. Right kidney: Right kidney measures 9.4 cm long. No hydronephrosis or nephrolithiasis. No solid m asses. Aorta: Visualized aorta is normal in caliber at less than 3 cm. Iliacs: Proximal common iliac arteries are normal in caliber at less than 2.5 cm. IVC: Intrahepatic inferior vena cava is patent. Miscellaneous: No free right upper quadrant fluid. IMPRESSION: 1. Mild nodularity of the liver surface and coarsened hepatic echotexture is suspicious for mild or early cirrhosis. No solid hepatic mass is seen. 2. No acute abnormality in the right upper quadrant. Reviewed by: Clarence Infante MD on 04/17/2020 12:52 PM PST Approved by: Clarence Infante MD on 04/17/2020 12:52 PM PST Station ID: [id number]
[2020-04-17] MEDS: ACETAMINOPHEN 325 MG TABLET PO PRN (12:57)
[2020-04-17] MEDS: IPRATROPIUM/ALBUTEROL 3 ML NEB INH SCH ×2 (14:47→19:30)
[2020-04-17] MEDS: AZITHROMYCIN 250 MG TABLET PO SCH (20:34)
[2020-04-18] MEDS: HYDROcod/ACETAM 10 MG/325 MG TABLET PO PRN ×4 (00:21→20:27)
[2020-04-18] MEDS: chlordiazePOXIDE 25 MG CAPSULE PO SCH ×4 (00:21→18:33)
[2020-04-18] MEDS: ACETAMINOPHEN 325 MG TABLET PO PRN ×2 (00:22→17:00)
[2020-04-18] MEDS: SODIUM CHLORIDE FLUSH 0.9% 10 ML SYRINGE IVP SCH ×3 (00:24→16:51)
[2020-04-18 05:46] LABS: BASOPHILS % (AUTO) 0.1 %; HGB - HEMOGLOBIN 13.9 g/dL (14.0-18.0); LYMPHOCYTES # (AUTO) 0.3 10^3/uL (1.5-3.5); LYMPHOCYTES % (AUTO) 2.9 %; MEAN CORPUSCULAR HEMOGLOBIN 33.7 pg (27.0-31.0); MEAN CORPUSCULAR HGB CONC 33.5 g/dL (32.0-36.0); MEAN CORPUSCULAR VOLUME 100.7 fL (80.0-94.0); MEAN PLATELET VOLUME 10.2 fL (7.4-11.4); MONOCYTES # (AUTO) 0.1 10^3/uL (0.0-1.0); MONOCYTES % (AUTO) 1.2 %; NEUTROPHILS # (AUTO) 10.3 10^3/uL (1.5-6.6); NEUTROPHILS % (AUTO) 95.2 %; PLT - PLATELET COUNT 201 10^3/uL (130-450); RED BLOOD COUNT 4.12 10^6/uL (4.70-6.10); WHITE BLOOD COUNT 10.8 x10^3/uL (4.8-10.8)
[2020-04-18 06:03] LABS: CALCIUM 9.1 mg/dL (8.5-10.3); CREATININE 1.2 mg/dL (0.6-1.2); MAGNESIUM 2.3 mg/dL (1.7-2.8); PHOSPHORUS 2.9 mg/dL (2.5-4.6)
[2020-04-18 06:16] LABS: PLATELET ESTIMATE, MANUAL NORMAL (130-450,000) (NORMAL); PLATELET MORPHOLOGY NORMAL APPEARANCE (NORMAL); RBC MORPHOLOGY (MULTIPLE) NORMAL APPEARANCE (NORMAL)
[2020-04-18] MEDS: IPRATROPIUM/ALBUTEROL 3 ML NEB INH SCH ×4 (07:30→20:08)
[2020-04-18] MEDS: BUDESONIDE 0.5 MG/2 ML NEB INH SCH ×2 (07:30→20:08)
[2020-04-18] MEDS: NICOTINE 7 MG PATCH TOP SCH (10:02)
[2020-04-18] MEDS: amLODIPine 5 MG TABLET PO SCH (10:03)
[2020-04-18] MEDS: cefTRIAXone 1 GM in SODIUM CHLORIDE 0.9% MINIBAG 100 ML IV SCH (10:04)
[2020-04-18] MEDS: methylPREDNISolone SUCCINATE 40 MG/ML VIAL IVP SCH ×4 (10:04→20:30)
[2020-04-18] MEDS: NYSTATIN 500000 UNITS/5 ML UDC PO SCH ×4 (10:04→20:30)
[2020-04-18] MEDS: LACTATED RINGERS 1,000 ML IV SCH ×2 (10:05→20:30)
[2020-04-18] MEDS: SODIUM CHLORIDE FLUSH 0.9% 10 ML SYRINGE IVP PRN (12:18)
--- NOTE | 2020-04-18 12:46 | PROVIDER PROGRESS NOTE ---
Assessment/Plan - Problem List (1) Odynophagia Assessment/Plan: He was started on empiric treatment for yeast infection with po Nystatin, since he was on steroids. He is getting prophylactic doses for preventing a gastric ulcer. We will obtain a General Surgery consult to do EGD and other recommendations. Since he is having pain with pured food, will de-escalate him to clear liquids. (2) COPD exacerbation Assessment/Plan: He has no wheezing and good air movement but he states he is short of breath and he is tachypneic when a provider enters the room. He appears more comfortable when observed from outside of the room. CT angiogram was obtained because of e levated D-dimer and this was negative for PE and was overall unremarkable. He was made inpatient status yesterday. He was started on antibiotics for COPD exacerbation, using ceftriaxone. Continue another day of IV steroids. Continue with duo nebs scheduled. (3) Right hip pain He complains of right hip pain is been present for 3 days. Denies any trauma. X-ray was obtained yesterday which showed osteonecrosis. He will need outpatient work-up and follow-up with orthopedic surgery. Pain control with Tylenol and hydrocodone as needed. (4) Alcohol abuse History of alcohol abuse and his LFTs were elevated. No tremor as I am examin ing him today. He is on a CIWA protocol and put him on scheduled Librium. Will add daily Thiamine. (5) Elevated LFTs His LFTs are elevated likely due to his alcohol use. He is on clear liquids. We ordered a hepatitis panel as well. (6) Elevated troponin This is likely demand ischemia. Troponins are mildly elevated and flat. CT angios negative for PE. We will continue to monitor. (7) HTN (hypertension) His blood pressure is controlled at this time in the 130s on Amlodipine 10 mg, which has been resumed. - Current Meds Current Meds: Current Medications Generic Name Dose Route Start Last Admin Trade Name Freq PRN Reason Stop Dose Admin Acetaminophen 650 mg 04/16/20 21:38 04/18/20 00:22 Acetaminophen 325 Mg Tablet PO 325 mg Q4HR PRN Administration Pain 1 to 4 Hydrocodone Bitart/Acetaminophen 1 tab 04/16/20 21:38 04/18/20 04:13 Hydrocod/Acetam 10 Mg/325 Mg Tablet PO 1 tab Q4HR PRN Administration Pain 8 to 10 Albuterol 2.5 mg 04/17/20 11:47 04/18/20 00:30 Albuterol Neb 2.5 Mg/3 Ml INH 04/24/20 11:45 2.5 mg RTQ4H PRN Administration Wheezing Albuterol/Ipratropium 3 ml 04/17/20 15:00 04/18/20 11:45 Ipratropium/Albuterol 3 Ml Neb INH 3 ml RTQID MARKY Administration Amlodipine Besylate 10 mg 04/17/20 09:00 04/18/20 10:03 Amlodipine 5 Mg Tablet PO 10 mg DAILY MARKY Administration Azithromycin 250 mg 04/17/20 21:00 04/17/20 20:34 Azithromycin 250 Mg Tablet PO 250 mg HS MARKY Administration Budesonide 0.5 mg 04/17/20 10:54 04/18/20 07:30 Budesonide 0.5 Mg/2 Ml Neb INH 0.5 mg RTBID MARKY Administration Chlordiazepoxide HCl 25 mg 04/17/20 12:00 04/18/20 12:15 Chlordiazepoxide 25 Mg Capsule PO 25 mg Q6HR MARKY Administration Lactated Ringer's 1,000 mls @ 100 mls/hr 04/16/20 22:00 04/18/20 10:35 Lr IV 100 mls/hr .Q10H MARKY Infusion Ceftriaxone Sodium 1 gm/ 100 mls @ 200 mls/hr 04/17/20 11:00 04/18/20 10:35 Sodium Chloride IV Infused DAILY MARKY Infusion Methylprednisolone 40 mg 04/17/20 01:00 04/18/20 12:17 Methylprednisolone Succinate 40 Mg/Ml Vial IVP 40 mg QID MARKY Administration Nicotine 1 patch 04/17/20 01:53 04/18/20 10:02 Nicotine 7 Mg Patch TOP 1 patch DAILY MARKY Administration Nystatin 5 ml 04/18/20 09:00 04/18/20 12:43 Nystatin [id number] Units/5 Ml Udc PO 5 ml QID MARKY Administration Sodium Chloride 10 ml 04/16/20 21:38 04/18/20 12:18 Sodium Chloride Flush 0.9% 10 Ml Syringe IVP 10 ml PRN PRN Administration NEEDED PER PROVIDER ORDERS Sodium Chloride 10 ml 04/17/20 01:00 04/18/20 10:04 Sodium Chloride Flush 0.9% 10 Ml Syringe IVP 10 ml 0100,0900,1700 [facility] Administration - Lab Result Fish Bone Diagrams: 04/18/20 05:20 04/18/20 07:22 - Additional Planning My Orders: My Active Orders 04/18/20 Consult [General Surgery Consult] [CONS] Routine 04/18/20 11:14 Oxygen Desat. Study w/Exercise [RC] .ONCE 04/18/20 Dinner Clear Liquid Diet [DIET] Subjective - Subjective Patient Reports: Pain (He says that pain with swallowing anything has been getting worse over 3 days. He reports retching the day before admission.) Objective Vital Signs: Vital Signs - 24 hr 04/17/20 04/17/20 04/17/20 14:47 15:59 19:30 Temperature 36.3 C L Heart Rate 90 92 Heart Rate [ 52 L Brachial] Respiratory 22 23 22 Rate Blood Pressure 127/74 [Right Brachial artery] O2 Saturation 91 L 04/17/20 04/18/20 04/18/20 20:02 00:21 00:30 Temperature 36.6 C 36.3 C L Heart Rate 81 Heart Rate [ 93 96 Brachial] Respiratory 26 H 24 22 Rate Blood Pressure 144/89 H 140/71 H [Right Brachial artery] O2 Saturation 96 92 04/18/20 04/18/20 04/18/20 04:02 07:30 10:00 Temperature 36.4 C L Heart Rate 89 Heart Rate [ 56 L 83 Brachial] Respiratory 22 20 Rate Blood Pressure 132/89 H 134/94 H [Right Brachial artery] O2 Saturation 92 04/18/20 04/18/20 11:45 11:50 Temperature 36.8 C Heart Rate 90 Heart Rate [ 104 H Brachial] Respiratory 18 20 Rate Blood Pressure 135/87 H [Right Brachial artery] O2 Saturation 97 Oxygen O2 Source Nasal cannula I&O (Last 24 Hrs): Intake and Output Totals x24h 04/16/20 04/17/20 04/18/20 23:59 23:59 23:59 Intake Total 50 2488.333 1320 Output Total 25 725 275 Balance 25 8804.348 7677 General: Alert HEENT: Mucous membr. moist/pink, Other (Has hoarse voice) Neck: Supple Neuro: Alert, Non Focal Cardiovascular: Regular rate Respiratory: No respiratory distress, Breath sounds nml Abdomen: Normal bowel sounds, Soft Extremities: No edema - Results Results: Laboratory Results WBC 10.8 x10^3/uL (4.8-10.8) 04/18/20 05:20 RBC 4.12 10^6/uL (4.70-6.10) L 04/18/20 05:20 Hgb 13.9 g/dL (14.0-18.0) L 04/18/20 05:20 Hct 41.5 % (42.0-52.0) L 04/18/20 05:20 MCV 100.7 fL (80.0-94.0) H 04/18/20 05:20 MCH 33.7 pg (27.0-31.0) H 04/18/20 05:20 MCHC 33.5 g/dL (32.0-36.0) 04/18/20 05:20 RDW 20.0 % (12.0-15.0) H 04/18/20 05:20 Plt Count 201 10^3/uL (130-450) 04/18/20 05:20 MPV 10.2 fL (7.4-11.4) 04/18/20 05:20 Neut # (Auto) 10.3 10^3/uL (1.5-6.6) H 04/18/20 05:20 Lymph # (Auto) 0.3 10^3/uL (1.5-3.5) L 04/18/20 05:20 Rich # (Auto) 0.1 10^3/uL (0.0-1.0) 04/18/20 05:20 Eos # (Auto) 0.0 10^3/uL (0.0-0.7) 04/18/20 05:20 Baso # (Auto) 0.0 10^3/uL (0.0-0.1) 04/18/20 05:20 Absolute Nucleated RBC 0.02 x10^3/uL 04/18/20 05:20 Nucleated RBC % 0.2 /100WBC 04/18/20 05:20 Manual Slide Review Indicated 04/18/20 05:20 WBC Morphology NORMAL APPEARANCE (NORMAL) 04/18/20 05:20 Platelet Estimate NORMAL (130-450,000) (NORMAL) 04/18/20 05:20 Platelet Morphology NORMAL APPEARANCE (NORMAL) 04/18/20 05:20 RBC Morph Micro Appear NORMAL APPEARANCE (NORMAL) 04/18/20 05:20 PT 14.5 secs (9.9-12.6) H 04/16/20 20:33 INR 1.3 (0.8-1.2) H 04/16/20 20:33 APTT 28.9 secs (24.9-33.3) 04/16/20 20:33 D-Dimer 617.0 ng/mL (200.0-255.0) H 04/17/20 05:20 Bld Gas Analysis Time 2214 04/16/20 22:05 Sample Site LEFT RADIAL 04/16/20 22:05 ABG pH 7.42 (7.35-7.45) 04/16/20 22:05 ABG pCO2 30 mmHg (34-45) L 04/16/20 22:05 ABG pO2 84 mmHg (80-100) 04/16/20 22:05 ABG HCO3 19.0 mmol/L (22.0-26.0) L 04/16/20 22:05 ABG Total CO2 19.9 MMOL/L (21.0-29.0) L 04/16/20 22:05 ABG O2 Saturation 97 % (94-98) 04/16/20 22:05 ABG Base Excess -4.1 mmol/L (-2.0-3.0) L 04/16/20 22:05 Jesus Test POSITIVE 04/16/20 22:05 Room Air YES 04/16/20 22:05 Sodium 131 mmol/L (135-145) L 04/18/20 05:20 Potassium 5.9 mmol/L (3.5-5.0) H 04/18/20 07:22 Chloride 100 mmol/L (101-111) L 04/18/20 05:20 Carbon Dioxide 17 mmol/L (21-32) L 04/18/20 05:20 Anion Gap 14.0 (6-13) H 04/18/20 05:20 BUN 29 mg/dL (6-20) H 04/18/20 05:20 Creatinine 1.2 mg/dL (0.6-1.2) 04/18/20 05:20 Estimated GFR (MDRD) 62 (>89) L 04/18/20 05:20 Glucose 139 mg/dL (70-100) H 04/18/20 05:20 Lactic Acid 2.0 mmol/L (0.5-2.2) 04/17/20 11:05 Calcium 9.1 mg/dL (8.5-10.3) 04/18/20 05:20 Phosphorus 2.9 mg/dL (2.5-4.6) 04/18/20 05:20 Magnesium 2.3 mg/dL (1.7-2.8) 04/18/20 05:20 Total Bilirubin 2.3 mg/dL (0.2-1.0) H 04/16/20 19:52 AST 570 IU/L (10-42) H 04/16/20 19:52 ALT 148 IU/L (10-60) H 04/16/20 19:52 Alkaline Phosphatase 160 IU/L (42-121) H 04/16/20 19:52 Troponin I High Sens 25.9 ng/L (2.3-19.7) H* 04/16/20 19:52 B-Natriuretic Peptide 421 pg/mL (5-100) H 04/17/20 05:20 Total Protein 7.7 g/dL (6.7-8.2) 04/16/20 19:52 Albumin 3.8 g/dL (3.2-5.5) 04/16/20 19:52 Globulin 3.9 g/dL (2.1-4.2) 04/16/20 19:52 Albumin/Globulin Ratio 1.0 (1.0-2.2) 04/16/20 19:52 Nasal Adenovirus (PCR) NOT DETECTED 04/16/20 20:15 Nasal B. parapertussis DNA (PCR) NOT DETECTED 04/16/20 20:15 Nasal Coronavir 229E PCR NOT DETECTED 04/16/20 20:15 Nasal Coronavir HKU1 PCR NOT DETECTED 04/16/20 20:15 Nasal Coronavir NL63 PCR NOT DETECTED 04/16/20 20:15 Nasal Coronavir OC43 PCR NOT DETECTED 04/16/20 20:15 Nasal Enterovir/Rhinovir PCR NOT DETECTED 04/16/20 20:15 Nasal Influenza B PCR NOT DETECTED 04/16/20 20:15 Nasal Influenza A PCR NOT DETECTED 04/16/20 20:15 Nasal Parainfluen 1 PCR NOT DETECTED 04/16/20 20:15 Nasal Parainfluen 2 PCR NOT DETECTED 04/16/20 20:15 Nasal Parainfluen 3 PCR NOT DETECTED 04/16/20 20:15 Nasal Parainfluen 4 PCR NOT DETECTED 04/16/20 20:15 Nasal RSV (PCR) NOT DETECTED 04/16/20 20:15 Nasal B.pertussis DNA PCR NOT DETECTED 04/16/20 20:15 Nasal C.pneumoniae (PCR) NOT DETECTED 04/16/20 20:15 Kailash Human Metapneumo PCR NOT DETECTED 04/16/20 20:15 Nasal M.pneumoniae (PCR) NOT DETECTED 04/16/20 20:15 Nasal SARS-CoV-2 (PCR) NOT DETECTED 04/16/20 20:15 Ethyl Alcohol < 5.0 mg/dL 04/16/20 19:52
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
[2020-04-18] MEDS: BENZOCAINE/MENTHOL LOZENGE MM PRN (14:03)
[2020-04-18] MEDS: THIAMINE INJ 100 MG in SODIUM CHLORIDE 0.9% 50 ML IV SCH ×2 (18:34→18:42)
[2020-04-18] MEDS: AZITHROMYCIN 250 MG TABLET PO SCH (20:29)
[2020-04-19] MEDS: chlordiazePOXIDE 25 MG CAPSULE PO SCH ×4 (02:51→21:13)
[2020-04-19] MEDS: ACETAMINOPHEN 325 MG TABLET PO PRN (03:03)
[2020-04-19] MEDS: SODIUM CHLORIDE FLUSH 0.9% 10 ML SYRINGE IVP SCH ×3 (03:07→17:44)
[2020-04-19 05:48] LABS: BASOPHILS % (AUTO) 0.2 %; HGB - HEMOGLOBIN 13.3 g/dL (14.0-18.0); LYMPHOCYTES % (AUTO) 1.7 %; MEAN CORPUSCULAR HEMOGLOBIN 33.5 pg (27.0-31.0); MEAN CORPUSCULAR VOLUME 98.5 fL (80.0-94.0); MEAN PLATELET VOLUME 11.6 fL (7.4-11.4); MONOCYTES % (AUTO) 2.3 %; PLT - PLATELET COUNT 115 10^3/uL (130-450); RED BLOOD COUNT 3.97 10^6/uL (4.70-6.10); RED CELL DISTRIBUTION WIDTH 20.1 % (12.0-15.0); WHITE BLOOD COUNT 9.5 x10^3/uL (4.8-10.8)
[2020-04-19 05:52] LABS: CALCIUM 8.8 mg/dL (8.5-10.3); CREATININE 0.8 mg/dL (0.6-1.2); MAGNESIUM 2.2 mg/dL (1.7-2.8)
[2020-04-19 06:14] LABS: ABNORMAL LYMPHS % (MANUAL) 0 %; BAND NEUTROPHILS % (MANUAL) 0 %
[2020-04-19] MEDS: LACTATED RINGERS 1,000 ML IV SCH ×2 (06:19→17:49)
[2020-04-19 06:30] LABS: LYMPHOCYTES % (MANUAL) 11 %; MONOCYTES # (MANUAL) 0.1 10^3/uL (0.0-1.0); PLATELET ESTIMATE, MANUAL DECREASED (<130,000) (NORMAL)
[2020-04-19 06:44] LABS: DIFFERENTIAL COMMENT MANUAL DIFFERENTIAL
[2020-04-19] MEDS: BUDESONIDE 0.5 MG/2 ML NEB INH SCH ×2 (07:30→19:09)
[2020-04-19] MEDS: IPRATROPIUM/ALBUTEROL 3 ML NEB INH SCH ×4 (07:30→19:09)
[2020-04-19] MEDS: BENZOCAINE/MENTHOL LOZENGE MM PRN (08:14)
[2020-04-19] MEDS: amLODIPine 5 MG TABLET PO SCH (08:14)
[2020-04-19] MEDS: NICOTINE 7 MG PATCH TOP SCH (08:14)
[2020-04-19] MEDS: NYSTATIN 500000 UNITS/5 ML UDC PO SCH ×4 (08:15→21:13)
[2020-04-19] MEDS: methylPREDNISolone SUCCINATE 40 MG/ML VIAL IVP SCH ×4 (08:15→21:13)
[2020-04-19] MEDS: HYDROcod/ACETAM 10 MG/325 MG TABLET PO PRN ×3 (08:15→18:36)
[2020-04-19] MEDS: cefTRIAXone 1 GM in SODIUM CHLORIDE 0.9% MINIBAG 100 ML IV SCH (08:18)
[2020-04-19] MEDS: polyethylene glycoL 3350 17 GM PACKET PO SCH (08:22)
[2020-04-19 12:23] LABS: HEPATITIS A IGM NON-REACTIVE (NON-REACTIVE); HEPATITIS B SURFACE ANTIGEN NON-REACTIVE (NON-REACTIVE); HEPATITIS C ANTIBODY NON-REACTIVE (NON-REACTIVE)
--- NOTE | 2020-04-19 12:53 | CONSULTATION NOTE ---
Consultation Report: Anesthesia called to see patient prior to scheduled EGD with Dr. Andersen. Patient appears in great work of breathing, unable to speak clearly through breaths, tachypnic, sitting upright in chair with O2 in place, complaints of right leg/hip pain. I feel the patient would not tolerate sedation for EGD and would more than likely need to be intubated and unsure if patient would be able to be extubated safely. I don't feel like patient should undergo anesthesia at this time.
[2020-04-19] MEDS: SODIUM CHLORIDE FLUSH 0.9% 10 ML SYRINGE IVP PRN (12:54)
--- NOTE | 2020-04-19 14:03 | PROVIDER PROGRESS NOTE ---
Progress Note Follow-up: Patient had been consulted by general surgery for dysphagia and isolated hematemesis. Patient was admitted for COPD exacerbation. When patient was first consulted he had significant dyspnea. Anesthesia was consulted for evaluation preoperatively. After lengthy discussion with product development specialist, it was decided that this patient's significant respiratory debility and likely acute on chronic exacerbation of COPD precludes his being safely evaluated by upper endoscopy at our facility given associated risks of pulmonary complications and airway risks during endoscopic evaluation. I believe at this time that with the patient's symptoms and multiple comorbid states which also include CHF, alcohol use and abuse, significant history of tobacco use, the above listed COPD, amongst others, that necessary endoscopy should be performed through referral to a tertiary care facility that has in- house pulmonology, account executive healthcare, health service worker, amongst others. Although we could proceed with monitored anesthesia care airway risk are prohibitive and if we proceed with intubation I doubt we have the capacity to manage his respiratory cripple without the next necessary expertise of in-house pulmonary critical care staff. This was discussed with the patient as well as the hospital service. Please note that voice recognition software was used to transcribe this note and inadvertent errors might persist in spite of review and editing. I am obliged to you for your attention. I am thankful to you for allowing me to participate with you in this care of this patient.
--- NOTE | 2020-04-19 18:41 | PROVIDER PROGRESS NOTE ---
Assessment/Plan - Problem List (1) Odynophagia Assessment/Plan: Since he was having pain with pured food, will de-escalate him to clear liquids. He was started on empiric treatment for yeast infection with po Nystatin, since he has been on steroids. He is getting prophylactic doses for preventing a gastric ulcer. He had General Surgery consult and needs EGD. When he was seen by anesthesia for preop evaluation, he was felt to be too high risk to have conscious sedation done here because of his severe COPD and recommendations by general surgery were to transfer him for procedure at a higher level of care. I have reached out to [facility] where he has a airline transport pilot and non destructive testing engineer. I have asked for transfer to their Hospitalist service and needs GI evaluation for an EGD. We are still waiting for a call back from [facility]. The patient's second choice is to go to [facility] where he had spinal surgery. (2) COPD exacerbation Assessment/Plan: He has no wheezing and good air movement but he states he is short of breath and he is tachypneic when a provider enters the room. He appears more comfortable when observed from outside of the room. CT angiogram was obtained because of elevated D-dimer and this was negative for PE and was overall unremarkable. He was made inpatient status yesterday. He was started on antibiotics for COPD exacerbation, using ceftriaxone. Continue another day of IV steroids. Continue with duo nebs scheduled. (3) Right hip pain He complains of right hip pain is been present for 3 days. Denies any trauma. X-ray was obtained yesterday which showed osteonecrosis. He will need outpatient work-up and follow-up with orthopedic surgery. Pain control with Tylenol and hydrocodone as needed. (4) Alcohol abuse History of alcohol abuse and his LFTs were elevated. No tremor as I am examining him today. He is on a CIWA protocol and put him on scheduled Librium. Will add daily Thiamine. (5) Elevated LFTs His LFTs are elevated likely due to his alcohol use. He is on clear liquids. We ordered a hepatitis panel as well. (6) Elevated troponin This is likely demand ischemia. Troponins are mildly elevated and flat. CT angios negative for PE. We will continue to monitor. (7) HTN (hypertension) His blood pressure is controlled at this time in the 130s on Amlodipine 10 mg, which has been resumed. (2) COPD exacerbation Assessment/Plan: He has good air movement and clear lung hernández with no wheezing but he does appear mildly short of breath at rest with talking. We will continue with scheduled nebulizers, IV steroids and pulmonary toilet and supplemental oxygen. We will cancel the oximetry test with exercise, since he will need transfer for the above work-up, and not discharge home. (3) Right hip pain Assessment/Plan: He complains of right hip pain present for 3 days. Denies any trauma. X-ray was obtained which showed osteonecrosis. He will need outpatient work-up and follow-up with orthopedic surgery. he was seen by the exterior interior specialist Paula, who wanted to arrange for him an orthopedic appointment and he refused to work with Paula benjamin. Pain control with Tylenol and hydrocodone as needed. (4) Alcohol abuse History of alcohol abuse and his LFTs were elevated. There is tremor as I am examining him today, but he is more somnolent and slower to answer. He is on a CIWA protocol and was put him on scheduled Librium 25 mg po q6h. Daily Thiamine was started. Will decrease his scheduled Librium to every 12 hours for a tapering schedule (5) Elevated LFTs His LFTs are elevated likely due to his alcohol use. He is on clear liquids. Awaiting results of a hepatitis panel as well. (6) HTN (hypertension) His blood pressure is controlled on Amlodipine 10 mg, which has been resumed. (6) Elevated troponin This was likely demand ischemia. Troponins were mildly elevated and flat. CT angio was negative for PE. - Current Meds Current Meds: Current Medications Generic Name Dose Route Start Last Admin Trade Name Freq PRN Reason Stop Dose Admin Acetaminophen 650 mg 04/16/20 21:38 04/19/20 03:03 Acetaminophen 325 Mg Tablet PO 650 mg Q4HR PRN Administration Pain 1 to 4 Hydrocodone Bitart/Acetaminophen 1 tab 04/16/20 21:38 04/19/20 18:36 Hydrocod/Acetam 10 Mg/325 Mg Tablet PO 1 tab Q4HR PRN Administration Pain 8 to 10 Albuterol 2.5 mg 04/17/20 11:47 04/18/20 00:30 Albuterol Neb 2.5 Mg/3 Ml INH 04/24/20 11:45 2.5 mg RTQ4H PRN Administration Wheezing Albuterol/Ipratropium 3 ml 04/17/20 15:00 04/19/20 15:15 Ipratropium/Albuterol 3 Ml Neb INH 3 ml RTQID MARKY Administration Amlodipine Besylate 10 mg 04/17/20 09:00 04/19/20 08:14 Amlodipine 5 Mg Tablet PO 10 mg DAILY MARKY Administration Azithromycin 250 mg 04/17/20 21:00 04/18/20 20:29 Azithromycin 250 Mg Tablet PO 250 mg HS MARKY Administration Budesonide 0.5 mg 04/17/20 10:54 04/19/20 07:30 Budesonide 0.5 Mg/2 Ml Neb INH 0.5 mg RTBID MARKY Administration Lactated Ringer's 1,000 mls @ 100 mls/hr 04/16/20 22:00 04/19/20 17:49 Lr IV 100 mls/hr .Q10H MARKY Administration Ceftriaxone Sodium 1 gm/ 100 mls @ 200 mls/hr 04/17/20 11:00 04/19/20 08:55 Sodium Chloride IV Infused DAILY MARKY Infusion Thiamine HCl 100 mg/ Sodium 51 mls @ 100 mls/hr 04/18/20 19:00 04/18/20 19:13 Chloride IV Infused Q24H MARKY Infusion Methylprednisolone 40 mg 04/17/20 01:00 04/19/20 17:44 Methylprednisolone Succinate 40 Mg/Ml Vial IVP 40 mg QID MARKY Administration Nicotine 1 patch 04/17/20 01:53 04/19/20 08:14 Nicotine 7 Mg Patch TOP 1 patch DAILY MARKY Administration Nystatin 5 ml 04/18/20 09:00 04/19/20 17:43 Nystatin 915397 Units/5 Ml Udc PO 5 ml QID MARKY Administration Polyethylene Glycol 17 gm 04/19/20 09:00 04/19/20 08:22 Polyethylene Glycol 3350 17 Gm Packet PO 17 gm DAILY MARKY Administration Sodium Chloride 10 ml 04/16/20 21:38 04/19/20 12:54 Sodium Chloride Flush 0.9% 10 Ml Syringe IVP 10 ml PRN PRN Administration NEEDED PER PROVIDER ORDERS Sodium Chloride 10 ml 04/17/20 01:00 04/19/20 17:44 Sodium Chloride Flush 0.9% 10 Ml Syringe IVP Not Given 0100,0900,1700 MARKY Throat Lozenges 1 lozenge 04/18/20 13:59 04/19/20 08:14 Benzocaine/Menthol Lozenge MM 1 lozenge Q2HR PRN Administration Throat pain - Lab Result Fish Bone Diagrams: 04/19/20 05:15 04/19/20 05:15 - Additional Planning My Orders: My Active Orders 04/18/20 19:00 Thiamine Inj [Vitamin B-1 Inj] 100 mg Sodium Chloride 0.9% [Normal Saline 0.9%] 50 ml IV Q24H 04/19/20 Lunch Clear Liquid Diet [DIET] 04/19/20 21:00 [email or web address] [Librium] 25 mg PO BID Subjective - Subjective Patient Reports: Other (He has been n.p.o. for half the day therefore no pain since he is not swallowing food.) Objective Vital Signs: Vital Signs - 24 hr 04/18/20 04/18/20 04/19/20 20:09 23:28 03:47 Temperature 36.5 C 36.6 C Heart Rate 88 Heart Rate [ 87 84 Brachial] Respiratory 20 20 20 Rate Blood Pressure [Left Brachial artery] Blood Pressure 124/96 H 144/89 H [Right Brachial artery] O2 Saturation 95 93 04/19/20 04/19/20 04/19/20 07:20 07:30 11:15 Temperature 36.4 C L Heart Rate 79 84 Heart Rate [ 91 Brachial] Respiratory 22 20 20 Rate Blood Pressure [Left Brachial artery] Blood Pressure 148/88 H [Right Brachial artery] O2 Saturation 95 04/19/20 04/19/20 04/19/20 11:17 15:15 15:54 Temperature 36.2 C L 36.7 C Heart Rate 90 Heart Rate [ 90 92 Brachial] Respiratory 20 18 16 Rate Blood Pressure 123/85 H [Left Brachial artery] Blood Pressure 133/91 H [Right Brachial artery] O2 Saturation 92 92 Oxygen O2 Source Nasal cannula I&O (Last 24 Hrs): Intake and Output Totals x24h 04/17/20 04/18/20 04/19/20 23:59 23:59 23:59 Intake Total 2488.333 2602.667 2081.667 Output Total 725 1025 1200 Balance 5968.411 3110.667 881.667 General: Alert (He is more somnolent than yesterday and answers more slowly) HEENT: Other (Very dry oral mucosa) Neck: Supple (Voice is still hoarse) Neuro: Alert, Non Focal, Other (He has a fine resting tremor of his hands) Cardiovascular: Regular rate Respiratory: No respiratory distress, Breath sounds nml Abdomen: Normal bowel sounds, Soft Extremities: No edema - Results Results: Laboratory Results WBC 9.5 x10^3/uL (4.8-10.8) 04/19/20 05:15 RBC 3.97 10^6/uL (4.70-6.10) L 04/19/20 05:15 Hgb 13.3 g/dL (14.0-18.0) L 04/19/20 05:15 Hct 39.1 % (42.0-52.0) L 04/19/20 05:15 MCV 98.5 fL (80.0-94.0) H 04/19/20 05:15 MCH 33.5 pg (27.0-31.0) H 04/19/20 05:15 MCHC 34.0 g/dL (32.0-36.0) 04/19/20 05:15 RDW 20.1 % (12.0-15.0) H 04/19/20 05:15 Plt Count 115 10^3/uL (130-450) L 04/19/20 05:15 MPV 11.6 fL (7.4-11.4) H 04/19/20 05:15 Neut # (Auto) WASHER OPERATOR 04/19/20 05:15 Lymph # (Auto) WASHER OPERATOR 04/19/20 05:15 [place] # (Auto) WASHER OPERATOR 04/19/20 05:15 Eos # (Auto) WASHER OPERATOR 04/19/20 05:15 Baso # (Auto) WASHER OPERATOR 04/19/20 05:15 Absolute Nucleated RBC WASHER OPERATOR 04/19/20 05:15 Total Counted 100 04/19/20 05:15 Band Neuts % (Manual) 0 % (0-10) 04/19/20 05:15 Abnorm Lymph % (Manual) 0 % 04/19/20 05:15 Nucleated RBC % WASHER OPERATOR 04/19/20 05:15 Neutrophils # (Manual) 8.4 10^3/uL (1.5-6.6) H 04/19/20 05:15 Lymphocytes # (Manual) 1.0 10^3/uL (1.5-3.5) L 04/19/20 05:15 Monocytes # (Manual) 0.1 10^3/uL (0.0-1.0) 04/19/20 05:15 Eosinophils # (Manual) 0.0 10^3/uL (0-0.7) 04/19/20 05:15 Basophils # (Manual) 0.0 10^3/uL (0-0.1) 04/19/20 05:15 Differential Comment MANUAL DIFFERENTIAL 04/19/20 05:15 Manual Slide Review Indicated 04/18/20 05:20 WBC Morphology NORMAL APPEARANCE (NORMAL) 04/18/20 05:20 Platelet Estimate DECREASED (<130,000) (NORMAL) 04/19/20 05:15 Platelet Morphology NORMAL APPEARANCE (NORMAL) 04/18/20 05:20 RBC Morph Micro Appear 1+ ANISOCYTOSIS (NORMAL) 1+ OVALOCYTES (NORMAL) 04/19/20 05:15 RBC Morph Micro Appear 1+ ANISOCYTOSIS (NORMAL) 1+ OVALOCYTES (NORMAL) 04/19/20 05:15 PT 14.5 secs (9.9-12.6) H 04/16/20 20:33 INR 1.3 (0.8-1.2) H 04/16/20 20:33 APTT 28.9 secs (24.9-33.3) 04/16/20 20:33 D-Dimer 617.0 ng/mL (200.0-255.0) H 04/17/20 05:20 Bld Gas Analysis Time 221304/16/20 22:05 Sample Site LEFT RADIAL 04/16/20 22:05 ABG pH 7.42 (7.35-7.45) 04/16/20 22:05 ABG pCO2 30 mmHg (34-45) L 04/16/20 22:05 ABG pO2 84 mmHg (80-100) 04/16/20 22:05 ABG HCO3 19.0 mmol/L (22.0-26.0) L 04/16/20 22:05 ABG Total CO2 19.9 MMOL/L (21.0-29.0) L 04/16/20 22:05 ABG O2 Saturation 97 % (94-98) 04/16/20 22:05 ABG Base Excess -4.1 mmol/L (-2.0-3.0) L 04/16/20 22:05 Jesus Test POSITIVE 04/16/20 22:05 Room Air YES 04/16/20 22:05 Sodium 132 mmol/L (135-145) L 04/19/20 05:15 Potassium 5.2 mmol/L (3.5-5.0) H 04/19/20 05:15 Chloride 101 mmol/L (101-111) 04/19/20 05:15 Carbon Dioxide 20 mmol/L (21-32) L 04/19/20 05:15 Anion Gap 11.0 (6-13) 04/19/20 05:15 BUN 27 mg/dL (6-20) H 04/19/20 05:15 Creatinine 0.8 mg/dL (0.6-1.2) 04/19/20 05:15 Estimated GFR (MDRD) 98 (>89) 04/19/20 05:15 Glucose 127 mg/dL (70-100) H 04/19/20 05:15 Lactic Acid 2.0 mmol/L (0.5-2.2) 04/17/20 11:05 Calcium 8.8 mg/dL (8.5-10.3) 04/19/20 05:15 Phosphorus 2.9 mg/dL (2.5-4.6) 04/18/20 05:20 Magnesium 2.2 mg/dL (1.7-2.8) 04/19/20 05:15 Total Bilirubin 2.3 mg/dL (0.2-1.0) H 04/16/20 19:52 AST 570 IU/L (10-42) H 04/16/20 19:52 ALT 148 IU/L (10-60) H 04/16/20 19:52 Alkaline Phosphatase 160 IU/L (42-121) H 04/16/20 19:52 Troponin I High Sens 25.9 ng/L (2.3-19.7) H* 04/16/20 19:52 B-Natriuretic Peptide 421 pg/mL (5-100) H 04/17/20 05:20 Total Protein 7.7 g/dL (6.7-8.2) 04/16/20 19:52 Albumin 3.8 g/dL (3.2-5.5) 04/16/20 19:52 Globulin 3.9 g/dL (2.1-4.2) 04/16/20 19:52 Albumin/Globulin Ratio 1.0 (1.0-2.2) 04/16/20 19:52 Nasal Adenovirus (PCR) NOT DETECTED 04/16/20 20:15 Nasal B. parapertussis DNA (PCR) NOT DETECTED 04/16/20 20:15 Nasal Coronavir 229E PCR NOT DETECTED 04/16/20 20:15 Nasal Coronavir HKU1 PCR NOT DETECTED 04/16/20 20:15 Nasal Coronavir NL63 PCR NOT DETECTED 04/16/20 20:15 Nasal Coronavir OC43 PCR NOT DETECTED 04/16/20 20:15 Nasal Enterovir/Rhinovir PCR NOT DETECTED 04/16/20 20:15 Nasal Influenza B PCR NOT DETECTED 04/16/20 20:15 Nasal Influenza A PCR NOT DETECTED 04/16/20 20:15 Nasal Parainfluen 1 PCR NOT DETECTED 04/16/20 20:15 Nasal Parainfluen 2 PCR NOT DETECTED 04/16/20 20:15 Nasal Parainfluen 3 PCR NOT DETECTED 04/16/20 20:15 Nasal Parainfluen 4 PCR NOT DETECTED 04/16/20 20:15 Nasal RSV (PCR) NOT DETECTED 04/16/20 20:15 Nasal B.pertussis DNA PCR NOT DETECTED 04/16/20 20:15 Nasal C.pneumoniae (PCR) NOT DETECTED 04/16/20 20:15 Kailash Human Metapneumo PCR NOT DETECTED 04/16/20 20:15 Nasal M.pneumoniae (PCR) NOT DETECTED 04/16/20 20:15 Nasal SARS-CoV-2 (PCR) NOT DETECTED 04/16/20 20:15 Ethyl Alcohol < 5.0 mg/dL 04/16/20 19:52 Hepatitis A IgM Ab NON-REACTIVE (NON-REACTIVE) 04/18/20 05:20 Hep Bs Antigen NON-REACTIVE (NON-REACTIVE) 04/18/20 05:20 Hep B Core IgM Ab NON-REACTIVE (NON-REACTIVE) 04/18/20 05:20 Hepatitis C Antibody NON-REACTIVE (NON-REACTIVE) 04/18/20 05:20 Hep C Ab Signal/Cutoff 0.00 (<1.00) 04/18/20 05:20
[2020-04-19] MEDS: THIAMINE INJ 100 MG in SODIUM CHLORIDE 0.9% 50 ML IV SCH (19:30)
[2020-04-19] MEDS: MORPHINE 2 MG/ML CARPUJECT IVP PRN (19:50)
[2020-04-19] MEDS: AZITHROMYCIN 250 MG TABLET PO SCH (21:12)
[2020-04-20] MEDS: MORPHINE 2 MG/ML CARPUJECT IVP PRN (00:51)
[2020-04-20] MEDS: SODIUM CHLORIDE FLUSH 0.9% 10 ML SYRINGE IVP SCH ×2 (00:54→08:26)
[2020-04-20] MEDS: LACTATED RINGERS 1,000 ML IV SCH ×2 (03:10→14:03)
[2020-04-20 05:03] LABS: CALCIUM 8.5 mg/dL (8.5-10.3); CREATININE 0.6 mg/dL (0.6-1.2)
[2020-04-20 05:08] LABS: BASOPHILS % (AUTO) 0.3 %; HGB - HEMOGLOBIN 13.4 g/dL (14.0-18.0); LYMPHOCYTES % (AUTO) 2.3 %; MEAN CORPUSCULAR HEMOGLOBIN 33.3 pg (27.0-31.0); MEAN PLATELET VOLUME 11.8 fL (7.4-11.4); MONOCYTES % (AUTO) 3.7 %; NEUTROPHILS % (AUTO) 92.8 %; PLT - PLATELET COUNT 129 10^3/uL (130-450); RED BLOOD COUNT 4.02 10^6/uL (4.70-6.10); RED CELL DISTRIBUTION WIDTH 20.1 % (12.0-15.0); WHITE BLOOD COUNT 7.8 x10^3/uL (4.8-10.8)
[2020-04-20 05:18] LABS: ABNORMAL LYMPHS % (MANUAL) 0 %; BAND NEUTROPHILS % (MANUAL) 0 %
[2020-04-20 05:44] LABS: LYMPHOCYTES % (MANUAL) 13 %; MONOCYTES # (MANUAL) 0.2 10^3/uL (0.0-1.0)
[2020-04-20 05:46] LABS: DIFFERENTIAL COMMENT MANUAL DIFFERENTIAL; PLATELET ESTIMATE, MANUAL DECREASED (<130,000) (NORMAL)
[2020-04-20] MEDS: IPRATROPIUM/ALBUTEROL 3 ML NEB INH SCH ×3 (07:11→15:01)
[2020-04-20] MEDS: BUDESONIDE 0.5 MG/2 ML NEB INH SCH (07:11)
[2020-04-20] MEDS: amLODIPine 5 MG TABLET PO SCH (08:16)
[2020-04-20] MEDS: NYSTATIN 500000 UNITS/5 ML UDC PO SCH ×2 (08:17→14:03)
[2020-04-20] MEDS: chlordiazePOXIDE 25 MG CAPSULE PO SCH (08:17)
[2020-04-20] MEDS: NICOTINE 7 MG PATCH TOP SCH (08:18)
[2020-04-20] MEDS: methylPREDNISolone SUCCINATE 40 MG/ML VIAL IVP SCH ×2 (08:20→14:03)
[2020-04-20] MEDS: cefTRIAXone 1 GM in SODIUM CHLORIDE 0.9% MINIBAG 100 ML IV SCH (08:21)
[2020-04-20] MEDS: polyethylene glycoL 3350 17 GM PACKET PO SCH (08:25)
[2020-04-20 09:57] LABS: ALBUMIN 3.2 g/dL (3.2-5.5); BILIRUBIN,TOTAL 1.8 mg/dL (0.2-1.0); TOTAL PROTEIN 6.5 g/dL (6.7-8.2)
[2020-04-20] MEDS: HYDROcod/ACETAM 10 MG/325 MG TABLET PO PRN ×2 (11:31→16:02)
--- NOTE | 2020-04-20 14:00 | Discharge Plan ---
Discharge Plan Problem Reviewed?: Yes Disposition: 02 Transfer Acute Care Hosp No Smoking: If you smoke, Please STOP! Call for help. Follow-up with: Kamini Silveira ARNP [Primary Care Provider] -
--- NOTE | 2020-04-20 14:01 | DISCHARGE SUMMARY ---
Discharge Summary Admit Date: 04/16/20 Discharge Date: 04/20/20 Discharging Provider: Michelle Rice MD Primary Care Provider: SELAM Vaughn Condition at Discharge: Fair Discharge Disposition: 02 Transfer Acute Care Hosp - [facility] History of Present Illness: From the admission H&P of Dr Paulina Leal: This is a 59 y/o white male w/ a history of COPD requiring multiple hospitaliza tions, HTN, alcohol abuse, current smoker who presents with worsening shortness of breath that began about 3 days ago after running out of his home medication 5 days ago. He is not on home oxygen. He has a "breathing machine" at home that he has been using 3 times a day without relief. His shortness of breath is aggravated with exertion. He is also short of breath at rest. He denies fever but has had a productive cough with some blood-tinged sputum, he states. He has a 40 year smoking history and currently smokes 1/2 ppd, as well as marijuana every now and again. He was last hospitalized for COPD exacerbation in July 2019. He also complains of having diffuse intermittent nonradiating abdominal pain that is worst in the LUQ. He rates it 4/10, with no known aggravating/alleviating factors. He denies constipation but thinks that he hasn't been passing gas. He also reports having non-radiating intermittent, central chest pain for the last couple of months. He rates it 3/10. He currently drinks 3 beers per day, his last beer was yesterday. He denies ever having alcohol withdrawal symptoms. In the ED his respirations were 24-35 and O2 sat was 96-98% on RA. Troponin was 25.9, BNP 383, white blood cell count 6.9. He was given albuterol inhalers, methylprednisolone iv, and a duoneb treatment without relief of symptoms. He was tested and is Covid negative. Chest XR showed patchy bibasilar atelectasis versus scarring, no pleural effusions or pneumothorax. He is being admitted for further management of his exacerbation. When observed in his room, and he is watching TV, he has no tachypnea, appears comfortable. When a nurse, student, or myself enter the bedside, he becomes tachypneic, and has a forced stridorous sound through his throat. But lungs are clear. ABG was done and show hyperventilation. Patient will hopefully be discharged in the morning after Observation status and resumption of his medications. - HOSPITAL COURSE Hospital Course: (1) COPD exacerbation He ran out of medication 5 days previously. He was not hypoxic, had no antecedent URI, was Covid negative. Chest XRay was negative for infiltrates. There was no leukocytosis or fever. He was given scheduled DuoNeb doses and albuterol as needed, iv methylprednisolone, and empiric azithromycin. He had slight improvement, per his report. (2) Odynophagia His complaint of chest pain ocurred daily and he could define that it happened when he swallowed food or liquids. His diet became pured food, and he still had the pain even when de-escalated to clear liquids. He was started on empiric treatment for yeast infection with po Nystatin, since he had been on steroids. He was getting prophylactic med doses for preventing a gastric ulcer. He had a General Surgery consult who recommended an EGD. When he was seen by Anesthesia for preop evaluation, he was felt to be too high risk to have conscious sedation done here, because of his severe COPD and recommendations by Anesthesia and then General Surgery were to transfer him for procedure needing conscious sedation at a facility with higher level of care. [facility] is where he has a Chemical Dependency Attendant and Manager Clinical Applications. He was kindly accepted in transfer to their Hospitalist service and will have GI evaluation for an EGD. (3) Right hip pain He complained of right hip pain, present for "a long time". He denied any trauma. An X-ray was obtained which showed osteonecrosis. He will need outpatient work-up/follow-up with orthopedic surgery. Pain control was with Tylenol and Hydrocodone as needed. (4) Alcohol abuse His LFTs were mildly elevated. There was a hand tremor early in the hospitalization, thus he was put on a CIWA protocol and given scheduled Librium 25 mg po q6h, decreased to q12h when he was too somnolent. Daily Thiamine was also started. (5) Elevated LFTs His AST (570), ALT (148), Alk phos (160), were likley elevated from his history of alcohol abuse. Abdominal ultrasound done June 30, 2018 showed hepatomegaly, increased liver echogenicity compatible with cirrhosis or fatty liver disease, no common bile duct dilatation. A hepatitis panel was done this admission and was neg. (6) HTN (hypertension) His blood pressure was controlled in the 130s on Amlodipine 10 mg, which was continued. (7) Elevated troponin Troponins were mildly elevated but flat. He had a CT angio, which was negative for PE. The troponins were up, possibly from demand ischemia. (8) Electrolyte abnormalities Hyponatremic (131), Hypokalemic (3), Hypochloremic (94), were likley due to a combination of liver pathology, alcohol abuse, medications. They were replaced. (9) Tobacco user He was prescribed a Nicotine patch while here. - ALLERGIES Allergies/Adverse Reactions: Allergies Allergy/AdvReac Type Severity Reaction Status Date / Time lisinopril Allergy Severe Anaphylaxis/Cardiac Verified 04/16/20 19:52 Arrest - MEDICATIONS Home Medications: Ambulatory Orders Medication Instructions Recorded Confirmed Amlodipine Besylate [Norvasc] 10 mg PO DAILY 09/15/18 04/17/20 Aspirin [Aspirin EC] 81 mg PO DAILY 04/28/19 04/17/20 Albuterol Sulfate [Proair Hfa 1 - 2 puffs INH Q4H PRN #1 inhaler 05/01/19 04/17/20 Inhaler] Acetaminophen [Aphen] 325 mg PO PRN PRN 04/17/20 04/17/20 - PHYSICAL EXAM AT DISCHARGE General Appearance: positive: Alert, Mild distress Eyes Bilateral: positive: Normal inspection, EOMI, Other (Male-pattern baldness.) ENT: positive: No signs of dehydration, Other (Hoarse voice) Neck: positive: Nml inspection, No JVD Respiratory: positive: Other (Scattered rhonchi, no wheezes.) Cardiovascular: positive: Regular rate & rhythm, No murmur Abdomen: positive: Non-tender, Nml bowel sounds Skin: positive: Warm, Dry Extremities: positive: Non-tender, No pedal edema Neurologic/Psychiatric: positive: Oriented x3 (Memory poor, would repeat questions over.) - LABS Result Diagrams: 04/20/20 04:05 04/20/20 04:05 - DIAGNOSTIC IMAGING Diagnostic Imaging Results: Final report reviewed - FOLLOW UP Follow Up: This will be determined after his stay at [facility]. - TIME SPENT Time Spent in Discharge (Minutes): 60
[2020-04-20] MEDS: SODIUM CHLORIDE FLUSH 0.9% 10 ML SYRINGE IVP PRN (14:04)
[2020-04-20 15:40] VITALS: BP 103/80
== END 2020-04-20 16:10 | disposition short-term general hospital (02) | DRG 191 ==
LOC: EDUNIT# → ED 19:41 → MS2 21:38 → OBSVTOIN 04-17 10:12
PROVIDERS: ADMIT Specialist; ATTEND Internal Medicine
DX: J43.9 Emphysema, unspecified (principal); E87.1 Hypo-osmolality and hyponatremia; M87.9 Osteonecrosis, unspecified; K92.0 Hematemesis; E87.6 Hypokalemia; I49.9 Cardiac arrhythmia, unspecified; F10.10 Alcohol abuse, uncomplicated; G89.29 Other chronic pain; M54.9 Dorsalgia, unspecified; Z20.822 Contact with and (suspected) exposure to COVID-19; K74.60 Unspecified cirrhosis of liver; F17.210 Nicotine dependence, cigarettes, uncomplicated; I10 Essential (primary) hypertension; R13.10 Dysphagia, unspecified; R10.11 Right upper quadrant pain; B37.9 Candidiasis, unspecified; K70.30 Alcoholic cirrhosis of liver without ascites; K70.0 Alcoholic fatty liver; R77.8 Other specified abnormalities of plasma proteins; Z72.89 Other problems related to lifestyle; Z79.82 Long term (current) use of aspirin; Z87.01 Personal history of pneumonia (recurrent)
CPT/HCPCS: 36415; 36600; 71045; 71275; 73502; 76705; 80048; 80053; 80074; 80076; 82140; 82803; 83605; 83735; 83880; 84100; 84132; 84484; 85025; 85379; 85610; 85730; 87631; 94640; 96365; 96375; 96376; 99285; A9270; G0378; J3411; J7040; J7120; J7626; Q9967; 0202U; 80320

== ENCOUNTER 2020-11-12 07:53 | Outpatient (CLI) | payer MEDICARE | END 2020-11-12 07:54 | disposition critical access hospital (66) | LOC: EMS 07:53 | DX: R06.00 Dyspnea, unspecified (principal) | CPT/HCPCS: A0425; A0427 ==

== ENCOUNTER 2020-11-12 07:58 | Inpatient (IN) | payer MEDICARE, MEDICAID ==
[2020-11-12 08:29] LABS: BASOPHILS % (AUTO) 0.3 %; EOSINOPHILS % (AUTO) 0.1 %; HCT - HEMATOCRIT 41.7 % (42.0-52.0); HGB - HEMOGLOBIN 13.8 g/dL (14.0-18.0); LYMPHOCYTES # (AUTO) 1.4 10^3/uL (1.5-3.5); LYMPHOCYTES % (AUTO) 18.9 %; MEAN CORPUSCULAR HEMOGLOBIN 33.4 pg (27.0-31.0); MEAN CORPUSCULAR HGB CONC 33.1 g/dL (32.0-36.0); MEAN PLATELET VOLUME 9.1 fL (7.4-11.4); MONOCYTES # (AUTO) 0.8 10^3/uL (0.0-1.0); MONOCYTES % (AUTO) 10.9 %; NEUTROPHILS # (AUTO) 5.3 10^3/uL (1.5-6.6); NEUTROPHILS % (AUTO) 69.5 %; PLT - PLATELET COUNT 305 10^3/uL (130-450); RED BLOOD COUNT 4.13 10^6/uL (4.70-6.10); RED CELL DISTRIBUTION WIDTH 18.1 % (12.0-15.0); WHITE BLOOD COUNT 7.6 x10^3/uL (4.8-10.8)
[2020-11-12] MEDS ORDERED: cefTRIAXone 1 GM in SODIUM CHLORIDE 0.9% MINIBAG 100 ML IV STA (08:32)
[2020-11-12] MEDS ORDERED: DEXAMETHASONE 10 MG/ML VIAL IVP STA (08:32)
--- NOTE | 2020-11-12 08:33 | XRAY Report ---
PROCEDURE: Chest 1 View X-Ray INDICATIONS: Chest pain TECHNIQUE: One view of the chest was acquired. COMPARISON: 04/16/2020. Correlation is also made with chest CT, 04/17/2020 FINDINGS: Surgical changes and devices: None. Lungs and pleura: Low lung volumes can be seen, causing a crowded appearance to the lung markings. S treaky opacities can be seen at the lung bases. No pneumothorax or large pleural effusion. Mild inte rstitial prominence can be seen. Mediastinum: The aorta is prominent and tortuous. The cardiac contours are within normal limits. Bones and chest wall: No suspicious bony lesions. Age-appropriate degenerative changes are seen. O verlying soft tissues appear unremarkable. IMPRESSION: Low lung volumes with likely atelectasis at the lung bases. Mild interstitial prominence is seen. Differential diagnosis includes mild pulmonary edema versus art ifact. Reviewed by: Nish Miranda MD on 11/12/2020 7:32 AM SHANKAR Approved by: Nish Miranda MD on 11/12/2020 7:32 AM SHANKAR Station ID: [id number]
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
[2020-11-12] MEDS ORDERED: ALBUTEROL NEB 2.5 MG/3 ML INH STA ×2 (08:39→11:04)
[2020-11-12 08:42] LABS: ALBUMIN 3.5 g/dL (3.2-5.5); ALBUMIN/GLOBULIN RATIO 0.9 (1.0-2.2); BILIRUBIN,TOTAL 0.6 mg/dL (0.2-1.0); CALCIUM 9.1 mg/dL (8.5-10.3); CREATININE 0.8 mg/dL (0.6-1.2); POTASSIUM 3.9 mmol/L (3.5-5.0); TOTAL PROTEIN 7.4 g/dL (6.7-8.2)
[2020-11-12 09:49] LABS: B. PARAPERTUSSIS- RESP PCR PAN NOT DETECTED; B. PERTUSSIS- RESP PCR PANEL NOT DETECTED; C. PNEUMONIAE- RESP PCR PANEL NOT DETECTED; CORONAVIRUS 229E-RESP PCR NOT DETECTED; CORONAVIRUS HKU1-RESP PCR NOT DETECTED; CORONAVIRUS NL63-RESP PCR NOT DETECTED; CORONAVIRUS OC43-RESP PCR NOT DETECTED; HUMAN METAPNEUMOVIRUS NOT DETECTED; INFLUENZA A- RESP PCR PANEL NOT DETECTED; INFLUENZA B - RESP PCR PANEL NOT DETECTED; M. PNEUMONIAE- RESP PCR PANEL NOT DETECTED; PARAINFLUENZA VIRUS 1 NOT DETECTED; PARAINFLUENZA VIRUS 2 NOT DETECTED; PARAINFLUENZA VIRUS 3 NOT DETECTED; PARAINFLUENZA VIRUS 4 NOT DETECTED; RHINOVIRUS/ENTEROVIRUS NOT DETECTED; RSV- RESP PCR PANEL NOT DETECTED; SARS-CoV-2 -RESP PCR PANEL NOT DETECTED
[2020-11-12] MEDS ORDERED: LORazepam 2 MG/ML VIAL IVP STA (10:07)
[2020-11-12] MEDS ORDERED: IPRATROPIUM/ALBUTEROL 3 ML NEB INH STA (10:07)
[2020-11-12 11:30] LABS: ABG HCO3 30.8 mmol/L (22.0-26.0); ABG PCO2 46 mmHg (34-45); ABG PH 7.45 (7.35-7.45); ABG PO2 61 mmHg (80-100); ABG TCO2 32.2 MMOL/L (21.0-29.0)
[2020-11-12 11:31] LABS: ABG BASE EXCESS 5.9 mmol/L (-2.0-3.0); ABG OXYGEN SATURATION 92 % (94-98); ALLEN TEST POSITIVE
[2020-11-12] MEDS ORDERED: ONDANSETRON 4 MG/2 ML VIAL IVP PRN (11:45)
--- NOTE | 2020-11-12 12:20 | PHARMACY PROGRESS NOTE ---
- Best Possible Medication History Admit Date and Time: 11/12/20 1145 Processed by: Nursing Medication History completed: Yes Patient Interview: Completed (MED REC COMPLETED BY NURSING) As the person ultimately responsible for medication therapy, providers are able to order a medication from an existing home medication list in [facility] via the "Reconcile Routine" prior to Confirmation of that medication by microcomputer support specialist. Such practice is discouraged except when the physician, in their clinical judgment, deems that a medical need exists for a medication without regard to previous use.
[2020-11-12] MEDS: IPRATROPIUM/ALBUTEROL 3 ML NEB INH SCH ×2 (14:30→19:46)
[2020-11-12] MEDS: ENOXAPARIN 40 MG/0.4 ML SYRINGE SUBQ SCH (14:46)
[2020-11-12] MEDS: levoFLOXacin 750 MG/150 ML 750 MG/150 ML BAG IV SCH (14:47)
--- NOTE | 2020-11-12 15:35 | HISTORY & PHYSICAL EXAMINATION ---
Chief Complaint - Chief Complaint Chief Complaint: Dyspnea History of Present Illness - Admitted From Admitted From:: Emergency Department - History Obtained From Records Reviewed: [facility] History obtained from: Chart review, ED documentation, and Pt Exam Limitations: Pt was quite tachypnic and SOB - History of Present Illness HPI Comment/Other: Pt was quite tachypnic and SOB on my interview so history was obtained via chart review with clarifications from Pt as needed. Pt is a 60 year old male with hx of COPD and arrhythmia presenting to the ED this morning with acute dyspnea at rest and cough despite use of home nebulizers. On chart review it appears he was last hospitalized in March for a COPD exacerbation that required a prolonged hospital stay and transfer to [facility]. He had an unclear procedure for his s tomach performed during that stay and reports he was discharged home at the end of April. Per his report he has been using his home nebulizer machine and oxygen as needed however approximately 1 week became more short of breath. His home nebulizers and rescue inhalers helped to mitigate the dyspnea until approximately 2 days ago when even doubling up on his albuterol did not help. He called EMS this morning for evaluation. He has not had any steroids or antibiotics since April per ED documentation. He denies recent sick contacts and COVID test was negative in the ED. On arrival to the med surg unit he is tachypnic, afebrile, tachycardic and hypertensive. He denies pain, chest pain, or palpitations. Does not appear to be distressed but is having to stop every 4-5 words to breathe. Currently requiring 1.5L NC for O2 sat 93-95. Denies n/v. Does have a productive cough but could not describe the sputum. A culture was sent for microbiology to the lab and is showing many WBCs, GPCs, GNBs and budding yeast. Reported subjective fevers at home the past 2 days on my interview though denied to ED providers and has been afebrile while here. He was admitted to the med surg unit for closer evaluation with initiation of IV steroids and duonebs with IV antibiotics to reverse his COPD exacerbation. History - Past Medical History Cardiovascular: reports: Hypertension, Arrhythmia Respiratory: reports: COPD, Pneumonia, Shortness of breath Neuro: reports: None Endocrine/Autoimmune: reports: None GI: reports: Cirrhosis, Other : reports: None Psych: reports: None Musculoskeletal: reports: Chronic back pain, Other Derm: reports: None MRSA Hx?: No - Past Surgical History Ortho: reports: Spine surgery HEENT: reports: Other - Family & Social History Family History: Mother: (1 brother of respiratory complications, aged 48.), Cancer, Father: , CAD, COPD/Emphysema, Sister: , [place] (1 sister of [place], age uncertain. 1 brother of [place], age uncertain. ), Brother: , [place] Family History Comment/Other: Reports his mother from multiple different cancers. His father had COPD. Living arrangement: At home Living Situation: Alone Social History Notes: He continues to smoke 1/2 pack of cigarettes a day. He has been smoking for 40 years. He continues to drink at least 3 alcoholic beverages on a daily basis. He has been drinking since his teens although this oswaldo not always been daily. - Substance History Use: Uses substance without health or social issues: Tobacco, Alcohol - POLST Patient has POLST: No POLST Status: Full Code Meds/Allgy - Home Medications Home Medications: Ambulatory Orders Medication Instructions Recorded Confirmed Amlodipine Besylate [Norvasc] 10 mg PO DAILY 09/15/18 11/12/20 Aspirin [Aspirin EC] 81 mg PO DAILY 04/28/19 11/12/20 Albuterol Sulfate [Proair Hfa 1 - 2 puffs INH Q4H PRN #1 inhaler 05/01/19 11/12/20 Inhaler] Acetaminophen [Aphen] 325 mg PO PRN PRN 04/17/20 11/12/20 - Allergies Allergies/Adverse Reactions: Allergies Allergy/AdvReac Type Severity Reaction Status Date / Time lisinopril Allergy Severe Anaphylaxis/Cardiac Verified 04/16/20 19:52 Arrest Review of Systems - Constitutional Constitutional: reports: Fever, Chills, Poor appetite - Eyes Eyes: denies: Pain, Blurred vision, Vision loss - Ears, Nose & Throat Ears, Nose & Throat: denies: Ear pain, Hearing loss, Nasal discharge, Sore throat - Cardiovascular Cariovascular: reports: Irregular heart rate. denies: Palpitations, Chest pain, Lightheadedness, Syncope - Respiratory Respiratory: reports: Cough, Sputum production, Wheezing, SOB at rest, SOB with exertion - Gastrointestinal Gastrointestinal: denies: Abdominal pain, Abdominal distention, Constipation, Diarrhea, Change in bowel habits, Nausea, Vomiting - Genitourinary Genitourinary: denies: Dysuria, Frequency, Urgency - Musculoskeletal Musculoskeletal: reports: Back pain. denies: Muscle pain - Integumentary Integumentary: denies: Rash, Lesions - Neurological Neurological: denies: General weakness, Headache, Dizziness - Endocrine Endocrine: denies: Polyuria, Polydypsia, Polyphagia - All Other Systems All Other Systems: reports: Reviewed and negative Prior Level of Functionality: Independent at home and able to do all house work, cooking and cleaning and ADLs without assistance per his report. Exam - Vital Signs Reviewed Vital Signs: Yes Vital Signs: Vital Signs x48h Temp Pulse Pulse Resp BP BP Pulse Ox 11/12/20 14:32 107 H 30 H 11/12/20 13:53 37 C 62 31 H 93 11/12/20 12:46 37.0 C 62 24 152/95 H 95 11/12/20 12:08 113 H 32 H 158/145 H 95 11/12/20 11:30 110 H 35 H 135/82 H 91 L 11/12/20 11:02 114 H 24 128/86 H 92 11/12/20 10:40 113 H 20 189/161 H 93 11/12/20 10:30 104 H 32 H 181/169 H 95 11/12/20 10:19 100 18 11/12/20 09:30 110 H 34 H 123/77 93 11/12/20 09:28 105 H 27 H 146/94 H 93 11/12/20 09:00 110 H 34 H 146/94 H 93 11/12/20 08:47 108 H 20 11/12/20 08:30 107 H 28 H 163/116 H 11/12/20 08:17 119 H 37 H 145/108 H 92 11/12/20 07:56 36.7 C 109 H 40 H 145/108 H 97 - Physical Exam General Appearance: positive: No acute distress, Alert, Other (Slightly dis heveled male lying in bed on his side in no acute distress) Eyes Bilateral: positive: PERRL ENT: positive: Dry mucous membranes Neck: positive: Nml inspection Respiratory: positive: Chest non-tender, Wheezes (audible inspiratory and expiratory wheezes and rhonchi), Rhonchi, Other (able to speak 4-5 word sentences then needs to tach a breath; tachypnic to 30s) Cardiovascular: positive: Regular rate & rhythm, No murmur, No gallop, Tachycardia Peripheral Pulses: positive: 2+ Abdomen: positive: Non-tender, Nml bowel sounds, No distention Skin: positive: Diaphoresis, Pallor Extremities: positive: Full ROM, Pedal edema Neurologic/Psychiatric: positive: Oriented x3, CN's nml (2-12) Sepsis Event Note (H) - Evaluation Current Stage of Sepsis: Ruled out Conclusion/Plan - Problem List (1) COPD exacerbation Conclusion/Plan: Known history of severe COPD, last exacerbation required prolonged hospital stay in March 2020. CXR not concerning for overlying pneumonia and vital signs and WBC not concerning for sepsis. His sputum culture was growing WBCx, GPCs, GNBs, and budding yeast so given this and the severity of the exacerbation he was started on IV steroids and IV antibiotics, both for 5 day courses. Duonebs were continued and so was supplemental oxygen to maintain O2 sats 92-95. He is tachypnic to the 30s but calm and not in acute distress, able to speak 4-5 word sentences and make his needs known. -IV solumedrol 40mg IV TID x 5 days (start 11/12) -IV Levofloxacin 750mg daily x 5 days (start 11/12) -Duonebs Q4H -Supplemental O2 to maintain O2 sats 92-95%, wean as able (2) Hypoxia Conclusion/Plan: Arterial blood gas in the ED showed a pO2 of 61. O2 sats noted to be in the 80s. Now satting 93-95% on 1.5L NC and in no notable distress. -Supplemental O2 to maintain sats 93-95% (3) Dyspnea Conclusion/Plan: Related to acute COPD exacerbation. Reporting dyspnea both at rest and with exertion. Speaking in 4-5 word sentences before needing to take a break. Has been started on IV steroids and duonebs with mild improvement already noted. -Supplemental O2 as needed -IV solumedrol -Scheduled Duonebs Qualifiers: Dyspnea type: dyspnea on exertion Qualified Code(s): R06.00 - Dyspnea, unspecified (4) HTN (hypertension) Conclusion/Plan: BP has been 140s-160s/100-110s. Takes Amlodipine at home, did take his morning dose prior to coming to the hospital. This has been resumed but he remains hypertensive, likely related to his hypoxia and COPD exacerbation. May need to increase or start PRN meds if this does not decrease. Currently denying chest pain or palpitations. No headache, lightheadedness, or dizziness. -Continue home amlodipine. Consider adding a betablocker if this does not impro ve. -VS Q8H Qualifiers: Hypertension type: unspecified Qualified Code(s): I10 - Essential (primary) hypertension (5) Tachycardia Conclusion/Plan: HR in the 100s, likely related to his dyspnea but will continue to monitor. Denies chest pain or palpitations. VS Q8H (6) Arrhythmia Conclusion/Plan: Unknown arrhythmia, reports he was told he has an "erratic heartbeat" approximately 5 years ago in [facility] but did not follow up. Takes Amlodipine for HTN at home. EKG today showing sinus tachycardia and borderline prolonged QT as well as multi-form ventricular premature complexes. -Daily EKG, trend QT as may need to switch away from Levofloxacin if having prolonged QTc -Telemetry -VS Q8H Qualifiers: Arrhythmia type: unspecified cardiac arrhythmia Qualified Code(s): I49.9 - Cardiac arrhythmia, unspecified (7) Alcohol abuse Conclusion/Plan: Reports drinking 2-3 beers a night. Denies hx of withdrawals, DTs or seizures but ED note indicates he reported "shaking" after 2-3 days of not drinking. Will continue to monitor for now, low threshhold to start CIWA. -Low threshhold to start CIWA, may need vitamin replacement -addiction referral if Pt interested (8) Tobacco abuse Conclusion/Plan: 1/2 PPD smoker x 40+ years. Not interested in stopping but does want to use a patch while here. -Nicotine 7mg patch transdermal Q24 hours - Lab Results Fish Bones: 11/12/20 08:23 11/12/20 08:23 - Diagnostic Imaging Results Diagnostic Imaging Results: positive: Final report reviewed - EKG Results EKG Interpreted Independently: Yes EKG Findings: Sinus tach with multiform ventricular premature complexes and borderline prolonged QT
[2020-11-12] MEDS: FOLIC ACID 1 MG TABLET PO SCH (17:30)
[2020-11-12] MEDS: THIAMINE 100 MG TABLET PO SCH (17:30)
[2020-11-12] MEDS: diphenhydrAMINE 25 MG CAPSULE PO PRN (21:36)
[2020-11-13] MEDS: ALBUTEROL NEB 2.5 MG/3 ML INH PRN ×2 (00:05→05:02)
[2020-11-13 05:27] LABS: BASOPHILS % (AUTO) 0.1 %; EOSINOPHILS % (AUTO) 0.1 %; HCT - HEMATOCRIT 41.6 % (42.0-52.0); HGB - HEMOGLOBIN 13.7 g/dL (14.0-18.0); LYMPHOCYTES # (AUTO) 0.6 10^3/uL (1.5-3.5); LYMPHOCYTES % (AUTO) 6.3 %; MEAN CORPUSCULAR HEMOGLOBIN 32.9 pg (27.0-31.0); MEAN CORPUSCULAR HGB CONC 32.9 g/dL (32.0-36.0); MEAN CORPUSCULAR VOLUME 99.8 fL (80.0-94.0); MEAN PLATELET VOLUME 9.7 fL (7.4-11.4); MONOCYTES # (AUTO) 0.6 10^3/uL (0.0-1.0); MONOCYTES % (AUTO) 6.3 %; NEUTROPHILS # (AUTO) 8.6 10^3/uL (1.5-6.6); NEUTROPHILS % (AUTO) 86.4 %; PLT - PLATELET COUNT 298 10^3/uL (130-450); RED BLOOD COUNT 4.17 10^6/uL (4.70-6.10); RED CELL DISTRIBUTION WIDTH 17.9 % (12.0-15.0); WHITE BLOOD COUNT 9.9 x10^3/uL (4.8-10.8)
[2020-11-13 05:36] LABS: CALCIUM 9.1 mg/dL (8.5-10.3); CREATININE 0.7 mg/dL (0.6-1.2); POTASSIUM 4.2 mmol/L (3.5-5.0)
--- NOTE | 2020-11-13 07:49 | PROVIDER PROGRESS NOTE ---
Subjective - Prog Note Date Prog Note Date: 11/13/20 Prog Note Time: 07:47 - Subjective Pt reports feeling: Improved Subjective: but he is still coughing and sob. O2 is 2 liters and sats 93%. Stable with that use overnight. I was able to review his records from [facility] from when he was last here. He was admitted here for COPD exacerbation but began having severe odynophagia, iron deficiency anemia. We could not do an EGD here so we transferred him to [facility]. EGD was delayed because of his COPD and they had stabilized that first before they do the EGD. He underwent the EGD on April 25 and he had [place] class B erosive esophagitis, mild duodenitis, duodenal ulcer. He had Carafate and Protonix. Was supposed to repeat endoscopy in July. Patient says he has not. He is also told not to take nonsteroidals. He was discharged in stable condition. He had decreased breath sounds on lung exam but no wheezing. Overall his stay was from April 20 through April 27. Current Medications - Current Medications Current Medications: Active Medications Acetaminophen (Acetaminophen 325 Mg Tablet) 650 mg PO Q4HR PRN PRN Reason: Pain 1 to 4 Albuterol (Albuterol Neb 2.5 Mg/3 Ml) 2.5 mg INH Q4HR PRN PRN Reason: Wheezing Last Admin: 11/13/20 05:02 Dose: 2.5 mg Documented by: Albuterol/Ipratropium (Ipratropium/Albuterol 3 Ml Neb) 3 ml INH RTQID [facility] Stop: 11/13/20 14:59 Last Admin: 11/12/20 19:46 Dose: 3 ml Documented by: Amlodipine Besylate (Amlodipine 5 Mg Tablet) 10 mg PO DAILY [facility] Aspirin (Aspirin Ec 81 Mg Tablet) 81 mg PO DAILY [facility] Diphenhydramine HCl (Diphenhydramine 25 Mg Capsule) 25 mg PO QPM PRN PRN Reason: Insomnia Last Admin: 11/12/20 21:36 Dose: 25 mg Documented by: Enoxaparin Sodium (Enoxaparin 40 Mg/0.4 Ml Syringe) 40 mg SUBQ DAILY [facility] Last Admin: 11/12/20 14:46 Dose: 40 mg Documented by: Folic Acid (Folic Acid 1 Mg Tablet) 1 mg PO DAILY [facility] Last Admin: 11/12/20 17:30 Dose: 1 mg Documented by: Levofloxacin (Levaquin 750 Mg/150 Ml) 750 mg in 150 mls @ 100 mls/hr IV Q24H [facility] Last Infusion: 11/12/20 16:36 Dose: Infused Documented by: Nicotine (Nicotine 7 Mg Patch) 1 patch TOP DAILY [facility] Ondansetron HCl (Ondansetron 4 Mg/2 Ml Vial) 4 mg IVP Q6HR PRN PRN Reason: Nausea / Vomiting Sodium Chloride (Sodium Chloride Flush 0.9% 10 Ml Syringe) 10 ml IVP PRN PRN PRN Reason: NEEDED PER PROVIDER ORDERS Thiamine HCl (Thiamine 100 Mg Tablet) 100 mg PO DAILY [facility] Last Admin: 11/12/20 17:30 Dose: 100 mg Documented by: Amlodipine Besylate [Norvasc] 10 mg PO DAILY 09/15/18 Aspirin [Aspirin EC] 81 mg PO DAILY 04/28/19 Acetaminophen [Aphen] 325 mg PO PRN PRN 04/17/20 Objective - Vital Signs/Intake & Output Reviewed Vital Signs: Yes Vital Signs: Vital Signs x48h Temp Pulse Pulse Resp BP Pulse Ox 11/13/20 05:02 89 22 11/13/20 02:49 36.5 C 66 32 H 156/93 H 93 11/13/20 00:07 89 18 11/12/20 23:48 36.6 C 105 H 32 H 148/85 H 92 Intake & Output: Intake & Output 11/10/20 11/11/20 11/12/20 11/13/20 23:59 23:59 23:59 23:59 Intake Total 1322 Output Total 1700 650 Balance -378 -650 - Objective General Appearance: positive: Other (I woke him up from sleep, initially disoriented, slow to respond. Even before I woke him up he was wheezing, laying on his left side) Eyes Bilateral: positive: PERRL, EOMI ENT: positive: No signs of dehydration, Purulent nasal drainage, Other (Hoarse voice,) Neck: positive: No JVD, Lymphadenopathy (R), Lymphadenopathy (L). negative: Stiff neck Respiratory: positive: Wheezes, Rhonchi, Other (No use of accessory muscles. But sitting up and speaking to me caused him to be tachypneic). negative: Rales Cardiovascular: positive: Regular rate & rhythm, Systolic murmur. negative: Gallop/S4, Friction rub Abdomen: positive: Non-tender, No organomegaly, Nml bowel sounds, No distention, Other (Obese, large abdominal pannus) Skin: positive: Warm, Dry Extremities: positive: Non-tender, Full ROM, Pedal edema Neurologic/Psychiatric: positive: Oriented x3, CN's nml (2-12), Motor nml - Lab Results Fish Bones: 11/13/20 05:08 11/13/20 05:08 Other Labs: Lab Results x24hrs 11/13/20 11/13/20 11/12/20 Range/Units 05:08 05:08 11:26 WBC 9.9 (4.8-10.8) x10^3/uL RBC 4.17 L (4.70-6.10) 10^6/uL Hgb 13.7 L (14.0-18.0) g/dL Hct 41.6 L (42.0-52.0) % MCV 99.8 H (80.0-94.0) fL MCH 32.9 H (27.0-31.0) pg MCHC 32.9 (32.0-36.0) g/dL RDW 17.9 H (12.0-15.0) % Plt Count 298 (130-450) 10^3/uL MPV 9.7 (7.4-11.4) fL Neut # (Auto) 8.6 H (1.5-6.6) 10^3/uL Lymph # (Auto) 0.6 L (1.5-3.5) 10^3/uL [place] # (Auto) 0.6 (0.0-1.0) 10^3/uL Eos # (Auto) 0.0 (0.0-0.7) 10^3/uL Baso # (Auto) 0.0 (0.0-0.1) 10^3/uL Absolute Nucleated RBC 0.00 x10^3/uL Nucleated RBC % 0.0 /100WBC Bld Gas Analysis Time 1129 Sample Site RIGHT BRACHIAL ABG pH 7.45 (7.35-7.45) ABG pCO2 46 H (34-45) mmHg ABG pO2 61 L (80-100) mmHg ABG HCO3 30.8 H (22.0-26.0) mmol/L ABG Total CO2 32.2 H (21.0-29.0) MMOL/L ABG O2 Saturation 92 L (94-98) % ABG Base Excess 5.9 H (-2.0-3.0) mmol/L Jesus Test POSITIVE Room Air YES Sodium 134 L (135-145) mmol/L Potassium 4.2 (3.5-5.0) mmol/L Chloride 96 L (101-111) mmol/L Carbon Dioxide 28 (21-32) mmol/L Anion Gap 10.0 (6-13) BUN 13 (6-20) mg/dL Creatinine 0.7 (0.6-1.2) mg/dL Estimated GFR (MDRD) 114 (>89) Glucose 132 H (70-100) mg/dL Calcium 9.1 (8.5-10.3) mg/dL Total Bilirubin (0.2-1.0) mg/dL AST (10-42) IU/L ALT (10-60) IU/L Alkaline Phosphatase (42-121) IU/L Troponin I High Sens (2.3-19.7) ng/L Total Protein (6.7-8.2) g/dL Albumin (3.2-5.5) g/dL Globulin (2.1-4.2) g/dL Albumin/Globulin Ratio (1.0-2.2) Lipase (22-51) U/L Nasal Adenovirus (PCR) Nasal B. parapertussis DNA (PCR) Nasal Coronavir 229E PCR Nasal Coronavir HKU1 PCR Nasal Coronavir NL63 PCR Nasal Coronavir OC43 PCR Nasal Enterovir/Rhinovir PCR Nasal Influenza B PCR Nasal Influenza A PCR Nasal Parainfluen 1 PCR Nasal Parainfluen 2 PCR Nasal Parainfluen 3 PCR Nasal Parainfluen 4 PCR Nasal RSV (PCR) Nasal B.pertussis DNA PCR Nasal C.pneumoniae (PCR) Kailash Human Metapneumo PCR Nasal M.pneumoniae (PCR) Nasal SARS-CoV-2 (PCR) 11/12/20 11/12/20 11/12/20 Range/Units 08:41 08:23 08:23 WBC (4.8-10.8) x10^3/uL RBC (4.70-6.10) 10^6/uL Hgb (14.0-18.0) g/dL Hct (42.0-52.0) % MCV (80.0-94.0) fL MCH (27.0-31.0) pg MCHC (32.0-36.0) g/dL RDW (12.0-15.0) % Plt Count (130-450) 10^3/uL MPV (7.4-11.4) fL Neut # (Auto) (1.5-6.6) 10^3/uL Lymph # (Auto) (1.5-3.5) 10^3/uL [place] # (Auto) (0.0-1.0) 10^3/uL Eos # (Auto) (0.0-0.7) 10^3/uL Baso # (Auto) (0.0-0.1) 10^3/uL Absolute Nucleated RBC x10^3/uL Nucleated RBC % /100WBC Bld Gas Analysis Time Sample Site ABG pH (7.35-7.45) ABG pCO2 (34-45) mmHg ABG pO2 (80-100) mmHg ABG HCO3 (22.0-26.0) mmol/L ABG Total CO2 (21.0-29.0) MMOL/L ABG O2 Saturation (94-98) % ABG Base Excess (-2.0-3.0) mmol/L Jesus Test Room Air Sodium 141 (135-145) mmol/L Potassium 3.9 (3.5-5.0) mmol/L Chloride 99 L (101-111) mmol/L Carbon Dioxide 32 (21-32) mmol/L Anion Gap 10.0 (6-13) BUN 8 (6-20) mg/dL Creatinine 0.8 (0.6-1.2) mg/dL Estimated GFR (MDRD) 98 (>89) Glucose 125 H (70-100) mg/dL Calcium 9.1 (8.5-10.3) mg/dL Total Bilirubin 0.6 (0.2-1.0) mg/dL AST 26 (10-42) IU/L ALT 18 (10-60) IU/L Alkaline Phosphatase 108 (42-121) IU/L Troponin I High Sens 20.0 H* (2.3-19.7) ng/L Total Protein 7.4 (6.7-8.2) g/dL Albumin 3.5 (3.2-5.5) g/dL Globulin 3.9 (2.1-4.2) g/dL Albumin/Globulin Ratio 0.9 L (1.0-2.2) Lipase 21 L (22-51) U/L Nasal Adenovirus (PCR) NOT DETECTED Nasal B. parapertussis DNA (PCR) NOT DETECTED Nasal Coronavir 229E PCR NOT DETECTED Nasal Coronavir HKU1 PCR NOT DETECTED Nasal Coronavir NL63 PCR NOT DETECTED Nasal Coronavir OC43 PCR NOT DETECTED Nasal Enterovir/Rhinovir PCR NOT DETECTED Nasal Influenza B PCR NOT DETECTED Nasal Influenza A PCR NOT DETECTED Nasal Parainfluen 1 PCR NOT DETECTED Nasal Parainfluen 2 PCR NOT DETECTED Nasal Parainfluen 3 PCR NOT DETECTED Nasal Parainfluen 4 PCR NOT DETECTED Nasal RSV (PCR) NOT DETECTED Nasal B.pertussis DNA PCR NOT DETECTED Nasal C.pneumoniae (PCR) NOT DETECTED Kailash Human Metapneumo PCR NOT DETECTED Nasal M.pneumoniae (PCR) NOT DETECTED Nasal SARS-CoV-2 (PCR) NOT DETECTED 11/12/20 Range/Units 08:23 WBC 7.6 (4.8-10.8) x10^3/uL RBC 4.13 L (4.70-6.10) 10^6/uL Hgb 13.8 L (14.0-18.0) g/dL Hct 41.7 L (42.0-52.0) % MCV 101.0 H (80.0-94.0) fL MCH 33.4 H (27.0-31.0) pg MCHC 33.1 (32.0-36.0) g/dL RDW 18.1 H (12.0-15.0) % Plt Count 305 (130-450) 10^3/uL MPV 9.1 (7.4-11.4) fL Neut # (Auto) 5.3 (1.5-6.6) 10^3/uL Lymph # (Auto) 1.4 L (1.5-3.5) 10^3/uL [place] # (Auto) 0.8 (0.0-1.0) 10^3/uL Eos # (Auto) 0.0 (0.0-0.7) 10^3/uL Baso # (Auto) 0.0 (0.0-0.1) 10^3/uL Absolute Nucleated RBC 0.00 x10^3/uL Nucleated RBC % 0.0 /100WBC Bld Gas Analysis Time Sample Site ABG pH (7.35-7.45) ABG pCO2 (34-45) mmHg ABG pO2 (80-100) mmHg ABG HCO3 (22.0-26.0) mmol/L ABG Total CO2 (21.0-29.0) MMOL/L ABG O2 Saturation (94-98) % ABG Base Excess (-2.0-3.0) mmol/L Jesus Test Room Air Sodium (135-145) mmol/L Potassium (3.5-5.0) mmol/L Chloride (101-111) mmol/L Carbon Dioxide (21-32) mmol/L Anion Gap (6-13) BUN (6-20) mg/dL Creatinine (0.6-1.2) mg/dL Estimated GFR (MDRD) (>89) Glucose (70-100) mg/dL Calcium (8.5-10.3) mg/dL Total Bilirubin (0.2-1.0) mg/dL AST (10-42) IU/L ALT (10-60) IU/L Alkaline Phosphatase (42-121) IU/L Troponin I High Sens (2.3-19.7) ng/L Total Protein (6.7-8.2) g/dL Albumin (3.2-5.5) g/dL Globulin (2.1-4.2) g/dL Albumin/Globulin Ratio (1.0-2.2) Lipase (22-51) U/L Nasal Adenovirus (PCR) Nasal B. parapertussis DNA (PCR) Nasal Coronavir 229E PCR Nasal Coronavir HKU1 PCR Nasal Coronavir NL63 PCR Nasal Coronavir OC43 PCR Nasal Enterovir/Rhinovir PCR Nasal Influenza B PCR Nasal Influenza A PCR Nasal Parainfluen 1 PCR Nasal Parainfluen 2 PCR Nasal Parainfluen 3 PCR Nasal Parainfluen 4 PCR Nasal RSV (PCR) Nasal B.pertussis DNA PCR Nasal C.pneumoniae (PCR) Kailash Human Metapneumo PCR Nasal M.pneumoniae (PCR) Nasal SARS-CoV-2 (PCR) ABX Reporting Has patient been on IV antibiotics over the past 48 hours?: Yes Sepsis Event Note (H) - Evaluation Current Stage of Sepsis: Ruled out Assessment/Plan - Problem List (1) COPD exacerbation Impression: Known history of severe COPD, last exacerbation required prolonged hospital stay in March 2020. That stay was prompted by COPD exacerbation that delayed him undergoing an EGD for odynophagia and he was transferred to [facility]. Current CXR not concerning for overlying pneumonia and vital signs and WBC not concerning for sepsis. His sputum culture was growing WBCx, GPCs, GNBs, and budding yeast so given this and the severity of the exacerbation he was started on IV steroids and IV antibiotics, both for 5 day courses. Duonebs were continued and so was supplemental oxygen to maintain O2 sats 92-95. And admission and today, which is the second day he is here, still gets tachypneic when he tries to talk or do anything. But at rest without acute distress. Still unable to speak more than 4-5 word sentences before he runs out of air. We discussed starting him on IV Solu-Medrol yesterday. Unfortunately that was not started. -IV solumedrol 40mg IV TID x 5 days (start 11/13) -IV Levofloxacin 750mg daily x 5 days (start 11/12) -Duonebs Q4H -Supplemental O2 to maintain O2 sats 92-95%, wean as able -Add PPI bc of hx of ulcers (he's on steroids) (2) Hypoxia Conclusion/Plan: Arterial blood gas in the ED showed a pO2 of 61. O2 sats noted to be in the 80s. Yesterday he was at needing 1 and 1/2 L. He is now on 2 L to maintain O2 sats at 95%. -Supplemental O2 to maintain sats 93-95% (3) Dyspnea Conclusion/Plan: Related to acute COPD exacerbation. Reporting dyspnea both at rest and with exertion. Speaking in 4-5 word sentences before needing to take a break. Has been started on IV steroids and duonebs with mild improvement already noted. -Supplemental O2 as needed -IV solumedrol -Scheduled Duonebs Qualifiers: Dyspnea type: dyspnea on exertion Qualified Code(s): R06.00 - Dyspnea, unspecified (4) HTN (hypertension) Conclusion/Plan: BP has been 140s-160s/100-110s on admission. Takes Amlodipine at home, did take his morning dose prior to coming to the hospital. This has been resumed here but he remains hypertensive, likely related to his hypoxia and COPD exacerbation. His systolic is 150s-160s today. I would add ANTHONY to his meds but he had anaphylaxis with Lisinopril. I wanted to add lopressor but his heart rat e is in the 50s this am. -Continue home amlodipine. -VS Q8H -Hytrin to start Qualifiers: Hypertension type: unspecified Qualified Code(s): I10 - Essential (primary) hypertension (5) Tachycardia resolved Conclusion/Plan: HR was in the 100s, likely related to his dyspnea. This morning he is in the 50s without rate lowering meds. Denies chest pain or palpitations. VS Q8H (6) Arrhythmia Conclusion/Plan: Unknown arrhythmia, reports he was told he has an "erratic heartbeat" approximately [address] [facility] but did not follow up. Takes Amlodipine for HTN at home. EKG today showing sinus tachycardia and borderline prolonged QT as well as multi-form ventricular premature complexes. -Daily EKG, trend QT as may need to switch away from Levofloxacin if having prolonged QTc -Telemetry -VS Q8H Qualifiers: Arrhythmia type: unspecified cardiac arrhythmia Qualified Code(s): I49.9 - Cardiac arrhythmia, unspecified (7) Alcohol abuse Conclusion/Plan: Reports drinking 2-3 beers a night. Denies hx of withdrawals, DTs or seizures but ED note indicates he reported "shaking" after 2-3 days of not drinking. Will continue to monitor for now, low threshhold to start CIWA. So far he has not needed it. -Low threshhold to start CIWA, may need vitamin replacement -addiction referral if Pt interested (8) Tobacco abuse Conclusion/Plan: 1/2 PPD smoker x 40+ years. Not interested in stopping but does want to use a patch while here. -Nicotine 7mg patch transdermal Q24 hours
[2020-11-13] MEDS: IPRATROPIUM/ALBUTEROL 3 ML NEB INH SCH ×4 (07:55→19:05)
[2020-11-13] MEDS: ASPIRIN EC 81 MG TABLET PO SCH (08:50)
[2020-11-13] MEDS: THIAMINE 100 MG TABLET PO SCH (08:50)
[2020-11-13] MEDS: amLODIPine 5 MG TABLET PO SCH (08:50)
[2020-11-13] MEDS: FOLIC ACID 1 MG TABLET PO SCH (08:50)
[2020-11-13] MEDS: ENOXAPARIN 40 MG/0.4 ML SYRINGE SUBQ SCH (08:50)
[2020-11-13] MEDS: NICOTINE 7 MG PATCH TOP SCH (08:51)
[2020-11-13] MEDS: ACETAMINOPHEN 325 MG TABLET PO PRN ×2 (08:53→16:54)
[2020-11-13] MEDS: SODIUM CHLORIDE FLUSH 0.9% 10 ML SYRINGE IVP PRN ×2 (09:08→13:57)
[2020-11-13] MEDS: methylPREDNISolone SUCCINATE 40 MG/ML VIAL IVP SCH ×2 (13:51→21:18)
[2020-11-13] MEDS: levoFLOXacin 750 MG/150 ML 750 MG/150 ML BAG IV SCH (13:54)
[2020-11-13] MEDS: LORazepam 1 MG TABLET PO PRN ×2 (14:47→21:13)
[2020-11-13] MEDS: PANTOPRAZOLE 40 MG TABLET PO SCH (14:50)
[2020-11-13] MEDS ORDERED: METOPROLOL TARTRATE 25 MG TABLET PO SCH (21:00)
[2020-11-13] MEDS: TERAZOSIN 1 MG CAPSULE PO SCH (21:03)
[2020-11-13] MEDS: PRAMIPEXOLE 0.25 MG TABLET PO SCH (21:03)
[2020-11-14] MEDS: SODIUM CHLORIDE FLUSH 0.9% 10 ML SYRINGE IVP PRN ×2 (00:17→06:02)
[2020-11-14] MEDS: ACETAMINOPHEN 325 MG TABLET PO PRN (00:17)
[2020-11-14] MEDS: ALBUTEROL NEB 2.5 MG/3 ML INH PRN ×2 (00:19→04:30)
[2020-11-14 05:03] LABS: BASOPHILS % (AUTO) 0.1 %; HCT - HEMATOCRIT 40.7 % (42.0-52.0); HGB - HEMOGLOBIN 13.4 g/dL (14.0-18.0); LYMPHOCYTES # (AUTO) 0.4 10^3/uL (1.5-3.5); LYMPHOCYTES % (AUTO) 4.7 %; MEAN CORPUSCULAR HEMOGLOBIN 33.1 pg (27.0-31.0); MEAN CORPUSCULAR HGB CONC 32.9 g/dL (32.0-36.0); MEAN CORPUSCULAR VOLUME 100.5 fL (80.0-94.0); MEAN PLATELET VOLUME 9.6 fL (7.4-11.4); MONOCYTES # (AUTO) 0.2 10^3/uL (0.0-1.0); MONOCYTES % (AUTO) 1.6 %; NEUTROPHILS # (AUTO) 8.5 10^3/uL (1.5-6.6); NEUTROPHILS % (AUTO) 93.1 %; PLT - PLATELET COUNT 290 10^3/uL (130-450); RED BLOOD COUNT 4.05 10^6/uL (4.70-6.10); RED CELL DISTRIBUTION WIDTH 17.6 % (12.0-15.0); WHITE BLOOD COUNT 9.2 x10^3/uL (4.8-10.8)
[2020-11-14 05:13] LABS: CREATININE 0.8 mg/dL (0.6-1.2); POTASSIUM 4.7 mmol/L (3.5-5.0)
[2020-11-14] MEDS: methylPREDNISolone SUCCINATE 40 MG/ML VIAL IVP SCH ×3 (06:01→21:26)
[2020-11-14] MEDS: PANTOPRAZOLE 40 MG TABLET PO SCH (06:02)
[2020-11-14] MEDS: PRAMIPEXOLE 0.25 MG TABLET PO SCH ×3 (06:02→21:26)
[2020-11-14] MEDS: IPRATROPIUM/ALBUTEROL 3 ML NEB INH SCH ×4 (07:20→20:34)
--- NOTE | 2020-11-14 08:04 | PROVIDER PROGRESS NOTE ---
Subjective - Prog Note Date Prog Note Date: 11/14/20 Prog Note Time: 08:02 - Subjective Pt reports feeling: Improved Subjective: When I walk into the room he is sleeping, laying on his left side. Does not hear the door knock. 1 touch on the shoulder wakes him up. He immediately is wheezing and stridorous. He has not even sat up for spoken to me when the tachypnea starts. States that he still coughing, producing some clear phlegm. He is about 50% better than he was when he came in. No abdominal pain. No nausea or vomiting. No leg pain. No chest pain. Current Medications - Current Medications Current Medications: Active Medications Acetaminophen (Acetaminophen 325 Mg Tablet) 650 mg PO Q4HR PRN PRN Reason: Pain 1 to 4 Last Admin: 11/14/20 00:17 Dose: 650 mg Documented by: Albuterol (Albuterol Neb 2.5 Mg/3 Ml) 2.5 mg INH Q4HR PRN PRN Reason: Wheezing Last Admin: 11/14/20 04:30 Dose: 2.5 mg Documented by: Albuterol/Ipratropium (Ipratropium/Albuterol 3 Ml Neb) 3 ml INH RTQID [facility] Last Admin: 11/14/20 07:20 Dose: 3 ml Documented by: Amlodipine Besylate (Amlodipine 5 Mg Tablet) 10 mg PO DAILY [facility] Last Admin: 11/13/20 08:50 Dose: 10 mg Documented by: Aspirin (Aspirin Ec 81 Mg Tablet) 81 mg PO DAILY [facility] Last Admin: 11/13/20 08:50 Dose: 81 mg Documented by: Diphenhydramine HCl (Diphenhydramine 25 Mg Capsule) 25 mg PO QPM PRN PRN Reason: Insomnia Last Admin: 11/12/20 21:36 Dose: 25 mg Documented by: Enoxaparin Sodium (Enoxaparin 40 Mg/0.4 Ml Syringe) 40 mg SUBQ DAILY [facility] Last Admin: 11/13/20 08:50 Dose: 40 mg Documented by: Folic Acid (Folic Acid 1 Mg Tablet) 1 mg PO DAILY [facility] Last Admin: 11/13/20 08:50 Dose: 1 mg Documented by: Levofloxacin (Levaquin 750 Mg/150 Ml) 750 mg in 150 mls @ 100 mls/hr IV Q24H [facility] Last Infusion: 11/13/20 15:32 Dose: Infused Documented by: Lorazepam (Lorazepam 1 Mg Tablet) 1 mg PO Q1H PRN; Protocol PRN Reason: CIWA > 8 Last Admin: 11/13/20 21:13 Dose: 1 mg Documented by: Methylprednisolone (Methylprednisolone Succinate 40 Mg/Ml Vial) 40 mg IVP TID [facility] Stop: 11/18/20 05:59 Last Admin: 11/14/20 06:01 Dose: 40 mg Documented by: Nicotine (Nicotine 7 Mg Patch) 1 patch TOP DAILY [facility] Last Admin: 11/13/20 08:51 Dose: 1 patch Documented by: Ondansetron HCl (Ondansetron 4 Mg/2 Ml Vial) 4 mg IVP Q6HR PRN PRN Reason: Nausea / Vomiting Pantoprazole Sodium (Pantoprazole 40 Mg Tablet) 40 mg PO QDAC [facility] Last Admin: 11/14/20 06:02 Dose: 40 mg Documented by: Pramipexole Dihydrochloride (Pramipexole 0.25 Mg Tablet) 0.25 mg PO TID [facility] Last Admin: 11/14/20 06:02 Dose: 0.25 mg Documented by: Sodium Chloride (Sodium Chloride Flush 0.9% 10 Ml Syringe) 10 ml IVP PRN PRN PRN Reason: NEEDED PER PROVIDER ORDERS Last Admin: 11/14/20 06:02 Dose: 10 ml Documented by: Terazosin HCl (Terazosin 1 Mg Capsule) 1 mg PO QPM [facility] Last Admin: 11/13/20 21:03 Dose: 1 mg Documented by: Thiamine HCl (Thiamine 100 Mg Tablet) 100 mg PO DAILY [facility] Last Admin: 11/13/20 08:50 Dose: 100 mg Documented by: Amlodipine Besylate [Norvasc] 10 mg PO DAILY 09/15/18 Aspirin [Aspirin EC] 81 mg PO DAILY 04/28/19 Acetaminophen [Aphen] 325 mg PO PRN PRN 04/17/20 Objective - Vital Signs/Intake & Output Reviewed Vital Signs: Yes Vital Signs: Vital Signs x48h Temp Pulse Pulse Resp BP Pulse Ox 11/14/20 07:20 56 L 20 11/14/20 04:30 52 L 20 11/14/20 03:01 36.5 C 83 22 129/84 H 94 11/14/20 00:30 36.4 C L 83 24 103/62 96 11/14/20 00:20 51 L 22 Intake & Output: Intake & Output 11/11/20 11/12/20 11/13/20 11/14/20 23:59 23:59 23:59 23:59 Intake Total 1322 1430 240 Output Total 1700 1050 525 Balance -378 380 -285 - Objective General Appearance: positive: Alert, Mild distress Eyes Bilateral: positive: PERRL, EOMI ENT: positive: No signs of dehydration, Other (Mild rhinophyma of nose, nasal tone of voice) Neck: positive: No JVD, Lymphadenopathy (R), Lymphadenopathy (L). negative: Stiff neck Respiratory: positive: No respiratory distress (He has increased respiratory rate, no use of accessory muscles, cannot complete full sentences now), Wheezes (And louder in mid to lower lung hernández), Rhonchi (Rhonchi are much fainter than they were yesterday.). negative: Rales Cardiovascular: positive: Regular rate & rhythm. negative: Gallop/S4, Friction rub Abdomen: positive: Non-tender, No organomegaly, Nml bowel sounds, No distention, Other (Large, mounded abdominal pannus) Skin: positive: Warm, Dry Extremities: positive: Full ROM, Pedal edema (Mild around the malleoli) Neurologic/Psychiatric: positive: Oriented x3, CN's nml (2-12), Motor nml (He can sit himself up. But struggles to do so much like a beached whale. That increases his respiratory rate.) - Lab Results Fish Bones: 11/14/20 04:48 11/14/20 04:48 Other Labs: Lab Results x24hrs 11/14/20 11/14/20 11/13/20 Range/Units 04:48 04:48 05:08 WBC 9.2 (4.8-10.8) x10^3/uL RBC 4.05 L (4.70-6.10) 10^6/uL Hgb 13.4 L (14.0-18.0) g/dL Hct 40.7 L (42.0-52.0) % MCV 100.5 H (80.0-94.0) fL MCH 33.1 H (27.0-31.0) pg MCHC 32.9 (32.0-36.0) g/dL RDW 17.6 H (12.0-15.0) % Plt Count 290 (130-450) 10^3/uL MPV 9.6 (7.4-11.4) fL Neut # (Auto) 8.5 H (1.5-6.6) 10^3/uL Lymph # (Auto) 0.4 L (1.5-3.5) 10^3/uL [place] # (Auto) 0.2 (0.0-1.0) 10^3/uL Eos # (Auto) 0.0 (0.0-0.7) 10^3/uL Baso # (Auto) 0.0 (0.0-0.1) 10^3/uL Absolute Nucleated RBC 0.00 x10^3/uL Nucleated RBC % 0.0 /100WBC Sodium 135 (135-145) mmol/L Potassium 4.7 (3.5-5.0) mmol/L Chloride 98 L (101-111) mmol/L Carbon Dioxide 29 (21-32) mmol/L Anion Gap 8.0 (6-13) BUN 21 H (6-20) mg/dL Creatinine 0.8 (0.6-1.2) mg/dL Estimated GFR (MDRD) 98 (>89) Glucose 182 H (70-100) mg/dL Calcium 9.0 (8.5-10.3) mg/dL Troponin I High Sens 24.1 H* (2.3-19.7) ng/L ABX Reporting Has patient been on IV antibiotics over the past 48 hours?: Yes Sepsis Event Note (H) - Evaluation Current Stage of Sepsis: Ruled out Assessment/Plan - Problem List (1) COPD exacerbation Impression: Known history of severe COPD, last exacerbation required prolonged hospital stay in March 2020. That stay was prompted by COPD exacerbation that delayed him undergoing an EGD for odynophagia and he was transferred to [facility]. Current CXR not concerning for overlying pneumonia and vital signs and WBC not concerning for sepsis. His sputum culture was growing WBCx, GPCs, GNBs, and budding yeast so given this and the severity of the exacerbation he was started on IV steroids and IV antibiotics, both for 5 day courses. Duonebs were continued and so was supplemental oxygen to maintain O2 sats 92-95. Day after admission still tachypneic when he tried to talk or do anything. But at rest without acute distress. Was unable to speak more than 4-5 word sentences before he runs out of air. We discussed starting him on IV Solu-Medrol on admission. Unfortunately that was not started that night but started next day. He is slowly improving. Able to speak full sentences but just waking or speaking or moving in bed causes increased respiratory rate. -IV solumedrol 40mg IV TID x 5 days (start 11/13) -IV Levofloxacin 750mg daily x 5 days (start 11/12) -Duonebs Q4H -Supplemental O2 to maintain O2 sats 92-95%, wean as able -Add PPI bc of hx of ulcers (he's on steroids) Reassess tomorrow and hopefull dc is 11/15 or 11/16 depending on Oxygen requirement. I will have RN get him out of bed and walk to bathroom or sit in chair (2) Hypoxia Conclusion/Plan: Arterial blood gas in the ED showed a pO2 of 61. O2 sats noted to be in the 80s. 11/12, he was at needing 1 and 1/2 L. 11/13 and today still on 2 L to maintain O2 sats at 95%. -Supplemental O2 to maintain sats 92% (3) Dyspnea Conclusion/Plan: Related to acute COPD exacerbation. Reporting dyspnea both at rest and with exertion. Speaking in 4-5 word sentences before needing to take a break. Has been started on IV steroids and duonebs with mprovement noted. -Supplemental O2 as needed -IV solumedrol -Scheduled Duonebs Qualifiers: Dyspnea type: dyspnea on exertion Qualified Code(s): R06.00 - Dyspnea, unspecified (4) HTN (hypertension) Conclusion/Plan: BP has been 140s-160s/100-110s on admission. Takes Amlodipine at home, did take his morning dose prior to coming to the hospital. This has been resumed here but he remains hypertensive, likely related to his hypoxia and COPD exacerbation. His systolic was 150s-160s 11/13. I would have added ANTHONY to his meds but he had anaphylaxis with Lisinopril. I wanted to add lopressor but his heart rate is in the 50s this am. I added Hytrin and he received a dose last night at 9 pm. This morning's blood pressure is 129/84. Plan: Continue to monitor blood pressure. If he gets too low and managed to remove the Hytrin. Qualifiers: Hypertension type: unspecified Qualified Code(s): I10 - Essential (primary) hypertension (5) Tachycardia resolved Conclusion/Plan: HR was in the 100s, likely related to his dyspnea. On the first morning after admission, he has been in the 50s without rate lowering meds. Denies chest pain or palpitations. VS Q8H (6) Arrhythmia Conclusion/Plan: Unknown arrhythmia, reports he was told he has an "erratic heartbeat" approximately 5 years ago in [facility] but did not follow up. Takes Amlodipine for HTN at home. EKG today showing sinus tachycardia and borderline prolonged QT as well as multi-form ventricular premature complexes. -So far EKG without QT prolongation. -Telemetry -VS Q8H Qualifiers: Arrhythmia type: unspecified cardiac arrhythmia Qualified Code(s): I49.9 - Cardiac arrhythmia, unspecified (7) Alcohol abuse Conclusion/Plan: Reports drinking 2-3 beers a night. Denies hx of withdrawals, DTs or seizures but ED note indicates he reported "shaking" after 2-3 days of not drinking. Will continue to monitor for now, low threshhold to start CIWA. So far he has not needed it. Yesterday afternoon/evening, however, he was complaining of his legs jerking. He says it been jerking for 6 months. He cannot sleep and is driving him crazy. -Low threshhold to start CIWA, may need vitamin replacement -addiction referral if Pt interested -Mirapex started for possible restless leg syndrome (8) Tobacco abuse Conclusion/Plan: 1/ PPD smoker x 40+ years. Not interested in stopping but does want to use a patch while here. -Nicotine 7mg patch transdermal Q24 hours
[2020-11-14] MEDS: THIAMINE 100 MG TABLET PO SCH (08:15)
[2020-11-14] MEDS: NICOTINE 7 MG PATCH TOP SCH (08:15)
[2020-11-14] MEDS: ASPIRIN EC 81 MG TABLET PO SCH (08:15)
[2020-11-14] MEDS: FOLIC ACID 1 MG TABLET PO SCH (08:15)
[2020-11-14] MEDS: amLODIPine 5 MG TABLET PO SCH (08:16)
[2020-11-14] MEDS: ENOXAPARIN 40 MG/0.4 ML SYRINGE SUBQ SCH (08:18)
[2020-11-14] MEDS: levoFLOXacin 750 MG/150 ML 750 MG/150 ML BAG IV SCH (14:31)
[2020-11-14] MEDS: TERAZOSIN 1 MG CAPSULE PO SCH (21:26)
[2020-11-14] MEDS: diphenhydrAMINE 25 MG CAPSULE PO PRN (21:32)
[2020-11-15] MEDS: ACETAMINOPHEN 325 MG TABLET PO PRN ×3 (00:08→19:00)
[2020-11-15] MEDS: SODIUM CHLORIDE FLUSH 0.9% 10 ML SYRINGE IVP PRN ×2 (00:10→09:09)
[2020-11-15] MEDS: ALBUTEROL NEB 2.5 MG/3 ML INH PRN (02:46)
[2020-11-15 06:23] LABS: CALCIUM 9.2 mg/dL (8.5-10.3); CREATININE 0.8 mg/dL (0.6-1.2); POTASSIUM 4.9 mmol/L (3.5-5.0)
[2020-11-15 06:25] LABS: BASOPHILS % (AUTO) 0.1 %; EOSINOPHILS % (AUTO) 0.1 %; HCT - HEMATOCRIT 40.7 % (42.0-52.0); HGB - HEMOGLOBIN 13.6 g/dL (14.0-18.0); LYMPHOCYTES # (AUTO) 0.4 10^3/uL (1.5-3.5); LYMPHOCYTES % (AUTO) 3.3 %; MEAN CORPUSCULAR HEMOGLOBIN 33.6 pg (27.0-31.0); MEAN CORPUSCULAR HGB CONC 33.4 g/dL (32.0-36.0); MEAN CORPUSCULAR VOLUME 100.5 fL (80.0-94.0); MEAN PLATELET VOLUME 9.9 fL (7.4-11.4); MONOCYTES # (AUTO) 0.4 10^3/uL (0.0-1.0); MONOCYTES % (AUTO) 3.1 %; NEUTROPHILS # (AUTO) 11.4 10^3/uL (1.5-6.6); NEUTROPHILS % (AUTO) 92.8 %; PLT - PLATELET COUNT 301 10^3/uL (130-450); RED BLOOD COUNT 4.05 10^6/uL (4.70-6.10); RED CELL DISTRIBUTION WIDTH 17.5 % (12.0-15.0); WHITE BLOOD COUNT 12.3 x10^3/uL (4.8-10.8)
[2020-11-15] MEDS: PRAMIPEXOLE 0.25 MG TABLET PO SCH ×3 (06:30→22:01)
[2020-11-15] MEDS: methylPREDNISolone SUCCINATE 40 MG/ML VIAL IVP SCH (06:30)
[2020-11-15] MEDS: PANTOPRAZOLE 40 MG TABLET PO SCH (06:31)
[2020-11-15] MEDS: IPRATROPIUM/ALBUTEROL 3 ML NEB INH SCH ×4 (07:40→20:02)
--- NOTE | 2020-11-15 07:53 | PROVIDER PROGRESS NOTE ---
Subjective - Prog Note Date Prog Note Date: 11/15/20 Prog Note Time: 08:00 - Subjective Pt reports feeling: Improved Subjective: he is better but still arcos and sob more than he would like. he doesn't use O2 regularly at home. It has been months since he needed it but he can't tell me how he decides. ?symptoms?hypoxia? he doesn't have oximetry to check O2 leves. It's only been the last 3 weeks that he started using it again. Still smoking. "I just can't quit. What am I suppose to do". He hasn't followed up with his [employer] Control [employer] since dc from [facility]. "i just didn't get around to it." Current Medications - Current Medications Current Medications: Active Medications Acetaminophen (Acetaminophen 325 Mg Tablet) 650 mg PO Q4HR PRN PRN Reason: Pain 1 to 4 Last Admin: 11/15/20 09:09 Dose: 650 mg Documented by: Albuterol (Albuterol Neb 2.5 Mg/3 Ml) 2.5 mg INH Q4HR PRN PRN Reason: Wheezing Last Admin: 11/15/20 02:46 Dose: 2.5 mg Documented by: Albuterol/Ipratropium (Ipratropium/Albuterol 3 Ml Neb) 3 ml INH RTQID [facility] Last Admin: 11/15/20 11:00 Dose: 3 ml Documented by: Amlodipine Besylate (Amlodipine 5 Mg Tablet) 10 mg PO DAILY [facility] Last Admin: 11/15/20 09:09 Dose: 10 mg Documented by: Aspirin (Aspirin Ec 81 Mg Tablet) 81 mg PO DAILY [facility] Last Admin: 11/15/20 09:09 Dose: 81 mg Documented by: Diphenhydramine HCl (Diphenhydramine 25 Mg Capsule) 25 mg PO QPM PRN PRN Reason: Insomnia Last Admin: 11/14/20 21:32 Dose: 25 mg Documented by: Enoxaparin Sodium (Enoxaparin 40 Mg/0.4 Ml Syringe) 40 mg SUBQ DAILY [facility] Last Admin: 11/15/20 09:09 Dose: 40 mg Documented by: Folic Acid (Folic Acid 1 Mg Tablet) 1 mg PO DAILY [facility] Last Admin: 11/15/20 09:09 Dose: 1 mg Documented by: Levofloxacin (Levaquin 750 Mg/150 Ml) 750 mg in 150 mls @ 100 mls/hr IV Q24H [facility] Last Infusion: 11/14/20 16:34 Dose: Infused Documented by: Lorazepam (Lorazepam 1 Mg Tablet) 1 mg PO Q1H PRN; Protocol PRN Reason: CIWA > 8 Last Admin: 11/13/20 21:13 Dose: 1 mg Documented by: Methylprednisolone (Methylprednisolone Succinate 40 Mg/Ml Vial) 40 mg IVP TID [facility] Stop: 11/18/20 05:59 Last Admin: 11/15/20 06:30 Dose: 40 mg Documented by: Nicotine (Nicotine 7 Mg Patch) 1 patch TOP DAILY [facility] Last Admin: 11/15/20 09:10 Dose: 1 patch Documented by: Ondansetron HCl (Ondansetron 4 Mg/2 Ml Vial) 4 mg IVP Q6HR PRN PRN Reason: Nausea / Vomiting Pantoprazole Sodium (Pantoprazole 40 Mg Tablet) 40 mg PO QDAC [facility] Last Admin: 11/15/20 06:31 Dose: 40 mg Documented by: Pramipexole Dihydrochloride (Pramipexole 0.25 Mg Tablet) 0.25 mg PO TID [facility] Last Admin: 11/15/20 06:30 Dose: 0.25 mg Documented by: Sodium Chloride (Sodium Chloride Flush 0.9% 10 Ml Syringe) 10 ml IVP PRN PRN PRN Reason: NEEDED PER PROVIDER ORDERS Last Admin: 11/15/20 09:09 Dose: 10 ml Documented by: Terazosin HCl (Terazosin 1 Mg Capsule) 1 mg PO QPM [facility] Last Admin: 11/14/20 21:26 Dose: 1 mg Documented by: Thiamine HCl (Thiamine 100 Mg Tablet) 100 mg PO DAILY [facility] Last Admin: 11/15/20 09:09 Dose: 100 mg Documented by: Amlodipine Besylate [Norvasc] 10 mg PO DAILY 09/15/18 Aspirin [Aspirin EC] 81 mg PO DAILY 04/28/19 Acetaminophen [Aphen] 325 mg PO PRN PRN 04/17/20 Objective - Vital Signs/Intake & Output Reviewed Vital Signs: Yes Vital Signs: Vital Signs x48h Temp Pulse Pulse Resp BP Pulse Ox 11/15/20 07:33 36.7 C 55 L 26 H 103/81 H 94 11/15/20 05:00 36.6 C 70 20 119/55 L 93 11/15/20 02:46 100 20 11/14/20 23:59 36.5 C 96 24 131/76 H 93 Intake & Output: Intake & Output 11/12/20 11/13/20 11/14/20 11/15/20 23:59 23:59 23:59 23:59 Intake Total 1322 1430 2210 Output Total 1700 1050 1225 550 Balance -378 380 985 -550 - Objective General Appearance: positive: No acute distress, Alert, Other (nasal voice with rhinophyma, occ rhonchous cough that produces phlegm that he spits out) Eyes Bilateral: positive: PERRL, EOMI ENT: positive: No signs of dehydration, Other (voice is rough and he states that's his baseline) Neck: positive: No JVD, Lymphadenopathy (R) (shotty), Lymphadenopathy (L) ( shotty). negative: Stiff neck Respiratory: positive: No respiratory distress, Wheezes, Rhonchi. negative: Rales Cardiovascular: positive: Regular rate & rhythm, Systolic murmur. negative: Gallop/S4, Friction rub Abdomen: positive: Non-tender, No organomegaly, Nml bowel sounds, No distention, Other (large obese abd wall, mounded) Skin: positive: Warm, Dry Extremities: positive: Non-tender, Pedal edema Neurologic/Psychiatric: positive: Oriented x3, CN's nml (2-12), Motor nml - Lab Results Fish Bones: 11/15/20 06:07 11/15/20 06:07 Other Labs: Lab Results x24hrs 11/15/20 11/15/20 Range/Units 06:07 06:07 WBC 12.3 H (4.8-10.8) x10^3/uL RBC 4.05 L (4.70-6.10) 10^6/uL Hgb 13.6 L (14.0-18.0) g/dL Hct 40.7 L (42.0-52.0) % MCV 100.5 H (80.0-94.0) fL MCH 33.6 H (27.0-31.0) pg MCHC 33.4 (32.0-36.0) g/dL RDW 17.5 H (12.0-15.0) % Plt Count 301 (130-450) 10^3/uL MPV 9.9 (7.4-11.4) fL Neut # (Auto) 11.4 H (1.5-6.6) 10^3/uL Lymph # (Auto) 0.4 L (1.5-3.5) 10^3/uL [place] # (Auto) 0.4 (0.0-1.0) 10^3/uL Eos # (Auto) 0.0 (0.0-0.7) 10^3/uL Baso # (Auto) 0.0 (0.0-0.1) 10^3/uL Absolute Nucleated RBC 0.00 x10^3/uL Nucleated RBC % 0.0 /100WBC Sodium 135 (135-145) mmol/L Potassium 4.9 (3.5-5.0) mmol/L Chloride 101 (101-111) mmol/L Carbon Dioxide 28 (21-32) mmol/L Anion Gap 6.0 (6-13) BUN 28 H (6-20) mg/dL Creatinine 0.8 (0.6-1.2) mg/dL Estimated GFR (MDRD) 98 (>89) Glucose 167 H (70-100) mg/dL Calcium 9.2 (8.5-10.3) mg/dL ABX Reporting Has patient been on IV antibiotics over the past 48 hours?: Yes Sepsis Event Note (H) - Evaluation Current Stage of Sepsis: Ruled out Assessment/Plan - Problem List (1) Acute and chronic respiratory failure with hypoxia Impression: Arterial blood gas in the ED showed a pO2 of 61. O2 sats noted to be in the 80s. 11/12, he was at needing 1 and 1/2 L. From 11/13 until today still on 2 L to maintain O2 sats at 95%. I will ask him what his baseline O2 is at home and he tells me it is more of "an as needed thing, not all the time." -Supplemental O2 to maintain sats 92%. I think he may be at baseline, but unclear from his O2 use at home (2) COPD exacerbation Impression: Known history of severe COPD, last exacerbation required prolonged hospital stay in March 2020. That stay was prompted by COPD exacerbation that delayed him undergoing an EGD for odynophagia and he was transferred to [facility]. Current CXR not concerning for overlying pneumonia and vital signs and WBC not concerning for sepsis. His sputum culture was growing WBCx, GPCs, GNBs, and budding yeast so given this and the severity of the exacerbation he was started on IV steroids and IV antibiotics, both for 5 day courses. Duonebs were continued and so was supplemental oxygen to maintain O2 sats 92-95. Day after admission still tachypneic when he tried to talk or do anything. But at rest without acute distress. Was unable to speak more than 4-5 word sentences before he runs out of air. We discussed starting him on IV Solu-Medrol on admission. Unfortunately that was not started that night but started next day. While he initially improved, he seems to be at the same state he was 11/14. Able to speak full sentences but just waking or speaking or moving in bed causes increased respiratory rate. -IV solumedrol 40mg IV TID x 5 days (start 11/13)>>change to po -IV Levofloxacin 750mg daily x 5 days (start 11/12)>>change to po -Duonebs Q4H -Supplemental O2 to maintain O2 sats 92-95%, wean as able -Add PPI bc of hx of ulcers (he's on steroids) Discharge 11/16 or 11/17 depending on Oxygen requirement. I will have RN get him out of bed and walk to bathroom or sit in chair (3) Dyspnea Conclusion/Plan: Related to acute COPD exacerbation. Reporting dyspnea both at rest and with exertion. Speaking in 4-5 word sentences before needing to take a break. Has been started on IV steroids and duonebs with mprovement noted. -Supplemental O2 as needed -IV solumedrol to change to po steroids for total 5 days -Scheduled Duonebs Qualifiers: Dyspnea type: dyspnea on exertion Qualified Code(s): R06.00 - Dyspnea, unspecified (4) HTN (hypertension) Conclusion/Plan: BP has been 140s-160s/100-110s on admission. Takes Amlodipine at home, did take his morning dose prior to coming to the hospital. This has been resumed here but he remains hypertensive, likely related to his hypoxia and COPD exacerbation. His systolic was 150s-160s 11/13. I would have added ANTHONY to his meds but he had anaphylaxis with Lisinopril. I wanted to add lopressor but his heart rate is in the 50s this am. I added Hytrin and BP very well controlled with that. Plan: Continue to monitor blood pressure. If he gets too low, to remove the Hytrin. Qualifiers: Hypertension type: unspecified Qualified Code(s): I10 - Essential (primary) hypertension (5) Tachycardia resolved Conclusion/Plan: HR was in the 100s, likely related to his dyspnea. On the first morning after admission, he has been in the 50s without rate lowering meds. Denies chest pain or palpitations. VS Q8H (6) Arrhythmia Conclusion/Plan: Unknown arrhythmia, reports he was told he has an "erratic heartbeat" approximately 5 years ago in [facility] but did not follow up. Takes Amlodipine for HTN at home. EKG today showing sinus tachycardia and borderline prolonged QT as well as multi-form ventricular premature complexes. -EKG without QT prolongation. -Telemetry -VS Q8H Qualifiers: Arrhythmia type: unspecified cardiac arrhythmia Qualified Code(s): I49.9 - Cardiac arrhythmia, unspecified (7) Alcohol abuse Conclusion/Plan: Reports drinking 2-3 beers a night. Denies hx of withdrawals, DTs or seizures but ED note indicates he reported "shaking" after 2-3 days of not drinking. Will continue to monitor for now, low threshhold to start CIWA. So far he has not needed it. Yesterday afternoon/evening, however, he was complaining of his legs jerking. He says it been jerking for 6 months. He cannot sleep and is driving him crazy. I added Mirapex for Restless Leg Syndrome and he says it helps. -Low threshhold to start CIWA, may need vitamin replacement -addiction referral if Pt interested (8) Tobacco abuse Conclusion/Plan: 1/2 PPD smoker x 40+ years. Not interested in stopping but does want to use a patch while here. -Nicotine 7mg patch transdermal Q24 hours
[2020-11-15] MEDS: ASPIRIN EC 81 MG TABLET PO SCH (09:09)
[2020-11-15] MEDS: THIAMINE 100 MG TABLET PO SCH (09:09)
[2020-11-15] MEDS: amLODIPine 5 MG TABLET PO SCH (09:09)
[2020-11-15] MEDS: ENOXAPARIN 40 MG/0.4 ML SYRINGE SUBQ SCH (09:09)
[2020-11-15] MEDS: FOLIC ACID 1 MG TABLET PO SCH (09:09)
[2020-11-15] MEDS: NICOTINE 7 MG PATCH TOP SCH (09:10)
[2020-11-15] MEDS: levoFLOXacin 250 MG TABLET PO SCH (14:04)
--- NOTE | 2020-11-15 18:40 | ADVANCE CARE PLANNING NOTE ---
Advance Care Planning - Planning Encounter Date: 11/15/20 Time: 09:00 Purpose: Establish care goals. Parties in Attendance: Hospitalist and patient Decisional Capacity of the Patient: Alert, oriented, lucid speech. - Diagnosis for Encounter (1) COPD exacerbation Summary: He has long-term COPD. Occasionally needs oxygen. Has not been very compliant with visits to doctors and he continues to smoke. Has had multiple ER encounters. A few hospitalizations due to COPD. - Encounter Subjective/Patient's Story: He lives in his own home that he rents from his sister. Lives down the road from her. She looks in on him and get some groceries when he needs it. He still drives, tries to make his own food. Continues to have occasional alcohol binges. Continues to smoke. Has moderate to severe COPD. He does not need any help with dressing and feeding himself. However, he reluctantly admits that the house is probably a mass. He gets too tired to do a lot of cooking for himself. Sometimes is just overwhelming to try and get himself to a doctor's appointment and he just does not have the willpower to stop smoking or drinking. He states he wants to be a full code because 10 years ago he had an anaphylactic reaction to a medication. He was "" for 18 minutes and they were able to revive him. He feels like the same thing could happen again and that is why he wants to be a full code. Objective/Medical Story: Over the course of a few years, this patient has been admitted multiple times to our service. While he has been able to return to independent living, he is noticeably less hygienic. More short of breath. Less ambulatory with each subsequent encounter. He was hospitalized in March with COPD exacerbation. Severe odynophagia resulted in a referral or transfer to [facility]. They had to stabilize a COPD before they did an EGD. Since that time he has been at home. Thought he was doing well. Never followed up with his opener. Did see his primary care provider but he cannot remember when that was. He felt like he was "doing okay" until a few weeks ago when he started to have to use oxygen again. He started increasing the use of his inhaler. He finally ran out of his inhaler, and was using a lot of oxygen so he came back into the hospital. He is continue to smoke, drink alcohol. I wanted to make sure that he understood the link between drinking, smoking, emphysema, shorten life span, etc. He says that he is aware of all of these things. But he just does not have the willpower to stop his vices. Right now his plan is to stay in his own home until he can take care of himself anymore and that he will go to a convalescent home. He does not know how he will pay for. Right now he is Medicaid. He hopes to go on Medicare. He is not sure if he will be a combined Medi Medi or just Medicare. I have also explained to him that being resuscitated from a cardiopulmonary event due to end-stage emphysema or massive heart attack/stroke because he stops breathing or his heart stops beating is different than being resuscitated from a reversible event such as anaphylaxis. He says that he understands. He knows that he is 10 years older and the outcome may not be good. But he still would like to be resuscitated. He would like intubation, chest compressions. After he has been on life support for a day or 2, if it looks like he is not go to make it he wants his sister to make the decision to let him go and extubate him and let him . Goals of Care: To stay in his own home as long as possible. And to be full code. Plan: 1. I have asked him to speak to social work get one more time about trying to stop smoking and drinking 2. I have asked him to speak to his sister to make sure that, as his power of city attorney, she understands that his goal is to live in his home. Once he cannot live in a home he wants to go to a convalescent home. 3. Most important of all I want him to explained to his sister that if he is on life support for more than 2 days, she is to "let him go" by extubating him and no longer providing life support. Code Status: Attempt Resuscitation Time spent on advance care plannin
[2020-11-15] MEDS: diphenhydrAMINE 25 MG CAPSULE PO PRN (22:01)
[2020-11-15] MEDS: TERAZOSIN 1 MG CAPSULE PO SCH (22:01)
[2020-11-16] MEDS: ACETAMINOPHEN 325 MG TABLET PO PRN ×5 (00:18→19:42)
[2020-11-16] MEDS: SODIUM CHLORIDE FLUSH 0.9% 10 ML SYRINGE IVP PRN ×2 (00:19→21:12)
[2020-11-16] MEDS: ALBUTEROL NEB 2.5 MG/3 ML INH PRN ×2 (00:35→15:10)
[2020-11-16] MEDS: PRAMIPEXOLE 0.25 MG TABLET PO SCH ×3 (05:23→20:38)
[2020-11-16] MEDS: PANTOPRAZOLE 40 MG TABLET PO SCH (06:46)
[2020-11-16] MEDS: IPRATROPIUM/ALBUTEROL 3 ML NEB INH SCH ×4 (07:09→20:57)
[2020-11-16] MEDS: predniSONE 5 MG TABLET PO SCH (08:20)
[2020-11-16] MEDS: predniSONE 20 MG TABLET PO SCH (08:20)
[2020-11-16] MEDS: amLODIPine 5 MG TABLET PO SCH (08:35)
[2020-11-16] MEDS: ASPIRIN EC 81 MG TABLET PO SCH (08:36)
[2020-11-16] MEDS: NICOTINE 7 MG PATCH TOP SCH (08:36)
[2020-11-16] MEDS: FOLIC ACID 1 MG TABLET PO SCH (08:36)
[2020-11-16] MEDS: ENOXAPARIN 40 MG/0.4 ML SYRINGE SUBQ SCH (08:36)
[2020-11-16] MEDS: levoFLOXacin 250 MG TABLET PO SCH (08:36)
[2020-11-16] MEDS: THIAMINE 100 MG TABLET PO SCH (08:37)
[2020-11-16] MEDS: SACCHAROMYCES BOULARDII 250 MG CAPSULE PO SCH ×2 (08:50→16:41)
--- NOTE | 2020-11-16 12:06 | PROVIDER PROGRESS NOTE ---
Subjective - Prog Note Date Prog Note Date: 11/16/20 Prog Note Time: 12:01 - Subjective Subjective: Continues to be short of breath with minimal activity. I do not know this patient when he is stable and doing well. I am only meeting him times of crisis with COPD exacerbation. He describes a limited mobility, easy tachypnea. The main difference between his baseline status now is that he is on oxygen now and has not used oxygen in months and to the last 3 weeks. He is able to get out of the room and ambulate in the hallways. Sitting in a chair. But really has to be coaxed to do so. No cough. Mainly wheezing, easy tachypnea with just sitting up to speak to me. Current Medications - Current Medications Current Medications: Active Medications Acetaminophen (Acetaminophen 325 Mg Tablet) 650 mg PO Q4HR PRN PRN Reason: Pain 1 to 4 Last Admin: 11/16/20 11:45 Dose: 650 mg Documented by: Albuterol (Albuterol Neb 2.5 Mg/3 Ml) 2.5 mg INH Q4HR PRN PRN Reason: Wheezing Last Admin: 11/16/20 00:35 Dose: 2.5 mg Documented by: Albuterol/Ipratropium (Ipratropium/Albuterol 3 Ml Neb) 3 ml INH RTQID [facility] Last Admin: 11/16/20 10:21 Dose: 3 ml Documented by: Amlodipine Besylate (Amlodipine 5 Mg Tablet) 10 mg PO DAILY [facility] Last Admin: 11/16/20 08:35 Dose: 10 mg Documented by: Aspirin (Aspirin Ec 81 Mg Tablet) 81 mg PO DAILY [facility] Last Admin: 11/16/20 08:36 Dose: 81 mg Documented by: Diphenhydramine HCl (Diphenhydramine 25 Mg Capsule) 25 mg PO QPM PRN PRN Reason: Insomnia Last Admin: 11/15/20 22:01 Dose: 25 mg Documented by: Enoxaparin Sodium (Enoxaparin 40 Mg/0.4 Ml Syringe) 40 mg SUBQ DAILY [facility] Last Admin: 11/16/20 08:36 Dose: 40 mg Documented by: Folic Acid (Folic Acid 1 Mg Tablet) 1 mg PO DAILY [facility] Last Admin: 11/16/20 08:36 Dose: 1 mg Documented by: Levofloxacin (Levofloxacin 250 Mg Tablet) 750 mg PO DAILY [facility] Last Admin: 11/16/20 08:36 Dose: 750 mg Documented by: Lorazepam (Lorazepam 1 Mg Tablet) 1 mg PO Q1H PRN; Protocol PRN Reason: CIWA > 8 Last Admin: 11/13/20 21:13 Dose: 1 mg Documented by: Nicotine (Nicotine 7 Mg Patch) 1 patch TOP DAILY [facility] Last Admin: 11/16/20 08:36 Dose: 1 patch Documented by: Ondansetron HCl (Ondansetron 4 Mg/2 Ml Vial) 4 mg IVP Q6HR PRN PRN Reason: Nausea / Vomiting Pantoprazole Sodium (Pantoprazole 40 Mg Tablet) 40 mg PO QDAC [facility] Last Admin: 11/16/20 06:46 Dose: 40 mg Documented by: Pramipexole Dihydrochloride (Pramipexole 0.25 Mg Tablet) 0.25 mg PO TID [facility] Last Admin: 11/16/20 05:23 Dose: 0.25 mg Documented by: Prednisone (Prednisone 20 Mg Tablet) 20 mg PO DAILYWM [facility] Last Admin: 11/16/20 08:20 Dose: 20 mg Documented by: Prednisone (Prednisone 5 Mg Tablet) 5 mg PO DAILYWM [facility] Last Admin: 11/16/20 08:20 Dose: 5 mg Documented by: Saccharomyces Boulardii (Saccharomyces Boulardii 250 Mg Capsule) 250 mg PO BIDWM [facility] Last Admin: 11/16/20 08:50 Dose: 250 mg Documented by: Sodium Chloride (Sodium Chloride Flush 0.9% 10 Ml Syringe) 10 ml IVP PRN PRN PRN Reason: NEEDED PER PROVIDER ORDERS Last Admin: 11/16/20 00:19 Dose: 10 ml Documented by: Terazosin HCl (Terazosin 1 Mg Capsule) 1 mg PO QPM [facility] Last Admin: 11/15/20 22:01 Dose: 1 mg Documented by: Thiamine HCl (Thiamine 100 Mg Tablet) 100 mg PO DAILY [facility] Last Admin: 11/16/20 08:37 Dose: 100 mg Documented by: Amlodipine Besylate [Norvasc] 10 mg PO DAILY 09/15/18 Aspirin [Aspirin EC] 81 mg PO DAILY 04/28/19 Acetaminophen [Aphen] 325 mg PO PRN PRN 04/17/20 Objective - Vital Signs/Intake & Output Reviewed Vital Signs: Yes Vital Signs: Vital Signs x48h Temp Pulse Pulse Pulse Resp BP Pulse Ox 11/16/20 10:22 60 26 H 11/16/20 08:17 36.3 C L 102 H 18 115/73 94 11/16/20 07:10 56 L 22 11/16/20 05:09 36.5 C 93 21 137/71 H 93 Intake & Output: Intake & Output 11/13/20 11/14/20 11/15/20 11/16/20 23:59 23:59 23:59 23:59 Intake Total 1430 2210 2180 720 Output Total 1050 1225 550 Balance 733 307 6330 720 - Objective General Appearance: positive: Alert, Mild distress Eyes Bilateral: positive: PERRL, EOMI ENT: positive: No signs of dehydration, Other (Rhinophyma, nasal tone of voice) Neck: positive: No JVD. negative: Stiff neck Respiratory: positive: No respiratory distress, Wheezes (Faint, upper lung hernández), Other (No use of accessory respiratory muscles. His wheezing gets louder when he sits up and tries to get up. But again no use of accessory muscles and he recovers quickly to go back to sleep.). negative: Rales, Rhonchi Cardiovascular: positive: Regular rate & rhythm. negative: Gallop/S4, Friction rub Abdomen: positive: Non-tender, No organomegaly, Nml bowel sounds, No distention Skin: positive: Warm, Dry Extremities: positive: Full ROM, No pedal edema Neurologic/Psychiatric: positive: Oriented x3, CN's nml (2-12), Motor nml - Lab Results Fish Bones: 11/15/20 06:07 11/15/20 06:07 Sepsis Event Note (H) - Evaluation Current Stage of Sepsis: Ruled out Assessment/Plan - Problem List (1) COPD exacerbation Impression: Arterial blood gas in the ED showed a pO2 of 61. O2 sats noted to be in the 80s. 11/12, he was at needing 1 and 1/2 L. From 11/13 until today still on 2 L to maintain O2 sats at 95%. I will ask him what his baseline O2 is at home and he tells me it is more of "an as needed thing, not all the time." -Supplemental O2 to maintain sats 92%. I think he may be at baseline, but unclear from his O2 use at home. He thinks he will be ready to go home to. Of breath when he tries to do anything such as get up to go to the bathroom.But he does not want home health, or any private duty caregivers even if he qualifies. (2) COPD exacerbation Impression: Known history of severe COPD, last exacerbation required prolonged hospital stay in March 2020. That stay was prompted by COPD exacerbation that delayed him undergoing an EGD for odynophagia and he was transferred to [facility]. Current CXR not concerning for overlying pneumonia and vital signs and WBC not concerning for sepsis. His sputum culture is growing WBCx, GPCs, GNBs, and budding yeast so given this and the severity of the exacerbation he was started on IV steroids and IV antibiotics, both for 5 day courses. The sputum culture is growing staph aureus at 2 to 3 days. Blood cultures are negative at 48 hours. Duonebs were continued and so was supplemental oxygen to maintain O2 sats 92-95. Day after admission still tachypneic when he tried to talk or do anything. But at rest without acute distress. Was unable to speak more than 4-5 word sentences before he runs out of air. We discussed starting him on IV Solu-Medrol on admission. Unfortunately that was not started that night but started next day. While he initially improved, he seems to be at the same state he was 11/14. Able to speak full sentences but just waking or speaking or moving in bed causes increased respiratory rate. Today I am not finding much clinical change on exam for the last 2 days. -IV solumedrol 40mg IV TID x 5 days (start 11/13)>>change to po., tomorrow will be day #5 of combine IV and po and he will get 20 mg prednisone. I would think that could be stopped completely. -IV Levofloxacin 750mg daily x 5 days (start 11/12)>>change to po. Today is Day #5 so it's the last dose. -Duonebs Q4H -Supplemental O2 to maintain O2 sats 92-95%, wean as able -Add PPI bc of hx of ulcers (he's on steroids) Discharge 11/17 depending on Oxygen requirement. If he needs oxygen, he has cannisters at home. I will ask respiratory therapy to verify company and supplies. He is reluctant to get out of bed so RN is encouraging him. Everytime I examine him, he's in bed. Needs to be in chair. (3) Dyspnea Conclusion/Plan: Related to acute COPD exacerbation. Reporting dyspnea both at rest and with exertion. He was speaking in 4-5 word sentences before needing to take a break. Has been started on IV steroids and duonebs with mprovement noted. He can now speak in complete sentences and the dyspnea occurs when he gets up. But recovers quickly. -Supplemental O2 as needed -IV solumedrol to change to po steroids for total 5 days -Scheduled Duonebs Qualifiers: Dyspnea type: dyspnea on exertion Qualified Code(s): R06.00 - Dyspnea, unspecified (4) HTN (hypertension) Conclusion/Plan: BP has been 140s-160s/100-110s on admission. Takes Amlodipine at home, did take his morning dose prior to coming to the hospital. This has been resumed here but he remains hypertensive, likely related to his hypoxia and COPD exacerbation. His systolic was 150s-160s 11/13. I would have added ANTHONY to his meds but he had anaphylaxis with Lisinopril. I wanted to add lopressor but his heart rate is in the 50s this am. I added Hytrin and BP very well controlled with that. Plan: Continue to monitor blood pressure. If he gets too low, to remove the Hytrin. Send him home on it. Qualifiers: Hypertension type: unspecified Qualified Code(s): I10 - Essential (primary) hypertension (5) Tachycardia resolved Conclusion/Plan: HR was in the 100s, likely related to his dyspnea. On the first morning after admission, he has been in the 50s without rate lowering meds. Denies chest pain or palpitations. VS Q8H (6) Arrhythmia Conclusion/Plan: Unknown arrhythmia, reports he was told he has an "erratic heartbeat" approximately 5 years ago in [facility] but did not follow up. Takes Amlodipine for HTN at home. EKG today showing sinus tachycardia and borderline prolonged QT as well as multi-form ventricular premature complexes. -EKG without QT prolongation. -Telemetry -VS Q8H Qualifiers: Arrhythmia type: unspecified cardiac arrhythmia Qualified Code(s): I49.9 - Cardiac arrhythmia, unspecified (7) Alcohol abuse Conclusion/Plan: Reports drinking 2-3 beers a night. Denies hx of withdrawals, DTs or seizures but ED note indicates he reported "shaking" after 2-3 days of not drinking. Will continue to monitor for now, low threshhold to start CIWA. So far he has not needed it. Yesterday afternoon/evening, however, he was complaining of his legs jerking. He says it been jerking for 6 months. He cannot sleep and is driving him crazy. I added Mirapex for Restless Leg Syndrome and he says it helps. -Low threshhold to start CIWA, may need vitamin replacement -addiction referral if Pt interested (8) Tobacco abuse Conclusion/Plan: 1/2 PPD smoker x 40+ years. Not interested in stopping but does want to use a patch while here. -Nicotine 7mg patch transdermal Q24 hours
[2020-11-16] MEDS: TERAZOSIN 1 MG CAPSULE PO SCH (20:38)
[2020-11-16] MEDS: diphenhydrAMINE 25 MG CAPSULE PO PRN (20:38)
[2020-11-17] MEDS: SODIUM CHLORIDE FLUSH 0.9% 10 ML SYRINGE IVP PRN (00:19)
[2020-11-17] MEDS: ALBUTEROL NEB 2.5 MG/3 ML INH PRN (01:08)
[2020-11-17] MEDS: PRAMIPEXOLE 0.25 MG TABLET PO SCH (06:12)
[2020-11-17] MEDS: PANTOPRAZOLE 40 MG TABLET PO SCH (06:12)
[2020-11-17] MEDS: IPRATROPIUM/ALBUTEROL 3 ML NEB INH SCH (07:05)
--- NOTE | 2020-11-17 07:28 | Discharge Plan ---
Discharge Plan Problem Reviewed?: Yes Disposition: Home, Self Care Condition: Stable Prescriptions: Terazosin [Hytrin] 1 mg PO QPM #30 cap Pramipexole [Mirapex] 0.25 mg PO TID #90 tablet Tiotropium [place] [Spiriva] 1 puffs INH DAILY 30 Days #1 each Diet: Regular Activity Restrictions: Activity as Tolerated Shower Restrictions: No Driving Restrictions: No Health Concerns: You have a problem with alcohol and was smoking in spite of having emphysema. 3 weeks ago you got worse coughing and wheezing and came to our emergency room November 12. We found you to have severe emphysema. You needed increased oxygen. We stabilized you with steroids, inhalers, and you have done well. While you were here you complained about having twitching of your limbs that could not let you sleep at night. We call that restless leg syndrome. We started you on Mirapex and you have tolerated that well. Plan of Treatment: 1. Mirapex has been [facility] into [facility] for restless leg syndrome 2. Spiriva, a long-acting inhaler, has been called into [facility] as well. That should help stabilize your emphysema. You also have oxygen at home and our respiratory therapist confirm that you still have it there. Please stay on 3 L 14/10. 3. Please see your primary care provider, Romina Silveira so that she can check on your oxygen levels and know that you have been started on Mirapex. 4. We talked about your illnesses. Smoking and alcoholism lead to a much shorter life span and I fear that yours will definitely be impacted. We talked about the future. You plan on going to a convalescent home when you can no longer take care of yourself. Please let your sister know about your plan since she is your power of deputy county attorney. Care Goals: To stabilize your emphysema so that you do not get sicker and come back to the hospital. To be able to stop smoking and to be able to stop drinking. Assessment: Patient states that he understands the goals but does not know if he will be able to do these things. He will try No Smoking: If you smoke, Please STOP! Call for help. Follow-up with: Kamini Silveira ARNP [Primary Care Provider] -
[2020-11-17] MEDS: SACCHAROMYCES BOULARDII 250 MG CAPSULE PO SCH (08:02)
[2020-11-17] MEDS: predniSONE 5 MG TABLET PO SCH (08:02)
[2020-11-17] MEDS: predniSONE 20 MG TABLET PO SCH (08:03)
--- NOTE | 2020-11-17 08:35 | DISCHARGE SUMMARY ---
Discharge Summary Discharge Date: 11/17/20 Code Status: Attempt Resuscitation Condition at Discharge: Stable Discharge Disposition: 01 Home, Self Care - DIAGNOSES Discharge Diagnoses with Status of Each Condition: 1. COPD exacerbation 2. Acute on chronic respiratory failure with hypoxemia 3. Chronic dyspnea 4. Hypertension 5. Alcohol abuse 6. Tobacco abuse 6. Restless leg syndrome 7. History of duodenal ulcer 8. History of esophagitis 9. Sinus tachycardia - HPI History of Present Illness: Pt was quite tachypnic and SOB on my interview so history was obtained via chart review with clarifications from Pt as needed. Pt is a 60 year old male with hx of COPD and arrhythmia presenting to the ED this morning with acute dyspnea at rest and cough despite use of home nebulizers. On chart review it appears he was last hospitalized in March for a COPD exacerbation that required a prolonged hospital stay and transfer to [facility]. He had an unclear procedure for his stomach performed during that stay and reports he was discharged home at the end of April. Per his report he has been using his home nebulizer machine and oxygen as needed however approximately 1 week became more short of breath. His home nebulizers and rescue inhalers helped to mitigate the dyspnea until approximately 2 days ago when even doubling up on his albuterol did not help. He called EMS this morning for evaluation. He has not had any steroids or antibiotics since April per ED documentation. He denies recent sick contacts and COVID test was negative in the ED. On arrival to the med surg unit he is tachypnic, afebrile, tachycardic and hypertensive. He denies pain, chest pain, or palpitations. Does not appear to be distressed but is having to stop every 4-5 words to breathe. Currently requiring 1.5L NC for O2 sat 93-95. Denies n/v. Does have a productive cough but could not describe the sputum. A culture was sent for microbiology to the lab and is showing many WBCs, GPCs, GNBs and budding yeast. Reported subjective fevers at home the past 2 days on my interview though denied to ED providers and has been afebrile while here. He was admitted to the med surg unit for closer evaluation with initiation of IV steroids and duonebs with IV antibiotics to reverse his COPD exacerbation. - Past Medical History Cardiovascular: reports: Hypertension, Arrhythmia Respiratory: reports: COPD, Pneumonia, Shortness of breath Neuro: reports: None Endocrine/Autoimmune: reports: None GI: reports: Cirrhosis, Other : reports: None Psych: reports: None Musculoskeletal: reports: Chronic back pain, Other Derm: reports: None MRSA Hx?: No - CONSULTS | PROCEDURES Procedures: Chest x-ray is with low lung volumes, likely lateral ectasis at the bases. Mild interstitial prominence. No acute pneumonia. - HOSPITAL COURSE Hospital Course: Patient was placed on 5 days of steroids, antibiotics. Nebulizers were DuoNeb as well as as needed albuterol. Protonix was started after we reviewed his records from March [address] stayed at [facility]. He has esophagitis, duodenal ulcer. Should not be on nonsteroidals. Advance care planning conversation was had just to Tease out his goals. He is gone as far as deciding that he wants to go to a convalescent home when he can no longer take care of himself. But he still wishes to be a full code because 10 years ago he had an anaphylactic reaction and was " for 18 minutes". He feels that if he can survive that he can survive end-stage COPD resuscitation. I have asked him to discuss his goals with his sister. He has been started on Mirapex. He says that his restless leg syndrome is really bothering him. I have also started him on Spiriva. I do not know what his finances are and I do not know if he will be able to pay for that. Please see him in follow-up. He needs to be on albuterol, a long-acting bronchodilator of your choice. At discharge temperature was 36.8. Pulse 88. Blood pressure 148/73. Respirations 22. He is 96% saturated on 2 L. He is 5 feet 3 inches tall and weighs 70.3 kg. He is a stocky overweight gentleman with a low gravelly voice, rhinophyma, muddy sclera. Neck has shotty adenopathy. Coarse upper airway sounds when he is awake. Prolonged and exhalation and wheezing has resolved. He has good air movement. Regular rate and rhythm. Abdomen is obese, soft, protuberant. Extremities have trace edema around the ankles. He ambulates with a wide-based gait, and has increased respiratory effort when he does it. He quickly recovers. He prefers to be sedentary. Greater than 30 minutes was spent coordinating discharge, instructing on Spiriva. - ALLERGIES Allergies/Adverse Reactions: Allergies Allergy/AdvReac Type Severity Reaction Status Date / Time lisinopril Allergy Severe Anaphylaxis/Cardiac Verified 04/16/20 19:52 Arrest - MEDICATIONS Home Medications: Ambulatory Orders Medication Instructions Recorded Confirmed Amlodipine Besylate [Norvasc] 10 mg PO DAILY 09/15/18 11/12/20 Aspirin [Aspirin EC] 81 mg PO DAILY 04/28/19 11/12/20 Albuterol Sulfate [Proair Hfa 1 - 2 puffs INH Q4H PRN #1 inhaler 05/01/19 11/12/20 Inhaler] Acetaminophen [Aphen] 325 mg PO PRN PRN 04/17/20 11/12/20 Folic Acid 1 mg PO DAILY tablet 11/17/20 Pramipexole [Mirapex] 0.25 mg PO TID #90 tablet 11/17/20 Terazosin [Hytrin] 1 mg PO QPM #30 cap 11/17/20 Thiamine [Vitamin B-1] 100 mg PO DAILY tablet 11/17/20 Tiotropium [place] [Spiriva] 1 puffs INH DAILY 30 Days #1 each 11/17/20 - LABS Result Diagrams: 11/15/20 06:07 11/15/20 06:07 - SEPSIS Current Stage of Sepsis: Ruled out
[2020-11-17] MEDS: ASPIRIN EC 81 MG TABLET PO SCH (08:56)
[2020-11-17] MEDS: ENOXAPARIN 40 MG/0.4 ML SYRINGE SUBQ SCH (08:56)
[2020-11-17] MEDS: FOLIC ACID 1 MG TABLET PO SCH (08:56)
[2020-11-17] MEDS: amLODIPine 5 MG TABLET PO SCH (08:56)
[2020-11-17] MEDS: levoFLOXacin 250 MG TABLET PO SCH (08:57)
[2020-11-17] MEDS: NICOTINE 7 MG PATCH TOP SCH (08:58)
[2020-11-17] MEDS: THIAMINE 100 MG TABLET PO SCH (09:10)
[2020-11-17 09:12] VITALS: BP 132/86
== END 2020-11-17 09:14 | disposition home or self-care (01) | DRG 189 ==
LOC: EDUNIT# → ED 07:58 → MS2 11:45
PROVIDERS: ADMIT Registered Nurse; ATTEND Specialist
DX: J96.21 Acute and chronic respiratory failure with hypoxia (principal); Z20.822 Contact with and (suspected) exposure to COVID-19; J43.9 Emphysema, unspecified; Z79.899 Other long term (current) drug therapy; I49.9 Cardiac arrhythmia, unspecified; I10 Essential (primary) hypertension; R00.0 Tachycardia, unspecified; M54.9 Dorsalgia, unspecified; G89.29 Other chronic pain; F10.10 Alcohol abuse, uncomplicated; G25.81 Restless legs syndrome; F17.210 Nicotine dependence, cigarettes, uncomplicated; Z87.11 Personal history of peptic ulcer disease
CPT/HCPCS: 36415; 36600; 71045; 80048; 80053; 82803; 83690; 84484; 85025; 87040; 87070; 87181; 87205; 87631; 93005; 94640; 96365; 96375; 99284; 99285; A9270; J1650; J2060; J7512; J8499; 0202U

== ENCOUNTER 2021-02-22 10:24 | Outpatient (CLI) | payer MEDICARE, MEDICAID | END 2021-02-22 10:25 | disposition critical access hospital (66) | LOC: EMS 10:24 | DX: R06.09 Other forms of dyspnea (principal); R11.2 Nausea with vomiting, unspecified; R14.0 Abdominal distension (gaseous); R26.81 Unsteadiness on feet; Z72.89 Other problems related to lifestyle | CPT/HCPCS: A0425; A0427 ==

== ENCOUNTER 2021-02-22 10:29 | Emergency (ER) | payer MEDICARE, MEDICAID ==
[2021-02-22] MEDS ORDERED: PHENobarbital 65 MG/ML VIAL IV STA (11:47)
[2021-02-22] MEDS ORDERED: SODIUM CHLORIDE 0.9% 1,000 ML IV STA (11:47)
[2021-02-22] MEDS ORDERED: DROPERIDOL 5 MG/2 ML VIAL IVP STA (12:02)
[2021-02-22 12:07] LABS: BASOPHILS % (AUTO) 0.1 %; EOSINOPHILS % (AUTO) 0.2 %; HCT - HEMATOCRIT 42.4 % (42.0-52.0); HGB - HEMOGLOBIN 14.8 g/dL (14.0-18.0); LYMPHOCYTES # (AUTO) 1.3 10^3/uL (1.5-3.5); LYMPHOCYTES % (AUTO) 12.6 %; MEAN CORPUSCULAR HGB CONC 34.9 g/dL (32.0-36.0); MEAN CORPUSCULAR VOLUME 88.7 fL (80.0-94.0); MEAN PLATELET VOLUME 9.9 fL (7.4-11.4); MONOCYTES # (AUTO) 0.6 10^3/uL (0.0-1.0); MONOCYTES % (AUTO) 5.6 %; NEUTROPHILS # (AUTO) 8.1 10^3/uL (1.5-6.6); NEUTROPHILS % (AUTO) 81.3 %; PLT - PLATELET COUNT 188 10^3/uL (130-450); RED BLOOD COUNT 4.78 10^6/uL (4.70-6.10); RED CELL DISTRIBUTION WIDTH 14.6 % (12.0-15.0); WHITE BLOOD COUNT 9.9 x10^3/uL (4.8-10.8)
[2021-02-22 12:24] LABS: ALBUMIN 3.8 g/dL (3.2-5.5); ALKALINE PHOSPHATASE 84 IU/L (42-121); ALT ALANINE AMINOTRANSFERASE 49 IU/L (10-60); AST ASPARTATE AMINOTRANSFERASE 83 IU/L (10-42); BILIRUBIN,TOTAL 1.1 mg/dL (0.2-1.0); BUN - BLOOD UREA NITROGEN 26 mg/dL (6-20); CALCIUM 8.4 mg/dL (8.5-10.3); CARBON DIOXIDE - CO2 24 mmol/L (21-32); CHLORIDE 94 mmol/L (101-111); CREATININE 1.2 mg/dL (0.6-1.2); ETOH - ETHANOL < 5.0 mg/dL; GFR - MDRD 61 (>89); GLUCOSE 126 mg/dL (70-100); LIPASE 28 U/L (22-51); POTASSIUM 3.3 mmol/L (3.5-5.0); SODIUM 134 mmol/L (135-145); TOTAL PROTEIN 7.5 g/dL (6.7-8.2)
--- NOTE | 2021-02-22 12:29 | XRAY Report ---
PROCEDURE: Chest 1 View X-Ray INDICATIONS: Chest pain TECHNIQUE: One view of the chest was acquired. COMPARISON: 11/12/2020 FINDINGS: Surgical changes and devices: None. Lungs and pleura: No pleural effusions or pneumothorax. Lungs are clear. Mediastinum: Mediastinal contours appear normal. Heart size is normal. Bones and chest wall: No suspicious bony lesions. Overlying soft tissues appear unremarkable. IMPRESSION: No acute cardiopulmonary process demonstrated radiographically. Reviewed by: Timmy Haas MD on 02/22/2021 11:28 AM [facility] Approved by: Timmy Haas MD on 02/22/2021 11:28 AM [facility] Station ID: [id number]
--- NOTE | 2021-02-22 13:20 | ED Physician Documentation ---
PD HPI DYSPNEA - Stated complaint Stated Complaint: ETOH WITHDRAWL - Chief complaint Chief Complaint: Resp - History obtained from History obtained from: Patient - Additional information Additional information: Patient comes emergency department chief complaint of "I have got the shakes". Patient admits to drinking a lot of alcohol on a regular basis, but states his last drink was 48 hours ago. He also has a history of severe COPD and uses 4 L of oxygen [id number] at home. He states he feels short of breath this morning. Patient denies any chest pain. No fevers or chills. No new onset cough. No sick contacts. He is vaccinated for Covid. No other complaints at this time. No nausea or vomiting. No hallucinations. Review of Systems Ten Systems: 10 systems reviewed and negative Constitutional: reports: Reviewed and negative Eyes: reports: Reviewed and negative Ears: reports: Reviewed and negative Nose: reports: Reviewed and negative Throat: reports: Reviewed and negative Cardiac: reports: Reviewed and negative Respiratory: reports: Dyspnea GI: reports: Reviewed and negative : reports: Reviewed and negative Skin: reports: Reviewed and negative Musculoskeletal: reports: Reviewed and negative Neurologic: reports: Reviewed and negative Psychiatric: reports: Anxiety. denies: Hallucinations Endocrine: reports: Reviewed and negative Immunocompromised: reports: Reviewed and negative PD PAST MEDICAL HISTORY - Past Medical History Cardiovascular: Hypertension, Arrhythmia Respiratory: COPD, Pneumonia, Shortness of breath Neuro: None Endocrine/Autoimmune: None GI: Cirrhosis, Other : None Psych: None Musculoskeletal: Chronic back pain, Other Derm: None - Past Surgical History Past Surgical History: Yes Ortho: Spine surgery HEENT: Other - Present Medications Home Medications: Ambulatory Orders Medication Instructions Recorded Confirmed Amlodipine Besylate [Norvasc] 10 mg PO DAILY 09/15/18 11/12/20 Aspirin [Aspirin EC] 81 mg PO DAILY 04/28/19 11/12/20 Albuterol Sulfate [Proair Hfa 1 - 2 puffs INH Q4H PRN #1 inhaler 05/01/19 11/12/20 Inhaler] Acetaminophen [Aphen] 325 mg PO PRN PRN 04/17/20 11/12/20 Folic Acid 1 mg PO DAILY tablet 11/17/20 Pramipexole [Mirapex] 0.25 mg PO TID #90 tablet 11/17/20 Terazosin [Hytrin] 1 mg PO QPM #30 cap 11/17/20 Thiamine [Vitamin B-1] 100 mg PO DAILY tablet 11/17/20 Tiotropium [place] [Spiriva] 1 puffs INH DAILY 30 Days #1 each 11/17/20 Albuterol Sulf [Ventolin Hfa 1 - 2 puffs INH Q4HR PRN #1 inhaler 02/22/21 Inhaler] diazePAM [Valium] 5 mg PO TID PRN #15 tablet 02/22/21 predniSONE [Deltasone] 60 mg PO DAILY 5 Days #15 tablet 02/22/21 - Allergies Allergies/Adverse Reactions: Allergies Allergy/AdvReac Type Severity Reaction Status Date / Time lisinopril Allergy Severe Anaphylaxis/Cardiac Verified 02/22/21 10:48 Arrest - Social History Does the pt smoke?: Yes Smoking Status: Current every day smoker Does the pt drink ETOH?: Yes Does the pt have substance abuse?: Yes - Immunizations Immunizations are current?: No - POLST Patient has POLST: No POLST Status: Full Code PD ED PE NORMAL - Vitals Vital signs reviewed: Yes - General General: Alert and oriented X 3, Other (Patient is disheveled and appears moderately anxious. Otherwise no apparent distress.) - HEENT HEENT: PERRL - Neck Neck: Supple, no meningeal sign - Cardiac Cardiac: RRR, No murmur, Strong equal pulses - Respiratory Respiratory: No respiratory distress, Clear bilaterally, Other (Patient speaking in full sentences, but does appear anxious. Respirations are mildly labored.) - Abdomen Abdomen: Soft, Non tender, Non distended - Derm Derm: Normal color, Warm and dry, No rash - Extremities Extremities: No deformity, No edema, No calf tenderness / cord - Neuro Neuro: Alert and oriented X 3, Other (Grossly intact) - Psych Psych: Normal mood, Normal affect Results - Vitals Vitals: Oxygen O2 Source Nasal cannula Oxygen Flow Rate 3 - EKG (time done) 1048 Rate: Rate (enter#) (120) Rhythm: Sinus tachycardia, Other (PVCs, occasional) Elizabeth: Normal Intervals: Normal [place] QRS: Normal Ischemia: Normal ST segments Compare to prior EKG: Old EKG unavailable Computer interpretation: Agree with computer - Labs Labs: Laboratory Tests 02/22/21 02/22/21 02/22/21 12:01 12:01 13:17 WBC 9.9 RBC 4.78 Hgb 14.8 Hct 42.4 MCV 88.7 MCH 31.0 MCHC 34.9 RDW 14.6 Plt Count 188 MPV 9.9 Neut # (Auto) 8.1 H Lymph # (Auto) 1.3 L [place] # (Auto) 0.6 Eos # (Auto) 0.0 Baso # (Auto) 0.0 Absolute Nucleated RBC 0.00 Nucleated RBC % 0.0 Sodium 134 L Potassium 3.3 L Chloride 94 L Carbon Dioxide 24 Anion Gap 16.0 H BUN 26 H Creatinine 1.2 Estimated GFR (MDRD) 61 L Glucose 126 H Calcium 8.4 L Total Bilirubin 1.1 H AST 83 H ALT 49 Alkaline Phosphatase 84 Total Protein 7.5 Albumin 3.8 Globulin 3.7 Albumin/Globulin Ratio 1.0 Lipase 28 Nasal Adenovirus (PCR) NOT DETECTED Nasal B. parapertussis DNA (PCR) NOT DETECTED Nasal Coronavir 229E PCR NOT DETECTED Nasal Coronavir HKU1 PCR NOT DETECTED Nasal Coronavir NL63 PCR NOT DETECTED Nasal Coronavir OC43 PCR NOT DETECTED Nasal Enterovir/Rhinovir PCR NOT DETECTED Nasal Influenza B PCR NOT DETECTED Nasal Influenza A PCR NOT DETECTED Nasal Parainfluen 1 PCR NOT DETECTED Nasal Parainfluen 2 PCR NOT DETECTED Nasal Parainfluen 3 PCR NOT DETECTED Nasal Parainfluen 4 PCR NOT DETECTED Nasal RSV (PCR) NOT DETECTED Nasal B.pertussis DNA PCR NOT DETECTED Nasal C.pneumoniae (PCR) NOT DETECTED Kailash Human Metapneumo PCR NOT DETECTED Nasal M.pneumoniae (PCR) NOT DETECTED Nasal SARS-CoV-2 (PCR) NOT DETECTED Ethyl Alcohol < 5.0 - Rads (name of study) Chest x-ray Radiology: Final report received, EMP read indepedently, See rad report (Negati ve) PD MEDICAL DECISION MAKING - ED course Complexity details: reviewed results, re-evaluated patient, considered differential, d/w patient ED course: The patient was worked up with labs, EKG, and chest x-ray. He was treated with phenobarbital and IV fluids. The patient's chest x-ray was actually unremark able, and labs were as well. His alcohol level is negative and respiratory PCR was also negative. EKG showed sinus tachycardia with some PVCs. The patient was found to be doing better after treatment. His oxygen saturation was good throughout his entire stay on his normal amount of oxygen, and I felt the patient was stable for discharge home. I am treating him with a course of steroids for his COPD exacerbation and have refilled his albuterol inhaler. I am also giving him a prescription for benzodiazepines for the next few days to help with his alcohol withdrawal. I have cautioned him not to drink while taking these. We have discussed home management of the symptoms as well as the usual indications for return. Departure - Departure Disposition: 01 Home, Self Care Clinical Impression: Alcohol withdrawal Qualifiers: Complication of substance-induced condition: uncomplicated Qualified Code(s): F10.230 - Alcohol dependence with withdrawal, uncomplicated COPD (chronic obstructive pulmonary disease) Qualifiers: COPD type: unspecified COPD Qualified Code(s): J44.9 - Chronic obstructive pulmonary disease, unspecified Condition: Stable Instructions: COPD Dc, ED Withdrawal Alcohol Prescriptions: Albuterol Sulf [Ventolin Hfa Inhaler] 1 - 2 puffs INH Q4HR PRN #1 inhaler PRN Reason: Shortness Of Air/Wheezing predniSONE [Deltasone] 60 mg PO DAILY 5 Days #15 tablet diazePAM [Valium] 5 mg PO TID PRN #15 tablet PRN Reason: Spasms Comments: Your chest x-ray actually looks good. Your oxygen levels have been acceptable on the amount of oxygen that you are normally on at home, and slightly less. There is no evidence of a lung infection at this time. Your Covid test is negative. You seem to be having a flare of your COPD, and had been treated with steroids for this. We will refill your albuterol inhaler also, as well as put you on a home course of steroids. We will also give you a 3-day course of medication for alcohol withdrawal. You have been treated for this in the emergency department as well. You should not take the medication if you are d rinking alcohol, so if you decide to drink, then you will need to stop taking the withdrawal medication. Your prescriptions have been electronically transmitted to [facility] pharmacy in [place]. Discharge Date/Time: 02/22/21 16:13
[2021-02-22 14:33] LABS: B. PARAPERTUSSIS- RESP PCR PAN NOT DETECTED; B. PERTUSSIS- RESP PCR PANEL NOT DETECTED; C. PNEUMONIAE- RESP PCR PANEL NOT DETECTED; CORONAVIRUS 229E-RESP PCR NOT DETECTED; CORONAVIRUS HKU1-RESP PCR NOT DETECTED; CORONAVIRUS NL63-RESP PCR NOT DETECTED; CORONAVIRUS OC43-RESP PCR NOT DETECTED; HUMAN METAPNEUMOVIRUS NOT DETECTED; INFLUENZA A- RESP PCR PANEL NOT DETECTED; INFLUENZA B - RESP PCR PANEL NOT DETECTED; M. PNEUMONIAE- RESP PCR PANEL NOT DETECTED; PARAINFLUENZA VIRUS 1 NOT DETECTED; PARAINFLUENZA VIRUS 2 NOT DETECTED; PARAINFLUENZA VIRUS 3 NOT DETECTED; PARAINFLUENZA VIRUS 4 NOT DETECTED; RHINOVIRUS/ENTEROVIRUS NOT DETECTED; RSV- RESP PCR PANEL NOT DETECTED; SARS-CoV-2 -RESP PCR PANEL NOT DETECTED
[2021-02-22] MEDS ORDERED: LORazepam 2 MG/ML VIAL IVP STA (15:31)
[2021-02-22] MEDS ORDERED: DEXAMETHASONE 10 MG/ML VIAL IV STA (15:31)
[2021-02-22 16:13] VITALS: BP 154/64
== END 2021-02-22 16:13 | disposition home or self-care (01) ==
LOC: EDUNIT# → ED 10:29
DX: F10.230 Alcohol dependence with withdrawal, uncomplicated (principal); J44.9 Chronic obstructive pulmonary disease, unspecified; Z99.81 Dependence on supplemental oxygen; R00.0 Tachycardia, unspecified; I10 Essential (primary) hypertension; F17.200 Nicotine dependence, unspecified, uncomplicated
CPT/HCPCS: 36415; 71045; 80053; 83690; 85025; 87631; 93005; 96374; 96375; 99284; 99285; G0480; J2060; 0202U; 80320

== ENCOUNTER 2021-08-23 08:51 | Outpatient (CLI) | payer MEDICARE, MEDICAID ==
[2021-08-23 10:46] LABS: BASOPHILS % (AUTO) 0.2 %; EOSINOPHILS % (AUTO) 0.7 %; LYMPHOCYTES # (AUTO) 1.5 10^3/uL (1.5-3.5); LYMPHOCYTES % (AUTO) 25.2 %; MEAN CORPUSCULAR HGB CONC 31.8 g/dL (32.0-36.0); MEAN CORPUSCULAR VOLUME 97.6 fL (80.0-94.0); MEAN PLATELET VOLUME 9.7 fL (7.4-11.4); MONOCYTES # (AUTO) 0.6 10^3/uL (0.0-1.0); NEUTROPHILS # (AUTO) 3.7 10^3/uL (1.5-6.6); NEUTROPHILS % (AUTO) 62.4 %; PLT - PLATELET COUNT 283 10^3/uL (130-450); RED BLOOD COUNT 4.51 10^6/uL (4.70-6.10); RED CELL DISTRIBUTION WIDTH 15.5 % (12.0-15.0); WHITE BLOOD COUNT 5.8 x10^3/uL (4.8-10.8)
[2021-08-23 11:05] LABS: ALBUMIN 3.9 g/dL (3.2-5.5); ALKALINE PHOSPHATASE 100 IU/L (42-121); ALT ALANINE AMINOTRANSFERASE 12 IU/L (10-60); AST ASPARTATE AMINOTRANSFERASE 18 IU/L (10-42); BILIRUBIN,TOTAL 0.6 mg/dL (0.2-1.0); BUN - BLOOD UREA NITROGEN 11 mg/dL (6-20); CALCIUM 8.9 mg/dL (8.5-10.3); CARBON DIOXIDE - CO2 31 mmol/L (21-32); CHLORIDE 98 mmol/L (101-111); CHOL/HDL RATIO 2.7 (<5.0); CHOLESTEROL 167 mg/dL; CREATININE 0.7 mg/dL (0.6-1.2); GFR - MDRD 114 (>89); GLUCOSE 108 mg/dL (70-100); HDL CHOLESTEROL 61 mg/dL; LDL CHOLESTEROL,CALCULATED 88 mg/dL; LDL/HDL RATIO 1.4 (<3.6); POTASSIUM 4.1 mmol/L (3.5-5.0); SODIUM 137 mmol/L (135-145); TOTAL PROTEIN 7.9 g/dL (6.7-8.2); TRIGLYCERIDES 92 mg/dL; VLDL CHOLESTEROL 18 mg/dL
[2021-08-23 11:16] LABS: THYROID STIMULATING HORMONE 0.42 uIU/mL (0.34-5.60)
--- NOTE | 2021-08-23 11:46 | MRI Report ---
PROCEDURE: Shoulder LT W/O INDICATIONS: LEFT AND RIGHT ROTATOR CUFF SYNDROME TECHNIQUE: Noncontrast oblique coronal T2 fast spin echo with fat saturation, oblique sagittal T1 spin echo and T2 fast spin echo with fat saturation, axial T1 spin echo and T2 fast spin echo with fat saturation t hrough the shoulder. COMPARISON: None. FINDINGS: Image quality: Degraded by motion artifact. Rotator cuff: There is full-thickness tearing of the entire supraspinatus tendon with medial retracti on and atrophy. Full-thickness tearing of the anterior infraspinatus tendon is present. There is asso ciated infraspinatus atrophy. There is full-thickness tearing of the mid/superior aspect of the subsc apularis tendon, associated with subscapularis atrophy. Teres minor tendon is intact. Bones and bursae: No bone marrow contusions or fractures. Moderate glenohumeral and acromioclavicula r joint degeneration. The acromion demonstrates conventional anatomy, without an os acromiale. No p athologic subacromial/subdeltoid bursal fluid is present. Capsule and soft tissues: Diffuse tearing of the glenoid labrum is present. Biceps tendon is not well seen proximally, suggestive of tearing. The rotator interval appears normal, without fibrosis. The coracohumeral ligament is normal in thickness. IMPRESSION: 1. Full-thickness tearing of the supraspinatus, anterior infraspinatus, and subscapularis tendons as described above, associated with atrophy. 2. Acromioclavicular joint osteoarthritis. 3. Diffuse glenoid labral tearing. 4. Biceps tendon tear. Reviewed by: Arie Nuñez MD on 08/23/2021 11:45 AM PDT Approved by: Arie Nuñez MD on 08/23/2021 11:45 AM PDT Station ID: [id number]
--- NOTE | 2021-08-23 16:28 | MRI Report ---
PROCEDURE: Shoulder RT W/O INDICATIONS: LEFT AND RIGHT ROTATOR CUFF SYNDROME TECHNIQUE: Noncontrast oblique coronal T2 fast spin echo with fat saturation, oblique sagittal T1 spin echo and T2 fast spin echo with fat saturation, axial T1 spin echo and T2 fast spin echo with fat saturation t hrough the shoulder. COMPARISON: None. FINDINGS: Image quality: Excellent. Rotator cuff: Full thickness tearing of the entire supraspinatus tendon with medial retraction and at rophy. Full-thickness tearing of the mid and anterior infraspinatus tendon associated with medial ret raction and atrophy of the infraspinatus. Moderate grade partial-thickness bursal surface and intrasu bstance tearing of the posterior infraspinatus tendon. The subscapularis tendon demonstrates full thi ckness tearing, with medial retraction and atrophy. Teres minor tendon is intact. Bones and bursae: No bone marrow contusions or fractures. Moderate glenohumeral and acromioclavicula r joint degeneration. There are a few adjacent well-corticated osseous structures adjacent to the dis ellis acromion on, collectively spanning roughly 40 mm anteroposterior, consistent with os acromiale va riation versus chronic ununited fracture fragments. No pathologic subacromial/subdeltoid bursal flui d is present. Capsule and soft tissues: Diffuse glenoid labral tearing is present. Proximal biceps tendon is not we ll seen. Split-type tearing of the biceps tendon within the bicipital groove is present. The rotator interval appears normal, without fibrosis. The coracohumeral ligament is normal in thickness. IMPRESSION: 1. Full-thickness tearing of the supraspinatus, subscapularis, and most of the infraspinatus tendons associated with atrophy. 2. Os acromiale variation versus ununited fracture fragments. 3. Acromioclavicular joint osteoarthritis. 4. Diffuse glenoid labral tearing. 5. Biceps tendon tearing as above. Reviewed by: Arie Nuñez MD on 08/23/2021 4:26 PM PDT Approved by: Arie Nuñez MD on 08/23/2021 4:26 PM PDT Station ID: [id number]
== END 2021-08-23 08:52 | disposition home or self-care (01) ==
LOC: DI 08:51
PROVIDERS: ATTEND Registered Nurse
DX: M75.122 Complete rotator cuff tear or rupture of left shoulder, not specified as traumatic (principal); M19.012 Primary osteoarthritis, left shoulder; S46.212A Strain of muscle, fascia and tendon of other parts of biceps, left arm, initial encounter; Z12.5 Encounter for screening for malignant neoplasm of prostate; I10 Essential (primary) hypertension; S43.492A Other sprain of left shoulder joint, initial encounter
CPT/HCPCS: 36415; 73221; 80053; 80061; 84443; 85025; G0103; 83721; 84153

== ENCOUNTER 2021-09-18 10:15 | Emergency (ER) | payer MEDICAID, MEDICARE ==
--- NOTE | 2021-09-18 10:57 | XRAY Report ---
PROCEDURE: Chest 1 View X-Ray INDICATIONS: Chest pain TECHNIQUE: One view of the chest was acquired. COMPARISON: CXR 02/22/21 FINDINGS: Surgical changes and devices: None. Lungs and pleura: Minimal left costophrenic angle blunting. Minimal increased vascularity. Mediastinum: Mediastinal contours appear normal. Heart size is enlarged. Bones and chest wall: No suspicious bony lesions. Overlying soft tissues appear unremarkable. IMPRESSION: Mild increased vascularity suggestive of edema. Trace left effusion. Reviewed by: Sherin Emerson MD on 09/18/2021 10:56 AM PDT Approved by: Sherin Emerson MD on 09/18/2021 10:56 AM PDT Station ID: [id number]
[2021-09-18 10:59] LABS: BASOPHILS % (AUTO) 0.4 %; EOSINOPHILS # (AUTO) 0.3 10^3/uL (0.0-0.7); EOSINOPHILS % (AUTO) 4.9 %; HGB - HEMOGLOBIN 13.5 g/dL (14.0-18.0); LYMPHOCYTES # (AUTO) 1.3 10^3/uL (1.5-3.5); LYMPHOCYTES % (AUTO) 22.6 %; MEAN CORPUSCULAR HEMOGLOBIN 31.5 pg (27.0-31.0); MEAN CORPUSCULAR HGB CONC 32.9 g/dL (32.0-36.0); MEAN CORPUSCULAR VOLUME 95.8 fL (80.0-94.0); MEAN PLATELET VOLUME 9.6 fL (7.4-11.4); MONOCYTES # (AUTO) 0.6 10^3/uL (0.0-1.0); MONOCYTES % (AUTO) 11.1 %; NEUTROPHILS # (AUTO) 3.4 10^3/uL (1.5-6.6); NEUTROPHILS % (AUTO) 60.6 %; PLT - PLATELET COUNT 295 10^3/uL (130-450); RED BLOOD COUNT 4.28 10^6/uL (4.70-6.10); RED CELL DISTRIBUTION WIDTH 14.5 % (12.0-15.0); WHITE BLOOD COUNT 5.7 x10^3/uL (4.8-10.8)
[2021-09-18 11:16] LABS: ALBUMIN 3.7 g/dL (3.2-5.5); ALBUMIN/GLOBULIN RATIO 0.9 (1.0-2.2); BILIRUBIN,TOTAL 0.2 mg/dL (0.2-1.0); CREATININE 0.6 mg/dL (0.6-1.2); TOTAL PROTEIN 7.6 g/dL (6.7-8.2)
[2021-09-18] MEDS ORDERED: FUROSEMIDE 20 MG TABLET PO STA (11:37)
--- NOTE | 2021-09-18 11:42 | ED Physician Documentation ---
History of Present Illness - Stated complaint Stated Complaint: BILAT FEET SWOLLEN - Chief complaint Chief Complaint: Ext Problem - History obtained from History obtained from: Patient - Additonal information Additional information: Patient comes emergency complaining of bilateral foot swelling. States has been going on for about a week. No shortness of breath that is worse than normal. No chest pain. Patient denies any fevers or chills. He has a history of COPD and CHF. Review of Systems Ten Systems: 10 systems reviewed and negative Constitutional: reports: Reviewed and negative Eyes: reports: Reviewed and negative Ears: reports: Reviewed and negative Nose: reports: Reviewed and negative Throat: reports: Reviewed and negative Cardiac: reports: Reviewed and negative Respiratory: reports: Reviewed and negative GI: reports: Reviewed and negative : reports: Reviewed and negative Skin: reports: Reviewed and negative Musculoskeletal: reports: Extremity swelling Neurologic: reports: Reviewed and negative Psychiatric: reports: Reviewed and negative Endocrine: reports: Reviewed and negative Immunocompromised: reports: Reviewed and negative PD PAST MEDICAL HISTORY - Past Medical History Cardiovascular: Hypertension, Arrhythmia Respiratory: COPD, Pneumonia, Shortness of breath Neuro: None Endocrine/Autoimmune: None GI: Cirrhosis, Other : None Psych: None Musculoskeletal: Chronic back pain, Other Derm: None - Past Surgical History Past Surgical History: Yes Ortho: Spine surgery HEENT: Other - Present Medications Home Medications: Ambulatory Orders Medication Instructions Recorded Confirmed Amlodipine Besylate [Norvasc] 10 mg PO DAILY 09/15/18 11/12/20 Aspirin [Aspirin EC] 81 mg PO DAILY 04/28/19 11/12/20 Albuterol Sulfate [Proair Hfa 1 - 2 puffs INH Q4H PRN #1 inhaler 05/01/19 11/12/20 Inhaler] Acetaminophen [Aphen] 325 mg PO PRN PRN 04/17/20 11/12/20 Folic Acid 1 mg PO DAILY tablet 11/17/20 Pramipexole [Mirapex] 0.25 mg PO TID #90 tablet 11/17/20 Terazosin [Hytrin] 1 mg PO QPM #30 cap 11/17/20 Thiamine [Vitamin B-1] 100 mg PO DAILY tablet 11/17/20 Tiotropium [place] [Spiriva] 1 puffs INH DAILY 30 Days #1 each 11/17/20 Albuterol Sulf [Ventolin Hfa 1 - 2 puffs INH Q4HR PRN #1 inhaler 02/22/21 Inhaler] diazePAM [Valium] 5 mg PO TID PRN #15 tablet 02/22/21 predniSONE [Deltasone] 60 mg PO DAILY 5 Days #15 tablet 02/22/21 Furosemide [Lasix] 20 mg PO DAILY #14 tablet 09/18/21 - Allergies Allergies/Adverse Reactions: Allergies Allergy/AdvReac Type Severity Reaction Status Date / Time lisinopril Allergy Severe Anaphylaxis/Cardiac Verified 09/18/21 10:19 Arrest - Social History Does the pt smoke?: Yes Smoking Status: Current every day smoker Does the pt drink ETOH?: Yes Does the pt have substance abuse?: Yes - Immunizations Immunizations are current?: No - POLST Patient has POLST: No POLST Status: Full Code PD ED PE NORMAL - Vitals Vital signs reviewed: Yes - General General: Alert and oriented X 3, No acute distress, Well developed/nourished - HEENT HEENT: Atraumatic, PERRL, EOMI, Moist mucous membranes - Neck Neck: Supple, no meningeal sign - Cardiac Cardiac: RRR, No murmur, Strong equal pulses - Respiratory Respiratory: No respiratory distress, Clear bilaterally - Abdomen Abdomen: Soft, Non tender, Non distended - Derm Derm: Normal color, Warm and dry, No rash - Extremities Extremities: No deformity, Other (1+ pitting edema bilateral lower extremities equally.) - Neuro Neuro: Alert and oriented X 3, fireproof door maker 2-12 intact, Normal speech - Psych Psych: Normal mood, Normal affect Results - Vitals Vitals: Vital Signs - 24 hr 09/18/21 09/18/21 10:19 11:56 Temperature 37.2 C 36.6 C Heart Rate 86 79 Respiratory 26 H 24 Rate Blood Pressure 119/65 150/98 H O2 Saturation 98 92 Oxygen O2 Source Room air - Labs Labs: Laboratory Tests 09/18/21 09/18/21 09/18/21 10:52 10:52 10:52 WBC 5.7 RBC 4.28 L Hgb 13.5 L Hct 41.0 L MCV 95.8 H MCH 31.5 H MCHC 32.9 RDW 14.5 Plt Count 295 MPV 9.6 Neut # (Auto) 3.4 Lymph # (Auto) 1.3 L [place] # (Auto) 0.6 Eos # (Auto) 0.3 Baso # (Auto) 0.0 Absolute Nucleated RBC 0.00 Nucleated RBC % 0.0 Sodium 137 Potassium 4.0 Chloride 98 L Carbon Dioxide 28 Anion Gap 11.0 BUN 8 Creatinine 0.6 Estimated GFR (MDRD) 137 Glucose 100 Calcium 9.0 Total Bilirubin 0.2 AST 29 ALT 28 Alkaline Phosphatase 76 Troponin I High Sens 13.2 Total Protein 7.6 Albumin 3.7 Globulin 3.9 Albumin/Globulin Ratio 0.9 L Lipase 25 - Rads (name of study) Chest x-ray Radiology: Final report received, EMP read indepedently, See rad report (Mild vascular congestion/edema) PD MEDICAL DECISION MAKING - ED course Complexity details: reviewed results, re-evaluated patient, considered differential, d/w patient ED course: The patient was worked up with labs, EKG, and chest x-ray. Labs were unremarkable. Chest x-ray showed possible mild CHF. The patient did not feel any worse than usual and I felt that he could be treated with oral diuretics. He was given a dose of Lasix 40 mg here. We have discussed elevation and use of pressure stockings. Discussed the need for follow-up and the usual indications for return. Patient has been prescribed a 2-week supply of 20 mg Lasix tablets. Departure - Departure Disposition: 01 Home, Self Care Clinical Impression: Dependent edema Condition: Stable Instructions: ED Edema Legs Bilateral Prescriptions: Furosemide [Lasix] 20 mg PO DAILY #14 tablet Comments: Your labs look good overall. Your chest x-ray shows some mild enlargement of the vessels in your chest but no evidence of pneumo or a severe buildup of fluid. It is important while your feet are swollen that you prop your legs up whenever you are sitting down. This will help drain some of the fluid out of your legs. When you are laying down in bed at night, you may prop your legs up on a couple of pillows to help drain the swelling, as well. Please take the water pill every day for the next couple of weeks and call your primary doctor to set a follow-up appointment for reevaluation. Your prescription has been electronically transmitted to [facility] pharmacy in [place]. Discharge Date/Time: 09/18/21 12:07
[2021-09-18 11:56] VITALS: BP 150/98
== END 2021-09-18 12:07 | disposition home or self-care (01) ==
LOC: ED 10:15
DX: R60.0 Localized edema (principal); I10 Essential (primary) hypertension; F17.200 Nicotine dependence, unspecified, uncomplicated
CPT/HCPCS: 36415; 71045; 80053; 83690; 84484; 85025; 93005; 99283; 99284; A9270

== ENCOUNTER 2021-10-01 08:00 | Outpatient (CLI) | payer MEDICARE ==
--- NOTE | 2021-10-01 16:55 | XRAY Report ---
PROCEDURE: Shoulder 3 View BILAT INDICATIONS: SHOULDER PX BILAT TECHNIQUE: 4 views of the shoulder were acquired. COMPARISON: None. FINDINGS: Bones: Moderate to severe left acromioclavicular joint and glenohumeral joint osteoarthritic changes are seen. Severe right glenohumeral joint and acromioclavicular joint osteoarthritic changes also no zane. No acute fractures or dislocations. Exostosis involving lateral aspect of right proximal humeral shaft just inferior to the greater tuberosity is seen suggestive of old healed avulsion injury. No s uspicious bony lesions. Visualized ribs appear intact. Soft tissues: No suspicious soft tissue calcifications. IMPRESSION: 1. Right worse than left bilateral shoulder joint osteoarthritis as above. No acute fracture or dislo cation. 2. Suggestion of old injury involving right proximal humeral shaft with benign-appearing mixed exosto sis. Reviewed by: Andrea Copeland MD on 10/01/2021 4:54 PM PDT Approved by: Andrea Copeland MD on 10/01/2021 4:54 PM PDT Station ID: [id number]
== END 2021-10-01 23:59 | disposition home or self-care (01) ==
LOC: DI.WOS 08:00
PROVIDERS: ATTEND Physician Assistant Surgical
DX: M19.012 Primary osteoarthritis, left shoulder (principal); M19.011 Primary osteoarthritis, right shoulder

== ENCOUNTER 2022-05-21 12:08 | Outpatient (CLI) | payer MEDICARE ==
--- NOTE | 2022-05-22 12:53 | Mammography Report ---
MALE BILATERAL DIGITAL DIAGNOSTIC MAMMOGRAM 3D/2D: 05/21/2022 CLINICAL: Occasional pain in both breasts. No prior exams were available for comparison. No significant masses, calcifications, or other findings are seen in either breast. IMPRESSION: BENIGN There is no mammographic evidence of malignancy. Moderate and symmetric bilateral gynecomastia. Nhung elate for potential pharmacological or hormonal causes. This exam was interpreted at Station ID: [id number]. NOTE: For mammograms, a report in lay terms will be sent to the patient. Approximately 15% of breast malignancies will not be visualized mammographically. In the management of a palpable breast mass, a negative mammogram must not discourage biopsy of a clinically suspicious lesion. Electronically Signed By: Timmy Haas M.D. jr/:05/21/2022 13:15:05 ACR BI-RADS Category 2: Benign Finding(s) 3342F PARENCHYMAL PATTERN: (D) - The breast(s) demonstrate(s) heterogeneously dense fibroglandular parenchy ma. BI-RADS CATEGORY: (2) - 2 Unspecified - other recall n/a LATERALITY: (B)
== END 2022-05-21 12:09 | disposition home or self-care (01) ==
LOC: DI 12:08
PROVIDERS: ATTEND Registered Nurse
DX: N62 Hypertrophy of breast (principal); N63.0 Unspecified lump in unspecified breast

== ENCOUNTER 2022-05-30 13:48 | Outpatient (CLI) | payer MEDICARE ==
[2022-05-30 14:05] LABS: BASOPHILS % (AUTO) 0.4 %; EOSINOPHILS % (AUTO) 0.4 %; HCT - HEMATOCRIT 42.6 % (42.0-52.0); HGB - HEMOGLOBIN 13.5 g/dL (14.0-18.0); LYMPHOCYTES # (AUTO) 1.2 10^3/uL (1.5-3.5); LYMPHOCYTES % (AUTO) 14.8 %; MEAN CORPUSCULAR HEMOGLOBIN 30.1 pg (27.0-31.0); MEAN CORPUSCULAR HGB CONC 31.7 g/dL (32.0-36.0); MEAN CORPUSCULAR VOLUME 95.1 fL (80.0-94.0); MEAN PLATELET VOLUME 9.6 fL (7.4-11.4); MONOCYTES # (AUTO) 0.8 10^3/uL (0.0-1.0); MONOCYTES % (AUTO) 9.6 %; NEUTROPHILS # (AUTO) 5.9 10^3/uL (1.5-6.6); NEUTROPHILS % (AUTO) 73.8 %; PLT - PLATELET COUNT 318 10^3/uL (130-450); RED BLOOD COUNT 4.48 10^6/uL (4.70-6.10); RED CELL DISTRIBUTION WIDTH 16.9 % (12.0-15.0)
[2022-05-30 14:25] LABS: ALBUMIN 3.2 g/dL (3.2-5.5); ALBUMIN/GLOBULIN RATIO 0.7 (1.0-2.2); BILIRUBIN,TOTAL 0.3 mg/dL (0.2-1.0); CALCIUM 8.8 mg/dL (8.5-10.3); CREATININE 0.8 mg/dL (0.6-1.2); POTASSIUM 3.8 mmol/L (3.5-5.0)
--- NOTE | 2022-05-30 16:43 | XRAY Report ---
PROCEDURE: Chest 2 View X-Ray INDICATIONS: COUGH TECHNIQUE: 2 views of the chest were acquired. COMPARISON: Plain films dated 09/18/2021 FINDINGS: Surgical changes and devices: None. Lungs and pleura: No pleural effusions or pneumothorax. Moderate diffuse reticulonodular pulmonary o pacity. Mediastinum: Mediastinal contours are normal. Heart size is normal. Bones and chest wall: No suspicious bony abnormalities. Soft tissues appear unremarkable. IMPRESSION: Moderate atypical pneumonia. Reviewed by: Arie Nuñez MD on 05/30/2022 4:41 PM PST Approved by: Arie Nuñez MD on 05/30/2022 4:41 PM PST Station ID: [id number]
[2022-06-01 05:12] LABS: HCV AB Non Reactive (Non Reactive)
== END 2022-05-30 13:49 | disposition home or self-care (01) ==
LOC: DI 13:48
PROVIDERS: ATTEND Internal Medicine
DX: J18.9 Pneumonia, unspecified organism (principal); R60.0 Localized edema; R09.02 Hypoxemia; Z11.59 Encounter for screening for other viral diseases
CPT/HCPCS: 36415; 80053; 85025; 86803

== ENCOUNTER 2022-07-23 15:14 | Outpatient (CLI) | payer MEDICARE ==
[2022-07-23 16:51] LABS: CALCIUM 9.4 mg/dL (8.5-10.3); CREATININE 0.8 mg/dL (0.6-1.2)
== END 2022-07-23 15:15 | disposition home or self-care (01) ==
LOC: LAB 15:14
PROVIDERS: ATTEND Registered Nurse
DX: R73.9 Hyperglycemia, unspecified (principal)
CPT/HCPCS: 36415; 80048

== ENCOUNTER 2022-08-29 15:36 | Outpatient (CLI) | payer MEDICARE ==
[2022-08-29 16:07] LABS: CALCIUM 9.1 mg/dL (8.5-10.3); CREATININE 0.8 mg/dL (0.6-1.2); POTASSIUM 3.7 mmol/L (3.5-5.0)
== END 2022-08-29 15:37 | disposition home or self-care (01) ==
LOC: LAB 15:36
PROVIDERS: ATTEND Registered Nurse
DX: R60.0 Localized edema (principal)
CPT/HCPCS: 36415; 80048; 83880

== ENCOUNTER 2022-10-23 13:12 | Outpatient (CLI) | payer MEDICARE ==
[2022-10-23] MEDS ORDERED: ALBUTEROL 1 PUFF INH STA (15:17)
== END 2022-10-23 13:13 | disposition home or self-care (01) ==
LOC: RT 13:12
PROVIDERS: ATTEND Registered Nurse
DX: J44.9 Chronic obstructive pulmonary disease, unspecified (principal)
CPT/HCPCS: 94060; 94729

== ENCOUNTER 2023-05-19 12:49 | Outpatient (CLI) | payer MEDICARE ==
--- NOTE | 2023-05-20 08:18 | CT Report ---
PROCEDURE: Lung Cancer Screen INDICATIONS: CURRENT SMOKER, HX OF COPD TECHNIQUE: A CT scan of the chest was performed. Intravenous contrast media was not administered. Images were re corded and evaluated at appropriate window settings. Reformats: axial MIP of the chest, coronal and s agittal. For radiation dose reduction, the following was used: automated exposure control, adjustment of mA and/or kV according to patient size. COMPARISON: None. FINDINGS: Image quality: Excellent. Prior cancer history: None Lungs and pleura: Severe emphysematous lung changes especially in the upper lungs. No pleural effusio ns. No pneumothorax. No suspicious pulmonary nodules which require follow up. Bibasilar atelectatic changes are seen. Mediastinum: Heart size is normal. No pericardial effusion. No large vessel abnormality. No mediastin al adenopathy by size criteria noting limitations of this study with no IV contrast. Chest wall and lower neck: Thyroid is unremarkable. No axillary or supraclavicular adenopathy by size . Bones: Severe DJD, scoliosis and fusion of the thoracic spine.. Upper Abdomen: Unremarkable. IMPRESSION: Mild atelectatic changes in both bases. Lung RAD: 2. Benign. Recommendation: Continue LDCT in 12 months if qualifies. Non-Lung Significant Findings: . Fusion of the thoracic spine, with osteopenia and degenerative disc disease, correlate with ankylosin g spondylitis Reviewed by: Homero Mayes MD on 05/20/2023 8:17 AM PST Approved by: Homero Mayes MD on 05/20/2023 8:17 AM PST Station ID: [id number]
== END 2023-05-19 12:50 | disposition home or self-care (01) ==
LOC: DI 12:49
PROVIDERS: ATTEND Registered Nurse
DX: J98.11 Atelectasis (principal); J44.9 Chronic obstructive pulmonary disease, unspecified; F17.200 Nicotine dependence, unspecified, uncomplicated

== ENCOUNTER 2023-06-16 13:45 | Outpatient (CLI) | payer MEDICARE ==
[2023-06-16 14:10] LABS: CALCIUM 9.2 mg/dL (8.5-10.3); POTASSIUM 3.9 mmol/L (3.5-4.5)
== END 2023-06-16 13:46 | disposition home or self-care (01) ==
LOC: LAB 13:45
PROVIDERS: ATTEND Internal Medicine Cardiovascular Disease
DX: I50.20 Unspecified systolic (congestive) heart failure (principal)
CPT/HCPCS: 36415; 80048

== ENCOUNTER 2023-08-25 10:23 | Outpatient (CLI) | payer MEDICARE ==
[2023-08-25 10:48] LABS: BASOPHILS % (AUTO) 0.2 %; EOSINOPHILS # (AUTO) 0.1 10^3/uL (0.0-0.7); EOSINOPHILS % (AUTO) 1.5 %; HCT - HEMATOCRIT 41.5 % (42.0-52.0); HGB - HEMOGLOBIN 13.1 g/dL (14.0-18.0); LYMPHOCYTES # (AUTO) 1.5 10^3/uL (1.5-3.5); LYMPHOCYTES % (AUTO) 24.1 %; MEAN CORPUSCULAR HGB CONC 31.6 g/dL (32.0-36.0); MEAN PLATELET VOLUME 10.3 fL (7.4-11.4); MONOCYTES # (AUTO) 0.7 10^3/uL (0.0-1.0); MONOCYTES % (AUTO) 11.7 %; NEUTROPHILS # (AUTO) 3.8 10^3/uL (1.5-6.6); NEUTROPHILS % (AUTO) 62.3 %; PLT - PLATELET COUNT 250 10^3/uL (130-450); RED BLOOD COUNT 4.37 10^6/uL (4.70-6.10); RED CELL DISTRIBUTION WIDTH 13.4 % (12.0-15.0); WHITE BLOOD COUNT 6.1 x10^3/uL (4.8-10.8)
[2023-08-25 11:03] LABS: ALBUMIN/GLOBULIN RATIO 1.1 (1.0-2.2); ALKALINE PHOSPHATASE 97 IU/L (42-121); ALT ALANINE AMINOTRANSFERASE 11 IU/L (10-60); AST ASPARTATE AMINOTRANSFERASE 19 IU/L (10-42); BILIRUBIN,TOTAL 0.4 mg/dL (0.2-1.0); BUN - BLOOD UREA NITROGEN 24 mg/dL (6-20); CALCIUM 9.3 mg/dL (8.5-10.3); CARBON DIOXIDE - CO2 26 mmol/L (21-32); CHLORIDE 105 mmol/L (101-111); CHOL/HDL RATIO 2.4 (<5.0); CHOLESTEROL 124 mg/dL; GFR - MDRD 75 (>89); GLUCOSE 101 mg/dL (74-104); HDL CHOLESTEROL 52 mg/dL; LDL CHOLESTEROL,CALCULATED 60 mg/dL; LDL/HDL RATIO 1.2 (<3.6); POTASSIUM 4.1 mmol/L (3.5-4.5); SODIUM 137 mmol/L (135-145); TOTAL PROTEIN 7.5 g/dL (6.4-8.9); TRIGLYCERIDES 61 mg/dL (48-352); VLDL CHOLESTEROL 12 mg/dL
[2023-08-25 11:18] LABS: THYROID STIMULATING HORMONE 1.58 uIU/mL (0.34-5.60)
== END 2023-08-25 10:24 | disposition home or self-care (01) ==
LOC: LAB 10:23
PROVIDERS: ATTEND Registered Nurse
DX: M79.89 Other specified soft tissue disorders (principal); R94.39 Abnormal result of other cardiovascular function study; Z13.228 Encounter for screening for other metabolic disorders; Z13.220 Encounter for screening for lipoid disorders; Z13.29 Encounter for screening for other suspected endocrine disorder; Z13.0 Encounter for screening for diseases of the blood and blood-forming organs and certain disorders involving the immune mechanism; I50.9 Heart failure, unspecified
CPT/HCPCS: 36415; 80053; 80061; 83721; 83880; 84153; 84443; 85025